=== PATIENT | female | born 1995 | race Caucasian/White ===

== ENCOUNTER 2023-07-09 10:13 | Emergency (ER) | payer OTHER, SELFPAY ==
[2023-07-09 10:18] VITALS: BP 100/71; PULSE 56; RESP 14; TEMP 36.7; O2SAT 100; BMI 18.5
--- NOTE | 2023-07-09 10:22 | ECG_ITS ---
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
--- NOTE | 2023-07-09 10:28 | XR_ITS ---
The [address] [address] Patient Name: PEYTON BALES MRN: [id number] date: 1995 Sex: F Assigned Patient Location: ER Current Patient Location: ER Accession/Order Number: [id number] Exam Date: 07/09/2023 10:50 Report Date: 07/09/2023 11:11 At the request of: APOLONIA HART Procedure: XR acute abdomen series EXAM: XR acute abdomen series HISTORY: chest pain, abdominal pain COMPARISON: CT angiography chest study dated 12/27/2021 TECHNIQUE: PA view of the chest was obtained. Supine and upright views of the abdomen were obtained. FINDINGS: Heart and mediastinal contours are unremarkable in appearance. No acute infiltrate or consolidations are seen. No obvious pneumothorax. Mild convexity of the dorsal spine to the right. A loop recorder is noted on the left. There is air seen in large and small bowel loops. Bowel gas pattern is grossly nonspecific. No evidence of bowel obstruction or free intraperitoneal air. No obvious pneumothorax. Mild convexity of the lumbar spine to the left. A few calcifications are seen overlying the pelvis compatible with phleboliths. XR/XR acute abdomen series IMPRESSION: No acute process seen in the chest. Grossly nonspecific abdomen. Electronically authenticated by: GLORIA LARES Date: 07/09/2023 11:11
--- NOTE | 2023-07-09 10:42 | ED.GENADUL1 ---
HPI - General Adult General Chief complaint: Abdominal Pain Stated complaint: CHEST PAIN/ABD PAIN Time Seen by Provider: 07/09/23 10:16 Source: patient Mode of arrival: walk-in History of Present Illness HPI narrative: Patient woke at 6am with mid sternal chest pain and nausea. No vomiting. She developed lower mid abdominal/suprapubic pain a few days ago but denied any urinary symptoms. She sees cardiology through [facility]. She denied chance of and had BTL. Related Data Home Medications Medication Instructions Recorded Confirmed flecainide 100 mg tablet 100 mg PO BID 07/09/23 07/09/23 verapamil 120 mg 24 hr 120 mg PO QPM 07/09/23 07/09/23 capsule,extended release Previous Rx's Medication Instructions Recorded nabumetone 750 mg tablet 750 mg PO BID PRN pain #14 tabs 07/09/23 ondansetron 4 mg disintegrating 4 mg PO Q6H PRN nausea and 07/09/23 tablet vomiting #20 tabs Allergies Allergy/AdvReac Type Severity Reaction Status Date / Time No Known Drug Allergies Allergy Verified 07/09/23 10:20 [facility] Medical History (Updated 07/09/23 @ 11:47 by Apolonia Hart) Bradycardia ?R00.1 - Bradycardia, unspecified (ICD-10) PVC (premature ventricular contraction) ?I49.3 - Ventricular premature depolarization (ICD-10) Exam Constitutional Vital Signs, click to edit/add: Last Vital Signs Temp 98.1 F 07/09/23 10:18 Pulse 56 L 07/09/23 10:18 Resp 14 07/09/23 10:18 BP 100/71 07/09/23 10:18 Pulse Ox 100 07/09/23 10:18 O2 Del Method Room Air 07/09/23 10:18 Course Vital Signs Vital signs: Vital Signs Temperature 98.1 F 07/09/23 10:18 Pulse Rate 56 L 07/09/23 10:18 Respiratory Rate 14 07/09/23 10:18 Blood Pressure 100/71 07/09/23 10:18 Pulse Oximetry 100 07/09/23 10:18 Oxygen Delivery Method Room Air 07/09/23 10:18 Temperature 98.1 F 07/09/23 10:18 Pulse Rate 56 L 07/09/23 10:18 Respiratory Rate 14 07/09/23 10:18 Blood Pressure 100/71 07/09/23 10:18 Pulse Oximetry 100 07/09/23 10:18 Oxygen Delivery Method Room Air 07/09/23 10:18 Medical Decision Making MDM Narrative Medical decision making narrative: 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 Blood drawn and sent for evaluation. Xrays of the chest and abdomen ordered. Urine sent for testing. CBC, CMP, EKG, CXR and Abd XRays did not reveal any worrisome findings. Patient declined offer for CT abd/pelvis. Patient felt better after ED treatment. She was discharged home with prescriptions for zofran and Relafen. Discussed soft bland diet until abdominal pain subsides. Lab Data Lab results reviewed: Yes I reviewed the patient's lab results Labs: Lab Results 07/09/23 07/09/23 Range/Units 10:00 10:34 WBC 4.6 (4.0-11.0) 10^3/uL RBC 4.46 (4.20-5.40) 10^6/uL Hgb 12.8 (12.0-16.0) g/dL Hct 39.2 (36.0-48.0) % MCV 87.9 (81.0-99.0) fL MCH 28.7 (26.7-34.0) pg MCHC 32.7 (29.9-35.2) g/dL RDW 12.0 (11.0-15.0) % Plt Count 279 (150-450) 10^3/uL MPV 8.8 L (9.5-13.5) fL Neut % (Auto) 60.6 (43.0-75.0) % Lymph % (Auto) 29.5 (20.5-60.0) % [place] % (Auto) 7.1 (1.7-12.0) % Eos % (Auto) 1.7 (0.9-7.0) % Baso % (Auto) 1.1 (0.2-2.0) % Neut # (Auto) 2.8 (1.4-6.5) 10^3/uL Lymph # (Auto) 1.4 (1.2-3.8) 10^3/uL [place] # (Auto) 0.3 (0.3-0.8) 10^3/uL Eos # (Auto) 0.1 (0.0-0.7) 10^3/uL Baso # (Auto) 0.1 (0.0-0.1) 10^3/uL Abs Immat Gran (auto) 0.00 (0.00-0.03) 10^3/uL Imm/Tot Granulo (auto) 0.0 (0.0-0.5) % Sodium 141 (136-145) mmol/L Potassium 3.9 (3.5-5.1) mmol/L Chloride 105 (98-107) mmol/L Carbon Dioxide 29.7 (21.0-32.0) mmol/L Anion Gap 10.2 BUN 11.0 (7.0-18.0) mg/dL Creatinine 0.65 (0.55-1.02) mg/dL Est GFR ( Amer) >60 (>=60) Est GFR (Non-Af Amer) >60 (>=60) BUN/Creatinine Ratio 16.9 Glucose 83 (74-106) mg/dL Calcium 8.7 (8.5-10.1) mg/dL Total Bilirubin 0.4 (0.2-1.0) mg/dL AST 7 L (15-37) U/L ALT 16 (14-59) U/L Alkaline Phosphatase 37 L (46-116) U/L Troponin I High Sens <4.0 L (4.0-51.3) pg/mL Total Protein 7.1 (6.4-8.2) g/dL Albumin 3.7 (3.4-5.0) g/dL Globulin 3.4 g/dL Albumin/Globulin Ratio 1.1 Lipase 23.0 (16.0-77.0) U/L Urine Color Yellow (YELLOW) Urine Clarity Clear (CLEAR) Urine pH 8.5 (5.0-9.0) Ur Specific [place] 1.015 (1.005-1.025) Urine Protein Trace (NEG/TRACE) mg/dL Urine Glucose (UA) Negative (NEGATIVE) mg/dL Urine Ketones Negative (NEGATIVE) mg/dL Urine Occult Blood Negative (NEGATIVE) Urine Nitrite Negative (NEGATIVE) Urine Bilirubin Negative (NEGATIVE) Urine Urobilinogen 0.2 (0.2-1.0) EU/dL Ur Leukocyte Esterase Negative (NEGATIVE) Imaging Data xrays abdomen and chest: Radiologist's impression: ITS Impressions Chest/Abdomen X-ray 07/09/23 10:28 IMPRESSION: No acute process seen in the chest. Grossly nonspecific abdomen. Electronically authenticated by: GLORIA LARES Date: 07/09/2023 11:11 Patient Name: PEYTON BALES MRN: [id number] date: 1995 Sex: F Assigned Patient Location: ER Current Patient Location: ER Accession/Order Number: [id number] Exam Date: 07/09/2023 10:50 Report Date: 07/09/2023 11:11 At the request of: APOLONIA HART Procedure: XR acute abdomen series EXAM: XR acute abdomen series HISTORY: chest pain, abdominal pain COMPARISON: CT angiography chest study dated 12/27/2021 TECHNIQUE: PA view of the chest was obtained. Supine and upright views of the abdomen were obtained. FINDINGS: Heart and mediastinal contours are unremarkable in appearance. No acute infiltrate or consolidations are seen. No obvious pneumothorax. Mild convexity of the dorsal spine to the right. A loop recorder is noted on the left. There is air seen in large and small bowel loops. Bowel gas pattern is grossly nonspecific. No evidence of bowel obstruction or free intraperitoneal air. No obvious pneumothorax. Mild convexity of the lumbar spine to the left. A few calcifications are seen overlying the pelvis compatible with phleboliths. IMPRESSION: No acute process seen in the chest. Grossly nonspecific abdomen. Electronically authenticated by: GLORIA LARES Date: 07/09/2023 11:11 Discharge Plan Discharge Chief Complaint: Abdominal Pain Clinical Impression: Abdominal pain, Chest pain Patient Disposition: Home, Self-Care Time of Disposition Decision: 11:47 Prescriptions / Home Meds: New nabumetone 750 mg tablet 750 mg PO BID PRN (Reason: pain) Qty: 14 0RF ondansetron 4 mg tablet,disintegrating 4 mg PO Q6H PRN (Reason: nausea and vomiting) Qty: 20 0RF No Action flecainide 100 mg tablet 100 mg PO BID verapamil 120 mg capsule,ext rel. pellets 24 hr 120 mg PO QPM Instructions: Chest Pain (ED), Acute Abdominal Pain (ED) Stand Alone Forms: Portal Instructions Referrals: Josette TONEY [Primary Care Provider] - 1 week
[2023-07-09 10:43] LABS: Basophils Absolute Auto 0.1 10^3/uL (0.0-0.1); Basophils Percent Auto 1.1 % (0.2-2.0); Eosinophils Absolute Auto 0.1 10^3/uL (0.0-0.7); Eosinophils Percent Auto 1.7 % (0.9-7.0); Hematocrit 39.2 % (36.0-48.0); Hemoglobin 12.8 g/dL (12.0-16.0); Lymphocytes Absolute Auto 1.4 10^3/uL (1.2-3.8); Lymphocytes Percent Auto 29.5 % (20.5-60.0); Mean Corpuscular HGB Conc 32.7 g/dL (29.9-35.2); Mean Corpuscular Hemoglobin 28.7 pg (26.7-34.0); Mean Corpuscular Volume 87.9 fL (81.0-99.0); Mean Platelet Volume 8.8 fL (9.5-13.5); Monocytes Absolute Auto 0.3 10^3/uL (0.3-0.8); Monocytes Percent Auto 7.1 % (1.7-12.0); Neutrophils Absolute Auto 2.8 10^3/uL (1.4-6.5); Neutrophils Percent Auto 60.6 % (43.0-75.0); Platelet Count 279 10^3/uL (150-450); Red Blood Count 4.46 10^6/uL (4.20-5.40); White Blood Count 4.6 10^3/uL (4.0-11.0)
[2023-07-09 10:58] LABS: Alanine Aminotransferase 16 U/L (14-59); Albumin Globulin Ratio 1.1; Albumin Level 3.7 g/dL (3.4-5.0); Alkaline Phosphatase 37 U/L (46-116); Anion Gap 10.2; Aspartate Amino Transferase 7 U/L (15-37); BUN Creatinine Ratio 16.9; Bilirubin Total 0.4 mg/dL (0.2-1.0); Calcium 8.7 mg/dL (8.5-10.1); Carbon Dioxide 29.7 mmol/L (21.0-32.0); Chloride 105 mmol/L (98-107); Estimated GFR (African America >60 (>=60); Estimated GFR (Non-African Ame >60 (>=60); Globulin 3.4 g/dL; Glucose 83 mg/dL (74-106); Potassium 3.9 mmol/L (3.5-5.1); Sodium 141 mmol/L (136-145); Total Protein 7.1 g/dL (6.4-8.2); Troponin I High Sensitivity <4.0 pg/mL (4.0-51.3)
[2023-07-09] MEDS: ONDANSETRON PF 4 MG/2 ML VIAL IV (10:58)
[2023-07-09] MEDS: 0.9 % SODIUM CHLORIDE 1,000 ML 999 ML IV (11:08)
[2023-07-09 11:35] LABS: Bilirubin Urine NEGATIVE (NEGATIVE); Blood Urine NEGATIVE (NEGATIVE); Clarity Urine CLEAR (CLEAR); Color Urine YELLOW (YELLOW); Glucose Urine UA NEGATIVE (NEGATIVE); Ketones Urine NEGATIVE (NEGATIVE); Leukocyte Esterase Urine NEGATIVE (NEGATIVE); Nitrite Urine NEGATIVE (NEGATIVE); Protein Urine TRACE mg/dL (NEG/TRACE); Specific Gravity Urine 1.015 (1.005-1.025); Urobilinogen Urine 0.2 EU/dL (0.2-1.0); pH Urine 8.5 (5.0-9.0)
[2023-07-09 11:40] LABS: Urine Microscopic Indicated NO
[2023-07-09] MEDS: KETOROLAC TROMETHAMINE 30 MG/ML VIAL IVP (11:40)
[2023-07-09] MEDS: HYOSCYAMINE SULFATE 0.125 MG TAB.SUBL SL (11:40)
== END 2023-07-09 11:54 | disposition home or self-care (01) ==
PROVIDERS: Emergency Provider Emergency Medicine; PCP Family Medicine
DX: R07.9 Chest pain, unspecified (principal); R10.9 Unspecified abdominal pain; Z79.899 Other long term (current) drug therapy
CPT/HCPCS: 36415; 74022; 80053; 81003; 83690; 84484; 85025; 93005; 96374; 96375; 99284; J1885; J2405

== ENCOUNTER 2024-01-08 08:40 | Emergency (ER) | payer OTHER, SELFPAY ==
[2024-01-08] VITALS (13 sets, daily range): BP systolic 99–106; BP diastolic 66–75; PULSE 54–58; TEMP 36.7; O2SAT 98–100; BMI 18.1
--- OUTSIDE RECORDS SUMMARY | 2024-01-08 08:55 | XMS_ITS | CCD ---
Author Organization [facility] Care Team Providers Care Philosophy Faculty Member Name Role Phone Jus Lopez Unavailable Josette HANDLEY Primary Care Physician Jus Lopez Unavailable Jenn Handley Jr. Primary Care Provider Nadya Beck MD Unavailable DR Josette HANDLEY Primary Care Unavailable JENISE, DR ERNIE Barkley Consulting Unavailable DAMIÁN BURNETTE Admitting Unavailable DAMIÁN BURNETTE Attending Unavailable DAMIÁN BURNETTE Consulting Unavailable TANNER, DR BARKSDALE Attending Unavailable DR Josette HANDLEY Primary Care Unavailable JENISE, DR ERNIE Barkley Consulting Unavailable DR APOLONIA HART Admitting Unavailable TANNER, DR BARKSDALE Consulting Unavailable Jus Lopez Unavailable Jenn Handley Jr. Primary Care Provider Nadya Beck MD Unavailable [phone] Jus Lopez Unavailable Jenn Handley Jr. Primary Care Provider Nadya Beck MD Unavailable DO Amber Handley Primary Care Provider MD Marcos Mann Attending Provider Jus Lopez Unavailable MD Reta Alva Emergency Provider Amber Handley Primary Care Unavailable Marcos Mann Admitting Unavailable Marcos Mann Attending Unavailable Reta Alva Attending Unavailable Amber Handley Primary Care Unavailable Reta Alva Admitting Unavailable Amber Handley Primary Care Unavailable Marcos Mann Admitting Unavailable Marcos Mann Attending Unavailable Jus Lopez PA-C Unavailable [phone] Nadya Beck MD Unavailable Emmanuelle Lawrence DO, George Robert Primary Care Provi yulissa Nadya Beck MD Unavailable LAURIE WHITNEY, AJ Referring Unavailable EMMANUELLE JR JENN HERNANDEZ Primary Care Unavail able EMMANUELLE LUONG, [facility] Primary Care Unavail able LAURIE WHITNEY, AJ Attending Unavailable LAURIE WHITNEY, AJ Admitting Unavailable AJ SULLIVAN MD Attending Unavailable LAURIE WHITNEY, AJ Referring Unavailable WENDYGRACIELA LUONG, JENN HERNANDEZ Primary Care Unavail able EMMANUELLE LUONG, JENN DAVID Primary Care Unavail able DUNCAN VALLADARES Referring Unavailabl e DUNCAN VALLADARES Referring Unavailabl e EMMANUELLE LUONG, JENN HERNANDEZ [facility] Unavail able EMMANUELLE LUONG, JENN HERNANDEZ [facility] Care Unavail able AJ SULLIVAN MD Referring Unavailable EMMANUELLE LUONG, JENN DAVID [facility] Unavail able BENJAMINTOPHEROREN Attending Unavailable BENJAMIN, OREN Referring Unavailable WENDYGRACIELA LUONG, JENN HERNANDEZ [facility] Care Unavail able BENJAMIN OREN Referring Unavailable ROGERSJAMES LUONG, JENN HERNANDEZ Primary Care Unavail able DUNCAN VALLADARES Referring Unavailabl pee EMMANUELLE LUONG, JENN DAVID Primary Care Unavail able DUNCAN VALLADARES Referring Unavailabl e DUNCAN VALLADARES Attending Unavailabl pee HANDLEY JR, JENN HERNANDEZ [facility] Care Unavail able DUNCAN VALLADARES Referring Unavailabl e EMMANUELLE LUONG, JENN DAVID Primary Care Unavail able DUNCAN VALLADARES Referring Unavailabl e DUNCAN VALLADARES Attending Unavailabl e EMMANUELLE LUONG, JENN DAVID Primary Care Unavail able DUNCAN VALLADARSE Referring Unavailabl e EMMANUELLE LUONG, JENN DAVID Primary Care Unavail able DUNCAN VALLADARES Referring Unavailabl e EMMANUELLE LUONG, JENN DAVID Primary Care Unavail able Jenn Handley DO Primary Care Provider Jus Rizzo Unavailable JENN HANDLEY Attending Unavailable JENN HANDLEY Referring Unavailable JENN HANDLEY Referring Unavailable Corky Gore Attending Unavailable Dennis Mcbride Attending Unavailable Allergies Allergy Classification Reported Allergen(s) Allergy Type Date of Onset Reaction(s) Facility (20 sources) Adhesive Tape-Silicones; Translations: [ADHESIVE TAPE-SILICONES] Drug Allergy 1 Rash [facility] (9 sources) Cat Dander; Translations: [CAT DANDER] Drug Allergy 1 Other: See Comments [facility] (2 sources) Penicillin G Drug Allergy 3 Rash [facility] (2 sources) Cat Hair Extract Allergy to substance 1 Hives [facility] (2 sources) Wound Dressing Adhesive Drug Allergy 1 Rash [facility] Medications Current Medications Medication Drug Class(es) Dates Sig (Normalized) Sig (Original) cannabidiol 100 mg/ml oral solution (3 sources) Start: 07-03-2021 cannabidiol 100 mg/mL oral liquid See Instructions, Refills(s) 0 Start Date: 07/03/21 Status: Ordered celecoxib 200 mg oral capsule (1 source) Nonsteroidal Anti-inflammatory Drug Start: 08-01-2023 take 1 capsule by mouth in the morning celecoxib (CeleBREX) 200 MG capsule Indications: Numbness in feet , Cervical radiculopathy , Swollen lymph nodes Take 1 capsule (200 mg) by mouth in the morning. 30 capsule 1 08/01/2023 Active medroxyPROGESTERone acetate 5 mg oral tablet (1 source) Progestin Start: 08-15-2023 End: 08-20-2023 take 2 tablets by mouth once daily Provera 5 mg Tab 10 mg = 2 tab(s), Oral, Daily, X 5 day(s), # 10 tab(s), Refills(s) 0, Pharmacy: [id number], 170, cm, 08/15/23 12:47:00 EST, Height/Length Dosing, 52.9, kg, 08/15/23 12:47:00 EST, Weight Dosing Start Date: 08/15/23 Stop Date: 08/20/23 Status: Ordered metoprolol tartrate 25 mg oral tablet (17 sources) beta-Adrenergic Hipolito Start: 04-12-2021 End: 10-24-2021 take 1 tablet by mouth twice daily Metoprolol tartrate 25 mg Tab 25 mg = 1 tab(s), Oral, BID, # 60 tab(s), Refills(s) 0 Start Date: 04/12/21 Status: Ordered Start: 01-17-2021 End: 01-29-2023 take 12.5 mg by mouth twice daily Metoprolol Tartrate Discontinued 12.5 MG PO Twice daily January 17, 2021 12:00am January 29, 2023 7:47am Comment on above: Take 1 tablet by negrita th twice daily. potassium chloride 1.33 meq oral tablet (3 sources) Start: 04-12-2021 take 1 tablet by mouth once daily potassium chloride 99 mg oral tablet 99 mg = 1 tab(s), Oral, Daily, # 100 tab(s), Refills(s) 0 Start Date: 04/12/21 Status: Ordered Start: 04-12-2021 take 1 tablet by negrita th once daily potassium chloride 99 mg oral tablet 99 mg = 1 tab(s), Oral, Daily, # 100 tab(s), Refills(s) 0 Start Date: 04/12/21 Status: Ordered Multivitamins (3 sources) Start: 04-12-2021 take 1 tablet by mouth once daily Multivitamins 1 tab(s), Oral, Daily, Refill(s) 0 Start Date: 04/12/21 Status: Ordered traMADol hydrochloride 50 mg oral tablet (1 source) Opioid Agonist Start: 01-29-2023 take 50 mg by mouth every six hours Tramadol Active 50 MG PO Q6H 20 January 29, 2023 12:00am Zofran ODT 4 mg Tab-Dis (3 sources) Start: 04-12-2021 take 1 tablet by mouth three times daily Zofran ODT 4 mg Tab-Dis 4 mg = 1 tab(s), Oral, TID, # 15 tab(s), Refills(s) 0 Start Date: 04/12/21 Status: Ordered Completed/Discontinued Medications Medication Drug Class(es) Dates Sig (Normalized) Sig (Original) acetaminophen 300 mg / HYDROcodone bitartrate 7.5 mg oral tablet (3 sources) Opioid Agonist Start: 04-29-2018 End: 09-04-2019 take 1 tablet by mouth every four to six hours Hydrocodone-Aceta minophen Discontinued 1 TAB PO EVERY 4-6 HOURS 40 7 April 29, 2018 September 04, 2019 10:28am cetirizine hydrochloride 10 mg oral capsule (3 sources) Histamine-1 Receptor Antagonist Start: 04-08-2018 End: 09-04-2019 take 1 tablet by mouth once daily Cetirizine Discontinued 1 TAB PO Daily April 08, 2018 12:00am September 04, 2019 10:28am codeine phosphate 2 mg/ml / promethazine hydrochloride 1.25 mg/ml oral solution (3 sources) Opioid Agonist, Phenothiazine Start: 09-02-2017 End: 04-08-2018 take 1 mL by mouth every four to six hours Promethazine-Code ine Discontinued 5 ML PO EVERY 4-6 HOURS 118 September 02, 2017 1:00am April 08, 2018 10:19am dicyclomine hydrochloride 20 mg oral tablet (4 sources) Anticholinergic Start: 01-08-2023 End: 08-01-2023 take 1 tablet by mouth in the morning dicyclomine (Bentyl) 20 MG tablet Take 20 mg by mouth in the morning and 20 mg before bedtime. 0 01/09/2023 08/01/2023 Discontinued docusate sodium 100 mg oral capsule (2 sources) Start: 01-08-2023 End: 01-29-2023 take 1 capsule by mouth once daily in the morning Docusate Sodium (Colace) 100 mg capsule Discontinued 100 MG PO Every morning January 08, 2023 12:00am January 29, 2023 7:46am Ethinyl Estradiol / Levonorgestrel (11 sources) Progestin, Estrogen, Progestin-containing Intrauterine Device Start: 08-09-2021 take 1 tablet by mouth once daily levonorgestrel-et hinyl estradiol 0.15-0.03 mg per tab Take 1 tablet by mouth once daily. 28 tablet 4 08/09/2021 Active Start: 08-09-2021 End: 12-27-2021 take 1 tablet by mouth once daily levonorgestrel-ethinyl estradiol 0.15-0.03 mg per tab Take 1 tablet by mouth once daily. 28 tablet 4 08/09/2021 12/27/2021 Active End: 03-07-2023 take 1 tablet by mouth once daily levonorgestrel-ethinyl estradiol 0.15-0.03 mg per tab Take 1 tablet by mouth once daily. 0 03/07/2023 Discontinued take 1 tablet by negrita th once daily levonorgestrel-ethinyl estradiol 0.15-0.03 mg per tab Take 1 tablet by mouth once daily. 0 Active Comment on above: Take 1 tablet by negrita th once daily. flecainide acetate 100 mg oral tablet (9 sources) Antiarrhythmic Start: 3 End: 4 take 1 tablet by mouth every twelve hours flecainide (TAMBOCOR) 100 mg tablet Take 1 tablet by mouth every 12 hours. 180 tablet 0 05/30/2023 09/24/2023 Discontinued (Side Effects) Start: 03-08-2023 End: 06-06-2023 take 1 tablet by mouth every twelve hours flecainide (TAMBOCOR) 50 mg tablet Take 1 tablet by mouth every 12 hours. 180 tablet 0 03/08/2023 05/30/2023 Discontinued take 1 tablet by negrita th every twelve hours flecainide (Tambocor) 100 MG tablet Take 100 mg by mouth every 12 (twelve) hours 0 Active Comment on above: Take 1 tablet by negrita th every 12 hours. fluticasone propionate 0.05 mg/actuat metered dose nasal spray (5 sources) Corticosteroid Start: 01-11-20 End: 01-10-20 24 take 2 spray(s) nasal route in the morning fluticasone (Flonase) 50 MCG/ACT nasal spray Indications: Viral upper respiratory tract infection Administer 2 sprays into each nostril in the morning. Shake gently. Before first use, prime pump. After use, clean tip and replace cap.. 16 g 11 01/10/2023 08/01/2023 Discontinued Start: 04-08-2018 End: 09-04-2019 Fluticasone Propionate Disco ntinued 1 SPRAY INTRANASAL Daily April 08, 2018 12:00am September 04, 2019 10:28am ibuprofen 600 mg oral tablet (7 sources) Nonsteroidal Anti-inflammatory Drug Start: 01-08-2023 End: 01-29-2023 Ibuprofen Discontinued 600 MG PO Every 6 hours January 08, 2023 12:00am January 29, 2023 7:47am do not exceed 4 doses in a 24 hour period Start: 07-05-2021 End: 08-01-2023 take 1 tablet by mouth every six hours as needed ibuprofen 600 MG tablet Take 600 mg by mouth every 6 (six) hours if needed. 0 01/09/2023 08/01/2023 Discontinued levonorgestrel 0.445903 mg/hr intrauterine system (3 sources) Progestin, Progestin-containing Intrauterine Device Start: 09-02-2017 End: 09-04-2019 Levonorgestrel (Liletta) 19.5 mcg/24 hour (4 years) Intrauterine Device Discontinued 1 INSERT INTRAUTERI Once September 02, 2017 1:00am September 04, 2019 10:28am Magnesium (3 sources) Start: 09-07-2020 End: 01-08-2023 take 200 mg by mouth once daily Magnesium Discontinued 200 MG PO Daily September 07, 2020 12:00am January 08, 2023 7:39pm Start: 09-07-2020 take 200 mg by mouth once danna y Magnesium Active 200 MG PO Daily September 07, 2020 12:00am magnesium oxide 400 mg oral tablet (20 sources) Start: 04-12-2021 take 1 tablet by mouth once daily magnesium oxide (MAG-OX) 400 mg (241.3 mg magnesium) tablet Indications: Frequent PVCs Take 1 tablet by mouth once daily. 90 tablet 3 01/02/2022 Active Comment on above: Take 1 tablet by negrita th once daily. magnesium oxide 240 mg magnesium pwpk (4 sources) End: 01-02-2022 magnesium oxide 240 mg magnesium pwpk Take by mouth once daily. 0 01/02/2022 Discontinued magnesium oxide 240 mg magnesium pwpk Take by mouth once daily. 0 Active magnesium oxide 240 mg magnesium pwpk Take by mouth. 0 Active Comment on above: Take by mouth. Take by mouth once d aily. nabumetone 750 mg oral tablet (2 sources) Nonsteroidal Anti-inflammatory Drug Start: 07-09-19 24 End: 08-01-19 24 take 1 tablet by mouth in the morning nabumetone (Relafen) 750 MG tablet Take 750 mg by mouth in the morning and 750 mg before bedtime. 0 07/09/2023 08/01/2023 Discontinued naproxen 500 mg oral tablet (3 sources) Nonsteroidal Anti-inflammatory Drug Start: 07-30-19 End: 09-08-19 21 take 1 tablet by mouth every twelve hours at mealtime Naproxen (Naprosyn) 500 mg Tablet Discontinued 500 MG PO Q12H July 30, 2020 1:00am September 07, 2020 3:10pm administer with food or milk ondansetron 4 mg oral tablet (3 sources) Serotonin-3 Receptor Antagonist Start: 09-04-19 End: 09-08-19 take 1 tablet by mouth every eight hours Ondansetron Hcl (Zofran) 4 mg tablet Discontinued 4 MG PO Q8H 03 27September 04, 2019 12:00am September 07, 2020 3:10pm pantoprazole 40 mg delayed release oral tablet (3 sources) Proton Pump Inhibitor Start: 09-04-19 End: 09-08-19 take 1 tablet by mouth once daily Pantoprazole (Protonix) 40 mg tablet,delayed release (DR/EC) Discontinued 40 MG PO Daily 04 03September 04, 2019 12:00am September 07, 2020 3:10pm penicillin v potassium 500 mg oral tablet (3 sources) Start: 03-12-20 End: 06-04-20 17 take 500 mg by mouth twice daily Penicillin V Potassium Discontinued 500 MG PO Twice daily March 12, 2017 12:00am June 04, 2017 5:19pm potassium 99 mg extended release oral tablet (3 sources) Start: 09-08-19 End: 01-09-20 take 99 mg by mouth once daily Potassium Discontinued 99 MG PO Daily September 07, 2020 12:00am January 08, 2023 7:41pm potassium gluconate 2.5 meq oral tablet (8 sources) Potassium 99 mg tab Take by mouth. 0 Active Comment on above: Take by mouth. 25/iron fum/folic/dha (-1 ORAL) (3 sources) End: 10-25-19 22 25/iron fum/folic/dha (-1 ORAL) Take by mouth. 0 10/24/2021 Discontinued (Course of therapy completed) 25/iron fum/folic/dha (-1 ORAL) Take by mouth. 0 Active Comment on above: Take by mouth. [id number] Usn-Qg-Sf4-Dha ( Plus Dha) 27 mg iron-1 mg -312 mg-250 mg combo pack (3 sources) Start: 01-17-2021 End: 01-08-2023 [id number] Cpa-Kz-Lr1-Dha ( Plus Dha) 27 mg iron-1 mg -312 mg-250 mg combo pack Discontinued 1 PKG PO Daily January 17, 2021 12:00am January 08, 2023 7:41pm Start: 01-17-2021 [id number] Fyh-Ev-Hw5-Dha ( Plus Dha) 27 mg iron-1 mg -312 mg-250 mg combo pack Active 1 PKG PO Daily January 17, 2021 12:00am prochlorperazine 10 mg oral tablet (3 sources) Phenothiazine Start: 06-06-2021 End: 10-24-2021 take 1 tablet by mouth every six hours as needed prochlorperazine (COMPAZINE) 10 mg tablet Take 1 tablet by mouth every 6 hours as needed for nausea/vomiting. 30 tablet 1 06/06/2021 10/24/2021 Discontinued (Course of therapy completed) Comment on above: Take 1 tablet by negrita th every 6 hours as needed for nausea/vomiting. 24 hr verapamil hydrochloride 120 mg extended release oral capsule (20 sources) Calcium Channel Hipolito Start: 09-24-2023 End: 09-24-2023 take 1 capsule by mouth once daily at bedtime verapamil ER (VERELAN) 120 mg 24 hr capsule Take 1 capsule by mouth daily at bedtime. 90 capsule 3 09/24/2023 09/24/2023 Discontinued Start: 09-24-2023 take 1 capsule by mo ut twice daily verapamil ER (VERELAN) 120 mg 24 hr capsule Take 1 capsule by mouth two times a day. 180 capsule 3 09/24/2023 Active Start: 07-26-2023 End: 2023 take 1 capsule by mouth once daily at bedtime verapamil ER (VERELAN) 120 mg 24 hr capsule Take 1 capsule by mouth daily at bedtime. 90 capsule 3 07/26/2023 2023 Discontinued Start: 03-15-2022 End: 08-16-2022 take 1 capsule by mouth once daily at bedtime verapamil ER (VERELAN) 120 mg 24 hr capsule Take 1 capsule by mouth daily at bedtime. 90 capsule 3 08/17/2022 Active take 1 tablet by negrita th every twelve hours verapamil SR (Calan SR) 120 MG ER tablet Take 120 mg by mouth every 12 (twelve) hours. 0 Active Comment on above: Take 1 capsule by mo uth daily at bedtime. Take 1 capsule by mo uth two times a day. Problems Active Problems Problem Classification Problem Date Documented Da te Episodic/Chronic Abdominal pain (3 sources) Abdominal pain; Translations: [Unspecified abdominal pain] Onset: 11-23-2022 01-08-2023 Episodic Acute and chronic tonsillitis (8 sources) Chronic tonsillitis; Translations: [Chronic tonsillitis] Onset: 03-30-2017 03-07-2023 Chronic Anxiety disorders (10 sources) Mixed anxiety and depressive disorder; Translations: [Other specified anxiety disorders] Onset: 12-11-2018 03-07-2023 Chronic Cardiac dysrhythmias (20 sources) Ventricular premature beats; Translations: [Ventricular premature depolarization] Onset: 07-21-2019 Chronic Conduction disorders (2 sources) Bkav-Naemrg-Gyvcpg syndrome; Translations: [Pre-excitation syndrome] Onset: 12-01-2022 Chronic E Codes: Adverse effects of medical drugs (1 source) Flecainide adverse reaction; Translations: [Adverse effect of other antidysrhythmic drugs, initial encounter] 06-01-2023 Episodic Hemorrhage during ; abruptio placenta; placenta previa (2 sources) Threatened miscarriage; Translations: [Hemorrhage in early , unspecified] Onset: 11-23-2022 Episodic Immunizations and screening for infectious disease (3 sources) Contact with or exposure to other viral diseases; Translations: [Close exposure to 2019 novel coronavirus] 01-17-2021 Episodic Lymphadenitis (1 source) Lymphadenopathy; Translations: [Enlarged lymph nodes, unspecified] 08-01-2023 Episodic Menstrual disorders (3 sources) Amenorrhea; Translations: [Amenorrhea, unspecified] 06-04-2017 Chronic Nausea and vomiting (3 sources) Nausea and vomiting; Translations: [Nausea with vomiting, unspecified] 09-04-2019 Episodic Other aftercare (2 sources) Other tip inserter (current) drug therapy; Translations: [OTH CABLE LACER CURRENT DRUG THERAPY] Onset: 12-29-2021 Episodic Other aftercare (2 sources) Patient encounter status; Translations: [Encounter for therapeutic drug level monitoring] 03-08-2023 Episodic Other aftercare (1 source) Encounter for therapeutic drug level monitoring; Translations: [Encounter for monitoring flecainide therapy] Onset: 05-23-2023 Episodic Other bone disease and musculoskeletal deformities (2 sources) Idiopathic kyphoscoliosis; Translations: [Other idiopathic scoliosis, site unspecified] Onset: 03-15-2017 12-28-2022 Chronic Other circulatory disease (1 source) Presence of other cardiac implants and grafts; Translations: [Other specified cardiac device in situ] 05-30-2023 Chronic Other complications of (1 source) Other specified related conditions, unspecified trimester; Translations: [Other specified related conditions, unspecified trimester] Onset: 11-23-2022 Episodic Other female genital disorders (1 source) Abnormal uterine and vaginal bleeding, unspecified; Translations: [Abnormal uterine and vaginal bleeding, unspecified] Onset: 01-08-2023 Chronic Other female genital disorders (1 source) Abnormal uterine bleeding; Translations: [Other specified abnormal uterine and vaginal bleeding] Onset: 08-15-2023 Chronic Other gastrointestinal disorders (3 sources) Diarrhea; Translations: [Diarrhea, unspecified] 09-04-2019 Episodic Other gastrointestinal disorders (1 source) Constipation; Translations: [Constipation, unspecified] 08-01-2023 Episodic Other lower respiratory disease (1 source) Dyspnea; Translations: [Shortness of breath] Episodic Other nervous system disorders (8 sources) Carpal tunnel syndrome of left wrist; Translations: [Carpal tunnel syndrome, left upper limb] Onset: 11-04-2019 03-07-2023 Chronic Other nervous system disorders (1 source) Acute postoperative pain; Translations: [Other acute postprocedural pain] 01-29-2023 Episodic Other nervous system disorders (1 source) Other acute postprocedural pain; Translations: [Other acute postprocedural pain] Onset: 01-29-2023 Episodic Other nervous system disorders (1 source) Numbness of foot ; Translations: [Anesthesia of skin] 08-01-2023 Episodic Other and delivery including normal (3 sources) ; Translations: [Encounter for supervision of normal , unspecified, unspecified trimester] 11-08-2020 Episodic Other upper respiratory disease (10 sources) Allergic rhinitis; Translations: [Allergic rhinitis, unspecified] Onset: 11-23-2017 03-07-2023 Chronic Other upper respiratory infections (3 sources) Pharyngitis; Translations: [Acute pharyngitis, unspecified] 03-12-2017 Episodic Residual codes; unclassified (1 source) Impaired exercise tolerance; Translations: [Other general symptoms and signs] 05-30-2023 Episodic Spondylosis; intervertebral disc disorders; other back problems (1 source) Cervical radiculopathy; Translations: [Radiculopathy, cervical region] 08-01-2023 Episodic Substance-related disorders (4 sources) Smoker; Translations: [Nicotine dependence, unspecified, uncomplicated] Onset: 12-28-2022 09-04-2022 Chronic Comment on above: Added secondary to d ocumentation in Social History. Unclassified (1 source) CONTACT W/AND (SUSP) EXPOS COVID-19; Translations: [CONTACT W/AND (SUSP) EXPOS COVID-19] Onset: 02-16-2021 Unclassified (1 source) Encounter for sterilization; Translations: [Encounter for sterilization] Onset: 01-29-2023 Viral infection (6 sources) Acute viral disease; Translations: [Viral infection, unspecified] 09-02-2017 Episodic Past or Other Problems Problem Classification Problem Date Documented Date Episodic/Chronic Cardiac dysrhythmias (6 sources) Palpitations; Translations: [Palpitations] Onset: 12-01-2022 Episodic Conditions associated with dizziness or vertigo (20 sources) Dizziness; Translations: [Dizziness and giddiness] Onset: 01-10-2021 01-10-2021 Episodic Heart valve disorders (1 source) Other abnormalities of heart beat; Translations: [OTHER ABNORMALITIES OF HEART BEAT] Onset: 02-16-2021 Episodic Nonspecific chest pain (17 sources) Chest pain, unspecified; Translations: [Chest pain] Onset: 02-16-2021 Episodic Other complications of (19 sources) High risk ; Translations: [Supervision of high risk , unspecified, second trimester] Onset: 03-21-2021 03-21-2021 Episodic Other complications of (1 source) Other specified related conditions, second trimester; Translations: [OTH SPEC PREG RELATED COND 2ND TRI] Onset: 02-16-2021 Episodic Other female genital disorders (10 sources) Cervical intraepithelial neoplasia grade 1; Translations: [Mild cervical dysplasia] Onset: 09-06-2019 09-13-2023 Episodic Other lower respiratory disease (1 source) Shortness of breath; Translations: [SOB (shortness of breath)] Onset: 12-01-2022 Episodic Residual codes; unclassified (1 source) 19 weeks gestation of ; Translations: [19 WEEKS GESTATION OF ] Onset: 02-16-2021 Episodic Residual codes; unclassified (1 source) Other specified postprocedural states; Translations: [History of loop recorder] Onset: 12-01-2022 Episodic Sexually transmitted infections (not HIV or hepatitis) (2 sources) Human papilloma virus deoxyribonucleic acid test positive, high risk on vaginal specimen; Translations: [Vaginal high risk human papillomavirus (HPV) DNA test positive] Onset: 01-14-2019 12-28-2022 Episodic Syncope (20 sources) Syncope symptom; Translations: [Syncope and collapse] Onset: 05-16-2021 05-16-2021 Episodic Unclassified (1 source) Exposure to 2019 novel coronavirus; Translations: [Contact with and (suspected) exposure to COVID19] Unclassified (3 sources) Onset: 09-23-2020 Resolved: 07-03-2021 07-05-2021 Results Test Name Value Interpretation Reference Range Facility B hCG [facility] 08-15-2023 Beta HCG ( test) Ql Negative Normal [facility] Comment on above: Performed By: #### [id number] ####[facility] [id number] [place] [address] [facility] 08-15-2023 Anion gap [Moles/Vol] 9 mmol/L Normal 6-16 [facility] Comment on above: Performed By: #### 2 [id number] ####[facility] [id number] [place] [address] BUN/Creat Ratio 17 No Units Normal 10-20 [facility] Comment on above: Performed By: #### 2 [id number] ####[facility] [id number] [place] [address] Calcium [Mass/Vol] 9.3 mg/dL Normal 8.9-11.1 [facility] Comment on above: Performed By: #### 2 [id number], 27689237, 8578743, 49054544, 0379940, 8779960 ####[facility] [address] [place] [address] Chloride [Moles/Vol] 104 mmol/L Normal 101-111 [facility] Comment on above: Performed By: #### 2 540734, 85649421, 2628570, 62544951, 5566425, 1630728 ####[facility] [address] [place] [address] CO2 [Moles/Vol] 29 mmol/L Normal 21-31 [facility] Comment on above: Performed By: #### 2 263092, 74635334, 0112368, 00074611, 7108456, 1297384 ####[facility] [address] [place] [address] Creatinine [Mass/Vol] 0.7 mg/dL Normal 0.5-1.3 [facility] Comment on above: Performed By: #### 2 054222, 90141329, 0478640, 80802252, 7226368, 5295400 ####[facility] [address] [place] [address] Glucose [Mass/Vol] 75 mg/dL Normal 55-199 [facility] Comment on above: Performed By: #### 2 120535, 34028870, 3668070, 41825549, 4094576, 5682208 ####[facility] [address] [place] [address] Potassium [Moles/Vol] 4.0 mmol/L Normal 3.5-5.3 [facility] Comment on above: Performed By: #### 2 630802, 29313796, 0912620, 85408742, 6255907, 7927388 ####[facility] [address] [place] [address] Sodium [Moles/Vol] 138 mmol/L Normal 135-145 [facility] Comment on above: Performed By: #### 2 761931, 81760162, 2527106, 91532622, 0324667, 3331098 ####[facility] [address] [place] [address] Urea nitrogen [Mass/Vol] 12 mg/dL Normal 5-21 [facility] Comment on above: Performed By: #### 2 089902, 37125621, 3615538, 53401449, 8383179, 4891879 ####[address] [address] CBC w/ Auto Diffon 4 Basophil Absolute 0.0 E9/L Normal 0.0-0.2 [facility] Comment on above: Performed By: #### 2 359108, 27551892, 8771736, 69927385, 2181607, 8276605 ####[address] [address] Basophils/100 WBC (Bld) 0.7 % Normal 0.0-2.0 [facility] Comment on above: Performed By: #### 2 243818, 31750386, 7526280, 45319509, 6606134, 4163866 ####[address] [address] Eos Absolute 0.1 E9/L Normal 0.0-0.5 [facility] Comment on above: Performed By: #### 2 578494, 24672916, 0887452, 19178570, 9280449, 2639692 ####[address] [address] Eosinophils/100 WBC (Bld) 1.6 % Normal 0.0-8.0 [facility] Comment on above: Performed By: #### 2 325044, 71332619, 2295284, 40246765, 0116184, 0541551 ####[address] [address] Erythrocyte distribution width (RBC) [Ratio] 12.8 % Normal 10.9-14.2 [facility] Comment on above: Performed By: #### 2 536890, 85392884, 3402520, 31415800, 1668998, 7209257 ####[place] [address] [place] [address] Hematocrit (Bld) [Volume fraction] 41.0 % Normal 34.0-46.0 [facility] Comment on above: Performed By: #### 2 419856, 12304541, 1426630, 52353335, 1400090, 9434164 ####[address] [address] Hemoglobin (Bld) [Mass/Vol] 13.9 g/dL Normal 12.0-16.0 [facility] Comment on above: Performed By: #### 2 676276, 23616610, 6033056, 62299359, 3014110, 6843322 ####[address] [address] Lymph Absolute 1.3 E9/L Normal 1.0-4.0 [facility] Comment on above: Performed By: #### 2 462472, 77758810, 5810703, 24119049, 4072814, 5560510 ####[address] [address] Lymphocytes/100 WBC (Bld) 19.9 % Normal 14.0-50.0 [facility] Comment on above: Performed By: #### 2 716363, 14347635, 9017752, 82584603, 5219024, 9155812 ####[address] [address] MCH (RBC) [Entitic mass] 29.1 pg Normal 27.0-34.0 [facility] Comment on above: Performed By: #### 2 542090, 25034107, 2328635, 31925008, 7886818, 3332147 ####[address] [address] MCHC (RBC) [Mass/Vol] 33.8 g/dL Normal 31.4-36.0 [facility] Comment on above: Performed By: #### 2 058693, 25836157, 9932839, 43608832, 1399319, 0678175 ####[facility] [address] [place] [address] MCV (RBC) [Entitic vol] 86.1 fL Normal 80.0-100.0 [facility] Comment on above: Performed By: #### 2 925749, 94552313, 4527141, 57300856, 4445152, 9704589 ####[place] [address] Meagher Absolute 0.7 E9/L Normal 0.2-1.0 [facility] Comment on above: Performed By: #### 2 263168, 74756776, 8193692, 91202839, 5953773, 9180309 ####[place] [address] Monocytes/100 WBC (Bld) 9.8 % Normal 4.0-14.0 [facility] Comment on above: Performed By: #### 2 665408, 54084542, 9070260, 37049148, 1293956, 7197462 ####[address] [address] Neutro Absolute 4.6 E9/L Normal 2.0-7.5 [facility] Comment on above: Performed By: #### 2 693914, 42869665, 7332019, 43952887, 2826326, 5898041 ####[place] [address] Neutro Auto 68.0 % Normal 36.0-75.0 [facility] Comment on above: Performed By: #### 2 298811, 85567429, 5861901, 34983917, 0608578, 2834298 ####[address] [address] Platelet 289.0 E9/L Normal 150.0-500. 0 [facility] Comment on above: Performed By: #### 2 027893, 36944393, 1985476, 64349496, 0516195, 9404496 ####[facility] [address] [place] [address] Platelet mean volume (Bld) [Entitic vol] 7.3 fL Normal 6.4-10.8 [facility] Comment on above: Performed By: #### 2 071195, 51712417, 3379726, 16644971, 3142077, 7028523 ####[facility] [address] [place] [address] RBC 4.8 E12/L Normal 4.3-5.9 [facility] Comment on above: Performed By: #### 2 455839, 34360914, 6224712, 38039970, 2235874, 1987910 ####[facility] [address] [place] [address] WBC 6.7 E9/L Normal 4.0-11.0 [facility] Comment on above: Performed By: #### 2 728402, 65126490, 0750992, 75509832, 8201014, 8723760 ####[facility] [address] [place] [address] CHEMISTRYOrdered By: SYSTEM SYSTEM on 08-15-2023 Albumin [Mass/Vol] 4.5 g/dL Normal 3.3 - 5.0 gm/dL Remisol Chem Albumin/Globulin [Mass ratio] 2.0 {ratio} Normal 1.1 - 2.2 [facility] Alk Phos 38 [iU]/d Normal 21 - 98 Int._Unit/ L [facility] Chem ALT 9 [iU]/d Normal 6 - 46 Int._Unit/ L [facility] Anion gap [Moles/Vol] 9 mmol/L Normal 6 - 16 mEq/L [facility] AST 9 [iU]/d Normal 5 - 43 Int._Unit/ L [facility] Bili Direct 0.1 mg/dL Normal 0.0 - 0.4 mg/dL [facility] Bili Indirect 0.4 mg/dL Normal 0.1 - 0.9 mg/dL [facility] Bili Total 0.5 mg/dL Normal 0.0 - 1.1 mg/dL [facility] Calcium [Mass/Vol] 9.3 mg/dL Normal 8.9 - 11. 1 mg/dL [facility] Chloride [Moles/Vol] 104 mmol/L Normal 101 - 1 11 mmol/L [facility] CO2 [Moles/Vol] 29 mmol/L Normal 21 - 31 mmol/L [facility] Creatinine [Mass/Vol] 0.7 mg/dL Normal 0.5 - 1.3 mg/dL [facility] eGFR 119 mL/min/1.73 m2 Normal >=59mL/mi n /1.73 m2 [facility] Globulin (S) [Mass/Vol] 2.2 g/dL Normal 1.4 - 4.0 gm/dL [facility] Glucose [Mass/Vol] 75 mg/dL Normal 55 - 199 mg/dL [facility] Lipase Lvl 15 unit/L Normal 13 - 58 unit/L [facility] Potassium [Moles/Vol] 4.0 mmol/L Normal 3.5 - 5.3 mmol/L [facility] Protein [Mass/Vol] 6.7 g/dL Normal 6.0 - 7.8 gm/dL [facility] Sodium [Moles/Vol] 138 mmol/L Normal 135 - 145 mmol/L [facility] Urea nitrogen [Mass/Vol] 12 mg/dL Normal 5 - 21 mg/dL [facility] Urea nitrogen/Creatinine [Mass ratio] 17 mg/mg Normal 10 - 20 [facility] Consent for Treatmenton 07-27 Consent for Treatment [id number] Normal [facility] Discharge Instructionson Discharge Instructions [id number] Normal [facility] ED Clinical Summaryon 2023 ED Clinical Summary (Inserted Image. Nova ble to display) [place] [id number] ED Clinical Summary Person Information Name: SIMIN BALES/Amadeo Age: 27 Years : 1995 Sex: Female Language: Polish PCP: Josette HANDLEY DO Marital Status: Single Phone: [phone] Visit Id: Visit Reason: Abdominal pain; Vaginal bleeding; VAG BLEEDING Speciality: Acuity: 3 Enc Type: Emergency Med Service: Emergency Arrival: 08/15/2023 12:32:55 Discharge: 08/15/2023 15:35:50 LOS: 000 03:03 Checkin: 08/15/2023 12:32:55 Checkout: 08/15/2023 15:35:50 Dispo Type: Home (Routine DC) EVENTS: Event Name Event Status Request Date/Time Start Date/Time Complete Date/Time Arrive Complete 08/15/2023 12:32:55 08/15/2023 12:32:55 08/15/2023 12:32:55 Document Home Meds Request 08/15/2023 12:32:55 Triage Complete 08/15/2023 12:32:55 08/15/2023 12:47:14 08/15/2023 12:47:14 Pending Labs Complete 08/15/2023 12:49:19 08/15/2023 13:08:33 Lab Complete 08/15/2023 12:49:19 08/15/2023 13:08:33 Urine Collect Complete 08/15/2023 12:49:19 08/15/2023 13:08:33 Pending Labs Complete 08/15/2023 12:50:49 08/15/2023 13:25:35 Lab Complete 08/15/2023 12:50:49 08/15/2023 13:25:35 Pending Labs Complete 08/15/2023 13:04:42 08/15/2023 13:04:42 08/15/2023 13:12:11 Pending Labs Complete 08/15/2023 13:06:38 08/15/2023 13:06:38 08/15/2023 13:25:35 Lab Complete 08/15/2023 13:06:38 08/15/2023 13:06:38 08/15/2023 13:25:35 Bed Assign Complete 08/15/2023 13:09:11 08/15/2023 13:09:11 08/15/2023 13:09:11 Dr Exam Complete 08/15/2023 13:09:11 08/15/2023 14:04:31 08/15/2023 14:04:31 RN Exam Complete 08/15/2023 13:09:11 08/15/2023 14:20:56 08/15/2023 14:20:56 Pending Labs Complete 08/15/2023 13:11:32 08/15/2023 13:11:32 08/15/2023 13:11:32 Pending Labs Complete 08/15/2023 13:12:38 08/15/2023 13:12:38 08/15/2023 14:13:53 Registration Complete 08/15/2023 14:04:31 08/15/2023 14:08:23 08/15/2023 14:08:23 Dr Exam Complete 08/15/2023 14:04:33 08/15/2023 14:04:33 08/15/2023 14:04:33 Reg Complete Request 08/15/2023 14:08:23 Reg Bed Request Complete 08/15/2023 14:08:23 08/15/2023 14:08:23 08/15/2023 14:08:23 Discharge Complete 08/15/2023 15:15:28 08/15/2023 15:35:56 08/15/2023 15:35:56 Transfer Complete 08/15/2023 15:35:56 08/15/2023 15:35:56 08/15/2023 15:35:56 ADDRESS: [facility] [place] [id number] PHYS DOC NOTES: MEDICAL INFORMATION: Prescriptions Given: New Medications [facility], [address] [place] [id number], [phone] medroxyPROGESTERone (Provera 5 mg Tab) 2 Tablets By Mouth every day for 5 Days. Refills: 0. Medications to Continue with No Changes Other Medications cannabidiol (cannabidiol 100 mg/mL oral liquid) ibuprofen (ibuprofen 600 mg Tab) 1 Tablets By Mouth every 6 hours. Refills: 0. magnesium oxide (magnesium oxide 400 mg Tab) 1 Tablets By Mouth every day. metoprolol (Metoprolol tartrate 25 mg Tab) 1 Tablets By Mouth 2 times a day. multivitamin, ( Multivitamins) 1 Tablets By Mouth every day. ondansetron (Zofran ODT 4 mg Tab-Dis) 1 Tablets By Mouth 3 times a day. Refills: 0. potassium chloride (potassium chloride 99 mg oral tablet) 1 Tablets By Mouth every day. PATIENT EDUCATION INFORMATION: Instructions: Abnormal Uterine Bleeding Follow up: With: Address: When: Marcos Mann [address], [employer] [address] [place], [place] [id number] [employer] In 3 days 08/18/2023 DIAGNOSIS: Dysfunctional uterine bleeding Normal [facility] ED Note-Physicianon 08-15-19 ED Note-Physician Basic Information Time Seen: Corky Gore DO 08/15/2023 14:04 Chief Complaint patient c/o vaginal bleeding outside of her regular menstruation that started on sunday. roughly 3 pads a day with abdominal cramping. denies pregnacy- tubal ligation done a few months ago History of Present Illness 27-year-old female comes to the ED for evaluation of vaginal bleeding. The patient states her last menstrual period was the beginning of this month. She then had 3 to 4 days of no bleeding, and that her bleeding started again a few days ago. She estimates was going through 3 pads a day. She had some abdominal cramping at times he felt lightheaded. No syncope or near syncope. No chest pain or shortness of breath. No history of abnormal vaginal bleeding in the past. She denies any concern for with previous tubal ligation. No urinary symptoms. No prior treatments. She states she did try to see her MOWER OPERATOR, Dr. Mann, but was not able to get an appointment. Review of Systems A 10 point review of systems is negative except as noted above. Medical and Surgical History: Reviewed and noted Social history: Lives at home Tobacco: Denies Physical Exam Vitals & Measurements T: 36.7 ?C(Oral) HR: 63(Peripheral) RR: 16 BP: 98/67 SpO2: 100% HT: 170 cm WT: 52.9 kg BMI: 18.3 Nurses notes and vital signs reviewed and patient is not hypoxic. General: The patient appears well, resting comfortably. Skin: Warm, dry. Head: Atraumatic. Neck: No JVD. Eye: Normal conjunctiva. Ears, Nose, Mouth, and Throat: Moist mucous membranes. Cardiovascular: Strong distal pulses. Chest wall: Respiratory: Respirations are nonlabored. Back: Normal range of motion. Musculoskeletal: Normal ROM with no gross deformity. Gastrointestinal: Soft and nontender Urological: Neurological: Awake and alert. No focal deficits. Follows commands. Psychiatric: Cooperative. Medical Decision Making Patient presents with irregular vaginal bleeding over the last several days. She is going through 3 pads a day. She has stable vital signs. Laboratory studies are reviewed. Stable blood counts. She is not . She is placed on a short course of Provera and is to follow-up with her MOWER OPERATOR. Patient was encouraged to return to the ED if symptoms worsen or change. Assessment/Plan Dysfunctional uterine bleeding (N93.8: Other specified abnormal uterine and vaginal bleeding) Orders: medroxyPROGESTERone, 10 mg = 2 tab(s), Oral, Daily, X 5 day(s), # 10 tab(s), Refills(s) 0, Pharmacy: [facility], 170, cm, 08/15/23 12:47:00 EST, Height/Length Dosing, 52.9, kg, 08/15/23 12:47:00 EST, Weight Dosing Disposition Plan Patient Discharge Condition Disposition: Discharged home Condition: Improved and stable Counseled: Patient and/or family were counseled to workup, results, treatment plan and follow-up recommendations Discharge Prescription List Prescriptions Provera 5 mg Tab, 10 mg= 2 tab(s), Oral, Daily Follow-up With When Contact Information Marcos Mann In 3 days 08/18/2023 EST [address] [place] [phone] Business (1) Additional Instructions: Patient Education Abnormal Uterine Bleeding Attestation I performed a substantive part of the MDM during the patient?s E/M visit. I personally made or approved the documented management plan and acknowledge its risk of complications. (Independent Interpretation) My (EKG/X-Ray/US/CT) interpretation as above. (Discussion) Management/test interpretation discussed with APC. This report was transcribed using voice recognition software. Every effort was made to ensure accuracy, however, inadvertently computerized cloth shrinking tester mistakes may be present. Appropriate healthcare PPE was used in evaluating this patient. Problem List/Past Medical History Ongoing Smoker Historical Procedure/Surgical History Ablation, Carpal tunnel, Tonsillectomy. Medications Inpatient No active inpatient medications Home cannabidiol 100 mg/mL oral liquid, See Instructions ibuprofen 600 mg Tab, 600 mg= 1 tab(s), Oral, q6hr magnesium oxide 400 mg Tab, 400 mg= 1 tab(s), Oral, Daily Metoprolol tartrate 25 mg Tab, 25 mg= 1 tab(s), Oral, BID potassium chloride 99 mg oral tablet, 99 mg= 1 tab(s), Oral, Daily Multivitamins, 1 tab(s), Oral, Daily Provera 5 mg Tab, 10 mg= 2 tab(s), Oral, Daily Zofran ODT 4 mg Tab-Dis, 4 mg= 1 tab(s), Oral, TID, Not taking Allergies No Known Allergies Social History Alcohol - Denies Alcohol Use, 04/12/2021 Employment/School Work/School description: WORKS AT [employer] 07/03/2021 Substance Abuse - Denies Substance Abuse, 04/12/2021 Current, CBD oil, 07/04/2021 Tobacco - High Risk, 09/04/2022 Current vaping or e-cigarette use Smokeless Tobacco Use:., 08/15/2023 Smokeless tobacco user within last 30 days Smokeless Tobacco Use:. Vaping, 09/04/2022 Lab Results WBC: 6.7 E9/L (08/15/23 13:03:00) RBC: 4. (more content not included)... Normal [facility] Comment on above: Result Comment: Elec tronically Signed By: Kong Arboleda PA-C\.br\Date and Time Signed: 08/15/23 16:36 EST\.br\Electronically Co-Signed By: Corky Gore DO\.br\Date and Time Co-Signed: 08/15/23 17:48 EST ED Patient Education Noteon 08-15-2023 ED Patient Education Note Obstetrics and Gynecology Abnormal Uterine Bleeding Abnormal uterine bleeding is unusual bleeding from the uterus. It includes bleeding after sex, or bleeding or spotting between menstrual periods. It may also include bleeding that is heavier than normal, menstrual periods that last longer than usual, or bleeding that occurs after menopause. Abnormal uterine bleeding can affect teenagers, women in their reproductive years, women, and women who have reached menopause. Common causes of abnormal uterine bleeding include: ? . ? Abnormal growths within the lining of the uterus (polyps). ? Benign tumors or growths in the uterus (fibroids). These are not cancer. ? Infection. ? Cancer. ? Too much or too little of some hormones in the body (hormonal imbalances). Any type of abnormal bleeding should be checked by a health care provider. Many cases are minor and simple to treat, but others may be more serious. Treatment will depend on the cause of the bleeding and how severe it is. Follow these instructions at home: Medicines ? Take oojf-qvg-zwfveuv and prescription medicines only as told by your health care provider. ? Ask your health care provider about: ? Taking medicines such as aspirin and ibuprofen. These medicines can thin your blood. Do not take these medicines unless your health care provider tells you to take them. ? Taking ftyf-txk-lhhuyjs medicines, vitamins, herbs, and supplements. ? If you were prescribed iron pills, take them as told by your health care provider. Iron pills help to replace iron that your body loses because of this condition. Managing constipation In cases of severe bleeding, you may be asked to increase your iron intake to treat anemia. Doing this may cause constipation. To prevent or treat constipation, you may need to: ? Drink enough fluid to keep your urine pale yellow. ? Take ahyy-uqh-jxekbbo or prescription medicines. ? Eat foods that are high in fiber, such as beans, whole grains, and fresh fruits and vegetables. ? Limit foods that are high in fat and processed sugars, such as fried or sweet foods. Activity Alter your activity to decrease bleeding if you need to change your sanitary pad more than one time every 2 hours: ? Lie in bed with your feet raised (elevated). ? Place a cold pack on your lower abdomen. ? Rest as much as possible until the bleeding stops or slows down. General instructions ? Do not use tampons, douche, or have sex until your health care provider says these things are okay. ? Change your sanitary pads often. ? Get regular exams. These include pelvic exams and cervical cancer screenings. ? It is up to you to get the results of any tests that are done. Ask your health care provider, or the department that is doing the tests, when your results will be ready. ? Monitor your condition for any changes. For 2 months, write down: ? When your menstrual period starts. ? When your menstrual period ends. ? When any abnormal vaginal bleeding occurs. ? What problems you notice. ? Keep all follow-up visits. This is important. Contact a health care provider if: ? You have bleeding that lasts for more than one week. ? You feel dizzy at times. ? You feel nauseous or you vomit. ? You feel light-headed or weak. ? You notice any other changes that show that your condition is getting worse. Get help right away if: ? You faint. ? You have bleeding that soaks through a sanitary pad every hour. ? You have pain in the abdomen. ? You have a fever or chills. ? You become sweaty or weak. ? You pass large blood clots from your vagina. These symptoms may represent a serious problem that is an emergency. Do not wait to see if the symptoms will go away. Get medical help right away. Call your local emergency services (911 in the [place] Do not drive yourself to the hospital. Summary ? Abnormal uterine bleeding is unusual bleeding from the uterus. ? Any type of abnormal bleeding should be checked by a health care provider. Many cases are minor and simple to treat, but others may be more serious. ? Treatment will depend on the cause of the bleeding and how severe it is. ? Get help right away if you faint, you have bleeding that soaks through a sanitary pad every hour, or you pass large blood clots from your vagina. This information is not intended to replace advice given to you by your health care provider. Make sure you discuss any questions you have with your health care provider. Document Revised: 10/11/2021 Document Reviewed: 10/11/2021 Elsevier Patient Education ? 2022 [employer] Normal [facility] ED Patient Summaryon 024 ED Patient Summary (Inserted Image. Nova ble to display) [address] [address] Patient Discharge Instructions Person Information Name: SIMIN BALES Age: 27 Years Arrival Date: 08/15/2023 12:32:55 Discharge Diagnosis: Dysfunctional uterine bleeding Primary Care Physician: Josette HANDLEY DO Provider Information Primary Provider: Corky Gore DO [employer] Trouble Shooter:Kong Arboleda PA-C The exam and treatment you received in the Emergency Department were for an urgent problem and are not intended as complete care. It is important that you follow up with a doctor, nurse practitioner, or physician?s pharmacy sales assistant for ongoing care. If your symptoms become worse or you do not improve as expected and you are unable to reach your usual health care provider, you should return to the Emergency Department. We are available 24 hours a day. SIMIN BALES has been given the following list of patient education materials, prescriptions and follow-up instructions: Follow-up Instructions: With: Address: When: Marcos [address] [place] [address] [place] [phone] Business (1) In 3 days 08/18/2023 In the event that this physician does not participate in your insurance network, please consult with your insurance company to find a nearby participating provider. Patient Education Materials: Abnormal Uterine Bleeding A MESSAGE TO ALL PATIENTS REGARDING OPIOIDS PRESCRIPTION OPIOIDS: WHAT YOU NEED TO KNOW Prescription opioids can be used to help relieve oyyeksft-qk-lfxspb pain and are often prescribed following a surgery or injury, or for certain health conditions. These medications can be an important part of the treatment but also come with serious risks. It is important to work with your healthcare provider to make sure you are getting the safest, most effective care. WHAT ARE THE RISKS AND SIDE EFFECTS OF OPIOID USE? Prescription opioids carry serious risks of addiction and overdose, especially with prolonged use. An opioid overdose, often marked by slowed breathing, can cause sudden . The use of prescription opioids can have a number of side effects as well, even when taken as directed: ? Tolerance?meaning you might need to take more of the medication for the same pain relief ? Physical dependence?meaning you have symptoms of withdrawal when a medication is stopped ? Increased sensitivity to pain ? Constipation ? Nausea, vomiting, and dry mouth ? Sleepiness and dizziness ? Confusion ? Depression ? Low levels of testosterone that can result in lower sex drive, energy, and strength ? Itching and sweating RISKS ARE GREATER WITH: ? History of drug misuse, substance use disorder, or overdose ? Mental health conditions (such as depression or anxiety) ? Sleep apnea ? Older age (65 years and older) ? Avoid alcohol while taking prescription opioids. Also, unless specifically advised by your health care provider, medications to avoid include: ? Benzodiazepines (such as Xanax or Valium) ? Muscle relaxants (such as Soma or Flexeril) ? Hypnotics (such as Ambien or Lunesta) ? Other prescription opioids KNOW YOUR OPTIONS Talk to your health care provider about ways to manage your pain that don?t involve prescription opioids. Some of these options may actually work better and have fewer risks and side effects. Options may include: ? Pain relievers such as acetaminophen, ibuprofen, and naproxen ? Some medication that are also used for depression or seizures ? Physical therapy and exercise ? Cognitive behavioral therapy, a psychological, goal-directed approach, in which patients learn how to modify physical, behavioral, and emotional triggers of pain and stress. IF YOU ARE PRESCRIBED OPIOIDS FOR PAIN: ? Never take opioids in greater amounts or more often than prescribed. ? Follow up with your primary health care provider. o Work together to create a plan on how to manage your pain. o Talk about ways to help manage your pain that don?t involve prescription opioids. o Talk about any and all concerns and side effects. ? Help prevent misuse and abuse o Never sell or share prescription opioids. o Never use another person?s prescription opioids. ? Store prescription opioids in a secure place and out of reach of others (this may include visitors, children, friends, and family). ? Safely dispose of unused prescription opioids: Find your community drug take-back program or your pharmacy mail-back program, or flush them down the toilet, following guidance from the Food and Drug Administration (www.fda.gov/Drugs/Resourc esForYou). ? Visit www.cdc.gov/drugoverdose to learn about the risks of opioids abuse and overdose. ? If you believe you may be struggling with addiction, tell your health home care chaplain and ask for guidance or call SAMHSA?S National Helpline at 9-773-800-B (more content not included)... Normal [facility] HEMATOLOGYOrdered By: SYSTEM SYSTEM on 08-15-2023 Basophil Absolute 0.0 E9/L Normal 0.0 - 0.2 E9/L Remisol Heme Basophils/100 WBC (Bld) 0.7 % Normal 0.0 - 2.0 % Remisol Heme Eos Absolute 0.1 E9/L Normal 0.0 - 0.5 E9/L Remisol Heme Eosinophils/100 WBC (Bld) 1.6 % Normal 0.0 - 8.0 % Remisol Heme Erythrocyte distribution width (RBC) [Ratio] 12.8 % Normal 10.9 - 14.2 % Remisol Heme Hematocrit (Bld) [Volume fraction] 41.0 % Normal 34.0 - 46.0 % Remisol Heme Hemoglobin (Bld) [Mass/Vol] 13.9 g/dL Normal 12.0 - 16.0 gm/dL Remisol Heme Lymph Absolute 1.3 E9/L Normal 1.0 - 4.0 E9/L Remisol Heme Lymphocytes/100 WBC (Bld) 19.9 % Normal 14.0 - 50.0 % Remisol Heme MCH (RBC) [Entitic mass] 29.1 pg Normal 27.0 - 34.0 pg Remisol Heme MCHC (RBC) [Mass/Vol] 33.8 g/dL Normal 31.4 - 36.0 gm/dL Remisol Heme MCV (RBC) [Entitic vol] 86.1 fL Normal 80.0 - 100.0 fL Remisol Heme Meagher Absolute 0.7 E9/L Normal 0.2 - 1.0 E9/L Remisol Heme Monocytes/100 WBC (Bld) 9.8 % Normal 4.0 - 14.0 % Remisol Heme Neutro Absolute 4.6 E9/L Normal 2.0 - 7.5 E9/L Remisol Heme Neutro Auto 68.0 % Normal 36.0 - 75.0 % Remisol Heme Platelet 289.0 E9/L Normal 150.0 - 500.0 E9/L Remisol Heme Platelet mean volume (Bld) [Entitic vol] 7.3 fL Normal 6.4 - 10.8 fL Remisol Heme RBC 4.8 E12/L Normal 4.3 - 5.9 E12/L Remisol Heme WBC 6.7 E9/L Normal 4.0 - 11.0 E9/L Remisol Heme Hep Func Panelon 08-15-2023 Albumin [Mass/Vol] 4.5 g/dL Normal 3.3-5.0 [facility] Comment on above: Performed By: #### 2 [id number], [id number], 0299302, 71491331, 5259595, 3468264 ####[facility] [address] [place] [address] Albumin/Globulin [Mass ratio] 2.0 {ratio} Normal 1.1-2.2 [facility] Comment on above: Performed By: #### 2 134302, [id number], 3066485, 27967912, 8122002, 7445084 ####[facility] [address] [place] [address] Alk Phos 38 Int._Unit/L Normal 21-98 [facility] Comment on above: Performed By: #### 2 986536, 20894687, 0725443, 48998554, 2698320, 8145854 ####[facility] [address] [place] [address] ALT 9 Int._Unit/L Normal 6-46 [facility] Comment on above: Performed By: #### 2 081264, 68533773, 2614498, 61789068, 4066268, 2646720 ####[facility] [address] [place] [address] AST 9 Int._Unit/L Normal 5-43 [facility] Comment on above: Performed By: #### 2 783019, 51911487, 2690909, 91886260, 4732744, 9914715 ####[facility] [address] [place] [address] Bili Direct 0.1 mg/dL Normal 0.0-0.4 [facility] Comment on above: Performed By: #### 2 569303, 52341260, 5340153, 87704494, 3820366, 3521385 ####[facility] [address] [place] [address] Bili Indirect 0.4 mg/dL Normal 0.1-0.9 [facility] Comment on above: Performed By: #### 2 085801, 16353859, 3193717, 71082398, 6799417, 2973742 ####[facility] [address] [place] [address] Bili Total 0.5 mg/dL Normal 0.0-1.1 [facility] Comment on above: Performed By: #### 2 992220, 86454292, 6435857, 80996982, 4216018, 6806576 ####[facility] [address] [place] [address] Globulin (S) [Mass/Vol] 2.2 g/dL Normal 1.4-4.0 [facility] Comment on above: Performed By: #### 2 285013, 96575207, 8913435, 61121415, 1099164, 6593912 ####[address] [address] Protein [Mass/Vol] 6.7 g/dL Normal 6.0-7.8 [facility] Comment on above: Performed By: #### 2 829062, 27315011, 2612518, 03457564, 0195681, 4699866 ####[facility] [address] [place] [address] Lipase Levelon 08-15-2023 Lipase Lvl 15 unit/L Normal 13-58 [facility] Comment on above: Performed By: #### 2 767130, 18490970, 8717333, 31501498, 6936272, 3692928 ####[facility] [address] [place] [address] SEROLOGYOrdered By: Julisa Carvajal on 08-15-2023 Beta HCG ( test) Ql Negative (08/15/23 1:03 PM) Normal [facility] Man Sero UA With Cult Reflexon 2023 Bilirubin Ql (U) Negative Normal Negative [facility] Comment on above: Performed By: #### 1 [id number] ####[facility] [address] [place] [address] Clarity (U) SL CLOUDY Abnormal Clear [facility] Comment on above: Performed By: #### 1 [id number] ####[facility] [address] [place] [address] Color (U) YELLOW Normal Yellow [facility] Comment on above: Performed By: #### 1 1057702 ####[facility] [address] [place] [address] Crystals LM Ql (Urine sed) Present Normal [facility] Comment on above: Performed By: #### 1 2154443 ####[facility] [address] [place] [address] Epithelial cells.squamous LM.HPF (Urine sed) [#/Area] 5-8 Normal 0-2 [facility] Comment on above: Performed By: #### 1 2524390 ####[facility] [address] [place] [address] Glucose Test strip (U) [Mass/Vol] Negative Normal Negative [facility] Comment on above: Performed By: #### 1 6483220 ####[facility] [address] [place] [address] Hemoglobin Ql (U) 3+ Abnormal Negative [facility] Comment on above: Performed By: #### 1 9154603 ####[facility] [address] [place] [address] Ketones (U) [Mass/Vol] Negative Normal Negative Fi [facility] Comment on above: Performed By: #### 1 5248941 ####[facility] [address] [place] [address] [place].plasma/[place]. RBC (Bld) [Mass ratio] 0-3 Normal 0-3 [facility] Comment on above: Performed By: #### 1 9757901 ####[facility] [address] [place] [address] Nitrite Ql (U) Negative Normal Negative [facility] Comment on above: Performed By: #### 1 3111035 ####[facility] [address] [place] [address] pH (U) 6.5 [pH] Invalid Interpretation Code 5.0-9.0 [facility] Comment on above: Performed By: #### 1 0473027 ####[place] [address] Protein (U) [Mass/Vol] Negative Normal Negative Fi [facility] Comment on above: Performed By: #### 1 2744687 ####[place] [address] Specific gravity (U) [Rel density] 1.020 Invalid Interpretation Code 1.005-1.03 0 [facility] Comment on above: Performed By: #### 1 2978702 ####[place] [address] Type of Urine collection method Clean Catch Normal [facility] Comment on above: Performed By: #### 1 [id number] ####[place] [address] Urobilinogen Qn (U) 0.2 {Charlee'U}/dL Normal 0.0-1.0 [facility] Comment on above: Performed By: #### 1 7700037 ####[place] [address]357 WBC Auto Ql (U) Negative Normal Negative [facility] Comment on above: Performed By: #### 1 5638572 ####[place] [address]4357 WBC LM.HPF (Urine sed) [#/Area] 0-5 Normal 0-5 [facility] Comment on above: Performed By: #### 1 9346054 ####[place] [address] URINALYSISOrdered By: Lien Garcia on 08-15-2023 Bilirubin Ql (U) Negative (08/15/23 12:50 PM) Normal Negative [facility] UA Auto SS Clarity (U) Slightly Cloudy *ABN* (08/15/23 12:50 PM) Invalid Interpretation Code Clear [facility] UA Auto SS Color (U) Yellow (08/15/23 12:50 PM) Normal Yellow [facility] UA Auto SS Crystals LM Ql (Urine sed) Present (08/15/23 12:50 PM) Normal [facility] UA Auto SS Epithelial cells.squamous LM.HPF (Urine sed) [#/Area] 5-8 /HPF Normal 0-2/HPF [facility] UA Auto SS Glucose Test strip (U) [Mass/Vol] Negative (08/15/23 12:50 PM) Normal Negative [facility] UA Auto SS Hemoglobin Ql (U) 3+ *ABN* (08/15/23 12:50 PM) Invalid Interpretation Code Negative [facility] UA Auto SS Ketones (U) [Mass/Vol] Negative (08/15/23 12:50 PM) Normal Negative [facility] UA Auto SS [place].plasma/[place]. RBC (Bld) [Mass ratio] 0-3 /HPF Normal 0-3/HPF [facility] UA Auto SS Nitrite Ql (U) Negative (08/15/23 12:50 PM) Normal Negative [facility] UA Auto SS pH (U) 6.5 *NA* (08/15/23 12:50 PM) Invalid Interpretation Code 5.0 - 9.0 [facility] UA Auto SS Protein (U) [Mass/Vol] Negative (08/15/23 12:50 PM) Normal Negative [facility] UA Auto SS Specific gravity (U) [Rel density] 1.020 *NA* (08/15/23 12:50 PM) Invalid Interpretation Code 1.005 - 1.030 [facility] UA Auto SS UA Spec Desc Clean Catch (08/15/23 12:50 PM) Normal [facility] UA Auto SS Urobilinogen Qn (U) 0.4981312 {Charlee'U}/dL Normal 0.0 - 1.0 EU/dL [facility] UA Auto SS WBC Auto Ql (U) Negative (08/15/23 12:50 PM) Normal Negative [facility] UA Auto SS WBC LM.HPF (Urine sed) [#/Area] 0-5 /HPF Normal 0-5/HPF [facility] UA Auto SS eGFRon 08-15-2023 eGFR 119 mL/min/1.73 m2 Normal >=59 [facility] Comment on above: Order Comment: Order added by Discern Expert. Performed By: #### 2 258643, 73893460, 7716314, 87040798, 1487160, 9158017 ####[facility] [address] [place] [address] XR CERVICAL SPINE 2-3 VIEWSo n 08-01-2023 XR CERVICAL SPINE 2-3 VIEWS EXAM: XR CERVICAL SPINE 2-3 VIEWS DATE: 08/01/2023 5:26 PM CLINICAL HISTORY: pain and numbness in neck and right arm. COMPARISON: None available. TECHNIQUE: AP lateral and odontoid radiographs of the cervical spine were obtained. FINDINGS: Mild levoscoliosis may be exaggerated by patient positioning. There is no compression, fracture, significant subluxation, worrisome bone destruction, or other findings of concern identified. The visualized paraspinous soft tissues are unremarkable. IMPRESSION: MILD LEVOSCOLIOSIS, WHICH MAY BE EXAGGERATED BY POSITIONING. OTHERWISE, NEGATIVE CERVICAL SPINE. ELECTRONICALLY SIGNED BY: Ernie Pendleton MD Normal Not Available CNOVon 05-30-2023 CNOV Office Visit (SYNCMN ) -- SIMIN BALES ([id number]) 1995 F Date Time Provider Department 05/30/23 4:00 PM DUNCAN VALLADARES SYNN During your visit today, we recorded the following information about you: Weight Height 53.5 kg 1.689 m Duncan Valladares DO 05/30/2023 5:15 PM Signed [facility] Department of Cardiovascular Medicine SECTION OF CARDIAC PACING and ELECTROPHYSIOLOGY OUTPATIENT VISIT DATE May 30, 2023 OUTPATIENT VISIT TYPE ESTABLISHED PRIMARY CARE PHYSICIAN: Jenn Handley DO [address] [address] CHIEF COMPLAINT: palpitations HISTORY OF PRESENT ILLNESS: Ms. Bales is a 27 year old female who presents today for follow-up visit for palpitations with history of PVCs with ablation attempt by Dr. Angela 03/08/23 as well as prior ablation in 2019 at [facility]. She had few PVCs so no ablation and was started on flecainide. Intolerant of metoprolol due to hypotension , did tolerate low dose verapamil but not when we attempted to increase dose. She relates initial felt like flecainide was helping but then seemed like became tolerant and now feels the same. Her ILR confirms PVC burden 8.2% ILR check today LOOP RECORDER EVALUATION PRESENTS FOR: OPD with Dr. Valladares. PRESENTING RHYTHM: Sinus with frequent PVC's, trigeminal. BATTERY STATUS: Good ARRHYTHMIAS since the last remote on 05/05/23: There was 1 symptom activation dated 05/21/23. Review of ECG consistent with sinus rhythm/tachycardia with short burst of SVT and sudden offset to 60 bpm, followed by frequent PVC's/bigeminy. Symptoms reported: SOB, heart pounding and chest tightness. PVC burden measures 8.2%. Had PVC ablation 03/08/23. There have been no new auto detections.... Tilt test 08/23/21 Overall: The test is negative for syncope. There was resting sinus bradycardia with PVCs that suggest and outflow tract focus. Echo 05/16/21 CONCLUSIONS: - Technically difficult exam due to arrhythmia. - Exam indication: Frequent PVCs - The left ventricle is moderately dilated. Left ventricular systolic function is normal. EF = 68 ? 5% (2D biplane) Left ventricular diastolic function was not evaluated due to an arrhythmia. - The right ventricle is normal in size. Right ventricular systolic function is normal. - There are no significant valvular abnormalities. - Estimated right ventricular systolic pressure is not reported due to an insufficient tricuspid regurgitation signal. Estimated right atrial pressure is 3 mmHg based on IVC assessment. - The patient has not had a prior CC echocardiographic exam for comparison. Type of monitor: Event Monitor Enrollment dates: 04/15/2021 - 05/14/2021 Only wore 04/16-04/18 though not noted on monitor report Event monitor shows predominantly sinus and sinus with ventricular bigeminy. Symptom episodes do not have a consistent association, occurring with sinus as well as sinus with bigem NURSING INTAKE: Simin Bales was last seen in office on 12/01/22. She presented for PVC ablation and EP study with Dr. Sullivan on 03/08/23 however PVC's were not targeted due to infrequent PVC's. Device check today shows frequent PVC's 8.2% burden. Device check today showed one episode 05/21/23 short burst SVT with sudden offset to 60 bpm. She remembers standing at work for a long time, and felt sudden palpitations. She got dizzy and lightheaded and sat down, and it resolved. She reports feeling PVC's daily. Since the last visit, she has had one syncopal episode in late April. She stood up and felt like she would blackout, got lightheaded and passed out, falling to the ground. She came to shortly thereafter. She does have daily postural dizziness and lightheadedness and feels nearsyncopal with getting up, and when standing a long time. She feels clammy and gets fast palpitations when she gets up out of bed in the morning. She has constant pain and tightness in her neck and both shoulders. She gets frequent muscle cramps in her legs. She has frequent constipation, nausea, and heartburn. She has leg swelling and wears knee high compression. She vapes nicotine and THC daily. She has NOVOA with climbing stairs. She drinks 64 oz water daily. She salts her food and eats high salt foods. 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 Patient denies chest pain, orthopnea. LOOP RECORDER EVALUATION PRESENTS FOR: OPD with Dr. Valladares. PRESENTING RHYTHM: Sinus with frequent PVC's, trigeminal. BATTERY STATUS: Good ARRHYTHMIAS since the last remote on 05/05/23: There was 1 symptom activation dated 05/21/23. Review of ECG consistent with sinus rhythm/tachycardia with short burst of (more content not included)... Normal [facility] ECG COMPLETEon 05-30-2023 ECG COMPLETE Ventricular Rate : 6 5 BPM Atrial Rate : 65 BPM P-R Interval : 118 ms QRS Duration : 98 ms Q-T Interval : 404 ms QTC Calculation(Bazett) : 420 ms Calculated P [place] : 25 degrees Calculated R [place] : 66 degrees Calculated T [place] : 52 degrees NORMAL SINUS RHYTHM INCOMPLETE RIGHT BUNDLE BRANCH BLOCK BORDERLINE ECG Confirmed by AUDREY WHITNEY, PENNY ([id number]) on 06/26/2023 2:57:27 PM NAME : SIMIN BALES PID : [id number] : 1995 Gender : Female Race : ORD : [id number] Procedure Date : May 30 2023 14:43:13 Edit Date : Jun 26 2023 14:57:28 Diagnosis: NORMAL SINUS RHYTHM INCOMPLETE RIGHT BUNDLE BRANCH BLOCK BORDERLINE ECG Confirmed by PENNY VENTURA MD ([id number]) on 06/26/2023 2:57:27 PM Test Reason : Location : 314 : [facility] J1-4 Overread By : PENNY VENTURA MD Edited By : PENNY VENTURA MD Referred By : DUNCAN VALLADARES Acquired by : GADIEL WHALEY [facility] ECHOon 05-23-2023 Echocardiography Echocardiography Rep ort: Transthoracic Echo [facility] J1-5 Date of service: 05/23/2023 10:41:40 AM MACHINE OPERATOR Ordering physician: OREN CAMPOVERDE Indication: Frequent PVCs Technologist: Dennis Guzman Fellow: Yasmin [facility] MD Interpreting physician: Timothy Ramírez MD PATIENT: Name: MS. SIMIN BALES : 1995 Age: 27 years Gender: F Previous cardiovascular interventions: VT Ablation (03/08/2023) Primary rhythm: sinus. Secondary rhythm: PVC. Height: 168.90 cm BSA: 1.60 m Weight: 54.90 kg BMI: 19.2 kg/m Heart rate 79 bpm Blood pressure 109/79 mmHg Technically difficult exam due to body habitus and arrythmia, thin rib spaces. Color Doppler was utilized to interrogate the cardiac valves assessed and spectral Doppler was utilized to determine the flow velocities and pressure gradients reported in this exam. Myocardial strain analysis was performed in this exam to aid in the assessment of cardiac function. MEASUREMENTS: Value Indexed Normal Max aortic dimension 2.7 cm Ao < 3.8 Left atrial volume 41 ml (biplane A-L) 26 ml/m Roseline <= 34 LV ID (diastole) 4.3 cm (2D) 2.68 cm/m LV ID (systole) 2.8 cm (2D) 1.74 cm/m IVS, leaflet tips 0.5 cm (2D) Posterior wall thickness 0.7 cm (2D) Left ventricular mass 73 g (2D) 45 g/m Global peak long strain -18.5 % LV end diastolic volume 81 ml (2D 4-ch.) 50.2 ml/m 29<=EDVi<62 LV end diastolic volume 82 ml (2D biplane) 51.2 ml/m 29<=EDVi<62 Ejection Fraction 60 % (visual est.) EF > 54 FINDINGS: LEFT VENTRICLE The left ventricle is normal in size. There is prominent trabeculation of the left ventricle. Left ventricular systolic function is normal. Global LV myocardial strain is normal. Normal left ventricular diastolic function. There is a single false tendon. Mitral annular lateral E/e': 5.7. Mitral annular septal E/e': 8.0. Wall Motion: The apex is not visualized. All remaining scored segments are normal. RIGHT VENTRICLE The right ventricle is normal in size. Right ventricular systolic function is normal. RV systolic tissue Doppler velocity is 14.0 cm/s. Tricuspid annular displacement is 3.2 cm. Estimated right ventricular systolic pressure is not reported due to an insufficient tricuspid regurgitation signal. Estimated right atrial pressure is 3 mmHg based on IVC assessment. LEFT ATRIUM The left atrial cavity is normal in size. RIGHT ATRIUM The right atrial cavity is normal in size. Inferior Vena Cava: The inferior vena cava appears normal measuring 1.6 cm. The vessel decreases greater than 50 percent with inspiration. MITRAL VALVE There is trace mitral valve regurgitation. There is no thickening. The pressure half time is 66 msec. The peak mitral E/A ratio is 1.46. The average mitral E/e' ratio is 6.9. The mitral flow deceleration time is 227 msec. TRICUSPID VALVE There is trace tricuspid valve regurgitation. There is no thickening. AORTIC VALVE There is mild (1+) aortic valve regurgitation. Likely Tricuspid aortic valve. There is mild thickening. May be artifactual from gain settings. The peak gradient is 5 mmHg (peak velocity = 115.5 cm/s). PULMONIC VALVE The pulmonic valve was not seen or not interrogated. There is trace pulmonic valve regurgitation. AORTA The visualized aorta is normal in size. Measurements - Mid ascending aorta 2.7 cm. PULMONARY ARTERIES The pulmonary arteries are unseen or not interrogated. PERICARDIUM There is a trivial pericardial effusion. CONCLUSIONS: - Technically difficult exam due to body habitus and arrythmia, thin rib spaces. - Exam indication: Frequent PVCs - The left ventricle is normal in size. Left ventricular systolic function is normal. EF = 60 5% (visual est.) Frequent PVC's during study, with some beat to beat variability in LV function (especially during the initial part of the study). - The right ventricle is normal in size. Right ventricular systolic function is normal. - Exam was compared with the prior CC echocardiographic exam performed on 05/16/2021. Mild AI evident today. * * * Final * * * [employer] : [id number] Normal [facility] EXERCISE STRESS ECG (WITHOUT IMAGING)on 05-23-2023 EXERCISE STRESS ECG (WITHOUT IMAGING) Stress Pl Sql Developer Report: Exercise Stress ECG (without Imaging) [place] [id number] Date of service: 05/23/2023 10:12:14 AM MACHINE OPERATOR Supervising physician: Paul Napier MD PATIENT: Name: MS. SIMIN BALES Age: 27 years Gender: F The supervising physician was in the department and immediately available. Final Stress ECG Report: Exercise Stress ECG (without Imaging) [place] [id number] Date of service: 05/23/2023 10:12:14 AM MACHINE OPERATOR Ordering physician: ROBBY RAPP lawn specialist: Nura Garcia Calculus Teacher: Sylvia Arauz Interpreting physician: Alberto Rodriguez MD Patient name: MS. SIMIN BALES Age: 27 years Gender: F Height: 168.91 cm BSA: 1.60 m Weight: 54.89 kg BMI: 19.2 kg/m Indication: Chest pressure / Chest tightness, Palpitations, Shortness of breath, Syncope / near-syncope and Dizziness or vertigo Stress ECG Conclusion: Conclusion: Abnormal due to frequent ventricular ectopy in recovery Comments: Patient c/o 02/01 dizziness during peak stress. Resolved during recovery Stress ECG Summary: The patient's resting heart rate was 76 bpm and blood pressure was 94/68 mmHg. The patient exercised according to the Derrick protocol. The estimated end-exercise MET level achieved using the FRIEND equation was 6.9, which is within the 10th to 25th percentile for age and sex. The estimated end-exercise MET level achieved using the previous ACSM equation was 15.2. The test was terminated due to dizziness and general fatigue and the total exercise time was 7 minutes and 6 seconds. Other symptoms during the test included dizziness. The maximum heart rate was 171 bpm, which is 90% of the predicted heart rate for age. This is an adequate heart rate response. Peak blood pressure was 152/88 mmHg. The double product achieved was [address]. Previous cardiovascular interventions: VT Ablation (03/08/2023) Resting ECG: Normal Sinus Rhythm, Trigeminal PVCs and Frequent PVCs (>7/Min) Symptoms at rest: No symptoms Exercise Protocol: Derrick Stress Exercise Table: +-----+ +------- -+ +---+---+---+- ---+---+----+ Stage Speed (MPH) Grade(%) Time (min) HR SYS HEDY RPE SOB METS +-----+ +------- -+ +---+---+---+- ---+---+----+ 1 1.7 10.0 3.0 122 114 76 6.0 0.5 4.2 +-----+ +------- -+ +---+---+---+- ---+---+----+ 2 2.5 12.0 6.0 148 152 88 13.0 3.0 6.1 +-----+ +------- -+ +---+---+---+- ---+---+----+ 3 3.4 14.0 9.0 8.3 +-----+ +------- -+ +---+---+---+- ---+---+----+ 4 4.2 16.0 12.0 10.5 +-----+ +------- -+ +---+---+---+- ---+---+----+ 4 4.2 16.0 12.0 10.5 +-----+ +------- -+ +---+---+---+- ---+---+----+ +-----+ +------- -+ +---+---+---+- ---+---+----+ +-----+ +------- -+ +---+---+---+- ---+---+----+ 3 3.4 14.0 9.0 8.3 +-----+ +------- -+ +---+---+---+- ---+---+----+ +-----+ +------- --+ +---+---+---+ ----+---+----+ Speed (MPH) Grade (%) Time (min) HR SYS HEDY RPE SOB METS +-----+ +------- --+ +---+---+---+ ----+---+----+ Final 3.4 14.0 7.10 171 152 88 19.0 8.0 6.9 +-----+ +------- --+ +---+---+---+ ----+---+----+ +------+ + ---------+ Stage Arrhythmias Symptoms +------+ + ---------+ 1 FREQ PVC (>7/min) +------+ + ---------+ Dizziness +------+ + ---------+ +-----+---------+ Symptoms +-----+---------+ Final Dizziness +-----+---------+ Recovery Table: +------+ +------ --+ +---+---+---+ ----+ Stage Speed (MPH) Grade(%) Time (min) HR SYS HEDY METS +------+ +------ --+ +---+---+---+ ----+ 1 1.5 2.5 1.0 139 150 82 2.7 +------+ +------ --+ +---+---+---+ ----+ 2 1.5 2.5 2.0 116 140 86 2.7 +------+ +------ --+ +---+---+---+ ----+ 3 3.0 93 114 72 +------+ +------ --+ +---+---+---+ ----+ 4 5.0 93 114 78 +------+ +------ --+ +---+---+---+ ----+ +-----+ + Stage Arrhythmias +-----+ + 3 Occas PVC (3-7/min) +-----+ + 4 FREQ PVC (>7/min) +-----+ + Stress Observations: Resting HR: 76 bpm Peak HR: 171 bpm (90% MPHR) Resting BP: 94 / 68 mmHg Peak BP: 152 / 88 mmHg Total exercise time: 7 minutes 6 seconds METS achieved: 6.9 Chronotropic response index (CRI): 0.83 Heart rate (more content not included)... Normal [facility] [place] 03-09-2023 CNPN Telephone (NURSMN) -- SIMIN BALES ([id number]) 1995 F Date Time Provider Department 03/09/23 ASHLEY ALFRED During your visit today, we recorded the following information about you: Ashley Alfred RN 03/09/2023 9:47 AM Signed We are calling to check on you since you left the hospital yesterday. Are you having any medical concerns we can help you with today? -No new medical concerns today. Call Outcome: All Clear All clear and closing statement given. PD RN verified patients name and date of . Ashley Alfred RN Allergies As of Date: 03/09/2023 Noted Allergy Reaction ADHESIVE TAPE-SILICONES 09/21/2020 2 - Rash Comments: Heart monitor electrodes FLORENCIO GLYNN 04/10/2021 14 - Other: See Comments Date Reviewed: 03/08/2023 Reviewed by: Kimi Hernandez, [place] - Fully Assessed Reason for Visit: Follow Up Phone Call [[id number]] Cmt: follow up call all clear. Prescriptions as of 03/09/2023 - flecainide (TAMBOCOR) 50 mg tablet Take 1 tablet by mouth every 12 hours. - verapamil ER (VERELAN) 120 mg 24 hr capsule Take 1 capsule by mouth daily at bedtime. - magnesium oxide (MAG-OX) 400 mg (241.3 mg magnesium) tablet Take 1 tablet by mouth once daily. Problem List As Of Date 03/09/2023 Noted Resolved Frequent PVCs [I49.3] 01/10/2021 Dizziness [R42] 01/10/2021 Maternal arrhythmia affecting in thir*02/24/2021 08/10/2021 care / genetics [O09.92] 03/21/2021 Recurrent syncope [R55] 05/16/2021 Rh negative state in antepartum period [O26.899*06/02/2021 08/10/2021 PSVT (paroxysmal supraventricular tachycardia) *01/02/2022 Allergic rhinitis [J30.9] 11/23/2017 Cardiac arrhythmia [I49.9] 12/14/2020 Carpal tunnel syndrome of left wrist [G56.02] 11/04/2019 Cervical intraepithelial neoplasia grade 1 [N87*02/28/2019 Chest pain [R07.9] 02/16/2021 Chronic tonsillitis [J35.01] 03/30/2017 Mixed anxiety and depressive disorder [F41.8] 12/11/2018 Encounter Status:Closed by ASHLEY ALFRED on 03/09/23 [facility] ANES POSTPROC EVALon 023 ANES POSTPROC EVAL HNO ID: [id number] Author: Theresa Callejas MD Service: ? Author Type: Anesthesiologist Type: Anesthesia Postprocedure Evaluation Filed: 03/08/2023 10:23 AM Note Text: POST ANESTHESIA EVALUATION NOTE : 1995 Procedure Summary Date: 03/08/23 Room / Location: [address] [facility] Anesthesia Start: 743 Anesthesia Stop: 905 Procedure: IV PUSH SINGLE OR INITIAL SUBSTANCE/DRUG Diagnosis: PVC's (premature ventricular contractions) (PVC's (premature ventricular contractions) [I49.3]) Surgeons: Aj Sullivan MD Responsible Provider: Theresa Callejas MD Anesthesia Type: MAC ASA Status: 2 Anesthesia Type: MAC Last Vitals Vitals Value Taken Time BP 111/78 03/08/23 1000 Temp 36.3 03/08/23 1023 Pulse 47 03/08/23 1015 Resp 18 03/08/23 0923 SpO2 100 % 03/08/23 1015 Vitals shown include unvalidated device data. Post Anesthesia Patient Status Patient Evaluation: bedside. Anticipated Disposition: phase 2 then home. Neurological Status: aware and responsive. Pulmonary Status: breathing comfortably on room air Airway Control: returned to baseline unsupported. Pain Management: clinically adequate Postoperative Hydration: acceptable. Intraoperative Events: no significant anesthesia events Post Operative Nausea/Vomiting Status: no significant post operative nausea or vomiting Recommendation: further care per PACU/ICU/floor team. Anesthesia Observations No Documentation SIGNATURE: Júnior Cardenas MD PATIENT NAME: Simin Bales DATE: March 08, 2023 TIME: 10:23 AM CSN: [id number] Normal [facility] ANES PRE-OPon 03-08-2023 ANES PRE-OP HNO ID: [id number] Author: Theresa Callejas MD Service: ? Author Type: Anesthesiologist Type: Anesthesia Preprocedure Evaluation Filed: 03/08/2023 10:23 AM Note Text: ANESTHESIOLOGY DAY OF SURGERY NOTE : 1995 Procedure Information Anesthesia Start Date/Time: 03/08/23 0744 Procedure: IV PUSH SINGLE OR INITIAL SUBSTANCE/DRUG Location: [address] [facility] Surgeons: Aj Sullivan MD Estimated body mass index is 19.24 kg/m? as calculated from the following: Height as of 03/07/23: 168.9 cm (5' 6.5 ). Weight as of this encounter: 54.9 kg (121 lb 0.5 oz). Most recent hematocrit and potassium results: Hematocrit 38.3 03/07/2023 Potassium 3.7 03/07/2023 Relevant Problems CARDIO (+) Cardiac arrhythmia (+) Frequent PVCs (+) PSVT (paroxysmal supraventricular tachycardia) (HCC) Other (+) Chronic tonsillitis I - PHYSICAL EVALUATION AIRWAY Patient intubated: No. Tracheostomy tube not present Mallampati: I. TM distance: >3 FB. Neck ROM: full ROM without neurological symptoms. Mouth opening: adequate. Short neck: no. Thick neck: no II - ANESTHESIA PLAN ASA Score: 2 Anesthetic Plan: general Airway type: ETT The patient is not a current smoker. NPO Status: adequate Beta Hipolito Monitoring Plan Monitoring plan: standard ASA. Post Procedure Analgesic Plan Postoperative analgesic plan: multimodal analgesia. Informed Consent Anesthetic risks, benefits, alternatives, personnel and consent discussed: yes. Patient / Responsible Libertarian agrees to proceed: yes Patient / Surrogate agrees to blood products: Yes DNR status not reviewed with patient and/or family prior to surgery. Significant changes in the patient condition since the History and Physical, not otherwise documented in primary service progress note: no. Potential Anesthesia issues that may suggest increased risk of complications or contraindication to planned procedure: none. Vitals Value Taken Time BP 111/67 03/08/23731 Pulse 54 03/08/23731 Resp 18 03/08/23731 Temp 36.3 ?C (97.4 ?F) 03/08/23731 SpO2 100 % 03/08/23731 Facility-Administered Medications as of 03/08/2023 Medication Dose Route Frequency - verapamil ER 120 mg cap(s) (VERELAN) 120 mg ORAL AT BEDTIME - flecainide 50 mg tab(s) (TAMBOCOR) 50 mg ORAL q 12 H Outpatient Medications as of 03/08/2023 Medication Sig - flecainide (TAMBOCOR) 50 mg tablet Take 1 tablet by mouth every 12 hours. - verapamil ER (VERELAN) 120 mg 24 hr capsule Take 1 capsule by mouth daily at bedtime. - magnesium oxide (MAG-OX) 400 mg (241.3 mg magnesium) tablet Take 1 tablet by mouth once daily. I have interviewed and examined the patient. I have reviewed the medical record and/or the pre-anesthesia evaluation, pertinent labs, and test results. This contains updated information obtained within 48 hours of Surgery/Procedure. SIGNATURE: Júnior Cardenas MD PATIENT NAME: Simin Bales DATE: March 08, 2023 TIME: 10:22 AM CSN: [id number] Normal [facility] [id number] 03-08-2023 ECG01 Ventricular Rate : 4 6 BPM Atrial Rate : 46 BPM P-R Interval : 130 ms QRS Duration : 92 ms Q-T Interval : 500 ms QTC Calculation(Bazett) : 437 ms Calculated P [place] : 44 degrees Calculated R [place] : 72 degrees Calculated T [place] : 60 degrees SINUS BRADYCARDIA RSR' PATTERN IN V1 SUGGESTS INCOMPLETE RIGHT BUNDLE BRANCH BLOCK BORDERLINE ECG Confirmed by AUDREY WHITNEY, PENNY ([id number]) on 03/13/2023 10:39:59 AM NAME : SIMIN BALES PID : [id number] : 1995 Gender : Female Race : ORD : Procedure Date : Mar 08 2023 11:54:16 Edit Date : Mar 13 2023 10:40:01 Diagnosis: SINUS BRADYCARDIA RSR' PATTERN IN V1 SUGGESTS INCOMPLETE RIGHT BUNDLE BRANCH BLOCK BORDERLINE ECG Confirmed by PENNY VENTURA MD ([id number]) on 03/13/2023 10:39:59 AM Test Reason : 921 Location : 23 : J21NS J21NS Overread By : PENNY VENTURA MD Edited By : PENNY VENTURA MD Referred By : AJ SULLIVAN Acquired by : [id number], Normal [facility] Basic metabolic 2000 panelon 03-07-2023 Anion gap [Moles/Vol] 13 mmol/L Normal -18 [facility] Comment on above: Order Comment: Speci men Type: BLOOD SPECIMENOrdering Facility: [facility] Address: [address] [place] [address] Performed By: #### 2 4321-2 ####[facility] LABCLIA [id number] [place] [address] [place] Calcium [Mass/Vol] 9.3 mg/dL Normal 8.5-10.2 [facility] Comment on above: Order Comment: Speci men Type: BLOOD SPECIMENOrdering Facility: [facility] Address: [address] [place] [address] Performed By: #### 2 4321-2 ####[facility] LABCLIA [id number] [place] [address] [place] Chloride [Moles/Vol] 103 mmol/L Normal 97-105 [facility] Comment on above: Order Comment: Speci men Type: BLOOD SPECIMENOrdering Facility: [facility] Address: [address] [place] [address] Performed By: #### 2 4321-2 ####[facility] LABCLIA [id number] [place] [address] [place] CO2 [Moles/Vol] 24 mmol/L Normal 22-30 [facility] Comment on above: Order Comment: Speci men Type: BLOOD SPECIMENOrdering Facility: [facility] Address: [address] [address] Performed By: #### 2 4321-2 ####[facility] LABCLIA [id number] [place] [address] [place] Creatinine [Mass/Vol] 0.65 mg/dL Normal 0.58-0.96 [facility] Comment on above: Order Comment: Speci men Type: BLOOD SPECIMENOrdering Facility: [facility] Address: [address] [address] Performed By: #### 2 4321-2 ####[facility] LABCLIA [id number] [address] Creatinine and Glomerular filtration rate.predicted panel (S/P/Bld) 122 mL/min/1.73m??? Normal >=60 [facility] Comment on above: Order Comment: Speci men Type: BLOOD SPECIMENOrdering Facility: [facility] Address: [address] [place] [address] Result Comment: Sugey mated Glomerular Filtration Rate (eGFR) is calculated using the 2020 CKD-EPI creatinine equation. This equation utilizes serum creatinine, sex, and age as parameters. The creatinine assay has traceable calibration to isotope dilution-mass spectrometry. Refer to KDIGO guidelines for clinical interpretation. In patients with unstable renal function, e.g. those with acute kidney injury, the eGFR may not accurately reflect actual GFR. Performed By: #### 2 4321-2 ####[facility] LABCLIA [id number] [place] [address] [place] Glucose [Mass/Vol] 84 mg/dL Normal 74-99 [facility] Comment on above: Order Comment: Speci men Type: BLOOD SPECIMENOrdering Facility: [facility] Address: [address] [place] [address] Result Comment: The [place] Diabetes Association (ADA) provides guidance for cutoff values for fasting glucose and random glucose. The ADA defines fasting as no caloric intake for at least 8 hours. Fasting plasma glucose results between 100 to 125 mg/dL indicate increased risk for diabetes (prediabetes). Fasting plasma glucose results greater than or equal to 126 mg/dL meet the criteria for diagnosis of diabetes. In the absence of unequivocal hyperglycemia, results should be confirmed by repeat testing. In a patient with classic symptoms of hyperglycemia or hyperglycemic crisis, random plasma glucose results greater than or equal to 200 mg/dL meet the criteria for diagnosis of diabetes. Reference: Standards of Medical Care in Diabetes 2016, [place] Diabetes Association. Diabetes Care. 2016.39(Suppl 1). Performed By: #### 2 4321-2 ####[facility] LABCLIA [id number] [place] [address] [place] Potassium [Moles/Vol] 3.7 mmol/L Normal 3.7-5.1 [facility] Comment on above: Order Comment: Speci men Type: BLOOD SPECIMENOrdering Facility: [facility] Address: [address] [address] Performed By: #### 2 4321-2 ####[facility] LABIA [id number] [place] [address] [place] Sodium [Moles/Vol] 140 mmol/L Normal 136-144 [facility] Comment on above: Order Comment: Speci men Type: BLOOD SPECIMENOrdering Facility: [facility] Address: [address] [address] Performed By: #### 2 4321-2 ####[facility] LABCLIA [id number] [place] [address] [place] Urea nitrogen [Mass/Vol] 8 mg/dL Normal 7-21 [facility] Comment on above: Order Comment: Speci men Type: BLOOD SPECIMENOrdering Facility: [facility] Address: [address] [address] Performed By: #### 2 4321-2 ####[facility] LABCLIA [id number] [place] [address] [place] CBC panel Auto (Bld)on 03-07 Erythrocyte distribution width (RBC) [Ratio] 12.0 % Normal 11.5-15.0 [facility] Comment on above: Order Comment: Speci men Type: BLOOD SPECIMENOrdering Facility: [facility] Address: [address] [place] [address] Performed By: #### 5 8410-2 ####[facility] [id number] [place] [address] [place] Hematocrit (Bld) [Volume fraction] 38.3 % Normal 36.0-46.0 [facility] Comment on above: Order Comment: Speci men Type: BLOOD SPECIMENOrdering Facility: [facility] Address: [address] [place] [address] Performed By: #### 5 8410-2 ####[facility] [id number] [address] [place] Hemoglobin (Bld) [Mass/Vol] 12.7 g/dL Normal 11.5-15.5 [facility] Comment on above: Order Comment: Speci men Type: BLOOD SPECIMENOrdering Facility: [facility] Address: [address] [place] [address] Performed By: #### 5 8410-2 ####[facility] [id number] [place] [address] [place] MCH (RBC) [Entitic mass] 29.0 pg Normal 26.0-34.0 [facility] Comment on above: Order Comment: Speci men Type: BLOOD SPECIMENOrdering Facility: [facility] Address: [address] [place] [address] Performed By: #### 5 8410-2 ####[facility] LABNOR[facility] [id number] [id number] [address] [place] MCHC (RBC) [Mass/Vol] 33.2 g/dL Normal 30.5-36.0 [facility] Comment on above: Order Comment: Speci men Type: BLOOD SPECIMENOrdering Facility: [facility] Address: [address] [place] [address] Performed By: #### 5 8410-2 ####[facility] LABCLIA [id number] [place] [address] [place] MCV (RBC) [Entitic vol] 87.4 fL Normal 80.0-100.0 [facility] Comment on above: Order Comment: Speci men Type: BLOOD SPECIMENOrdering Facility: [facility] Address: [address] [place], [place] [address] Performed By: #### 5 8410-2 ####[facility] LABIA [id number] [address] [place] Nucleated RBC (Bld) [#/Vol] 10*3/uL Normal <0.01 [facility] Comment on above: Order Comment: Speci men Type: BLOOD SPECIMENOrdering Facility: [facility] Address: [address] [place], [place] [address] Performed By: #### 5 8410-2 ####[facility] LABIA [id number] [place] [address] [place] Platelet mean volume (Bld) [Entitic vol] 9.3 fL Normal 9.0-12.7 [facility] Comment on above: Order Comment: Speci men Type: BLOOD SPECIMENOrdering Facility: [facility] Address: [address] [place], [place] [address] Performed By: #### 5 8410-2 ####[facility] LABCLIA [id number] [place] [address] [place] Platelets (Bld) [#/Vol] 295 10*3/uL Normal 150-400 [facility] Comment on above: Order Comment: Speci men Type: BLOOD SPECIMENOrdering Facility: [facility] Address: [address] [place] [address] Performed By: #### 5 8410-2 ####[facility] LABIA [id number] [place] [address] [place] RBC (Bld) [#/Vol] 4.38 10*6/uL Normal 3.90-5.20 [facility] Comment on above: Order Comment: Speci men Type: BLOOD SPECIMENOrdering Facility: [facility] Address: [address] [place] [address] Performed By: #### 5 8410-2 ####[facility] LABIA [id number] [place] [address] [place] WBC (Bld) [#/Vol] 4.59 10*3/uL Normal 3.70-11.00 [facility] Comment on above: Order Comment: Speci men Type: BLOOD SPECIMENOrdering Facility: [facility] Address: [address] [place] [address] Performed By: #### 5 8410-2 ####[facility] LABIA [id number] [place] [address] [place] CNOVon 03-07-2023 CNOV Office Visit (CARDMN ) -- SIMIN BALES ([id number]) 1995 F Date Time Provider Department 03/07/23 12:45 PM AJ SULLIVAN During your visit today, we recorded the following information about you: Pulse Blood pressure Weight Height 57/minute 108/74 56.2 kg 1.689 m Aj Sullivan MD 03/07/2023 1:29 PM Signed [facility] Department of Cardiovascular Medicine SECTION OF CARDIAC PACING and ELECTROPHYSIOLOGY OUTPATIENT VISIT DATE March 07, 2023 OUTPATIENT VISIT TYPE ESTABLISHED PRIMARY CARE PHYSICIAN: Jenn Handley DO [address] [place] [address] CHIEF COMPLAINT: PVCs HISTORY OF PRESENT ILLNESS/NURSING INTAKE NOTE: Ms. Bales is a 27 year old female who presents today for follow-up visit. She is scheduled for redo PVC ablation tomorrow. She was last seen in office 12/01/[address] Valladares. She has a history of PVCs s/p ablation 03/2020 ([facility]). She reports daily palpitations, lightheadedness, chest pain, shortness of breath. She reports syncopal episode Sunday while laying in bed. She started to get dizzy and then passed out. Denies seeking medical attention. PAST MEDICAL HISTORY Diagnosis Date Abnormal Pap smear of cervix 12/12/2018 lsil with +hpv, colpo cin1, repeat pap 01/22/20 neg with neg hpv Chlamydia Mental disorder history of depression PVC's (premature ventricular contractions) PVC ablation in 03/2020 [facility] with no improvement in palpitations and near syncopal events. She has had a normal Echo (2019) and normal cardiac MRI (2019). EF=60%. 08/14 48hr Holter w/ frequent PVCs (5.2% burden), which were asymptomatic. Sxs reported often during monitoring without arrhythmia. Zio at [facility] in 09/12 showing 4% PVC burden; 05/15 TTE: LV dilated, EF 68% Rh negative state in antepartum period 06/02/2021 Got RhIG at [facility] 04/20/21. Ab screen was neg just prior to that. Syncope ILR implanted 07/16; 09/13 TTT negative PAST SURGICAL HISTORY Procedure Laterality Date EXTRACTION, ERUPTED TOOTH OR EXPOSED ROOT (ELEVATION AND/OR FORCEPS REMOVAL) 2011 PAST SURGICAL HISTORY OF 03/2020 PVC ablation PAST SURGICAL HISTORY OF carpal tunnel PVC ABLATION 03/2020 S KNIFE CARPAL TUNNEL 12/23/2019 TONSILLECTOMY AND ADENOIDECTOMY HX 04/29/2018 TONSILLECTOMY HX SOCIAL HISTORY Social History Tobacco Use Smoking status: Former Packs/day: 2.00 Years: 8.00 Additional pack years: 0.00 Total pack years: 16.00 Types: Cigarettes Quit date: 05/25/2019 Years since quittin.7 Smokeless tobacco: Never Vaping Use Vaping Use: Some days Substances: Nicotine, THC Substance Use Topics Alcohol use: Not Currently Comment: 1 drink per month Drug use: Never FAMILY HISTORY Problem Relation Age of Onset No Known Problems Mother No Known Problems Father Heart Paternal Grandfather Heart Other Diabetes Maternal Grandmother ALLERGIES: ALLERGIES Allergen Reactions Adhesive Tape-Silic* Rash Heart monitor electrodes Cat Dander Other: See Comments MEDICATIONS: verapamil ER (VERELAN) 120 mg 24 hr capsule Take 1 capsule by mouth daily at bedtime. magnesium oxide (MAG-OX) 400 mg (241.3 mg magnesium) tablet Take 1 tablet by mouth once daily. Belinda Bryant RN PHYSICAL EXAMINATION: BP 108/74 Pulse (!) 57 Ht 168.9 cm (5' 6.5 ) Wt 56.2 kg (124 lb) LMP 10/02/2020 BMI 19.71 kg/m? General: Well appearing, in no acute distress, speaking in complete sentences. Skin: No clubbing, no cyanosis. Neck: no jugular venous distention, Lungs: Clear to auscultation bilaterally, no wheezing or rhonchi. Heart: Regular rhythm, PMI not displaced, S1, S2 normal, no S3, no S4, no heaves, no rub and no murmur. Abdomen: Soft, nontender, bowel sounds normal, no palpable organomegaly, no bruits. Extremities: No peripheral edema . Grade 2/4 distal pulses bilaterally. Neuro: Oriented to person, place and time, alert, cooperative, gait coordinated. CARDIOVASCULAR MEDICINE TESTING: Electrocardiogram: sinus rhythm, 57 bpm. Last EKG Result Conclusion ECG COMPLETE Collected: 03/07/2023 12:10 PM (Preliminary result) Impression: SINUS BRADYCARDIA RSR' PATTERN IN V1 SUGGESTS INCOMPLETE RIGHT BUNDLE BRANCH BLOCK BORDERLINE ECG LOOP RECORDER REMOTE EVALUATION 12/01/22 PRESENTING RHYTHM: VS with PVCs BATTERY STATUS: Normal. ARRHYTHMIAS since 09/07/22: 16 symptom episodes since 09/07/22 remote. EGMs show SR/ST with PVCs, including periods of bigeminy. PVC count has increased from 6.2% in August to 11.4% in November. Pdf's from September and October in attachments on this report. FOLLOW UP: Continue with 1-month remote transmissions. Bernie Solares RN NOTE TO PROVIDERS: CARD Flowsheets contain detailed device programming and testing data. Paceart/Inter (more content not included)... Normal [facility] ECG COMPLETEon 03-07-2023 ECG COMPLETE Ventricular Rate : 5 7 BPM Atrial Rate : 57 BPM P-R Interval : 116 ms QRS Duration : 92 ms Q-T Interval : 432 ms QTC Calculation(Bazett) : 420 ms Calculated P [place] : 22 degrees Calculated R [place] : 62 degrees Calculated T [place] : 54 degrees SINUS BRADYCARDIA RSR' PATTERN IN V1 SUGGESTS INCOMPLETE RIGHT BUNDLE BRANCH BLOCK BORDERLINE ECG Confirmed by PENNY VENTURA MD ([id number]) on 03/07/2023 7:34:32 PM NAME : SIMIN BALES PID : [id number] : 1995 Gender : Female Race : ORD : [id number] Procedure Date : Mar 07 2023 12:10:15 Edit Date : Mar 07 2023 19:34:34 Diagnosis: SINUS BRADYCARDIA RSR' PATTERN IN V1 SUGGESTS INCOMPLETE RIGHT BUNDLE BRANCH BLOCK BORDERLINE ECG Confirmed by PENNY VENTURA MD ([id number]) on 03/07/2023 7:34:32 PM Test Reason : Location : 314 : J14 J1-4 Overread By : PENNY VENTURA MD Edited By : PENNY VENTURA MD Referred By : DUNCAN VALLADARES Acquired by : GADIEL WHALEY Normal [facility] TYPE AND SCREEN,30 DAYon ABO O Normal [facility] Comment on above: Order Comment: Speci men Type: BLOOD SPECIMENOrdering Facility: [facility] Address: [address] [place] [address] Performed By: #### T SCR30 ####[facility] BANKCLIA [id number] [address] OF [facility] HISTORICAL AB SCR STATUS Negative Normal [facility] Comment on above: Order Comment: Speci men Type: BLOOD SPECIMENOrdering Facility: [facility] Address: [address], [place] [address] Performed By: #### T SCR30 ####CC MAIN BLOOD BANKCLIA [id number] [address] [place] Rh Nom (Bld) Negative Normal [facility] Comment on above: Order Comment: Speci men Type: BLOOD SPECIMENOrdering Facility: [facility] Address: [address] [place] [address] Performed By: #### T SCR30 ####CC MAIN BLOOD BANKCLIA [id number] [address] [place] Amphetamine Screen Ql (U)Ord ered By: Michael Villagran on 01-29-2023 Amphetamines Ql (U) Negative Negative [facility] Barbiturates [Presence] in U rine by Screen methodOrdered By: Michael Villagran on 01-29-2023 Barbiturates Screen Ql (U) Negative Negative [facility] Benzodiazepines Screen Ql (U )Ordered By: Michael Villagran on 01-29-2023 Benzodiazepines Ql (U) Negative Negative [facility] Benzoylecgonine [Presence] i n Urine by Screen methodOrdered By: Michael Villagran on 01-29-2023 Benzoylecgonine Screen Ql (U) Negative Negative [facility] Cannabinoids [Presence] in U rine by Screen methodOrdered By: Michael Villagran on 01-29-2023 Cannabinoids Screen Ql (U) Positive Negative [facility] Comment on above: These are unconfirme d results and should not be used for legal purposes. Drug Cut-Off Concentration: AMPH 1000 ng/mL PAYAM 200 ng/mL MARISELA 200 ng/mL COCM 300 ng/mL OP 300 ng/mL PCP 25 ng/mL THC 20 ng/mL Drug Screen,Urineon 01-30-20 Amphetamine Screen,Urine Negative Normal Negative [facility] Comment on above: Performed By: #### U RDS #### [facility] [address] Barbiturate Screen,Urine Negative Normal Negative [facility] Comment on above: Performed By: #### U RDS #### [place] [address] [place] Benzodiazepines Screen,Urine Negative Normal Negative [facility] Comment on above: Performed By: #### U RDS #### [address] Cannabinoid Screen,Urine Positive High Negative [facility] Comment on above: Result Comment: Thes e are unconfirmed results and should not be used for legal purposes. Drug Cut-Off Concentration: AMPH 1000 ng/mL PAYAM 200 ng/mL MARISELA 200 ng/mL COCM 300 ng/mL OP 300 ng/mL PCP 25 ng/mL THC 20 ng/mL PERFORMED BY: [place] [address] PATHOLOGIST CUSTOMER DATA TECHNICIAN KEANU JULIO M.D. Performed By: #### U RDS #### [address] Cocaine Screen,Urine Negative Normal Negative [facility] Comment on above: Performed By: #### U RDS #### [address] Opiate Screen,Urine Negative Normal Negative [facility] Comment on above: Performed By: #### U RDS #### [address] Phencyclidine Screen,Urine Negative Normal Negative [facility] Comment on above: Performed By: #### U RDS #### [address] ECG 12 lead ECGon 01-29-2023 ECG 12 lead ECG [facility] [address] Electrocardiograph Report Signed Patient: Simin Bales MR#: [id number] 146 : 1995 Acct:[id number] Age/Sex: 27 / F ADM Date: 01/29/23 Loc: [facility] Room: Type: [facility] Attending Dr: Marcos Mnan MD Ordering Provider: Michael Villagran DO Date of Service: 01/29/2301/15/756 ECG/ECG 12 lead ECG: pre op Copies to: Test Reason : Blood Pressure : / mmHG Vent. Rate : 048 BPM Atrial Rate : 048 BPM P-R Int : 116 ms QRS Dur : 088 ms QT Int : 478 ms P-R-T Axes : 044 065 053 degrees QTc Int : 427 ms Sinus bradycardia with sinus arrhythmia Otherwise normal ECG When compared with ECG of 14-FEB-2021 11:36, PVCs are no longer seen Vent. rate has decreased BY 47 BPM Nonspecific T wave abnormality no longer evident in Anterior leads Confirmed by KARIN WHITNEY FAC, TINA ([id number]) on 01/29/2023 12:57:34 PM Referred By: Electronically Signed By:TINA FRAZIER MD FAC Transcribed By: MUS Signed By Tina Frazier MD, FACC 01/29/23 1257 Normal [facility] HCG ( test) IA.rapi d Ql (U)Ordered By: Tony Guerra on 01-29-2023 HCG ( test) Ql (U) Negative [facility] HCG,Urineon 01-29-2023 Beta HCG ( test) Ql (U) Negative [facility] Comment on above: Result Comment: PERF ORMED BY: [place] [address] PATHOLOGIST CUSTOMER DATA TECHNICIAN KEANU JULIO M.D. Performed By: #### U HCG #### [address] Pankaj 01-29-2023 L ------ Specimen: [id number] Received: 01/29/23 Status: LO Dowrhonda Num: [id number] Spec Type: Surgical Subm Dr: MARCOS MANN MD Tissues: A Fallopian Tube - Sterilization (BILATERAL FT) Procedures: HE/3, Gross/Micro L2 Age/ Patient Sex Location Account Attending Physician Simin Bales [place] [id number] MARCOS MANN MD SPEC NUM: [id number] RECD: 01/29/23 STATUS: LO CROCKER NUM: [id number] [place]: 01/29/23- [facility] DR: MARCOS MANN MD ENTERED: 01/29/23-[address] [facility] [address]: GABE TYPE: Surgical DEPT: S ORDERED: HE/3, Gross/Micro L2 ORDERED: HE/3, Gross/Micro L2 Pathological Diagnosis Bilateral fallopian tubes, bilateral salpingectomy: - Bilateral fimbriated fallopian tubes without any significant histopathological findings, except 1 small paratubal cyst and 1 small Walthard's nest each on the second described fallopian tube Clinical Information Desired infertility Gross Description Received in formalin labeled with the patient's name, date of and bilateral fallopian tubes is an 8.5 x 1.0 x 0.8 cm purple-red fimbriated fallopian tube with a pinpoint lumen on cut section. Additionally received within the same container is a 2.3 x 0.7 x 0.6 cm neves-pink portion of fimbriated fallopian tube with a patent lumen on cut section. Additionally received is a 3.5 x 0.6 cm purple-pink tubular tissue and a detached 1.0 x 1.0 x 0.6 cm aggregate of neves-pink soft tissue. The tubular tissue has a pinpoint lumen on cut section. Medical Practitioners sections are submitted in 3 cassettes as follows: A1 - First fimbriated fallopian tube A2 - Second fimbriated fallopian tube A3 - Detached tubular tissue and detached soft tissues in their entirety Specimen: [id number] Received: 01/29/23 Status: LO Crocker Num: [id number] Spec Type: Surgical Subm Dr: MARCOS MANN MD Tissues: A Fallopian Tube - Sterilization (BILATERAL FT) Procedures: HE/Sejal Rod/Maria Alejandra L2 Patient: Simin Bales [id number] (Continued) Specimen: [id number] Received: 01/29/23 (Continued) Signed (signature on file) Jadiel Diaz MD 01/30/23 1635 Specimen: [id number] Received: 01/29/23 Status: LO [place]onda Num: [id number] Spec Type: Surgical Subm Dr: MARCOS MANN MD Tissues: A Fallopian Tube - Sterilization (BILATERAL FT) Procedures: /3, Gross/Micro L2 Patient: Simin Bales [id number] (Continued) Specimen: [id number] Received: 01/29/23 (Continued) Microscopic Description Three H E slides reviewed. The microscopic examination confirms the diagnosis. CPT Codes 65625 Specimen: [id number] Received: 01/29/23 Status: LO Crocker Num: [id number] Spec Type: Surgical Subm Dr: MARCOS MANN MD Tissues: A Fallopian Tube - Sterilization (BILATERAL FT) Procedures: ANNALISA/Sejal Rod/Maria Alejandra L2 Patient: Simin Bales [id number] (Continued) Signed (signature on file) Jadiel Diaz MD 01/30/23 3975 [facility] Opiates [Presence] in Urine by Screen methodOrdered By: Michael Villagran on 01-29-2023 Opiates Screen Ql (U) Negative Negative [facility] Phencyclidine Screen Ql (U)O rdered By: Michael Villagran on 01-29-2023 Phencyclidine Ql (U) Negative Negative [facility] Activated partial thrombopla stin time (aPTT) in platelet poor plasma by coagulation aOrdered By: PROVIDER TEMP on 01-08-2023 aPTT Coag (PPP) [Time] 30.4 s 25.1-36.5 [facility] Alanine aminotransferase [En zymatic activity/volume] in Serum or PlasmaOrdered By: PROVIDER TEMP on 01-08-2023 ALT [Catalytic activity/Vol] 12 U/L 7-52 [facility] Albumin [Mass/volume] in Ser um or Plasma by Bromocresol green (BCG) dye binding methoOrdered By: PROVIDER TEMP on 01-08-2023 Albumin BCG dye [Mass/Vol] 4.5 g/dL 3.5-5.7 [facility] Alkaline phosphatase [Enzyma tic activity/volume] in Serum or PlasmaOrdered By: PROVIDER TEMP on 01-08-2023 ALP [Catalytic activity/Vol] 43 U/L 34-104 [facility] Aspartate aminotransferase [ Enzymatic activity/volume] in Serum or PlasmaOrdered By: PROVIDER TEMP on 01-08-2023 AST [Catalytic activity/Vol] 15 U/L 13-39 [facility] Automated erythrocytes count in urine sediment (number/area)Ordered By: Reta Alva on 01-08-2023 RBC Auto (Urine sed) [#/Area] 1-2 [HPF] 0-4 [facility] Automated leukocytes count i n urine sediment (number/area)Ordered By: Reta Alva on 01-08-2023 WBC Auto (Urine sed) [#/Area] 3-4 [HPF] 0-4 [facility] Basophils Auto (Bld) [#/Vol] Ordered By: PROVIDER TEMP on 01-08-2023 Basophils (Bld) [#/Vol] 0.0 10*3/uL 0.0-0.2 [facility] Basophils/100 WBC Auto (Bld) Ordered By: PROVIDER TEMP on 01-08-2023 Basophils/100 WBC (Bld) 0.7 % . F [facility] Bilirubin Test strip Ql (U)O rdered By: Reta Alva on 01-08-2023 Bilirubin Ql (U) Negative Negative [facility] Bilirubin.total [Mass/volume ] in Serum or PlasmaOrdered By: PROVIDER TEMP on 01-08-2023 Bilirubin [Mass/Vol] 0.7 mg/dL 0.3-1.0 [facility] CT abdomen pelvis w conon CT abdomen pelvis w con [facility] [place] [address] [place] [address] CT Scan Report Signed Patient: Simin Bales MR#: [id number] 146 : 1995 Acct:[id number] Age/Sex: 27 / F ADM Date: 01/08/23 Loc: ER Room: Type: [facility] ER Attending Dr: Copies to: Reta Alva MD Ordering Provider: Reta Alva MD Date of Service: 01/08/23 CT/CT abdomen pelvis w con: suprapubic and periumbilical abd pain CT ABDOMEN AND PELVIS WITH INTRAVENOUS CONTRAST: CLINICAL HISTORY: Vaginal bleeding and lower abdominal pain since miscarriage COMPARISON: None TECHNIQUE: Spiral images were obtained through the abdomen and pelvis following the administration of intravenous contrast. This CT exam was performed using one or more following dose reduction techniques: Automated exposure control, adjustment of the mA and/or kV according to patient size, or use of iterative reconstruction technique. FINDINGS: Lung Bases: [No acute findings.] Organs:Mild periportal edema. Gallbladder spleen pancreas adrenal glands and kidneys all appear unremarkable other than a small cyst involving the right kidney. Abdominal aorta is normal in caliber. GI: Stomach is grossly unremarkable. Small bowel appears nondilated. No acute colonic abnormality is seen.[ Pelvis:[Urinary bladder is grossly unremarkable. Uterus is grossly unremarkable. Follicular changes are seen involving the ovaries. Peritoneum/Retroperitoneum :Trace amount of free fluid seen within the pelvis. No free air or lymphadenopathy.[ Abd wall/Bones:Abdominal wall demonstrates no acute findings. Osseous structures demonstrate no acute bony process.[ CT/CT abdomen pelvis w con IMPRESSION: Mild periportal edema. Finding is nonspecific and correlation with hepatitis panel/LFTs is suggested. Otherwise, no acute findings are seen. Impression dictated by: Ugo Roque Jr., D.OTiffany01/08/2023 7:49 PM Dictation Location: [place] [address] Transcribed By: [facility] 01/08/231948 Dictated By: Ugo Roque Jr, DO 01/08/231944 Signed By: 01/08/231948 Normal [facility] Calcium [Mass/volume] in Ser um or PlasmaOrdered By: PROVIDER TEMP on 01-08-2023 Calcium [Mass/Vol] 9.1 mg/dL 8.6-10.3 [facility] Carbon dioxide, total [Moles /volume] in Serum or PlasmaOrdered By: PROVIDER TEMP on 01-08-2023 CO2 [Moles/Vol] 31.1 mmol/L 21.0-31.0 [facility] Chlamydia/GC Amplificationon 01-08-2023 Chlamydia Trachomotis, TAVON Normal . [facility] Comment on above: Order Comment: SOURC E OF SPECIMEN: Genital Result Comment: Test not performed. The required specimen for the test ordered was not received. received viral tp contacted your facility on 01-10-2023 Performed By: #### U RDS #### [facility] [address] [place] [address] Neisseria Gonorrhoeae, TAVON Normal . [facility] Comment on above: Order Comment: SOURC E OF SPECIMEN: Genital Result Comment: Test not performed PERFORMED BY: [place] [address] PATHOLOGIST CUSTOMER DATA TECHNICIAN KEANU JULIO M.D. Performed By: #### U RDS #### [facility] [address] [place] [address] [place] Chloride [Moles/volume] in S katy or PlasmaOrdered By: PROVIDER TEMP on 01-08-2023 Chloride [Moles/Vol] 105 mmol/L 98-107 [facility] Choriogonadotropin.beta subu nit [Units/volume] in Serum or PlasmaOrdered By: Reta Alva on 01-08-2023 HCG.beta subunit Qn Negative [facility] Color Auto (U)Ordered By: Debbi Alva on 01-08-2023 Color (U) Yellow Yellow [facility] Complete Blood Count Auto Di ffon 01-08-2023 Basophils (Bld) [#/Vol] 0.0 10*3/uL Normal 0.0-0.2 [facility] Comment on above: Result Comment: PERF ORMED BY: [place] [address] PATHOLOGIST CUSTOMER DATA TECHNICIAN KEANU JULIO M.D. Performed By: #### P T, CBC, CMP, PTT #### [address] Basophils/100 WBC (Bld) 0.7 % Normal . F [facility] Comment on above: Performed By: #### P T, CBC, CMP, PTT #### [address] Eosinophils (Bld) [#/Vol] 0.0 10*3/uL Normal 0.0-0.45 [facility] Comment on above: Performed By: #### P T, CBC, CMP, PTT #### [address] Eosinophils/100 WBC (Bld) 0.6 % Normal . [facility] Comment on above: Performed By: #### P T, CBC, CMP, PTT #### [address] Erythrocyte distribution width (RBC) [Ratio] 13.5 % Normal 11.9-15.3 [facility] Comment on above: Performed By: #### P T, CBC, CMP, PTT #### [address] Hematocrit (Bld) [Volume fraction] 40.9 % Normal 34.0-46.4 [facility] Comment on above: Performed By: #### P T, CBC, CMP, PTT #### [address] Hemoglobin (Bld) [Mass/Vol] 13.5 g/dL Normal 11.8-15.4 [facility] Comment on above: Performed By: #### P T, CBC, CMP, PTT #### [place] [address] [place] Lymphocytes (Bld) [#/Vol] 1.1 10*3/uL Normal 1.00-4.8 [facility] Comment on above: Performed By: #### P T, CBC, CMP, PTT #### [facility] [address] Lymphocytes/100 WBC (Bld) 16.1 % Normal . [facility] Comment on above: Performed By: #### P T, CBC, CMP, PTT #### [address] MCH (RBC) [Entitic mass] 28.7 pg Normal 24.7-34.3 [facility] Comment on above: Performed By: #### P T, CBC, CMP, PTT #### [address] MCV (RBC) [Entitic vol] 86.7 fL Normal 80-100 F [facility] Comment on above: Performed By: #### P T, CBC, CMP, PTT #### [address] Mean Corpuscular HGB Conc 33.1 g/dL Normal 32.0-35.0 [facility] Comment on above: Performed By: #### P T, CBC, CMP, PTT #### [address] Monocytes (Bld) [#/Vol] 0.7 10*3/uL Normal 0.0-0.8 [facility] Comment on above: Performed By: #### P T, CBC, CMP, PTT #### [place] [address] [place] Monocytes/100 WBC (Bld) 15.80 % Normal 0.00-20.00 F [facility] Comment on above: Performed By: #### P T, CBC, CMP, PTT #### [place] [address] [place] Monocytes/100 WBC (Bld) 9.9 % Normal . F [facility] Comment on above: Performed By: #### P T, CBC, CMP, PTT #### [address] Neutrophils (Bld) [#/Vol] 4.9 10*3/uL Normal 1.8-7.7 [facility] Comment on above: Performed By: #### P T, CBC, CMP, PTT #### [address] Neutrophils/100 WBC (Bld) 72.7 % Normal . [facility] Comment on above: Performed By: #### P T, CBC, CMP, PTT #### [address] NRBC% 0.1 /100{WBC} Normal 0-0.5 [facility] Comment on above: Performed By: #### P T, CBC, CMP, PTT #### [address] Platelet mean volume (Bld) [Entitic vol] 7.1 fL Normal 6.3-10.7 [facility] Comment on above: Performed By: #### P T, CBC, CMP, PTT #### [address] Platelets (Bld) [#/Vol] 283 10*3/uL Normal 150-450 [facility] Comment on above: Performed By: #### P T, CBC, CMP, PTT #### [address] RBC (Bld) [#/Vol] 4.71 10*6/uL Normal 3.60-5.00 [facility] Comment on above: Performed By: #### P T, CBC, CMP, PTT #### [place] [address] [place] WBC (Bld) [#/Vol] 6.7 10*3/uL Normal 3.8-11.6 [facility] Comment on above: Performed By: #### P T, CBC, CMP, PTT #### [address] Comprehensive Metabolic Pane pankaj 01-08-2023 Albumin [Mass/Vol] 4.5 g/dL Normal 3.5-5.7 [facility] Comment on above: Performed By: #### P T, CBC, CMP, PTT #### [facility] [address] Albumin/Globulin [Mass ratio] 1.7 {ratio} Normal [facility] Comment on above: Performed By: #### P T, CBC, CMP, PTT #### [facility] [address] ALP [Catalytic activity/Vol] 43 U/L Normal 34-104 [facility] Comment on above: Performed By: #### P T, CBC, CMP, PTT #### [facility] [address] ALT [Catalytic activity/Vol] 12 U/L Normal 7-52 [facility] Comment on above: Performed By: #### P T, CBC, CMP, PTT #### [facility] [address] Anion gap [Moles/Vol] 8.7 mmol/L Normal 6.0-15.0 [facility] Comment on above: Performed By: #### P T, CBC, CMP, PTT #### [facility] [address] AST [Catalytic activity/Vol] 15 U/L Normal 13-39 [facility] Comment on above: Performed By: #### P T, CBC, CMP, PTT #### [facility] [address] [place] [address] [place] Bilirubin [Mass/Vol] 0.7 mg/dL Normal 0.3-1.0 [facility] Comment on above: Performed By: #### P T, CBC, CMP, PTT #### [facility] [address] [place] [id number] [place] Calcium [Mass/Vol] 9.1 mg/dL Normal 8.6-10.3 [facility] Comment on above: Performed By: #### P T, CBC, CMP, PTT #### [facility] [address] [place] [address] [place] Chloride [Moles/Vol] 105 mmol/L Normal 98-107 [facility] Comment on above: Performed By: #### P T, CBC, CMP, PTT #### [facility] [address] CO2 [Moles/Vol] 31.1 mmol/L High 21.0-31.0 [facility] Comment on above: Performed By: #### P T, CBC, CMP, PTT #### [facility] [address] Creatinine [Mass/Vol] 0.74 mg/dL Normal 0.60-1.20 [facility] Comment on above: Performed By: #### P T, CBC, CMP, PTT #### [address] Creatinine Clr Calc Pharmacy 100.05 [facility] Comment on above: Result Comment: PERF ORMED BY: [place] [address] PATHOLOGIST CUSTOMER DATA TECHNICIAN KEANU JULIO M.D. Performed By: #### P T, CBC, CMP, PTT #### [address] GFR/1.73 sq M.predicted MDRD (S/P/Bld) [Vol rate/Area] mL/min/{1.73_m2} [facility] Comment on above: Performed By: #### P T, CBC, CMP, PTT #### [facility] [address] [place] [address] [place] Globulin (S) [Mass/Vol] 2.6 g/dL Normal [facility] Comment on above: Performed By: #### P T, CBC, CMP, PTT #### [facility] [address] Glucose [Mass/Vol] 80 mg/dL Normal 70-100 [facility] Comment on above: Result Comment: [facility] Glucose Reference Range is dependent on time and content of last meal. Glucose of more than 200 mg/dL in a nonstressed, ambulatory subject supports the diagnosis of Diabetes Mellitus. ADA recommended reference range Performed By: #### P T, CBC, CMP, PTT #### [facility] [address] Potassium [Moles/Vol] 3.8 mmol/L Normal 3.5-5.1 [facility] Comment on above: Performed By: #### P T, CBC, CMP, PTT #### [facility] [address] Protein [Mass/Vol] 7.1 g/dL Normal 6.4-8.9 [facility] Comment on above: Performed By: #### P T, CBC, CMP, PTT #### [address] Sodium [Moles/Vol] 141 mmol/L Normal 136-145 [facility] Comment on above: Performed By: #### P T, CBC, CMP, PTT #### [address] Urea nitrogen [Mass/Vol] 8 mg/dL Normal 7-25 [facility] Comment on above: Performed By: #### P T, CBC, CMP, PTT #### [address] Creatinine [Mass/volume] in Serum or PlasmaOrdered By: PROVIDER TEMP on 01-08-2023 Creatinine [Mass/Vol] 0.74 mg/dL 0.60-1.20 [facility] Dipstick and Microscopicon 0 01-08-2023 Appearance (U) Clear Normal Clear [facility] Comment on above: Order Comment: Name Collection Type:: Clean-Voided Midstream Performed By: #### A DDONUAPLUS #### [place] [address] [place] Bacteria,Urine None Seen Normal None Seen [facility] Comment on above: Order Comment: Name Collection Type:: Clean-Voided Midstream Performed By: #### A DDONUAPLUS #### [place] [address] [place] Bilirubin,Urine Negative Normal Negative [facility] Comment on above: Order Comment: Name Collection Type:: Clean-Voided Midstream Performed By: #### A DDONUAPLUS #### [address] Color (U) Yellow Normal Yellow [facility] Comment on above: Order Comment: Name Collection Type:: Clean-Voided Midstream Performed By: #### A DDONUAPLUS #### [address] Glucose Ql (U) Normal Normal Normal [facility] Comment on above: Order Comment: Name Collection Type:: Clean-Voided Midstream Performed By: #### A DDONUAPLUS #### [address] Hyaline Casts,Urine None Seen Normal 0-8 [facility] Comment on above: Order Comment: Name Collection Type:: Clean-Voided Midstream Result Comment: PERF ORMED BY: [place] [address] PATHOLOGIST CUSTOMER DATA TECHNICIAN KEANU JULIO M.D. Performed By: #### A DDONUAPLUS #### [address] Ketones Ql (U) Negative Normal Negative [facility] Comment on above: Order Comment: Name Collection Type:: Clean-Voided Midstream Performed By: #### A DDONUAPLUS #### [facility] [address] [place] [address] [place] Leukocyte esterase Test strip Ql (U) 1+ High Negative [facility] Comment on above: Order Comment: Name Collection Type:: Clean-Voided Midstream Performed By: #### A DDONUAPLUS #### [place] [address] [place] Nitrite,Urine Negative Normal Negative [facility] Comment on above: Order Comment: Name Collection Type:: Clean-Voided Midstream Performed By: #### A DDONUAPLUS #### [place] [address] [place] Occult Blood,Urine 1+ High Negative [facility] Comment on above: Order Comment: Name Collection Type:: Clean-Voided Midstream Result Comment: PERF ORMED BY: [place] [address] PATHOLOGIST CUSTOMER DATA TECHNICIAN KEANU JULIO M.D. Performed By: #### A DDONUAPLUS #### [address] pH (U) 8.5 [pH] Normal 5.0-9.0 [facility] Comment on above: Order Comment: Name Collection Type:: Clean-Voided Midstream Performed By: #### A DDONUAPLUS #### [address] Protein,Urine Negative Normal Negative [facility] Comment on above: Order Comment: Name Collection Type:: Clean-Voided Midstream Performed By: #### A DDONUAPLUS #### [address] RBC,Urine 1-2 Normal 0-4 [facility] Comment on above: Order Comment: Name Collection Type:: Clean-Voided Midstream Performed By: #### A DDONUAPLUS #### [address] Specificy Castell,Urine 1.009 Normal 1.00 1-1.03 0 [facility] Comment on above: Order Comment: Name Collection Type:: Clean-Voided Midstream Performed By: #### A DDONUAPLUS #### [place] [address] [place] Squamous Epithelial Cell,Urine 3-4 High 0-2 [facility] Comment on above: Order Comment: Name Collection Type:: Clean-Voided Midstream Performed By: #### A DDONUAPLUS #### [address] Urobilinogen,Urine Normal Normal Normal [facility] Comment on above: Order Comment: Name Collection Type:: Clean-Voided Midstream Performed By: #### A DDONUAPLUS #### [facility] [address] WBC,Urine 3-4 Normal 0-4 [facility] Comment on above: Order Comment: Name Collection Type:: Clean-Voided Midstream Performed By: #### A DDONUAPLUS #### [facility] [address] Eosinophils Auto (Bld) [#/Vo l]Ordered By: PROVIDER TEMP on 01-08-2023 Eosinophils (Bld) [#/Vol] 0.0 10*3/uL 0.0-0.45 [facility] Eosinophils/100 WBC Auto (Bl d)Ordered By: PROVIDER TEMP on 01-08-2023 Eosinophils/100 WBC (Bld) 0.6 % . [facility] Erythrocyte distribution wid th Auto (RBC) [Ratio]Ordered By: PROVIDER TEMP on 01-08-2023 Erythrocyte distribution width (RBC) [Ratio] 13.5 % 11.9-15.3 [facility] Fungal Smearon 01-08-2023 Fungal Smear Fungus Smear Results No Yeast Like Elements Seen -- Trichomonas Screen No Trichomonas Seen Trich Reference Reference range = None Seen PERFORMED BY: [place] [address] PATHOLOGIST CUSTOMER DATA TECHNICIAN KEANU JULIO M.D. [facility] Comment on above: Performed By: #### U RDS #### [facility] [address] [place] [address] Fungal cultureOrdered By: Debbi Alva on 01-08-2023 Fungus identified Cx Nom (Unsp spec) [facility] Genital Cultureon 01-08-2023 Genital Culture Genital Results Moderate Normal Urogenital Dora 2 Days No More GC Specimen not tested for Neisseria gonorrheae PERFORMED BY: [place] [address] PATHOLOGIST CUSTOMER DATA TECHNICIAN KEANU JULIO M.D. Normal [facility] Comment on above: Performed By: #### U RDS #### [facility] [address] [place] [address] Genital specimen bacteria id entification by aerobic cultureOrdered By: Reta Alva on 01-08-2023 Bacteria identified Aer cx Nom (Genital specimen) [facility] Globulin Calc (S) [Mass/Vol] Ordered By: PROVIDER TEMP on 01-08-2023 Globulin (S) [Mass/Vol] 2.6 g/dL [facility] Glucose [Mass/volume] in Ser um or PlasmaOrdered By: PROVIDER TEMP on 01-08-2023 Glucose [Mass/Vol] 80 mg/dL 70-100 [facility] Comment on above: ADA recommended refe rence rangeRandom Glucose Reference Range is dependent on time and content of last meal. Glucose of more than 200 mg/dL in a nonstressed, ambulatory subject supports the diagnosis of Diabetes Mellitus. HCG,Qualitative Serumon 12-23 HCG,Qualitative Serum Negative Normal [facility] Comment on above: Result Comment: PERF ORMED BY: [address] [place] [address] PATHOLOGIST CUSTOMER DATA TECHNICIAN KEANU JULIO M.D. Performed By: #### U RDS #### [facility] [address] [place] [address] Hematocrit Auto (Bld) [Volum e fraction]Ordered By: PROVIDER TEMP on 01-08-2023 Hematocrit (Bld) [Volume fraction] 40.9 % 34.0-46.4 [facility] Hemoglobin [Mass/volume] in BloodOrdered By: PROVIDER TEMP on 01-08-2023 Hemoglobin (Bld) [Mass/Vol] 13.5 g/dL 11.8-15.4 [facility] Ketones Auto test strip (U) [Mass/Vol]Ordered By: Reta Alva on 01-08-2023 Ketones (U) [Mass/Vol] Negative Negative [facility] Laboratory - CoagulationOrde red By: PROVIDER TEMP on 01-08-2023 PT Coag (PPP) [Time] 11.9 s 9.0-12.9 [facility] Laboratory - Microbiology an d Antimicrobial susceptibilityOrdered By: Reta Alva on 01-08-2023 C. trachomatis DNA TAVON+probe Ql (Unsp spec) See comment . [facility] Comment on above: Test not performed. The required specimen for the testordered was not received.received viral tpcontacted your facility on 01-10-2023 N. gonorrhoeae DNA TAVON+probe Ql (Unsp spec) See comment . [facility] Comment on above: Test not performed Laboratory - UrinalysisOrder ed By: Reta Alva on 01-08-2023 Hyaline casts LM Ql (Urine sed) None seen [LPF] 0-8 [facility] Leukocytes [#/volume] correc do for nucleated erythrocytes in Blood by Automated counOrdered By: PROVIDER TEMP on 01-08-2023 WBC corrected for nucl RBC Auto (Bld) [#/Vol] 6.7 10*3/uL 3.8-11.6 [facility] Lymphocytes Auto (Bld) [#/Vo l]Ordered By: PROVIDER TEMP on 01-08-2023 Lymphocytes (Bld) [#/Vol] 1.1 10*3/uL 1.00-4.8 [facility] Lymphocytes/100 WBC Auto (Bl d)Ordered By: PROVIDER TEMP on 01-08-2023 Lymphocytes/100 WBC (Bld) 16.1 % . [facility] MCH Auto (RBC) [Entitic mass ]Ordered By: PROVIDER TEMP on 01-08-2023 MCH (RBC) [Entitic mass] 28.7 pg 24.7-34.3 [facility] MCHC Auto (RBC) [Mass/Vol]Or dered By: PROVIDER TEMP on 01-08-2023 MCHC (RBC) [Mass/Vol] 33.1 g/dL 32.0-35.0 [facility] MCV Auto (RBC) [Entitic vol] Ordered By: PROVIDER TEMP on 01-08-2023 MCV (RBC) [Entitic vol] 86.7 fL 80-100 F [facility] Monocyte distribution width [Entitic volume] in Blood by AutomatedOrdered By: PROVIDER TEMP on 01-08-2023 Monocyte distribution width Auto (Bld) [Entitic vol] 15.80 % 0.00-20.00 [facility] Monocytes Auto (Bld) [#/Vol] Ordered By: PROVIDER TEMP on 01-08-2023 Monocytes (Bld) [#/Vol] 0.7 10*3/uL 0.0-0.8 [facility] Monocytes/100 WBC Auto (Bld) Ordered By: PROVIDER TEMP on 01-08-2023 Monocytes/100 WBC (Bld) 9.9 % . F [facility] Neutrophils Auto (Bld) [#/Vo l]Ordered By: PROVIDER TEMP on 01-08-2023 Neutrophils (Bld) [#/Vol] 4.9 10*3/uL 1.8-7.7 [facility] Neutrophils/100 WBC Auto (Bl d)Ordered By: PROVIDER TEMP on 01-08-2023 Neutrophils/100 WBC (Bld) 72.7 % . [facility] Nitrite Test strip Ql (U)Ord ered By: Reta Alva on 01-08-2023 Nitrite Ql (U) Negative Negative [facility] No Panel InformationOrdered By: PROVIDER TEMP on 01-08-2023 Estimated GFR (CKD-EPI) > 60.0 mL/Min [facility] Pharmacy Creatinine Clearance (Chem 100.05 [facility] Nucleated erythrocytes [Pres ence] in Blood by Automated countOrdered By: PROVIDER TEMP on 01-08-2023 Nucleated RBC Auto Ql (Bld) 0.1 /100{WBC} 0-0.5 [facility] Partial Thromboplastin Timeo n 01-08-2023 aPTT Coag (Bld) [Time] 30.4 s Normal 25.1-36.5 [facility] Comment on above: Result Comment: PERF ORMED BY: [address] [place] [address] PATHOLOGIST CUSTOMER DATA TECHNICIAN KEANU JULIO M.D. Performed By: #### P T, CBC, CMP, PTT #### [address] Platelet mean volume Auto (B ld) [Entitic vol]Ordered By: PROVIDER TEMP on 01-08-2023 Platelet mean volume (Bld) [Entitic vol] 7.1 fL 6.3-10.7 [facility] Platelet poor plasma interna tional normalized ratio (INR) by coagulation assay (relatOrdered By: PROVIDER TEMP on 01-08-2023 INR Coag (PPP) [Relative time] 1.0 {INR} [facility] Comment on above: INR Therapeutic Rang e A) Pre- and Peroperative OAT started two weeks before surgery. NOT HIP SURGERY: 1.5 - 2.5 HIP SURGERY: 2 - 3B) Primary and secondary prevention of venous THROMBOSIS: 2 - 3C) Active venous thrombosis, pulmonary embolismand prevention of recurrent venous thrombosis: 2 - 3D) Prevention of arterial thromboembolismincluding patients with mechanical heart valves: 3 - 4.5 Platelets Auto (Bld) [#/Vol] Ordered By: PROVIDER TEMP on 01-08-2023 Platelets (Bld) [#/Vol] 283 10*3/uL 150-450 [facility] Potassium [Moles/volume] in Serum or PlasmaOrdered By: PROVIDER TEMP on 01-08-2023 Potassium [Moles/Vol] 3.8 mmol/L 3.5-5.1 [facility] Protein Auto test strip (U) [Mass/Vol]Ordered By: Reta Alva on 01-08-2023 Protein (U) [Mass/Vol] Negative Negative [facility] Protein [Mass/volume] in Ser um or PlasmaOrdered By: PROVIDER TEMP on 01-08-2023 Protein [Mass/Vol] 7.1 g/dL 6.4-8.9 [facility] Prothrombin Time INRon 01-08 INR Coag (PPP) [Relative time] 1.0 {INR} Normal [facility] Comment on above: Result Comment: INR Therapeutic Range A) Pre- and Peroperative OAT started two weeks before surgery. NOT HIP SURGERY: 1.5 - 2.5 HIP SURGERY: 2 - 3 B) Primary and secondary prevention of venous THROMBOSIS: 2 - 3 C) Active venous thrombosis, pulmonary embolism and prevention of recurrent venous thrombosis: 2 - 3 D) Prevention of arterial thromboembolism including patients with mechanical heart valves: 3 - 4.5 Performed By: #### P T, CBC, CMP, PTT #### [facility] [address] [place] [address] [place] PT Coag (PPP) [Time] 11.9 s Normal 9.0-12.9 [facility] Comment on above: Performed By: #### P T, CBC, CMP, PTT #### [facility] [address] [place] [address] [place] RBC Auto (Bld) [#/Vol]Ordere d By: PROVIDER TEMP on 01-08-2023 RBC (Bld) [#/Vol] 4.71 10*6/uL 3.60-5.00 [facility] Serum or plasma albumin/glob ulin mass ratioOrdered By: PROVIDER TEMP on 01-08-2023 Albumin/Globulin [Mass ratio] 1.7 {ratio} [facility] Serum or plasma anion gap de terminationOrdered By: PROVIDER TEMP on 01-08-2023 Anion gap [Moles/Vol] 8.7 mmol/L 6.0-15.0 [facility] Sodium [Moles/volume] in Ser um or PlasmaOrdered By: PROVIDER TEMP on 01-08-2023 Sodium [Moles/Vol] 141 mmol/L 136-145 [facility] Specific gravity Auto test s trip (U) [Rel density]Ordered By: Reta Alva on 01-08-2023 Specific gravity (U) [Rel density] 1.009 1.001-1.03 0 [facility] Squamous epithelial cells de tection in urine sediment by light microscopyOrdered By: Reta Alva on 01-08-2023 Epithelial cells.squamous LM Ql (Urine sed) 3-4 [HPF] 0-2 [facility] Trichomonas vaginalis detect ion by wet preparationOrdered By: Reta Alva on 01-08-2023 T. vaginalis Wet prep Ql (Unsp spec) [facility] US pelvic completeon 023 US pelvic complete [facility] [address] [place] [address] [place] [address] Ultrasound Report Signed Patient: Simin Bales MR#: [id number] : 1995 Acct:[id number] Age/Sex: 27 / F ADM Date: 01/08/23 Loc: ER Room: Type: [facility] ER Attending Dr: Ordering Provider: Reta Alva MD Date of Service: 01/08/23 US/US transvaginal: Urogenital ([id number]) US/US pelvic complete: retained products Copies to: Reta Alva MD Pelvic ultrasound. Reason for exam: Pelvic pain and bleeding for one month. Miscarriage in November. Comparison: none Technique: Transabdominal imaging of the uterus and ovaries was performed. Transvaginal imaging of the uterus and ovaries was also obtained. Additional spectral Doppler analysis of the ovaries was also obtained. Findings: Uterus measures 8.6 x 3.5 x 4.8 cm. Endometrium measures 3 mm. No focal endometrial abnormality is seen. No free fluid is seen. Right ovary measures 3.4 x 2.0 x 2.4 cm. Left ovary measures 5.0 x 2.4 x 2.9 cm. Normal arterial and venous Doppler waveforms are noted of both ovaries. US/US transvaginal Impression: Unremarkable pelvic ultrasound. No ultrasound evidence of retained products of conception are seen. Impression dictated by: Ugo Roque Jr., D.O.01/08/2023 7:17 PM Dictation Location: [place] [address] Tech: [employer]ri [employer] Transcribed By: STACY 01/08/231916 Dictated By: Ugo Roque Jr, DO 01/08/231913 Signed By: 01/08/231916 [facility] Urea nitrogen [Mass/volume] in Serum or PlasmaOrdered By: MARÍA ELENA OMER on 01-08-2023 Urea nitrogen [Mass/Vol] 8 mg/dL 01-16 [facility] Urine bacteria detection by automated methodOrdered By: Reta Alva on 01-08-2023 Bacteria Auto Ql (U) None seen None Seen [facility] Urine clarity by refractomet ry automatedOrdered By: Reta Alva on 01-08-2023 Clarity Refractometry automated (U) Clear Clear [facility] Urine glucose measurement by automated test strip (mass/volume)Ordered By: Reta Alva on 01-08-2023 Glucose Auto test strip (U) [Mass/Vol] Normal mg/dL Normal [facility] Urine hemoglobin detection b y automated test stripOrdered By: Reta Alva on 01-08-2023 Hemoglobin Auto test strip Ql (U) 1+ Negative [facility] Urine leukocyte esterase det ection by automated test stripOrdered By: Reta Alva on 01-08-2023 Leukocyte esterase Auto test strip Ql (U) 1+ Negative [facility] Urobilinogen Auto test strip (U) [Mass/Vol]Ordered By: Reta Alva on 01-08-2023 Urobilinogen (U) [Mass/Vol] Normal mg/dL Normal [facility] WBC Auto (Bld) [#/Vol]Ordere d By: PROVIDER TEMP on 01-08-2023 WBC (Bld) [#/Vol] 6.7 10*3/uL 3.8-11.6 [facility] pH Auto test strip (U)Ordere d By: Reta Alva on 01-08-2023 pH (U) 8.5 [pH] 5.0-9.0 [facility] CNCOon 12-11-2022 CNCO Letter Text Normal [facility] CNPNon 12-08-2022 CNPN Telephone (EPSMN) -- SIMIN BALES ([id number]) 1995 F Date Time Provider Department 12/08/22 AJ SULLIVANHI During your visit today, we recorded the following information about you: Shahrzad Chaparro RN 12/08/2022 3:51 PM Signed ----- Message from Aj Sullivan MD sent at 12/08/2022 12:25 PM EDT ----- EPS Lab Request: EPS Patient: Simin Bales Requested by Aj Sullivan MD Requesting Physician: Aj Sullivan MD Procedure Physician: Aj Sullivan MD Procedure Requested: Ventricular Arrhythmias CPT: 00054 Date of Last HANDP? 11/30/22 Indications / Dx for Procedure: PVC's Procedure Time Frame: Patient's Convenience Estimated length of case: 4 HOURS Mapping System: [employer] Armando (CARTO) and ICE Special Needs: ICE (intracardiac echo) Potential Research Patient? No Type of bed needed? OVERNIGHT Medication to be stopped(please specify medication/timeframe): Yes, hold verapamil for 5d prior to procedure. Re-do PVC ablation please. NAV (but no sedation to start with). Patient of Dr. Valladares. I am happy to see her in OPD beforehand if she'd prefer - or I will simply meet her in the pre-op holding area on the day of the procedure (whatever her preference is). Thanks. Aj Sullivan MD December 08, 2022 12:27 PM Shahrzad Chaparro RN 12/08/2022 3:53 PM Signed The date of 03-08-[address] Sullivan offered AND accepted by patient. Medication instructions given, as indicated below. Stated understanding. Needs OPD with Dr. Sullivan AND Labs (CBC,BMP,30 day TANDS) within 30 days prior to procedure date. Please call patient to schedule. Allergies As of Date: 12/08/2022 Noted Allergy Reaction ADHESIVE TAPE-SILICONES 09/21/2020 2 - Rash Comments: Heart monitor electrodes Date Reviewed: 12/01/2022 Reviewed by: Sylvia Carmona RN - Fully Assessed Reason for Visit: Schedule Surgery [1330] Cmt: PVC ablation Prescriptions as of 12/08/2022 - levonorgestrel-ethinyl estradiol 0.15-0.03 mg per tab Take 1 tablet by mouth once daily. - verapamil ER (VERELAN) 120 mg 24 hr capsule Take 1 capsule by mouth daily at bedtime. - magnesium oxide (MAG-OX) 400 mg (241.3 mg magnesium) tablet Take 1 tablet by mouth once daily. 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] 01/10/2021 Dizziness [R42] 01/10/2021 Maternal arrhythmia affecting in thir*02/24/2021 08/10/2021 care / genetics [O09.92] 03/21/2021 Recurrent syncope [R55] 05/16/2021 Rh negative state in antepartum period [O26.899*06/02/2021 08/10/2021 PSVT (paroxysmal supraventricular tachycardia) *01/02/2022 Encounter Status:Closed by SHAHRZAD CHAPARRO RN on 12/08/22 Normal [facility] CNOVon 12-01-2022 CNOV Office Visit (SYNCMN ) -- NIISIMIN ([id number]) 1995 F Date Time Provider Department 12/01/22 1:45 PM DUNCAN VALLADARES SYNN During your visit today, we recorded the following information about you: Pulse Blood pressure Weight Height 52/minute 116/81 54.9 kg 1.689 m Duncan Valladares DO 12/01/2022 6:48 PM Signed [facility] Department of Cardiovascular Medicine SECTION OF CARDIAC PACING and ELECTROPHYSIOLOGY OUTPATIENT VISIT DATE December 01, 2022 OUTPATIENT VISIT TYPE ESTABLISHED PRIMARY CARE PHYSICIAN: Jenn Handley DO [address] [facility] [address] [place] [address] CHIEF COMPLAINT: dizziness HISTORY OF PRESENT ILLNESS: Ms. Bales is a 27 year old female who presents today for follow-up visit for palpitations. She had been intolerant of wearable monitors due to skin reaction and had and ILR. Her symptom episodes correlated with sinus with PVC with a burden on her wearable of 4%. She has been previously seen by Dr. Dudley and Dr. Causey for these symptoms as well. In the past she had been borderline low BP and intolerant of metoprolol, we had started her on verapamil and increased the does and her BP did not drop too low. Since our last visit she had messaged about elevated BP which would not be an effect of her verapamil or PVCs and was advised to follow up for this with her PCP for evaluation and if needed management of elevated BP. From ILR check 09/07/22 Tilt test 08/23/21 Overall: The test is negative for syncope. There was resting sinus bradycardia with PVCs that suggest and outflow tract focus. Echo 05/16/21 CONCLUSIONS: - Technically difficult exam due to arrhythmia. - Exam indication: Frequent PVCs - The left ventricle is moderately dilated. Left ventricular systolic function is normal. EF = 68 ? 5% (2D biplane) Left ventricular diastolic function was not evaluated due to an arrhythmia. - The right ventricle is normal in size. Right ventricular systolic function is normal. - There are no significant valvular abnormalities. - Estimated right ventricular systolic pressure is not reported due to an insufficient tricuspid regurgitation signal. Estimated right atrial pressure is 3 mmHg based on IVC assessment. - The patient has not had a prior CC echocardiographic exam for comparison. Type of monitor: Event Monitor Enrollment dates: 04/15/2021 - 05/14/2021 Only wore 04/16-04/18 though not noted on monitor report Event monitor shows predominantly sinus and sinus with ventricular bigeminy. 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 She has noticed she is getting dizzier and closer to passing out. Yesterday she was laying down with her feet up and head back and she started getting dizzy/losing vision and got to the ground. She is passing out around every month. She is near syncopal most days but is good at catching it. She drinks more than 4-6 bottles of water a day. She salts her food. She wears knee high compression garments. She is active caring for her chickens. She has occasional chest pain and shortness of breath simultaneously. She denies orthopnea, PND or edema. She has not noted an improvement on verapamil. She feels like they may have worsened. She is also having loose stools since august and has lost weight. She is addressing this with her PCP. PAST CARDIAC HISTORY: PVC ablation H 2019 PAST MEDICAL HISTORY Diagnosis Date Abnormal Pap smear of cervix 12/12/2018 lsil with +hpv, colpo cin1, repeat pap 01/22/20 neg with neg hpv Chlamydia Mental disorder history of depression PVC's (premature ventricular contractions) PVC ablation in 03/2020 [facility] with no improvement in palpitations and near syncopal events. She has had a normal Echo (2019) and normal cardiac MRI (2019). EF=60%. 08/14 48hr Holter w/ frequent PVCs (5.2% burden), which were asymptomatic. Sxs reported often during monitoring without arrhythmia. Zio at [facility] in 09/12 showing 4% PVC burden; 05/15 TTE: LV dilated, EF 68% Rh negative state in antepartum period 06/02/2021 Got RhIG at [facility] 04/20/21. Ab screen was neg just prior to that. Syncope ILR implanted 07/16; 09/13 TTT negative PAST SURGICAL HISTORY Procedure Laterality Date EXTRACTION, ERUPTED TOOTH OR EXPOSED ROOT (ELEVATION AND/OR FORCEPS REMOVAL) 2011 PAST SURGICAL HISTORY OF 03/2020 PVC ablation PAST SURGICAL HISTORY OF carpal tunnel PVC ABLATION 03/2020 S KNIFE CARPAL TUNNEL 12/23/2019 TONSILLECTOMY AND ADENOIDECTOMY HX 04/29/2018 TONSILLECTOMY HX SOCIAL HISTORY Social History Tobacco Use Smoking status: Former Packs/day: 2.00 Years: 8.00 P (more content not included)... Normal [facility] ECG COMPLETEon 12-01-2022 ECG COMPLETE Ventricular Rate : 5 2 BPM Atrial Rate : 52 BPM P-R Interval : 112 ms QRS Duration : 92 ms Q-T Interval : 442 ms QTC Calculation(Bazett) : 411 ms Calculated P [place] : 26 degrees Calculated R [place] : 59 degrees Calculated T [place] : 37 degrees SINUS BRADYCARDIA OTHERWISE NORMAL ECG Confirmed by MD MALAVE HEBA ([id number]) on 12/11/2022 6:24:40 PM NAME : SIMIN BALES PID : [id number] : 1995 Gender : Female Race : ORD : [id number] Procedure Date : Dec 01 2022 12:57:08 Edit Date : Dec 11 2022 18:24:46 Diagnosis: SINUS BRADYCARDIA OTHERWISE NORMAL ECG Confirmed by MD MALAVE HEBA ([id number]) on 12/11/2022 6:24:40 PM Test Reason : Location : 314 : J14 j1-4 Overread By : MD MALAVE HEBA Edited By : MD MALAVE HEBA Referred By : DUNCAN VALLADARES Acquired by : HOLLAND COLÓN Normal [facility] Choriogonadotropin.beta subu nit [Units/volume] in Serum or PlasmaOrdered By: MARCOS MANN on 11-23-2022 HCG.beta subunit Qn 605.27 m[IU]/mL [facility] Comment on above: Approximate Approxim ate hCG Gestational Age Range (mIU/ml) (weeks)0.2-1 5-50 1-2 50-500 2-3 100-5,000 3-4 500-10,000 4-5 1,000-50,000 5-6 10,000-100,000 6-8 15,000-200,000 8-12 10,000-100,000 HCG,Quantitativeon 3 HCG,Quantitative 605.27 m[iU]/mL Normal [facility] Comment on above: Result Comment: Appr oximate Approximate hCG Gestational Age Range (mIU/ml) (weeks) 0.2-1 5-50 1-2 50-500 2-3 100-5,000 3-4 500-10,000 4-5 1,000-50,000 5-6 10,000-100,000 6-8 15,000-200,000 8-12 10,000-100,000 PERFORMED BY: [place] [address] PATHOLOGIST CUSTOMER DATA TECHNICIAN KEANU JULIO M.D. Performed By: #### U [facility] #### [address] Coding Summary.on 09-07-2022 Coding Summary. CD:[id number] Gh0bWw +PGhlYWQ+ZT8UCVZvZ65keQMds C2tK4FNGZcHOxebKCQTEEyKReU emmYxYK7lrQUcTZBp IC8+FG7bUMVuReohlEPfc7Q6oR O8D50vmp5zANgjeKT0GYZpJzVf ntlwj0nfzIk6JDgqUgdkGzFa FDEbdY75TBZ2wQ40Ka81kOWtvH Czd4eukTv6SxDlJQDjEGW5aRsz WIvyr9DoZWXdK52lcRYar5S9 VSVnzNrjwBYaBsArfYX4hN8pDW dxzzgvc7jlyfgzTrh1eb22lBBc s5B3rYU1O2XvvuQ7PPQsmXJj HapryIHIqL7upagdy4mbqdfbBt WtRSOmHCi7VJb3OUOjtUdqBnHe KK21GFD7ANXgslKxG6GtRWJb sTwtJvS6v1P6Jn1NA2PWYzheM6 VNTUFSWTwvdGQ+XN07fb95V7Co ZcdoZrj1OSGoBQR2tHO0eO7j XGMlEEqlp5L0yUQ3G6QyizXfhk 5qg9tnIGXxAWltU65aqSJcz9Q7 AFWvvSD8FMZeiYakPgOroC86 Oyc+UVGtkKuey5KdRijsu5iiw0 zrwVn9QtyaIKWibgQobYkwLRC8 a0YjBr0tHAJtiTU6fIN4gK9k OxGqQpA7TSjdQ237OlAwyXPyQi vqP28hV9GrsQT+JPSrWff0HZZv gVhtCY1iR6EdOSJfiimjdTDh yYxdVE8jQYBuvicrFOFshR6aOG InK4a3XtNpOiI6IOfcY2PzWDYd ewrxBi20bY3wQvImKaZ7SCaj Z1IdtkI5AJLsmICwUKnlXEJ6W4 8pp4T4BXTgAWMqLXL0wSI2gX6r bGlnbjogbGVmdDsgdmVydGlj JTudZIzvL842RCSncVtiSyMwJB luZyBEYXRlOiAgMDMvMTYvMjAy MzwvdGQ+UGRkJGL7vRfrYHSr fVWvEOgkYy5jwZkxiJdfZI6eEK JprcrnFWXqiQ5tEZOmtLPgsQqf KG4yHBPrkjanx123SaYiSYV0 RKRzcOTpM4LptW9zAmMtVARnDO AqB2OszMZdADukT069ULegRdE0 QHIzbiQvX4HrZNEcrBmzCjS8 g0L9Lz1Jx7NwxkqyX8EehXNzMg YaFsytXXd5U2AzQejgqXQ+PC90 SDWmUR67WOk5CJY7pHraRAdh KAMdQ9RkeP9ePfXbGMEiPNGqUf c+PHRhYmxlIHdpZHRoPScxMDAl XnWiyGfdYQ4uHu2vTDYkKUGf mOynuDYsKvUzd6fdTUVbJWgaEX 0ydUnyS7DlmSF7GERjj6k6Lq42 P89oV6KpvNS+SMRxiFJ0pCT3 aF4yXoIvFdY0TXqhH239RbKvrB ZeExbrp0gxi1vevUw4UrE0OYPc hbFguMbwIPC3f7QjAs28S96s IHdpZHRoPSIxNSUiIHZhbGlnbj 1gaZ1zOp9+HVHjmHT6pOP0cK6b KnEnAaI1WTvpJ219JxRvySDv Ghyij3vyo3takRn8KfKvSXFgsu ZxxNkjUWB3t0HkSj44K1BjxRrs s4NyHfz0lz33lVRxq2J9sZF2 K1RsWRPfhhyzwWFkhFauUP2rTO SitcelZDDuqR3lUDGkM0m1XdTc VbK5QLhyR5ZbnqH9ZENzgWOs CMCqlBVLmH9xpavtu4hmbmqlKw MxZQSlQSt1UQx7OFCscWyaIfXr WIC0GzW2EGT9wHPxeW9ojLci bfcveD4dIew+QML9nZLrcZUDRG 1lOjwvdGQ+ISLqVKM4aXqzHZqn TOWnwI8qUQNbQ6u3BwYiTcS9 KUclB7ZsloB6CEApfTEtRZOeyD QBrD8paiouh0fcogcvAiJbLUYj GHk1WFk9JXCjxMvzOkEsRDY8 IcV3JQU5uGCgnL9efJbvvjqynC 9wOyc+IqaivXukHIJ6OZf8J6Uo Gfa6MIUbpGusUK5tpWCtPCpl Jf0urJzfcVziNM6bRVHxfxxxm2 80NjHru2dgPBQwpIRjLCewFQJ3 L36hb4K6GGFiWIHwULT7qML3 cI1obQaokdvxhZEewFlljtWqnK fcFXzmVXwnR668BQYtjRfjPlKt PVf5M9RtMir2HOTkhOxkUS8y zDLhWZydHq5gaXuyhHeeAC7dJW Mceffgb983PoIgq3fmVVBffFOb AOzoZIR4U30ly2R9KNWiXEVj XUO2oGZ6lX2kgMhzbxykvEAjfS mmeqYujLdzTQcpCCcgU299GNMr uMfjNcCxaXf8D0KsMme8YKPj fHevKO1gaLHxSExdAg4fuOrjzG tfEV2gTXQtcbyub648BrMve1ve HXRctSTjKJrjWFK3H01hs8W4 UJYeFXRdJKL7pKO7oT6nyPzpur ogbGVmdDsgdmVydGljYWwtYWxp A887SCLrbEnoDxTdmZuyotRx DZcxMNk4X6BdMbbkeDT+PC90YW NpNG96fIEhkCPas0iahAj3WjPa XVGiDFI4dIxsOHino3UoUPXu K81ncWOpb7D0PSPnwDmkvTRpWc GbrBM2fD9pKOvghqveq0larztu Puyjs8fbda37iT80Y88jTDaq COBeOOLsLHSzWUIhlUpxuk1vbH 9wIi8+IHUbnZR0oTS2rT1yROPf UwD8GUjlC105FpWpdSFiUooe h3bka7aujBq2FmK1BGRrexTxkJ hcQWP5j3CwMa36B22cELofZVWl MJKnQTHxWWGclDrjwb7jgJ3z Ii8+UQXjjYV7tEQ4xI6rZnXcQw Z1OJjsE962YzBkkEQxShrmD94o D3LbyWN+YSYbBpw8QQBlsLwz CB3ruJNmEOpcMr3cHTK4KqOlMl DiSBsbG1AoIPWizoindsahkEX4 ERTyXUIomH52Pw6bqEaiIMNl hDCAhW4xxpfdj0ajkqmzEhTlHK JaSYi8IYk2QNGwtOzkXsJyLUL7 UjW2ESK2cSUuyQ6spYvgxsrr yU5dM3KkTJGflzlxHd04wJ8cXj FiNeE5UHxsRja+U7uTI32NHBCY WIrOI9U3O3LkYmg1GQTdbNvu YG5bbAJaRToaZn5dhLwlwUhcWH 8wTUWwkyunIXRotS3hAKFtjKJv hDqxJH8oPQXgkemng862DmKh IEF5MWDwoBJsG7FmeH5fVhVdES AvWQLcP2NyvQKxAHimS027SExt LpP0CTBnwbCjH4ZaIBTuoNco ToG5h3I8Fz3pAm3dSB4iPZb9XJ 91AL94eSXvh3N5vHD2W0XiQLHk pfgenjoqbUU5VRFzPOLezW96 mVTzJBmqQn5eh2B3b989XDDiTB MsbN90Yi9dxYqsTFDigPVPaS2m sfzky9ggbkbcZxFuGTNlPLk7 UCv4OKNorKtjFuYaAJQ7HxJ0UB P9yQEznX9gsGvvayjiyG0xLit+ FmqfPFWvtsS2X7XoMsk4RSEg wEraQV7bmZVwWSiyJq4lcMpxwU dtJY5nHKStgdzgJVRzkA4dZQQv oTQnhWgyKA3aHYFynzfsq036 OlIbTTL0UHTwrTYeZ4RndB2yZm KsHPZpIRCeD9OjwNLaXPpsA327 MLgtQxY8NBCdyeLgJ9GnGVLx yQbeDgX0s1K7Qd2AWC9skGT8R0 YtTtq5HJAoqEtoQI7ggAClEXvd Lr8inHaauHsmSO5cTYSinsju YWAtjU5oTSIusVYmeEepDU4lOE Ervysfz557AvUfVUM1RGExyNZm U5JpbD4kOdGoSLOuBFUtE7Gk zRPsKBkeD396IGvxAxG3JUDeeu MsI5MyXJOfqHouOxP6d3A3Zv2T gQBcL5ZlY7l8J3XdOqtajKG+ HR86BDHzUK46fLFjbMWoe8xemT b4RmAsMRTsMGA2rHtiACkdj1Vn QTUoV42uyEZwi0H1SOAgvXdh gMYjUnWpmUY6oO0pSZculraib6 shutitUdqfk2fglx70mO43Y51b IHdpZHRoPSIzMCUiIHZhbGln jv3skF6dBm4+FLBowBD3pJE0dQ 3qQgHuWmV1PVokG715VrDhkOAj Umbet1tej2jmoPl6HbMkQSHy jkLbrTosRFC1y7GtRq12N66cKN cmAEUnPWFwVHErIUCqnVxaro0r vC6tBc5+SW7yl6utsu12xU19 dHI+USCrUFL6zOfmANprKZGwyR 1gCAanDgT4QBMqVzSubB72fNXl GDnkHu3rgSumcNsiPW4sGUHv hfnkw969KwYax6tgHLDriJEkJM rsRFT5J42ta1T8COFuRLUgTCU5 dVE5oX9mjFqheeynhNHjzFec qtYeuOplXLeoMAnpU953UCSqgH hfQwMkeACvS5xefwCJVE9mMlto dGQ+QPIjDFW6yIbcPWmqHYSa nZ8zVUDeC7t8SuWmRzU8NRloX6 KtgjM7CLFrhDNgLIYsjKIUnG8n jjlbw7genedyEhZuNDGgMEw4 EEj9ERCvtQpcIoUsQTU9VcA3UF O1jSCtvA6wtCkwyejnrB6eHzu+ RklOOjwvdGQ+HOQfGLY8eEsl JUxrXHXvxP1uWWXbY0o5ZfTaKs S1VTejG6PolxK3QQWmzRZsIFCx wKGOvT9kemfgh5hkkhuoCoXr XQNfZTg6ZVf0RKVquYrjPuLzBV I8LaO6RLP4uXLjkQ9nzFhiidbl kV7lNbe+TVJOOjwvdGQ+PHRk CES4tFvkDDklOOQgnL4xMNHeR9 m1AxMmDuP5DOylU7HakfG6LBKt wSEtZNBeoRAXjU8jyllfo8ks scykSgVdFKYqEYa3XGl5FFYooP nbThScCYK5NaO0CIK9aQLbeV6g lMnkaawgkX3jRvk+SNF5NGA9 BU84YY35F9ZjRgwpvVHhcEO+PH RhYmxlIHdpZHRoPScxMDAlJyBz xJkrZC7kUi9oZGQdYGVijMim cHNl (more content not included)... Normal [facility] Auto Diffon 09-04-2022 Basophils/100 WBC (Bld) 0.8 % Normal 0.0-2.0 [facility] Comment on above: Order Comment: Order Added by Discern Expert. Performed By: #### 1 [id number], 0114302, 36277919, 95115638, 3659904, 2111305 ####[address] [place] [address] Basophils/Leukocytes Auto (Bld) [Pure # fraction] 0.0 E9/L Normal 0.0-0.2 [facility] Comment on above: Order Comment: Order Added by Discern Expert. Performed By: #### 1 [id number], 1396220, 82345629, 27234601, 4664707, 2656724 ####[address] [address] Eosinophils/100 WBC (Bld) 2.3 % Normal 0.0-8.0 [facility] Comment on above: Order Comment: Order Added by Paul Expert. Performed By: #### 1 5109357, 9836239, 15955978, 27890195, 1042492, 1218229 ####[address] [address] Eosinophils/Leukocytes Auto (Bld) [Pure # fraction] 0.1 E9/L Normal 0.0-0.5 [facility] Comment on above: Order Comment: Order Added by Paul Expert. Performed By: #### 1 0561249, 4043541, 70940275, 95792888, 4193993, 1496788 ####[address] [address] Lymphocytes/100 WBC (Bld) 22.9 % Normal 14.0-50.0 [facility] Comment on above: Order Comment: Order Added by Paul Expert. Performed By: #### 1 7471357, 1609104, 44569462, 66036319, 3948170, 2594325 ####[address] [address] Lymphocytes/Leukocytes Auto (Bld) [Pure # fraction] 1.3 E9/L Normal 1.0-4.0 [facility] Comment on above: Order Comment: Order Added by Paul Expert. Performed By: #### 1 6039187, 2584102, 40603884, 54196574, 3761606, 3361379 ####[address] [place] [address] Monocytes/100 WBC (Bld) 8.4 % Normal 4.0-14.0 [facility] Comment on above: Order Comment: Order Added by Discern Expert. Performed By: #### 1 7335614, 7554165, 40198212, 54726665, 2399545, 2636146 ####[address] [place] [address] Monocytes/Leukocytes Auto (Bld) [Pure # fraction] 0.5 E9/L Normal 0.2-1.0 [facility] Comment on above: Order Comment: Order Added by Discern Expert. Performed By: #### 1 2214114, 7891056, 25461902, 98313963, 2080911, 6363250 ####[address] [address] Neutrophils/100 WBC (Bld) 65.6 % Normal 36.0-75.0 [facility] Comment on above: Order Comment: Order Added by Discern Expert. Performed By: #### 1 7055353, 2581212, 36088920, 80803120, 1720716, 5978843 ####[address] [address] Neutrophils/Leukocytes Auto (Bld) [Pure # fraction] 3.7 E9/L Normal 2.0-7.5 [facility] Comment on above: Order Comment: Order Added by Discern Expert. Performed By: #### 1 5888741, 9457332, 50779465, 02069565, 3573245, 0869738 ####[address] [address] B hCG Qualon 09-04-2022 Beta hCG Ql Negative Normal [facility] Comment on above: Performed By: #### 1 7231613, 9645991, 90119175, 23069514, 3876726, 7358042 ####[address] [place] [address] BMPon 09-04-2022 Creatinine [Mass/Vol] 0.7 mg/dL Normal 0.5-1.3 [facility] Comment on above: Performed By: #### 1 6778965, 6534780, 10836220, 15297973, 2405587, 2204889 ####[facility] [address] [place] [address] Urea nitrogen [Mass/Vol] 9 mg/dL Normal 5-21 [facility] Comment on above: Performed By: #### 1 7942450, 2232189, 72099099, 31209984, 4633609, 0439048 ####[facility] [address] [place] [address] Urea nitrogen/Creatinine [Mass ratio] 13 No Units Normal 10-20 [facility] Comment on above: Performed By: #### 1 4566915, 2036022, 99264384, 57929723, 7801047, 2379653 ####[facility] [address] [place] [address] Anion gap [Moles/Vol] 8 mmol/L Normal 6-16 [facility] Comment on above: Performed By: #### 1 2715454, 1451319, 25509381, 61137714, 8852276, 2527113 ####[facility] [address] [place] [address] Calcium [Mass/Vol] 8.5 mg/dL Low 8.9-11.1 [facility] Comment on above: Performed By: #### 1 5616842, 2232172, 78070029, 89675922, 6387969, 1940945 ####[facility] [address] [place] [address] Chloride [Moles/Vol] 104 mmol/L Normal 101-111 [facility] Comment on above: Performed By: #### 1 9394229, 0700038, 53541219, 82019199, 4586974, 0575640 ####[facility] [address] [place] [address] CO2 [Moles/Vol] 26 mmol/L Normal 21-31 [facility] Comment on above: Performed By: #### 1 3335766, 0211446, 70393747, 32257844, 3845422, 3180966 ####[facility] [address] [place] [address] Glucose [Mass/Vol] 100 mg/dL Normal 55-199 [facility] Comment on above: Result Comment: If t his glucose result represents a fasting glucose, interpretation should refer to the following reference range: 55-99 mg/dL Performed By: #### 1 7641383, 8148703, 31482898, 86895792, 9081546, 8747490 ####[facility] [address] [place] [address] Potassium [Moles/Vol] 3.9 mmol/L Normal 3.5-5.3 [facility] Comment on above: Performed By: #### 1 7784702, 2340995, 56421972, 92065853, 9522338, 9464034 ####[facility] [address] [place] [address] Sodium [Moles/Vol] 134 mmol/L Low 135-145 [facility] Comment on above: Performed By: #### 1 0605119, 4738185, 76730947, 29340068, 2346997, 2889925 ####[facility] [address] [place] [address] CBC w/ Auto Diffon 3 Erythrocyte distribution width (RBC) [Ratio] 13.2 % Normal 10.9-14.2 [facility] Comment on above: Performed By: #### 1 5869919, 2572169, 92388107, 00634001, 0204006, 1455412 ####[facility] [address] [place] [address] Hematocrit (Bld) [Volume fraction] 38.3 % Normal 34.0-46.0 [facility] Comment on above: Performed By: #### 1 4125986, 8312773, 78142327, 14867597, 4747126, 6995856 ####[address] [place] [address] Hemoglobin (Bld) [Mass/Vol] 12.7 g/dL Normal 12.0-16.0 [facility] Comment on above: Performed By: #### 1 8590958, 3541275, 95421813, 47816965, 4213919, 4491091 ####[address] MCH (RBC) [Entitic mass] 28.6 pg Normal 27.0-34.0 [facility] Comment on above: Performed By: #### 1 3036571, 1611930, 78504834, 27643309, 7265019, 6546995 ####[address] [address] MCHC (RBC) [Mass/Vol] 33.1 g/dL Normal 31.4-36.0 [facility] Comment on above: Performed By: #### 1 0458776, 6229515, 02459138, 15275313, 4472719, 4039159 ####[address] [address] MCV (RBC) [Entitic vol] 86.4 fL Normal 80.0-100.0 F [facility] Comment on above: Performed By: #### 1 6137777, 9748043, 53777714, 14535105, 6292032, 4139818 ####[address] [address] Platelet mean volume (Bld) [Entitic vol] 6.8 fL Normal 6.4-10.8 [facility] Comment on above: Performed By: #### 1 0428873, 9417737, 70108681, 94419461, 9900630, 7314879 ####[address] [address] Platelets (Bld) [#/Vol] 275.0 E9/L Normal 150. 0-500. 0 [facility] Comment on above: Performed By: #### 1 9203780, 2671277, 14306343, 81328221, 0175565, 8302368 ####[facility] [address] [place] [address] RBC (Bld) [#/Vol] 4.4 E12/L Normal 4.3-5.9 [facility] Comment on above: Performed By: #### 1 2297036, 2137758, 05820334, 29775145, 7517610, 4431998 ####[facility] [address] [place] [address] WBC corrected for nucl RBC Auto (Bld) [#/Vol] 5.7 E9/L Normal 4.0-11.0 [facility] Comment on above: Performed By: #### 1 9666515, 6328744, 49441725, 52843894, 5889375, 2153773 ####[facility] [address] [place] [address] CHEMISTRYOrdered By: SYSTEM SYSTEM on 09-04-2022 Anion gap [Moles/Vol] 8 mmol/L Normal 6 - 16 mEq/L [facility] Calcium [Mass/Vol] 8.5 mg/dL Low 8.9 - 11. 1 mg/dL [facility] Chloride [Moles/Vol] 104 mmol/L Normal 101 - 1 11 mmol/L [facility] CO2 [Moles/Vol] 26 mmol/L Normal 21 - 31 mmol/L [facility] Creatinine [Mass/Vol] 0.7 mg/dL Normal 0.5 - 1.3 mg/dL [facility] GFR/1.73 sq M.predicted among blacks MDRD (S/P/Bld) [Vol rate/Area] mL/min/1.73 m2 Normal >=59mL/min /1.73 m2 [facility] S GFR/1.73 sq M.predicted among non-blacks MDRD (S/P/Bld) [Vol rate/Area] mL/min/1.73 m2 Normal >=59mL/min /1.73 m2 [facility] S Glucose [Mass/Vol] 100 mg/dL Normal 55 - 199 mg/dL [facility] Potassium [Moles/Vol] 3.9 mmol/L Normal 3.5 - 5.3 mmol/L [facility] Sodium [Moles/Vol] 134 mmol/L Low 135 - 145 mmol/L [facility] Troponin I.cardiac [Mass/Vol] pg/mL Low 10.10 - 27.10 pg/mL [facility] Urea nitrogen [Mass/Vol] 9 mg/dL Normal 5 - 21 mg/dL [facility] Urea nitrogen/Creatinine [Mass ratio] 13 mg/mg Normal 10 - 20 [facility] Consent for Treatmenton 08-23 Consent for Treatment [id number]:127 Normal [facility] Discharge Instructionson Discharge Instructions [id number]:127 Normal [facility] ED Clinical Summaryon 2022 ED Clinical Summary (Inserted Image. Nova ble to display) [place] [id number] ED Clinical Summary Person Information Name: [facility] Age: 26 Years : 1995 Sex: Female Language: Polish PCP: Josette HANDLEY DO Marital Status: Single Phone: [phone] Visit Id: Visit Reason: Shortness of breath; Chest pain; CHEST PAIN, LOW HEART RATE, BLURRY VISION, N/V Speciality: Acuity: 3 Enc Type: Emergency Med Service: Emergency Arrival: 09/04/2022 08:40:10 Discharge: 09/04/2022 10:23:15 LOS: 000 01:43 Checkin: 09/04/2022 08:40:10 Checkout: 09/04/2022 10:23:15 Dispo Type: Home (Routine DC) EVENTS: Event Name Event Status Request Date/Time Start Date/Time Complete Date/Time Arrive Complete 09/04/2022 08:40:10 09/04/2022 08:40:10 09/04/2022 08:40:10 Document Home Meds Request 09/04/2022 08:40:10 Triage Complete 09/04/2022 08:40:10 09/04/2022 08:49:43 09/04/2022 08:49:43 Bed Assign Complete 09/04/2022 08:44:14 09/04/2022 08:44:14 09/04/2022 08:44:14 Dr Exam Complete 09/04/2022 08:44:14 09/04/2022 08:47:04 09/04/2022 08:47:04 RN Exam Complete 09/04/2022 08:44:14 09/04/2022 09:01:45 09/04/2022 09:01:45 EKG Complete 09/04/2022 08:46:32 09/04/2022 08:49:37 Registration Complete 09/04/2022 08:47:04 09/04/2022 09:09:46 09/04/2022 09:09:46 Dr Exam Complete 09/04/2022 08:49:27 09/04/2022 08:49:27 09/04/2022 08:49:27 Meds Admin Complete 09/04/2022 08:56:19 09/04/2022 09:59:34 Pending Labs Complete 09/04/2022 08:56:19 09/04/2022 10:00:01 Lab Complete 09/04/2022 08:56:19 09/04/2022 09:39:38 Patient Care Request 09/04/2022 08:56:19 RT Request 09/04/2022 08:56:19 X-Ray Complete 09/04/2022 08:56:19 09/04/2022 09:38:43 09/04/2022 09:46:47 Reg Complete Request 09/04/2022 09:09:46 Reg Bed Request Complete 09/04/2022 09:09:46 09/04/2022 09:09:46 09/04/2022 09:09:46 Pending Labs Complete 09/04/2022 09:26:00 09/04/2022 09:26:00 09/04/2022 09:39:40 Lab Complete 09/04/2022 09:26:00 09/04/2022 09:26:00 09/04/2022 09:39:40 Pending Labs Complete 09/04/2022 09:29:53 09/04/2022 09:29:53 09/04/2022 09:30:01 Lab Complete 09/04/2022 09:29:53 09/04/2022 09:29:53 09/04/2022 09:30:01 Wet Read Complete 09/04/2022 09:46:47 09/04/2022 09:59:37 09/04/2022 09:59:37 Discharge Complete 09/04/2022 10:06:07 09/04/2022 10:23:19 09/04/2022 10:23:19 Transfer Complete 09/04/2022 10:23:19 09/04/2022 10:23:19 09/04/2022 10:23:19 ADDRESS: [facility] [id number] PHYS DOC NOTES: MEDICAL INFORMATION: Prescriptions Given: Medications to Continue with No Changes Other Medications cannabidiol (cannabidiol 100 mg/mL oral liquid) ibuprofen (ibuprofen 600 mg Tab) 1 Tablets By Mouth every 6 hours. Refills: 0. magnesium oxide (magnesium oxide 400 mg Tab) 1 Tablets By Mouth every day. metoprolol (Metoprolol tartrate 25 mg Tab) 1 Tablets By Mouth 2 times a day. multivitamin, ( Multivitamins) 1 Tablets By Mouth every day. ondansetron (Zofran ODT 4 mg Tab-Dis) 1 Tablets By Mouth 3 times a day. Refills: 0. potassium chloride (potassium chloride 99 mg oral tablet) 1 Tablets By Mouth every day. PATIENT EDUCATION INFORMATION: Instructions: Chest Wall Pain Follow up: With: Address: When: Josette HANDLEY [address] [place] [address], [address] [address] Business () In 3 days 09/07/2022 DIAGNOSIS: Chest pain Normal [facility] ED Note-Physicianon 09-05-19 ED Note-Physician Basic Information Time Seen: Kong Arboleda PA-C 09/04/2022 08:47 Chief Complaint Pt with hx of sinus bradycardia and PVCs presents with medial cp with associated SOB. Pt states her HR was 48 at home, making her feel dizzy and weak. History of Present Illness 26-year-old female comes to the ED for evaluation of chest pain. She states she awoke with some chest pain this morning. She thinks she may have injured self at work doing some lifting yesterday. Complains of pain across the anterior chest that is made worse with movement. No cough, congestion, fever, chills. No shortness of breath. No nausea or vomiting. She does state she has a history of bradycardia and PVCs. No ischemic history. Denies any concern for . No prior treatments. Review of Systems A 10 point review of systems is negative except as noted above. Medical and Surgical History: Reviewed and noted Social history: Lives at home Tobacco: Denies Physical Exam Vitals & Measurements T: 36.7 ?C(Oral) HR: 59(Peripheral) RR: 18 BP: 113/76 SpO2: 98% HT: 170 cm WT: 65.1 kg BMI: 22.53 Nurses notes and vital signs reviewed and patient is not hypoxic. General: The patient appears well and in no significant distress Patient is resting comfortably on the exam bed. Skin: Warm, dry, no pallor noted. Head: Atraumatic. Neck: No JVD. Eye: Normal conjunctiva. Ears, Nose, Mouth, and Throat: Moist mucous members. Cardiovascular: Strong distal pulses. Normal cardiac rate. No peripheral edema. Chest wall: Moderate tenderness with palpation across the anterior chest wall Respiratory: Respirations are nonlabored. Back: Normal range of motion, no CVA tenderness. Musculoskeletal: Normal ROM with no gross deformity. Gastrointestinal: Soft and nontender. Urological: Neurological: Awake and alert. No focal deficits. Follows commands. GCS 15. Psychiatric: Cooperative. Medical Decision Making Laboratory studies reviewed and noted. EKG shows bradycardia of PVCs that is similar to previous. She does actively follow with cardiology and has an loop recorder. Chest x-ray shows no acute findings. Her exam today is most consistent with muscular etiology the patient agrees with this. She has tenderness across the anterior chest that she attributes to heavy lifting at work. She is discharged home with PCP follow-up. Patient was encouraged to return to the ED if symptoms worsen or change. Assessment/Plan Chest pain (R07.9: Chest pain, unspecified) Orders: Sodium Chloride 0.9% intravenous solution, 1,000 mL, Soln-IV, IV, Once, Stop date 09/04/22 8:55:00 EDT, STAT, Start date 09/04/22 8:55:00 EDT, mL/hr, Infuse over 61, minute(s) Automated Diff Basic Metabolic Panel Beta hCG Qual CBC w/ Auto Diff ED Cardiac Monitoring eGFR Oxygen Saturation Oxygen Therapy Saline Lock Insert Troponin 0 Hr. XR Chest Single View Disposition Plan Patient Discharge Condition Disposition: Discharged home Condition: Improved and stable Counseled: Patient and/or family were counseled to workup, results, treatment plan and follow-up recommendations Discharge Prescription List Prescriptions No active prescription medications Follow-up With When Contact Information Josette HANDLEY In 3 days 09/07/[address] [place], [place] [id number] [facility] (1) Additional Instructions: Patient Education Chest Wall Pain Attestation Patient seen and evaluated by the physician pharmacy sales assistant. Attending physician was present in the emergency department and supervised care. This visit was performed by both the physician and an APC. I performed all aspects of the MDM as documented. This report was transcribed using voice recognition software. Every effort was made to ensure accuracy, however, inadvertently computerized cloth shrinking tester mistakes may be present. Appropriate healthcare PPE was used in evaluating this patient. The patient was placed in a mask. The healthcare provider was wearing mask, gloves, and utilizing proper hand hygiene. All equipment was properly cleansed. Problem List/Past Medical History Ongoing No qualifying data Historical Procedure/Surgical History Ablation, Carpal tunnel, Tonsillectomy. Medications Inpatient NS 1000 ml Bolus, 1000 mL, IV, Once Home cannabidiol 100 mg/mL oral liquid, See Instructions ibuprofen 600 mg Tab, 600 mg= 1 tab(s), Oral, q6hr magnesium oxide 400 mg Tab, 400 mg= 1 tab(s), Oral, Daily Metoprolol tartrate 25 mg Tab, 25 mg= 1 tab(s), Oral, BID potassium chloride 99 mg oral tablet, 99 mg= 1 tab(s), Oral, Daily Multivitamins, 1 tab(s), Oral, Daily Zofran ODT 4 mg Tab-Dis, 4 mg= 1 tab(s), Oral, TID, Not taking Allergies No Known Allergies Social History Alcohol - Denies Alcohol Use, 04/12/2021 Employment/School Work/School description: WORKS AT [employer] 07/03/2021 Substance Abuse - Denies Substance Abuse, 04/12/2021 Current, CBD oil, 07/04/2021 (more content not included)... Normal [facility] Comment on above: Result Comment: Elec tronically Signed By: Kong Arboleda PA-C\.br\Date and Time Signed: 09/04/22 10:25 EDT\.br\Electronically Co-Signed By: Dennis Mcbride DO\.br\Date and Time Co-Signed: 09/04/22 17:52 EDT ED Patient Education Noteon 09-04-2022 ED Patient Education Note Orthopedics Chest Wall Pain Chest wall pain is pain in or around the bones and muscles of your chest. Sometimes, an injury causes this pain. Excessive coughing or overuse of arm and chest muscles may also cause chest wall pain. Sometimes, the cause may not be known. This pain may take several weeks or longer to get better. Follow these instructions at home: Managing pain, stiffness, and swelling ? If directed, put ice on the painful area: ? Put ice in a plastic bag. ? Place a towel between your skin and the bag. ? Leave the ice on for 20 minutes, 2?3 times per day. Activity ? Rest as told by your health care provider. ? Avoid activities that cause pain. These include any activities that use your chest muscles or your abdominal and side muscles to lift heavy items. Ask your health care provider what activities are safe for you. General instructions ? Take [id number] and prescription medicines only as told by your health care provider. ? Do not use any products that contain nicotine or tobacco, such as cigarettes, e-cigarettes, and chewing tobacco. These can delay healing after injury. If you need help quitting, ask your health care provider. ? Keep all follow-up visits as told by your health care provider. This is important. Contact a health care provider if: ? You have a fever. ? Your chest pain becomes worse. ? You have new symptoms. Get help right away if: ? You have nausea or vomiting. ? You feel sweaty or light-headed. ? You have a cough with mucus from your lungs (sputum) or you cough up blood. ? You develop shortness of breath. These symptoms may represent a serious problem that is an emergency. Do not wait to see if the symptoms will go away. Get medical help right away. Call your local emergency services (911 in the [place] Do not drive yourself to the hospital. Summary ? Chest wall pain is pain in or around the bones and muscles of your chest. ? Depending on the cause, it may be treated with ice, rest, medicines, and avoiding activities that cause pain. ? Contact a health care provider if you have a fever, worsening chest pain, or new symptoms. ? Get help right away if you feel light-headed or you develop shortness of breath. These symptoms may be an emergency. This information is not intended to replace advice given to you by your health care provider. Make sure you discuss any questions you have with your health care provider. Document Released: 06/11/2006 Document Revised: 12/12/2018 Document Reviewed: 12/12/2018 [employer] Patient Education ? 2019 [employer]. Normal [facility] ED Patient Summaryon 023 ED Patient Summary (Inserted Image. Nova ble to display) [address] [address] Patient Discharge Instructions Person Information Name: SIMIN BALES Age: 26 Years Arrival Date: 09/04/2022 08:40:10 Discharge Diagnosis: Chest pain Primary Care Physician: Josette HANDLEY DO Provider Information Primary Provider: Dennis Mcbride DO Advanced Radio Interference Trouble Shooter:Kong Arboleda PA-C The exam and treatment you received in the Emergency Department were for an urgent problem and are not intended as complete care. It is important that you follow up with a doctor, nurse practitioner, or physician?s pharmacy sales assistant for ongoing care. If your symptoms become worse or you do not improve as expected and you are unable to reach your usual health care provider, you should return to the Emergency Department. We are available 24 hours a day. SIMIN BALES has been given the following list of patient education materials, prescriptions and follow-up instructions: Follow-up Instructions: With: Address: When: Josette HANDLEY [address] [place], [place] [id number] Business (1) In 3 days 09/07/2022 In the event that this physician does not participate in your insurance network, please consult with your insurance company to find a nearby participating provider. Patient Education Materials: Chest Wall Pain A MESSAGE TO ALL PATIENTS REGARDING OPIOIDS PRESCRIPTION OPIOIDS: WHAT YOU NEED TO KNOW Prescription opioids can be used to help relieve jglvxtlo-zk-rgkbag pain and are often prescribed following a surgery or injury, or for certain health conditions. These medications can be an important part of the treatment but also come with serious risks. It is important to work with your healthcare provider to make sure you are getting the safest, most effective care. WHAT ARE THE RISKS AND SIDE EFFECTS OF OPIOID USE? Prescription opioids carry serious risks of addiction and overdose, especially with prolonged use. An opioid overdose, often marked by slowed breathing, can cause sudden . The use of prescription opioids can have a number of side effects as well, even when taken as directed: ? Tolerance?meaning you might need to take more of the medication for the same pain relief ? Physical dependence?meaning you have symptoms of withdrawal when a medication is stopped ? Increased sensitivity to pain ? Constipation ? Nausea, vomiting, and dry mouth ? Sleepiness and dizziness ? Confusion ? Depression ? Low levels of testosterone that can result in lower sex drive, energy, and strength ? Itching and sweating RISKS ARE GREATER WITH: ? History of drug misuse, substance use disorder, or overdose ? Mental health conditions (such as depression or anxiety) ? Sleep apnea ? Older age (65 years and older) ? Avoid alcohol while taking prescription opioids. Also, unless specifically advised by your health care provider, medications to avoid include: ? Benzodiazepines (such as Xanax or Valium) ? Muscle relaxants (such as Soma or Flexeril) ? Hypnotics (such as Ambien or Lunesta) ? Other prescription opioids KNOW YOUR OPTIONS Talk to your health care provider about ways to manage your pain that don?t involve prescription opioids. Some of these options may actually work better and have fewer risks and side effects. Options may include: ? Pain relievers such as acetaminophen, ibuprofen, and naproxen ? Some medication that are also used for depression or seizures ? Physical therapy and exercise ? Cognitive behavioral therapy, a psychological, goal-directed approach, in which patients learn how to modify physical, behavioral, and emotional triggers of pain and stress. IF YOU ARE PRESCRIBED OPIOIDS FOR PAIN: ? Never take opioids in greater amounts or more often than prescribed. ? Follow up with your primary health care provider. o Work together to create a plan on how to manage your pain. o Talk about ways to help manage your pain that don?t involve prescription opioids. o Talk about any and all concerns and side effects. ? Help prevent misuse and abuse o Never sell or share prescription opioids. o Never use another person?s prescription opioids. ? Store prescription opioids in a secure place and out of reach of others (this may include visitors, children, friends, and family). ? Safely dispose of unused prescription opioids: Find your community drug take-back program or your pharmacy mail-back program, or flush them down the toilet, following guidance from the Food and Drug Administration (www.fda.gov/Drugs/Resourc esForYou). ? Visit www.cdc.gov/drugoverdose to learn about the risks of opioids abuse and overdose. ? If you believe you may be struggling with addiction, tell your health home care chaplain and ask for guidance or call [facility]S National Helpline at 3-259-670-XTEC. [employer] Source: [place] Department (more content not included)... Normal [facility] HEMATOLOGYOrdered By: SYSTEM SYSTEM on 09-04-2022 Basophils/100 WBC (Bld) 0.8 % Normal 0.0 - 2.0 % [facility] Basophils/Leukocytes Auto (Bld) [Pure # fraction] 0.0 E9/L Normal 0.0 - 0.2 E9/L [facility] Eosinophils/100 WBC (Bld) 2.3 % Normal 0.0 - 8.0 % [facility] Eosinophils/Leukocytes Auto (Bld) [Pure # fraction] 0.1 E9/L Normal 0.0 - 0.5 E9/L [facility] Lymphocytes/100 WBC (Bld) 22.9 % Normal 14.0 - 50.0 % [facility] Lymphocytes/Leukocytes Auto (Bld) [Pure # fraction] 1.3 E9/L Normal 1.0 - 4.0 E9/L [facility] Monocytes/100 WBC (Bld) 8.4 % Normal 4.0 - 14.0 % [facility] Monocytes/Leukocytes Auto (Bld) [Pure # fraction] 0.5 E9/L Normal 0.2 - 1.0 E9/L [facility] Neutrophils/100 WBC (Bld) 65.6 % Normal 36.0 - 75.0 % [facility] Neutrophils/Leukocytes Auto (Bld) [Pure # fraction] 3.7 E9/L Normal 2.0 - 7.5 E9/L [facility] HEMATOLOGYOrdered By: Amie Garcia on 09-04-2022 Erythrocyte distribution width (RBC) [Ratio] 13.2 % Normal 10.9 - 14.2 % [facility] Hematocrit (Bld) [Volume fraction] 38.3 % Normal 34.0 - 46.0 % [facility] Hemoglobin (Bld) [Mass/Vol] 12.7 g/dL Normal 12.0 - 16.0 gm/dL [facility] MCH (RBC) [Entitic mass] 28.6 pg Normal 27.0 - 34.0 pg [facility] MCHC (RBC) [Mass/Vol] 33.1 g/dL Normal 31.4 - 36.0 gm/dL [facility] MCV (RBC) [Entitic vol] 86.4 fL Normal 80.0 - 100.0 fL [facility] Platelet mean volume (Bld) [Entitic vol] 6.8 fL Normal 6.4 - 10.8 fL [facility] Platelets (Bld) [#/Vol] 275.0 E9/L Normal 150. 0 - 500.0 E9/L [facility] RBC (Bld) [#/Vol] 4.4 E12/L Normal 4.3 - 5.9 E12/L [facility] WBC corrected for nucl RBC Auto (Bld) [#/Vol] 5.7 E9/L Normal 4.0 - 11.0 E9/L [facility] Prescriptions/Work Noteson 0 09-04-2022 Prescriptions/Work Notes [id number] Normal [facility] SEROLOGYOrdered By: Ciara Cesar on 09-04-2022 Beta hCG Ql Negative (09/04/22 9:23 AM) Normal [facility] Man Sero Troponin 0 Hr.on 09-04-2022 Troponin I.cardiac [Mass/Vol] ng/mL Low 10.10-27.1 0 [facility] Comment on above: Result Comment: The 95% CI (Confidence Interval) PPV (Positive Predictive Value) for myocardial infarction in females is 38 pg/mL, in males 51 pg/mL. The results should be used in conjunction with clinical conditions of myocardial infarction. (Access High Sensitivity Troponin I Instructions For Use, [employer], January 2018) Performed By: #### 1 [id number], [id number] ####[facility] [address] [place] [address] XR Chest Single Viewon 09-04 XR Chest Single View Exam Date/Time: 09/04/2022 09:46 EDT Reason for Exam: Chest pain Report IMPRESSION: NO EVIDENCE OF ACTIVE CHEST DISEASE. CLINICAL HISTORY: Chest pain. COMPARISON: 04/12/2021. COMMENT: AP portable. The heart is normal in size. There is a loop recorder projected on the left lung base. The mediastinum is unremarkable. The lungs appear clear. No infiltration nor pleural effusion is evident. There is mild thoracic dextroscoliosis. Ordering Provider: Kong Arboleda FINAL REPORT Dictated: 09/04/2022 10:48 am Thad Fitch M.D. Signed (Electronic Signature): 09/04/2022 10:48 am Signed by: Thad Fitch M.D. Transcribed by: ELIO Technologist: LANDON Technical Comments Radiation Dose: Ka,r in mGy = n/a DAP = n/a Normal [facility] eGFRon 09-04-2022 GFR/1.73 sq M.predicted among blacks MDRD (S/P/Bld) [Vol rate/Area] mL/min/{1.73_m2} Normal >=59 [facility] Comment on above: Order Comment: Order added by Discern Expert. Result Comment: eGFR is race adjusted. AA=. Performed By: #### 1 [id number], [id number], [id number], [id number] ####[facility] [address] [place] [address] GFR/1.73 sq M.predicted among non-blacks MDRD (S/P/Bld) [Vol rate/Area] mL/min/{1.73_m2} Normal >=59 [facility] Comment on above: Order Comment: Order added by Discern Expert. Result Comment: Developing Machine Operator smitha kidney disease could be indicated at eGFR's of less than 60 mL/min/1.73m2. Kidney failure is indicated at less than 15 mL/min/1.73m2. Performed By: #### 1 [id number], [id number], [id number], [id number] ####[facility] [address] [place] [address] BNPon 12-27-2021 Natriuretic peptide B (Bld) [Mass/Vol] 106.0 pg/mL Normal <=450.0 [facility] Comment on above: Performed By: #### H STROPN, BMP, BNP ####[facility] [address] [address]Dr. Nelda Diaz CBC AUTO DIFFon 12-27-2021 BASO # 0.0 103/ul Normal 0.0-0.1 [facility] Comment on above: Performed By: #### C BC #### [facility] [address] [address] [address] Nelda Diaz Basophils/100 WBC (Bld) 0.5 % Normal 0.2-2.[address] [facility] Comment on above: Performed By: #### C BC #### [facility] [address] [address] [address] Nelda Diaz EO # 0.1 103/ul Normal 0.0-0.7 [facility] Comment on above: Performed By: #### C BC #### [facility] [address] [address] [address] Nelda Diaz Eosinophils/100 WBC (Bld) 2.1 % Normal 0.9-7.0 [facility] Comment on above: Performed By: #### C BC #### [facility] [address] [address] [address] Nelda Diaz Erythrocyte distribution width (RBC) [Ratio] 13.2 % Normal 11.0-15.0 [facility] Comment on above: Performed By: #### C BC #### [facility] [address] [place] [address] Dr. Nelda Diaz Hematocrit (Bld) [Volume fraction] 40.7 % Normal 36.0-48.0 [facility] Comment on above: Performed By: #### C BC #### [facility] [address] [place] [address] Dr. Nelda Diaz Hemoglobin (Bld) [Mass/Vol] 13.1 g/dL Normal 12.0-16.0 [facility] Comment on above: Performed By: #### C BC #### [facility] [address] [place] [address] Dr. Nelda Diaz IG # 0.01 10e3/ul Normal 0.00-0.03 [facility] Comment on above: Performed By: #### C BC #### [facility] [address] [place] [address] Dr. Nelda Diaz IG % 0.2 % Normal 0.0-0.5 [facility] Comment on above: Performed By: #### C BC #### [facility] [address] [place] [address] Dr. Nelda Diaz LYMPH # 1.9 103/ul Normal 1.2-3.8 [facility] Comment on above: Performed By: #### C BC #### [facility] [address] [place] [address] Dr. Nelda Diaz Lymphocytes/100 WBC (Bld) 32.3 % Normal 20.5-60.0 [facility] Comment on above: Performed By: #### C BC #### [facility] [address] [place] [address] Dr. Nelda Diaz MANUAL DIFF REQ NO Normal [facility] Comment on above: Performed By: #### C BC #### [facility] [address] [place] [address] Dr. Nelda Diaz MCH (RBC) [Entitic mass] 28.2 pg Normal 26.7-34.0 [facility] Comment on above: Performed By: #### C BC #### [facility] [address] [place] [address] Dr. Nelda Diaz MCHC (RBC) [Mass/Vol] 32.2 g/dL Normal 29.9-35.2 [facility] Comment on above: Performed By: #### C BC #### [facility] [address] [place] [address] Dr. Nelda Diaz MCV (RBC) [Entitic vol] 87.5 fL Normal 81.0-99.[address] [facility] Comment on above: Performed By: #### C BC #### [facility] [address] [place] [address] Dr. Nelda Diaz MONO # 0.5 103/ul Normal 0.3-0.8 [facility] Comment on above: Performed By: #### C BC #### [facility] [address] [place] [address] Dr. Nelda Diaz Monocytes/100 WBC (Bld) 8.4 % Normal 1.7-12.[address] [facility] Comment on above: Performed By: #### C BC #### [facility] [address] [place] [address] Dr. Nelda Diaz NEUT # 3.2 103/ul Normal 1.4-6.5 [facility] Comment on above: Performed By: #### C BC #### [facility] [address] [place] [address] Dr. Nelda Diaz Neutrophils/100 WBC (Bld) 56.5 % Normal 43.0-75.0 [facility] Comment on above: Performed By: #### C BC #### [facility] [address] [place] [address] Dr. Nelda Diaz Platelet mean volume (Bld) [Entitic vol] 9.1 fL Critically low 9.5-13.5 [facility] Comment on above: Performed By: #### C BC #### [facility] [address] [place] [address] Dr. Nelda Diaz PLT 308 103/ul Normal 150-450 [facility] Comment on above: Performed By: #### C BC #### [facility] [address] [address] [address] Nelda Diaz RBC 4.65 106/ul Normal 4.20-5.40 [facility] Comment on above: Performed By: #### C BC #### [facility] [id number] Nelda Diaz WBC 5.7 103/ul Normal 4.0-11.0 [facility] Comment on above: Performed By: #### C BC #### [facility] [id number] Nelda Diaz CTA CHEST WO W CONon 022 CTA CHEST WO W CON EXAMINATION: CTA ABA ST WO W CON HISTORY: CHEST PAIN, UNSPECIFIED ; acute chest pain for 3 days, hematemesis COMPARISON: CTA chest 02/14/2021 TECHNIQUE: Multi-planar CT images were created with IV contrast. Axial, Coronal, and Sagittal images. Dose reduction techniques were achieved by using automated exposure control and/or adjustment of mA and/or kV according to patient size and/or use of iterative reconstruction technique. 3-D reconstruction was performed on a separate workstation. FINDINGS: VASCULATURE: No pulmonary embolism or abnormal opacity. LUNGS: No visible pulmonary disease. PLEURA: No mass, effusion, or pneumothorax. MINH: No mass or adenopathy. MEDIASTINUM: No mass or adenopathy. CARDIAC: No enlargement, pericardial effusion, or pericardial thickening. AORTA: No aneurysm or dissection. CHEST WALL: No mass or axillary adenopathy. BONES: No bone lesion or fracture. LIMITED ABDOMEN: No suspicious findings. Limited images of the upper abdomen. OTHER: Negative. IMPRESSION: 1. No pulmonary aneurysm. 2. No acute infiltrates, suspicious nodules, or findings to account for patient's symptoms. Electronically authenticated by: ERNIE BURDEN Date: 2021-12-27 13:53 Normal [facility] PREG HCG QUALon 12-27-2021 , QUAL Negative Normal NEGATIVE [facility] Comment on above: Performed By: #### P REG #### [facility] [address] [address] [address] Nelda Diaz PROF CHEM 8 (BAS METB)on Anion gap [Moles/Vol] 9.2 mmol/L Normal [facility] Comment on above: Performed By: #### H STROPN, BMP, BNP ####[facility] [address] [address]Dr. Nelda Diaz Calcium [Mass/Vol] 8.7 mg/dL Normal 8.5-10.1 [facility] Comment on above: Performed By: #### H STROPN, BMP, BNP ####[facility] [address] [address]Dr. Nelda Diaz Chloride [Moles/Vol] 107 mmol/L Normal 98-107 [facility] Comment on above: Performed By: #### H STROPN, BMP, BNP ####[facility] [address] [address]Dr. Nelda Diaz CO2 [Moles/Vol] 27.8 mmol/L Normal 21.0-32.0 [facility] Comment on above: Performed By: #### H STROPN, BMP, BNP ####[facility] [address] [address]Dr. Nelda Diaz Creatinine [Mass/Vol] 0.69 mg/dL Normal 0.55-1.02 [facility] Comment on above: Performed By: #### H STROPN, BMP, BNP ####[facility] [address] [address]Dr. Nelda Diaz EGFR-AF BRUNEIAN >60 Normal >=60 [facility] Comment on above: Performed By: #### H STROPN, BMP, BNP ####[facility] [address] [address]Dr. Nelda Diaz EGFR-NON AF BRUNEIAN >60 Normal >=60 [facility] Comment on above: Performed By: #### H STROPN, BMP, BNP ####[facility] [address] [place] [address]Dr. Nelda Diaz Glucose [Mass/Vol] 93 mg/dL Normal 74-106 [facility] Comment on above: Performed By: #### H STROPN, BMP, BNP ####[facility] [address] [place] [address]Dr. Nelda Diaz Potassium [Moles/Vol] 4.0 mmol/L Normal 3.5-5.1 [facility] Comment on above: Performed By: #### H STROPN, BMP, BNP ####[facility] [address] [address]Dr. Nelda Diaz Sodium [Moles/Vol] 140 mmol/L Normal 136-145 [facility] Comment on above: Performed By: #### H STROPN, BMP, BNP ####[facility] [address] [address]Dr. Nelda Diaz Urea nitrogen [Mass/Vol] 7.0 mg/dL Normal 7.0-18.0 [facility] Comment on above: Performed By: #### H STROPN, BMP, BNP ####[facility] [address] [address]Dr. Nelda Diaz Urea nitrogen/Creatinine [Mass ratio] 10.1 mg/mg Normal [facility] Comment on above: Performed By: #### H STROPN, BMP, BNP ####[facility] [address] [address]Dr. Nelda Diaz PROTIMEon 12-27-2021 INR Coag (PPP) [Relative time] 1.01 {INR} Normal [facility] Comment on above: Performed By: #### P T, PTT #### [facility] [address] [place] [address] Dr. Nelda Diaz INR GUIDELINES SEE BELOW Normal [facility] Comment on above: Result Comment: [place] RED INR: 2.0 - 3.0 CONDITIONS NOT LISTED BELOW 2.5 - 3.5 FOR PROSTHETIC HEART VALVE REPLACEMENT 2.5 - 3.5 RECURRENT THROMBOSIS Performed By: #### P T, PTT #### [facility] [address] [place] [address] Dr. Nelda Diaz PT Coag (PPP) [Time] 10.9 s Normal 9.0-11.6 [facility] Comment on above: Performed By: #### P T, PTT #### [facility] [address] [place], [place] [address] Dr. Nelda Diaz PTTon 12-27-2021 aPTT Coag (Bld) [Time] 28.9 s Normal 22.3-36.2 [facility] Comment on above: Performed By: #### P T, PTT #### [facility] [address] [place], [place] [address] Dr. Nelda Diaz TROPONIN, HIGH SENSITIVITYon 12-27-2021 HSTROP <4.0 Normal 4.0-51.3 [facility] Comment on above: Result Comment: CUT- OFF POINTS HAVE BEEN ESTABLISHED BASED ON THE FOURTH UNIVERSAL DEFINITIONS OF MYOCARDIAL INFARCTION. THE UPPER REFERENCE LIMIT (URL) OF TROPONIN, DEFINED THE 99TH PERCENTILE OF cTnI DISTRIBUTION IN A REFERENCE POPULATION, HAS BEEN CONFIRMED THE DECISION THRESHOLD FOR [place] DIAGNOSIS. Performed By: #### H STROPN, BMP, BNP ####[facility] [address] [place], [place] [address]C[address]elda Diaz Reference Laboratory Testing Ordered By: Generated DomainUser on 07-08-2021 SARS-CoV-2 (COVID-19) RNA TAVON+probe Ql (Resp) Not detected Invalid Interpretation Code Not Detected [facility] Comment on above: Result Comment: This nucleic acid amplification test was developed and its performance characteristics determined by [employer]. Nucleic acid amplification tests include RT-PCR and TMA. This test has not been FDA cleared or approved. This test has been authorized by FDA under an Emergency Use Authorization (EUA). This test is only authorized for the duration of time the declaration that circumstances exist justifying the authorization of the emergency use of in vitro diagnostic tests for detection of SARS-CoV-2 virus and/or diagnosis of COVID-19 infection under section 564(b)(1) of the Act, 21 U.S.C. 360bbb-3(b) (1), unless the authorization is terminated or revoked sooner. When diagnostic testing is negative, the possibility of a false negative result should be considered in the context of a patient's recent exposures and the presence of clinical signs and symptoms consistent with COVID-19. An individual without symptoms of COVID-19 and who is not shedding SARS-CoV-2 virus would expect to have a negative (not detected) result in this assay. Performed at: [facility] [address], [place] [id number] PhD Macarena Garcia and Tammie Quinones 04-18 ABO/RH(D) Negative Normal [facility] Comment on above: Performed By: #### T SPN #### [facility] [address] [id number] CBC AUTO DIFFon 02-14-2021 BASO # 0.0 103/ul Normal 0.0-0.1 [facility] Comment on above: Performed By: #### C BC #### [facility] [address] [place] [address] Katerine Anaya Basophils/100 WBC (Bld) 0.3 % Normal 0.2-2.[address] [facility] Comment on above: Performed By: #### C BC #### [facility] [address] [place] [address] Katerine Anaya EO # 0.1 103/ul Normal 0.0-0.7 [facility] Comment on above: Performed By: #### C BC #### [facility] [address] [place], [place] [id number] Katerine Anaya Eosinophils/100 WBC (Bld) 0.6 % Critically low 0.9-7.0 [facility] Comment on above: Performed By: #### C BC #### [facility] [address] [place], [place] [address] Katerine Anaya Erythrocyte distribution width (RBC) [Ratio] 13.0 % Normal 11.0-15.0 [facility] Comment on above: Performed By: #### C BC #### [facility] [address] [place], [place] [address] Katerine Anaya Hematocrit (Bld) [Volume fraction] 36.2 % Normal 36.0-48.0 [facility] Comment on above: Performed By: #### C BC #### [facility] [address] [place], [place] [id number] Katerine Anaya Hemoglobin (Bld) [Mass/Vol] 12.2 g/dL Normal 12.0-16.0 [facility] Comment on above: Performed By: #### C BC #### [facility] [address] [place] [address] Katerinekimmy Julien IG # 0.09 10e3/ul Critically high 0.00-0.03 [facility] Comment on above: Performed By: #### C BC #### [facility] [address] [place] [address] Katerine Anaya IG % 0.7 % Critically high 0.0-0.5 [facility] Comment on above: Performed By: #### C BC #### [facility] [address] [place] [address] Katerinekimmy Julien LYMPH # 1.7 103/ul Normal 1.2-3.8 [facility] Comment on above: Performed By: #### C BC #### [facility] [address] [place] [address] Katerine Julien Lymphocytes/100 WBC (Bld) 13.7 % Critically low 20.5-60.0 [facility] Comment on above: Performed By: #### C BC #### [facility] [address] [place], [place] [id number] Katerine Julien MANUAL DIFF REQ NO Normal [facility] Comment on above: Performed By: #### C BC #### [facility] [address] [place], [place] [id number] Katerine Julien MCH (RBC) [Entitic mass] 29.7 pg Normal 26.7-34.0 [facility] Comment on above: Performed By: #### C BC #### [facility] [address] [place] [address] Katerine Julien MCHC (RBC) [Mass/Vol] 33.7 g/dL Normal 29.9-35.2 [facility] Comment on above: Performed By: #### C BC #### [facility] [address] [place] [address] Katerinekimmy Julien MCV (RBC) [Entitic vol] 88.1 fL Normal 81.0-99.[address] [facility] Comment on above: Performed By: #### C BC #### [facility] [address] [place], [place] [address] Katerine Julien MONO # 0.7 103/ul Normal 0.3-0.8 [facility] Comment on above: Performed By: #### C BC #### [facility] [address] [id number] Katerine Grijalvaen Monocytes/100 WBC (Bld) 5.8 % Normal 1.7-12.[address] [facility] Comment on above: Performed By: #### C BC #### [facility] [address] [id number] Katerine Anaya NEUT # 9.6 103/ul Critically high 1.4-6.5 [facility] Comment on above: Performed By: #### C BC #### [facility] [address] [id number] Katerine Grijalvaen Neutrophils/100 WBC (Bld) 78.9 % Critically high 43.0-75.0 [facility] Comment on above: Performed By: #### C BC #### [facility] [address] [id number] Katerine Julien Platelet mean volume (Bld) [Entitic vol] 9.2 fL Critically low 9.5-13.5 [facility] Comment on above: Performed By: #### C BC #### [facility] [address] [id number] Katerine Anaya PLT 288 103/ul Normal 150-450 [facility] Comment on above: Performed By: #### C BC #### [facility] [address] [id number] Katerine Anaya RBC 4.11 106/ul Critically low 4.20-5.40 [facility] Comment on above: Performed By: #### C BC #### [facility] [address] [id number] Katerine Anaya WBC 12.2 103/ul Critically high 4.0-11.0 [facility] Comment on above: Performed By: #### C BC #### [facility] [address] [place], [place] [address] Katerine Julien CTA CHEST WO W CONon 021 CTA CHEST WO W CON EXAMINATION: CTA ABA ST WO W CON HISTORY: SHORTNESS OF BREATH , chest pain, 19 weeks COMPARISON: No relevant comparison available. TECHNIQUE: Multi-planar CT images were created with IV contrast. Axial, Coronal, and Sagittal images. Dose reduction techniques were achieved by using automated exposure control and/or adjustment of mA and/or kV according to patient size and/or use of iterative reconstruction technique. 3-D reconstruction was performed on a separate workstation. FINDINGS: VASCULATURE: No pulmonary embolism or abnormal opacity. LUNGS: No visible pulmonary disease. PLEURA: No mass, effusion, or pneumothorax. MINH: No mass or adenopathy. MEDIASTINUM: No mass or adenopathy. CARDIAC: No enlargement, pericardial effusion, or pericardial thickening. AORTA: No aneurysm or dissection. CHEST WALL: No mass or axillary adenopathy. BONES: No bone lesion or fracture. LIMITED ABDOMEN: No suspicious findings. Limited images of the upper abdomen. OTHER: Negative. IMPRESSION: 1. No pulmonary embolism. 2. No pulmonary infiltrates or acute/suspicious findings to account for the patient's symptoms. Electronically authenticated by: ERNIE BURDEN Date: 2021-02-14 15:32 Normal [facility] SARS-CoV-2 (COVID-19) RNA TAVON+probe Ql (Unsp spec) Not detected Normal NOT DETECTED [facility] Comment on above: Result Comment: This test is not yet approved or cleared by the [place] FDA. When there are no FDA-approved or cleared tests available, and other criteria are met, FDA can make tests available under an emergency access mechanism called an Emergency Use Authorization (EUA). The EUA for this test is supported by the [place] of Health and Human Service's (HHS's) declaration that circumstances exist to justify the emergency use of in vitro diagnostics for the detection and/or diagnosis of the virus that causes COVID-19. This EUA will remain in effect (meaning this test can be used) for the duration of the COVID-19 declaration justifying emergency of IVDs, unless it is terminated or revoked by FDA (after which the test may no longer be used). When diagnostic testing is negative, the possibility of a false negative should be considered in the context of a patient's recent exposures and the presence of clinical signs and symptoms consistent with SARS-CoV-2. Performed By: #### C ANNEMARIE, CVDTB ####[facility] [address] [address]Gerken Anaya ER URINE PROFILEon 1 Bilirubin Ql (U) Negative Normal NEGATIVE [facility] Comment on above: Performed By: #### E RUR #### [facility] [address] [place] [address] Katerine Anaya Clarity (U) CLEAR Normal CLEAR [facility] Comment on above: Performed By: #### E RUR #### [facility] [address] [place] [address] Katerine Anaya Color (U) YELLOW Normal YELLOW [facility] Comment on above: Performed By: #### E RUR #### [facility] [address] [place] [address] Katerine Anaya ERUAHD A micrscopic examina tion will be performed if indicated. Normal [facility] Comment on above: Performed By: #### E RUR #### [facility] [address] [place] [address] Katerine Anaya Glucose Ql (U) Negative Normal NEGATIVE [facility] Comment on above: Performed By: #### E RUR #### [facility] [address] [place] [address] Katerine Anaya Hemoglobin Ql (U) Negative Normal NEGATIVE [facility] Comment on above: Performed By: #### E RUR #### [facility] [address] [place] [address] Katerine Anaya Ketones Ql (U) Negative Normal NEGATIVE [facility] Comment on above: Performed By: #### E RUR #### [facility] [address] [place] [address] Katerine Anaya LEUKOCYTES Negative Normal NEGATIVE [facility] Comment on above: Performed By: #### E RUR #### [facility] [address] [place] [address] Katerine Julien Nitrite Ql (U) Negative Normal NEGATIVE [facility] Comment on above: Performed By: #### E RUR #### [facility] [address] [place], [place] [id number] Katerine Julien pH (U) 6.0 [pH] Normal 5-9 [facility] Comment on above: Performed By: #### E RUR #### [facility] [address] [place] [address] Katerine Julien SPEC GRAVITY 1.025 Normal 1.005-<=1. 025 [facility] Comment on above: Performed By: #### E RUR #### [facility] [address] [place] [address] Katerine Julien UA PROTEIN Negative Normal NEGATIVE/ TRACE [facility] Comment on above: Performed By: #### E RUR #### [facility] [address] [place] [address] Katerine Julien UR MICRO IND NOT INDICATED Normal [facility] Comment on above: Performed By: #### E RUR #### [facility] [address] [place] [address] Katerine Julien Urobilinogen Qn (U) 0.2 {Charlee'U}/dL Normal 0.2 - 1. 0 [facility] Comment on above: Performed By: #### E RUR #### [facility] [address] [place] [address] Katerine Anaya PROF 14(COMP METB)on 021 Albumin [Mass/Vol] 3.6 g/dL Normal 3.5-5.0 [facility] Comment on above: Performed By: #### C SINDY HSTROPN #### [facility] [address] [place], [place] [id number] Katerine Grijalvaen Albumin/Globulin [Mass ratio] 0.9 {ratio} Normal [facility] Comment on above: Performed By: #### C SINDY HSTROPN #### [facility] [address] [place], [place] [phone] Katerine Grijalvaen ALP [Catalytic activity/Vol] 44 U/L Normal 38-126 [facility] Comment on above: Performed By: #### C SINDY, HSTROPN #### [facility] [address] [place], [place] [id number] Katerine Anaya ALT [Catalytic activity/Vol] 28 U/L Normal 9-52 [facility] Comment on above: Performed By: #### C SINDY, HSTROPN #### [facility] [address] [place], [place] [id number] Katerine Anaya Anion gap [Moles/Vol] 12.5 mmol/L Normal [facility] Comment on above: Performed By: #### C SINDY, HSTROPN #### [facility] [address] [place] [address] Katerine Anaya AST [Catalytic activity/Vol] 9 U/L Critically low 14-36 [facility] Comment on above: Performed By: #### C SINDY, HSTROPN #### [facility] [address] [place] [address] Katerine Anaya Bilirubin [Mass/Vol] 0.1 mg/dL Critically low 0.2-1.3 [facility] Comment on above: Performed By: #### C SINDY, HSTROPN #### [facility] [address] [place] [address] Katerine Anaya Calcium [Mass/Vol] 8.8 mg/dL Normal 8.4-10.2 [facility] Comment on above: Performed By: #### C SINDY, HSTROPN #### [facility] [address] [place] [address] Katerine Anaya Chloride [Moles/Vol] 104 mmol/L Normal 98-107 [facility] Comment on above: Performed By: #### C SINDY, HSTROPN #### [facility] [address] [place] [address] Katerine Anaya CO2 [Moles/Vol] 25.8 mmol/L Normal 22.0-30.0 [facility] Comment on above: Performed By: #### C SINDY, HSTROPN #### [facility] [address] [place] [address] Katerine Anaya Creatinine [Mass/Vol] 0.50 mg/dL Critically low 0.52-1.04 [facility] Comment on above: Performed By: #### C SINDY HSTROPN #### [facility] [address] [place] [address] Katerine Anaya EGFR-AF BRUNEIAN >60 Normal >=60 [facility] Comment on above: Performed By: #### C SINDY HSTROPN #### [facility] [address] [address] Katerine Anaya EGFR-NON AF BRUNEIAN >60 Normal >=60 [facility] Comment on above: Performed By: #### C SINDY HSTROPN #### [facility] [address] [place] [address] Katerine Anaya Globulin (S) [Mass/Vol] 3.8 g/dL Normal [facility] Comment on above: Performed By: #### C SINDY HSTROPN #### [facility] [address] [place] [address] Katerine Anaya Glucose [Mass/Vol] 92 mg/dL Normal 74-106 [facility] Comment on above: Performed By: #### C SINDY HSTROPN #### [facility] [address] [place] [address] Katerine Anaya Potassium [Moles/Vol] 3.3 mmol/L Critically low 3.4-5.0 [facility] Comment on above: Performed By: #### C SINDY HSTROPN #### [facility] [address] [place] [address] Katerine Anaya Protein [Mass/Vol] 7.4 g/dL Normal 6.1-8.2 [facility] Comment on above: Performed By: #### C SINDY HSTROPN #### [facility] [address] [place] [address] Katerine Anaya Sodium [Moles/Vol] 139 mmol/L Normal 137-145 [facility] Comment on above: Performed By: #### C SINDY HSTROPN #### [facility] [address] [place] [address] Katerine Julien Urea nitrogen [Mass/Vol] 6.0 mg/dL Critically low 7.0-17.0 [facility] Comment on above: Performed By: #### C SINDY, HSTROPN #### [facility] [address] [address] Katerine Julien Urea nitrogen/Creatinine [Mass ratio] 12.0 mg/mg Normal [facility] Comment on above: Performed By: #### C MP, HSTROPN #### [facility] [address] [address] Katerine Julien SYMPTOMATIC COVID-19 ANTIGEN on 02-14-2021 EUA Statement SEE BELOW Normal [facility] Comment on above: Result Comment: This test has not been FDA cleared or approved, but has been authorized by the FDA under an Emergency Use Authorization (EUA) for use by authorized laboratories certified under CLIA that meet the requirements to perform moderate or high complexity testing. This test has been authorized only for the detection of proteins from SARS-CoV-2, not for any other viruses or pathogens. The emergency use of this test is authorized for the duration of the declaration that circumstances exist justifying the authorization of emergency use of in vitro diagnostic tests for detection and/or diagnosis of Covid-19 under section 564(b)(1) of the Act, 21 U.S.C. 360bbb-3(b)(1), unless the declaration is terminated or authorization is revoked sooner. Performed By: #### C ANNEMARIE CVDTB ####[facility] [address] [address]Gerken Anaya SARS-CoV-2 (COVID-19) RNA TAVON+probe Ql (Unsp spec) Negative Normal NEGATIVE [facility] Comment on above: Result Comment: CONF IRMATION BY PCR PENDING PER CDC GUIDELINES/ SYMPTOMATIC PATIENT. Performed By: #### C ANNEMARIE, CVDTB ####[facility] [address] [address]Katerine Julien TROPONIN, HIGH SENSITIVITYon 02-14-2021 HSTROP <4.0 Normal 4.0-35.5 [facility] Comment on above: Result Comment: CUT- OFF POINTS HAVE BEEN ESTABLISHED BASED ON THE FOURTH UNIVERSAL DEFINITIONS OF MYOCARDIAL INFARCTION. THE UPPER REFERENCE LIMIT (URL) OF TROPONIN, DEFINED THE 99TH PERCENTILE OF cTnI DISTRIBUTION IN A REFERENCE POPULATION, HAS BEEN CONFIRMED THE DECISION THRESHOLD FOR [place] DIAGNOSIS. Performed By: #### C MP, HSTROPN #### [facility] [address] [id number] Katerine Julien CHEST 2 VIEW PA AND LATon CHEST 2 VIEW PA AND LAT Patient Name: SIMIN BALES STUDY: TH CHEST 2 VIEW PA AND LAT; 04/14/2020 10:00 am INDICATION: pre EPS. COMPARISON: 02/26/2020 ACCESSION NUMBER(S): [id number] ORDERING CLINICIAN: GELA HENDRICKS FINDINGS: CARDIOMEDIASTINAL SILHOUETTE: Cardiomediastinal silhouette is normal in size and configuration. LUNGS: Lungs are clear. ABDOMEN: No remarkable upper abdominal findings. BONES: No acute osseous changes. Scoliosis. IMPRESSION: 1. No evidence of acute cardiopulmonary process. Electronically signed by: ILEANA PEREZ MD Normal [facility] COAGULATION SCREENon 020 aPTT Coag (Bld) [Time] 31 s Normal 25 - 35 [facility] Comment on above: Result Comment: THE APTT IS NO LONGER USED FOR MONITORING UNFRACTIONATED HEPARIN THERAPY. FOR MONITORING HEPARIN THERAPY, USE THE HEPARIN ASSAY. Performed By: #### C OAGS ####[facility] [place], [place] [id number] INR Coag (PPP) [Relative time] 1.0 {INR} Normal 0.9 - 1.1 [facility] Comment on above: Performed By: #### C OAGS ####[facility] [place], [place] [id number] PT Coag (PPP) [Time] 12.2 s Normal 10.1 - 13.3 [facility] Comment on above: Performed By: #### C OAGS ####[facility] [place], [place] [id number] CORONAVIRUS 2019, SCREEN ASY MPTOMATICon 10-21-2020 CORONAVIRUS 2019,PCR NOT DETECTED Normal Not Detected [facility] Comment on above: Result Comment: . This assay is designed to detect the N, ORF1ab and/or S genes of SARS-CoV-2 via nucleic acid amplification. A Negative (NOT DETECTED) result does not preclude 2019-nCoV infection since the adequacy of sample collection and/or low viral burden may result in presence of viral nucleic acids below the clinical sensitivity of this test method. Negative (NOT DETECTED) result should not be used as the sole basis for treatment or other patient management decisions. Rather negative results should be combined with clinical observations, patient history, and epidemiological information to make patient management decisions. Fact sheet for providers: https://www.fda.gov/media/520539/download Fact sheet for patients: https://www.fda.gov/media/012291/download This test has received FDA Emergency Use Authorization (EUA) and has been verified by [facility] ([facility]). This test is only authorized for the duration of time that circumstances exist to justify the authorization of the emergency use of in vitro diagnostic tests for the detection of SARS-CoV-2 virus and/or diagnosis of COVID-19 infection under section 564(b)(1) of the Act, 21 U.S.C. 360bbb-3(b)(1), unless the authorization is terminated or revoked sooner. [facility] is certified under CLIA-88 as qualified to perform high complexity testing. Testing is performed in the [facility] laboratories located at [address] [place] [address]. Performed By: #### C OVSC #### [address] [place] [address] Daily Progress Note-Electrop hysiologyon 04-14-2020 Daily Progress Note-Electrophysiology Service: Electrophysiology Assessment and Plan: Code Status: Code StatusFull Code Assessment: Assessment: Electrophysiology Study With Ablation of VT Summary: Normal AV giovanni function. Normal His-Purkinje conduction. Concentric VA conduction. Complex mapping of PVC's and NSVT, localized to RV summit, inferior to pulmonic valve. The arrhythmia was successfully ablated. Accelerated PVC's occurred during ablation. No PVC's occurred during the post ablation waiting period at baseline or with isoproterenol. Discharge: 1.The patient left the EP laboratory in stable condition. Follow up: 1.The patient will remain in the hospital for telemetry monitoring and observation, with anticipated discharge on the same day. The patient should be alert for bleeding, swelling, or signs of infection. The patient should call the motorcycle subassembler immediately if symptoms recur, or for any problems. The patient and family (grandmother with HIPPA consent) have been instructed accordingly. Procedures: Complete electrophysiologic testing. HIS Recording. CS recording. Program stim / with IV Meds. 3D mapping. Complex mapping with grid catheter and morphology scoring. Arrhythmia induction. Ablation performed. Patient history: Please refer to the detailed history and physical on the patient's medical chart. Diagnosis Tachycardia, palpitation, ventricular tachycardia, PVC's Procedure narrative: The risks, benefits, and alternatives to the procedure and sedation were explained to the patient, and informed consent was obtained. The patient was in the fasting state. A baseline ECG was recorded. RF grounding pads were placed. Self-adhesive anterior-posterior defibrillation pads were applied. A ZOLL defibrillator was used for monitoring and the defibrillator waveform was set to biphasic. The patient was set up for continuous monitoring of surface 12 lead ECG and pulse oximetry. Blood pressure was monitored with automatic cuff measurements. The procedure was performed under IV conscious sedation supplemented with intermittent moderate sedation. Bilateral groins were clipped, prepped with chlorhexidine, and draped in the usual sterile fashion. Local anesthesia: Subcutaneous tissues were infiltrated with Lidocaine 1 % ( 20 ml) to the right femoral vein access site for local anesthesia. 1.The right femoral vein was accessed x 3 using the modified Seldinger technique. Three sheaths were inserted. 2.Electrophysiologic testing was performed with a multiple catheter technique. The catheters were placed under fluoroscopic guidance. A catheter was placed across the tricuspid valve to record the His bundle. A catheter was placed in the coronary sinus. Separate SVT study with cs recording was performed given nonsustained tachycardia. Testing was done at baseline, with and without provocation. Measurements of basic intervals and refractory periods were obtained. HV 35 ms. Protocols included decremental pacing, burst pacing, and programmed stimulation. Stimuli were delivered at high right atrial, right ventricular apex, coronary sinus / left atrial, and right ventricular outflow tract sites. Pacing was repeated with isoproterenol 1 mcg. No SVT was induced. PVC's and NSVT were mapped. 3.Complex procedure - mapping for VT and PVC's with additional 90 minutes. A grid catheter was used for mapping. The right ventricle sites were mapped with [id number] electroanatomical activation mapping and pace mapping. An Digiscend mapping system was used to create a 3D image of the right ventricle. Mapping was performed during ventricular arrhythmia, in sinus rhythm, and with ventricular pacing. 4. After the tachycardia and target PVC were fully characterized and reproducibly induced, an ablation catheter was placed. Match percentage and pacemap 12/12 were obtained. See photos and log. 5.Catheter RF ablation. Applications were delivered via a generator to the area of best pacemap match and best morphology map. Accelerated PVC's occurred during ablation. Follow-up testing was performed post ablation. No PVC's occurred during the waiting period after ablation and with isoproterenol 1 mcg. 6.Sheaths were removed and hemostasis was obtained at the right femoral venous access sites with Vascades. Manual compression was applied. Pressure dressing was applied. Vascular access and catheter properties: See signed procedural log and parameters. Entry site Sheath Locations Catheter Type Right femoral vein 7 Fr His-bundle (right side) SJM, quad new access Right femoral vein 7 Fr coronary sinus SJM, deca new access Right femoral vein 8.5 Fr roving, RA, RVA, RVOT SJM grid, SJM lg nicolasa Staples new access Complications: The patient tolerated the procedure without any complications or incident. EBL 10 cc Specimens obtained: No Prepared and signed by. Electronic Signatures: Gela Hendricks) (Signed 14-Apr-2020 14:36) Authored: Service, Objective Data, Assessment and Plan, Note Completion Last Updated: 14-Apr-2020 14:36 by Gela Hendricks) Electronic Signatures: Gela Hendricks) (Signed 15-Apr-2020 15:18) Authored: Service, Objective Data, Assessment and Plan, Note Completion Last Updated: 15-Apr-2020 15:18 by Gela Hendricks) Normal [facility] HCG,SERUM QUALITATIVEon 03-26 HCG,SERUM QUALITATIVE Negative Normal Negative [facility] Comment on above: Performed By: #### H CGS ####[facility] [place], [place] [id number] History and Physical - Surgi nedra Update < 30 dayson 04-14-2020 History and Physical - Surgical Update < 30 days History & Physical Reviewed: /Lactating: Are You no (1) Are You Currently Breastfeedingno (1) I have reviewed the History and Physical dated: 16-Mar-2020 History and Physical reviewed and relevant findings noted. Patient examined to review pertinent physical findings.: No significant changes Home Medications Reviewed: no changes noted Allergies Reviewed: no changes noted Airway/Sedation Assessment: Assmentment by AnesthesiaSee anesthesia airway/sedation assessment. Emotional Statuscalm Neurologicalert & oriented x 3 Respiratoryclear to auscultation Cardiovascularrhythm & rate regular Pulsespresent: Pedal Left, Pedal Right, Radial Left, Radial Right Mouth Opening OKyes Neck Flexibility OKyes Loose Teethno Oropharyngeal ClassificationClass II ASA PS ClassificationASA III ERAS (Enhanced Recovery After Surgery): ERAS Patient: no Consent: COVID-19 Consent: COVID-19 Risk ConsentSurgeon has reviewed gillette risks related to the risk of parish COVID-19 and if they contract COVID-19 what the risks are. Signatures/Attestation: Note Completion: Attending Provider Inpatient Certification StatementObservation patient/other outpatient visits Electronic Signatures: Gela Hendricks) (Signed 14-Apr-2020 11:02) Authored: History & Physical Reviewed, Airway/Sedation, ERAS, Consent, Note Completion Last Updated: 14-Apr-2020 11:02 by Gela Hendricks) References: 1. Data Referenced From Patient Profile - Preop v2 14-Apr-2020 08:47 Normal [facility] Patient Profile - Preop v2on 04-14-2020 Patient Profile - Preop v2 Profile: Initial Info: How to be AddressedAlissa(1) Spoken Language PreferredEnglish (1) Source of Informationpatient; family Are you currently using the Personal Electronic Health Record [facility] ([facility]) Stated Reason for Admissionablation Primary Contact Name and NumberRegina Bales [phone] Limitations on Visitors/Phone Callsnone Patient Belongingsremains with patient Medications Brought to Hospitalno General Health: Weight in kg59.7 kilogram(s) Weight in dmh696.6 pound(s) Weight Methodactual (measured) Scale Typestanding Height in feet5 feet Height in inches6 inch(es) Height in cm167.6 centimeter(s) Height Methodstated BMI (kg/m2)21.253 square meter Patient or Family Member Reaction to Anesthesiano previous reaction; patient reaction Patient Reaction to Anesthesianausea and vomiting Blood Avoidance/Restrictionsnone Previous Transfusion Reactionno Health Mgmt: Symptoms/Conditions Managed at Homecardiovascular Are You no Are You Currently Breastfeedingno Cardiovascular Symptoms/Conditionsdysrhyt hmia Cardiovascular Management Strategiesmedication therapy Barriers to Managing Healthnone Relationship/Environ: Living Arrangementshouse Lives Withparent(s) Resource/Environmental Concernsnone Anticipated Transition [place] Services Anticipated at Transitionnone Substance: Current or Former Substance Use never: Cigarette/Tobacco(1), e-Cigarette/Vaping(1), Alcohol(1), Street Drugs Risk Screens: COVID-19 Screening Completedno exposure or symptoms Advance Directive/DNRno Advance Directive Information Givenpatient/family declined Advance Directive Mental Healthrefused to discuss adv directive/surrogate During the past month, have you often been bothered by feeling down, depressed or hopelessno During the past month, have you often had little interest or pleasure in doing thingsno Have you had any thoughts of harming yourselfno Have you had any thoughts of harming anyone elseno Are you or have you been threatened or abused physically,emotionally or sexually abused by anyoneno Do you feel UNSAFE going back to the place you are livingno Patient is Able to be Assessed for Learningyes Factors Influencing Readiness to Learninterest in learning Factors that Impact Ability to Learnnone Devices/Methods Used to Communicatenone Learning Preferencesindividual instruction; verbal instruction Cultural Considerationsnone Developmental Considerationsnone Temple Considerationsnone Other learner availableyes... Learnerfamily Factors Influencing Readiness to Learninterest in learning Factors that Impact Ability to Learnnone Devices/Methods Used to Communicatenone Learning Preferencesindividual instruction, verbal instruction Cultural Considerationsnone Developmental Considerationsnone Temple Considerationsnone Falls RiskPatient location auto qualifies him/her for HIGH RISK. Are there any cultural, spiritual, episcopalian practices/values/needs that are important for us to knowno Do you want a visit/item from Pastoral Careno Would you like your Splitting Machine Tender/Court Worker notifiedno Pain Scalenumerical 0-10 Pain Scale Educationteaching provided Current Pain Level0 = None Acceptable Pain Level0 = None Chronic Painyes Chronic Chest pain locationsternal Description of Pain (frequency/quality)frequen t Factors that Relieve Painnone Information Review: Allergies, Home Meds and Significant Events have been Reviewed and Verified with Patient/Familyyes Allergy, Intolerance, Adverse Event: Allergies: No Known Allergies: Active Electronic Signatures: Maci Zhao ([place]) (Signed 14-Apr-2020 08:54) Authored: Initial Info, General Health, Health Mgmt, Relationship/Environ, Substance, Risk Screens, Additional Information Last Updated: 14-Apr-2020 08:54 by Maci Zhao ([place]) References: 1. Data Referenced From Patient Profile - Preop v2 26-Feb-2020 07:59 Normal [facility] Preop Checkliston 04-14-2020 Preop Checklist Preop Checklist: Preop Checklist: Arrival [id number] Arrival Time08:23 NPO [id number] 23:30 ID Band Onyes Allergy Bandno known allergies Consent Signedpending H&P Completeyes EKG Performedyes Chest X-Ray Performednot ordered HCG Urine TestN/A Chlorhexadine Bath Givennot applicable Nasal Antiseptic Appliednot applicable SCD's Appliednot applicable Electronic Signatures: Maci Zhao) (Signed 14-Apr-2020 08:56) Authored: Preop Checklist Last Updated: 14-Apr-2020 08:56 by Maci Zhao (RN) Normal [facility] CORONAVIRUS 2019, SCREEN ASY MPTOMATICon 04-13-2020 Lab Specimen Source Nasal, Nasopharyngeal Normal [facility] Comment on above: Performed By: #### C OVSC #### [facility] [address] [place] [address] CBCon 02-26-2020 Erythrocyte distribution width (RBC) [Ratio] 11.8 % Normal 11.5 - 14.5 [facility] Comment on above: Performed By: #### C BC #### [address] [id number] Hematocrit (Bld) [Volume fraction] 42.1 % Normal 36.0 - 46.0 [facility] Comment on above: Performed By: #### C BC #### [address] [id number] Hemoglobin (Bld) [Mass/Vol] 14.1 g/dL Normal 12.0 - 16.0 [facility] Comment on above: Performed By: #### C BC #### [address] [id number] MCHC (RBC) [Mass/Vol] 33.5 g/dL Normal 32.0 - 36.0 [facility] Comment on above: Performed By: #### C BC #### [address] [id number] MCV (RBC) [Entitic vol] 88 fL Normal 80 - 100 [facility] Comment on above: Performed By: #### C BC #### [address] [id number] Platelets (Bld) [#/Vol] 284 10*3/uL Normal 150 - 450 [facility] Comment on above: Performed By: #### C BC #### [address] [id number] RBC (Bld) [#/Vol] 4.77 x10E12/L Normal 4.00 - 5.20 [facility] Comment on above: Performed By: #### C BC #### [address] [id number] WBC (Bld) [#/Vol] 8.3 10*3/uL Normal 4.4 - 11.3 [facility] Comment on above: Performed By: #### C BC #### [address] [id number] CHEST 2 VIEW PA AND LATon CHEST 2 VIEW PA AND LAT Patient Name: SIMIN BALES STUDY: CHEST 2 VIEW PA AND LAT; 02/26/2020 9:05 am INDICATION: pre-EP study. COMPARISON: None. ACCESSION NUMBER(S): [id number] ORDERING CLINICIAN: GELA HENDRICKS FINDINGS: CARDIOMEDIASTINAL SILHOUETTE: Cardiomediastinal silhouette is normal in size and configuration. LUNGS: Lungs are clear. No acute infiltrate, pleural effusion or pneumothorax. ABDOMEN: No remarkable upper abdominal findings. BONES: No acute osseous changes. Mild scoliosis. IMPRESSION: 1. No evidence of acute cardiopulmonary process. Electronically signed by: DEJA DESAI MD Normal [facility] COMPREHENSIVE PANELon 2019 Albumin [Mass/Vol] 4.6 g/dL Normal 3.4 - 5.0 [facility] Comment on above: Performed By: #### C MP #### [address] [id number] ALP [Catalytic activity/Vol] 41 U/L Normal 33 - 110 [facility] Comment on above: Performed By: #### C MP #### [address] [id number] ALT [Catalytic activity/Vol] 11 U/L Normal 7 - 45 [facility] Comment on above: Result Comment: Edith ents treated with Sulfasalazine may generate falsely decreased results for ALT. Performed By: #### C MP #### [address] [id number] Anion gap [Moles/Vol] 11 mmol/L Normal 10 - 20 [facility] Comment on above: Performed By: #### C MP #### [address] [id number] AST [Catalytic activity/Vol] 13 U/L Normal 9 - 39 [facility] Comment on above: Performed By: #### C MP #### [address] [id number] Bilirubin [Mass/Vol] 0.4 mg/dL Normal 0.0 - 1.2 [facility] Comment on above: Performed By: #### C MP #### [address] [id number] Calcium [Mass/Vol] 9.2 mg/dL Normal 8.6 - 10.3 [facility] Comment on above: Performed By: #### C MP #### [address] [id number] Chloride [Moles/Vol] 105 mmol/L Normal 98 - 107 [facility] Comment on above: Performed By: #### C MP #### [address] [id number] Creatinine [Mass/Vol] 0.57 mg/dL Normal 0.50 - 1.05 [facility] Comment on above: Performed By: #### C MP #### [address] [id number] GFR- AM. >60 Normal >60 [facility] Comment on above: Result Comment: CALC ULATIONS OF ESTIMATED GFR ARE PERFORMED USING THE MDRD STUDY EQUATION FOR THE IDMS-TRACEABLE CREATININE METHODS. CLIN CHEM 2007;53:766-72 Performed By: #### C MP #### [address] [id number] GFR-NON AM. >60 Normal >60 [facility] Comment on above: Performed By: #### C MP #### [address] [id number] Glucose [Mass/Vol] 89 mg/dL Normal 74 - 99 [facility] Comment on above: Performed By: #### C MP #### [address] [id number] HCO3 (Bld) [Moles/Vol] 27 mmol/L Normal 21 - 32 [facility] Comment on above: Performed By: #### C MP #### [address] [id number] Potassium [Moles/Vol] 3.7 mmol/L Normal 3.5 - 5.3 [facility] Comment on above: Performed By: #### C MP #### [address] [id number] Protein [Mass/Vol] 7.3 g/dL Normal 6.4 - 8.2 [facility] Comment on above: Performed By: #### C MP #### [address] [id number] Sodium [Moles/Vol] 139 mmol/L Normal 136 - 145 [facility] Comment on above: Performed By: #### C MP #### [address] [id number] Urea nitrogen [Mass/Vol] 9 mg/dL Normal 6 - 23 [facility] Comment on above: Performed By: #### C MP #### [address] [id number] Daily Progress Note-Electrop hysiologyon 02-26-2020 Daily Progress Note-Electrophysiology Service: Electrophysiology Assessment and Plan: Code Status: Code StatusFull Code Assessment: Discontinued procedure - Electrophysiology Study With Ablation of VT Procedures: Discontinued electrophysiologic testing and VT ablation. 3D mapping. Arterial line. IV medication administration. Patient history: Please refer to the detailed history and physical on the patient's medical chart. Diagnosis NSVT, PVC's Procedure narrative: The risks, benefits, and alternatives to the procedure and sedation were explained to the patient, and informed consent was obtained. The patient was in the fasting state. A baseline ECG was recorded. RF grounding pads were placed. Self-adhesive anterior-posterior defibrillation pads were applied. A ZOLL defibrillator was used for monitoring and the defibrillator waveform was set to biphasic. The patient was set up for continuous monitoring of surface 12 lead ECG and pulse oximetry. Blood pressure was monitored with automatic cuff measurements. 3D mapping patches were placed. Bilateral groins were clipped, prepped with chlorhexidine, and draped in the usual sterile fashion. Sheaths and catheters were prepared. Rader car sales representative present for 3D mapping. Anesthesia present for administration of moderate sedation. The procedure was attempted to be performed under IV conscious sedation supplemented with intermittent moderate sedation. During administration of Versed then propofol, the patient started sitting up then moving all extremities on the operating table. She continuously shifted her torso position and was not able to be stationary to allow catheters to be placed. With decreasing the anesthesia to allow for local anesthesia only, she was not able to lie flat. For patient safety, the procedure was discontinued. Recommendation to reschedule with general anesthesia, if patient agrees in future. See signed procedural log. Sheath Locations Catheter 7 Fr His-bundle (right side) SJM, quad 8 Fr coronary sinus SJM, deca 8 Fr roving, RVA, RVOT SJM, lg curl Saffire 8 F roving, LA, LV SJM, sm curl Saffire Complications: The patient tolerated the procedure without any complications or incident. EBL 0 cc Specimens obtained: No Prepared and signed by. Electronic Signatures: Gela Hendricks) (Signed 26-Feb-2020 11:26) Authored: Service, Objective Data, Assessment and Plan, Signature/Cosignature/Atte station Last Updated: 26-Feb-2020 11:26 by Gela Hendricks) Normal [facility] HCG,SERUM QUALITATIVEon HCG,SERUM QUALITATIVE Negative Normal Negative [facility] Comment on above: Performed By: #### H CGS #### [facility] [address] [place], [place] [id number] History and Physical - Surgi nedra Update < 30 dayson 02-26-2020 History and Physical - Surgical Update < 30 days History & Physical Reviewed: /Lactating: Are You no Are You Currently Breastfeedingno (1) I have reviewed the History and Physical dated: 27-Jan-2020 History and Physical reviewed and relevant findings noted. Patient examined to review pertinent physical findings.: No significant changes Home Medications Reviewed: no changes noted Allergies Reviewed: no changes noted Airway/Sedation Assessment: Assmentment by AnesthesiaSee anesthesia airway/sedation assessment. Emotional Statuscalm Neurologicalert & oriented x 3 Respiratoryclear to auscultation Cardiovascularrhythm & rate regular GI/GUsoft, nontender Pulsespresent: Pedal Left, Pedal Right, Radial Left, Radial Right Consent: COVID-19 Consent: COVID-19 Risk ConsentSurgeon has reviewed gillette risks related to the risk of parish COVID-19 and if they contract COVID-19 what the risks are. Electronic Signatures: Gela Hendricks) (Signed 26-Feb-2020 09:59) Authored: History & Physical Reviewed, Airway/Sedation, Consent, Signatures/Attestation Last Updated: 26-Feb-2020 09:59 by Gela Hendricks) References: 1. Data Referenced From Patient Profile - Preop v2 26-Feb-2020 07:59 Normal [facility] Patient Profile - Preop v2on 02-26-2020 Patient Profile - Preop v2 Profile: Initial Info: How to be AddressedAlissa Spoken Language PreferredEnglish Source of Informationpatient; family Are you currently using the Personal Electronic Health Record or [employer] Stated Reason for AdmissionEPS ablation Primary Contact Name and NumberMistoswald Christy [phone] Limitations on Visitors/Phone Callsnone Patient Belongingsremains with patient Medications Brought to Hospitalno General Health: Weight in kg60.4 kilogram(s) Weight in ted726.1 pound(s) Weight Methodactual (measured) Scale Typestanding Height in feet5 feet Height in inches6 inch(es) Height in cm167.6 centimeter(s) Height Methodstated BMI (kg/m2)21.502 square meter Patient or Family Member Reaction to Anesthesiano previous reaction; patient reaction Patient Reaction to Anesthesianausea and vomiting Blood Avoidance/Restrictionsnone Previous Transfusion Reactionno Health Mgmt: Symptoms/Conditions Managed at Homecardiovascular Are You Currently Breastfeedingno Cardiovascular Symptoms/Conditionsdysrhyt hmia Cardiovascular Management Strategiesactivity; adequate rest Barriers to Managing Healthnone Relationship/Environ: Living Arrangementshouse Lives Withparent(s) Resource/Environmental Concernsnone [facility] Anticipated at Transitionnone Substance: Current or Former Substance Use never: Cigarette/Tobacco, e-Cigarette/Vaping, Alcohol, Street Drugs Risk Screens: COVID-19 Screening Completedno exposure or symptoms Advance Directive/DNRno Advance Directive Information Givenpatient/family declined During the past month, have you often been bothered by feeling down, depressed or hopelessno During the past month, have you often had little interest or pleasure in doing thingsno Have you had any thoughts of harming yourselfno Have you had any thoughts of harming anyone elseno Are you or have you been threatened or abused physically,emotionally or sexually abused by anyoneno Do you feel UNSAFE going back to the place you are livingno Patient is Able to be Assessed for Learningyes Factors Influencing Readiness to Learninterest in learning Factors that Impact Ability to Learnnone Devices/Methods Used to Communicatenone Learning Preferencesindividual instruction Cultural Considerationsnone Developmental Considerationsnone Temple Considerationsnone Other learner availableno Falls RiskPatient location auto qualifies him/her for HIGH RISK. Are there any cultural, spiritual, episcopalian practices/values/needs that are important for us to knowno Do you want a visit/item from Pastoral Careno Would you like your Splitting Machine Tender/Court Worker notifiedno Pain Scalenumerical 0-10 Pain Scale Educationteaching provided Current Pain Level3 = Mild Acceptable Pain Level3 = Mild Expression of Pain (nonverbal)none Lifestyle Changes/Adaptations in Response to Paindecreased activity level; inability to sleep Barriers to Reporting Painnone Chronic Painno Information Review: Allergies, Home Meds and Significant Events have been Reviewed and Verified with Patient/Familyyes Allergy, Intolerance, Adverse Event: Allergies: No Known Allergies: Active Electronic Signatures: Maci Zhao ([place]) (Signed 26-Feb-2020 08:07) Authored: Profile, Additional Information Last Updated: 26-Feb-2020 08:07 by Maci Zhao ([place]) Normal [facility] Preop Checkliston 02-26-2020 Preop Checklist Preop Checklist: Preop Checklist: Arrival [id number] Arrival Time06:35 NPO [id number] 23:30 ID Band Onyes Allergy Bandno known allergies H&P Completeyes EKG Performedyes Chest X-Ray Performednot ordered Chlorhexadine Bath Givennot applicable Nasal Antiseptic Appliednot applicable Hair Washednot applicable Soap and water bath with hair shampoo the night before surgerynot applicable Hat placed on infant prior to transportnot applicable SCD's Appliednot applicable DO Hose Appliednot ordered OtherSee sheet Electronic Signatures: Maci Zhao) (Signed 26-Feb-2020 08:08) Authored: Preop Checklist Last Updated: 26-Feb-2020 08:08 by Maci Zhao ([place]) Normal [facility] CORONAVIRUS 2019, SCREEN ASY MPTOMATICon 02-24-2020 CORONAVIRUS 2019,PCR NOT DETECTED Normal Not Detected [facility] Comment on above: Result Comment: This assay is designed to detect the N, ORF1ab and/or S genes of SARS-CoV-2 via nucleic acid amplification. A Negative (NOT DETECTED) result does not preclude 2019-nCoV infection since the adequacy of sample collection and/or low viral burden may result in presence of viral nucleic acids below the clinical sensitivity of this test method. Negative (NOT DETECTED) result should not be used as the sole basis for treatment or other patient management decisions. Rather negative results should be combined with clinical observations, patient history, and epidemiological information to make patient management decisions. Fact sheet for providers: https://www.fda.gov/media/160458/download Fact sheet for patients: https://www.fda.gov/media/803527/download This test has received FDA Emergency Use Authorization (EUA) and has been verified by [facility] ([facility]). This test is only authorized for the duration of time that circumstances exist to justify the authorization of the emergency use of in vitro diagnostic tests for the detection of SARS-CoV-2 virus and/or diagnosis of COVID-19 infection under section 564(b)(1) of the Act, 21 U.S.C. 360bbb-3(b)(1), unless the authorization is terminated or revoked sooner. [facility] is certified under CLIA-88 as qualified to perform high complexity testing. Testing is performed in the [facility] laboratories located at [address] [place] [address]. Performed By: #### C OVSC #### [place] [address] CORONAVIRUS 2019, SCREEN ASY MPTOMATICon 02-23-2020 Lab Specimen Source Nasal, Nasopharyngeal Normal [facility] Comment on above: Performed By: #### C OVSC #### [place] [address] CORONAVIRUS 2019, SCREEN ASY MPTOMATICon 02-20-2020 CORONAVIRUS 2019,PCR Canceled Normal [facility] Comment on above: Order Comment: TEST CORONAVIRUS 2019, SCREEN ASYMPTOMATIC WAS CANCELLED, 02/20/2020 14:12 DUPLICATE ORDER. Result Comment: This assay is designed to detect the N, ORF1ab and/or S genes of SARS-CoV-2 via nucleic acid amplification. A Negative (NOT DETECTED) result does not preclude 2019-nCoV infection since the adequacy of sample collection and/or low viral burden may result in presence of viral nucleic acids below the clinical sensitivity of this test method. Negative (NOT DETECTED) result should not be used as the sole basis for treatment or other patient management decisions. Rather negative results should be combined with clinical observations, patient history, and epidemiological information to make patient management decisions. Fact sheet for providers: https://www.fda.gov/media/956503/download Fact sheet for patients: https://www.fda.gov/media/810611/download This test has received FDA Emergency Use Authorization (EUA) and has been verified by [facility] ([facility]). This test is only authorized for the duration of time that circumstances exist to justify the authorization of the emergency use of in vitro diagnostic tests for the detection of SARS-CoV-2 virus and/or diagnosis of COVID-19 infection under section 564(b)(1) of the Act, 21 U.S.C. 360bbb-3(b)(1), unless the authorization is terminated or revoked sooner. [facility] is certified under CLIA-88 as qualified to perform high complexity testing. Testing is performed in the [facility] laboratories located [place] [address] [place] [address]. Performed By: #### C OVSC #### [facility] [address] [place] [address] CORONAVIRUS 2019, SCREEN ASY MPTOMATICon 02-19-2020 Lab Specimen Source Nasal, Nasopharyngeal Normal [facility] Comment on above: Order Comment: TEST CORONAVIRUS 2018, SCREEN ASYMPTOMATIC WAS CANCELLED, 02/20/2020 14:12 DUPLICATE ORDER. Performed By: #### C OVSC #### [facility] [address] [facility] [place] [address] MRI CARDIAC RESONANCE MAHSA GING FOR VELOCITY FLOW MAPPINGon 10-09-2019 MRI CARDIAC RESONANCE IMAGING FOR VELOCITY FLOW MAPPING [facility] CMR Report Name: SIMIN BALES : 1995 Scan Date: 2019-10-09 11:16:00 Electronically signed by ROMANA HUBER 15:24:20 VITALS HEIGHT: 66.00 in (167.64 cm) WEIGHT: 145.99 lbs (66.22 kgs) BSA: 1.75 m^2 BP: 116 / 60 mmHg BASELINE HR: 0 BPM FINAL IMPRESSION: 1. The findings of this study does not suggest ARVC, however CMR cannot exclude the concealed phase of this condition. 2. Normal left ventricular cavity size with preserved systolic function. EF 61%. 3. Delayed enhancement imaging is normal. No evidence of fibrosis, infiltrative disease, previous myocardial infarction, or inflammation of the left ventricular or right ventricular myocardium. 4. Normal right ventricular cavity size with preserved systolic function. RVEF 56%. No regional wall motion abnormalities. 5. No significant valvular heart disease. 6. Small inferior pericardial effusion without hemodynamic significance. SUMMARY LEFT VENTRICLE: Quantitative LVEF 61%. LV wall thickness is normal. LV cavity size is normal. LV systolic function is normal. VIABILITY: Hyperenhancement is normal. RIGHT VENTRICLE: Quantitative RVEF 56%. RV cavity size is normal. RV systolic function is normal. LV/RV SEPTUM: The ventricular septum is intact. LA/RA SEPTUM: The atrial septum is intact. LEFT ATRIUM: LA cavity size is normal. RIGHT ATRIUM: RA cavity size is normal. PERICARDIUM: Pericardium is normal. There is a small pericardial effusion. There is an inferior pericardial effusion. PLEURAL EFFUSION: There is no pleural effusion. AORTIC VALVE: Peak aortic valve velocity 120.04cm/sec. Peak aortic valve gradient 6mmHg. There is no aortic regurgitation. There is no aortic stenosis. MITRAL VALVE: Mitral valve leaflets are normal. There is trivial mitral regurgitation. TRICUSPID VALVE: Tricuspid valve leaflets are normal. There is trivial tricuspid regurgitation. PULMONIC VALVE: Pulmonic regurgitant volume 0ml. Pulmonic regurgitant fraction 0%. Peak pulmonic valve velocity 150cm/sec. Peak pulmonic valve gradient 9mmHg. Pulmonic valve leaflets are normal. AORTIC ROOT: The aortic root is normal. CORE EXAM MEASUREMENTS VOLUMETRIC ANALYSIS . ------. . . . LV . Reference . RV . Reference . +------+ +------ + +------+------ ------+ . EDV . ml . 119 . (99-179) . 117 . (100-184) . . . ml/m^2 . 68.0 . (65-99) . 66.9 . (65-102) . . ESV . ml . 47 . (29-66) . 52 . (29-82) . . . ml/m^2 . 26.9 . (19-37) . 29.7 . (20-45) . . CO . L/min . 3.74 . . 3.38 . . . . L/min/m^2 . 2.1 . . 1.9 . . . MASS . g . 93 . (69-141) . . . . . g/m^2 . 53.1 . (47-77) . . . . SV . ml . 72 . (63-119) . 65 . (61-112) . . . ml/m^2 . 41.1 . (42-66) . 37.1 . (39-63) . . EF . % . 61 . (56-75) . 56 . (49-73) . '------+ +------ + +------+------ ------' CARDIAC OUTPUT HR: 52 bpm LV DIMENSIONS WALL THICKNESS - ANTEROSEPTAL: 0.72 cm WALL THICKNESS - INFEROLATERAL: 0.5 cm LV IRENA: 4.8 cm LV ESD: 3.5 cm LA DIMENSIONS (LV SYSTOLE) DIAMETER: 3 cm AREA - 2 CHAMBER: 14.27 cm^2 LENGTH - 2 CHAMBER: 4.7 cm AREA - 4 CHAMBER: 17.37 cm^2 LENGTH - 4 CHAMBER: 5 cm VOLUME: 45 ml AORTIC ROOT DIMENSIONS ANNULUS: 2.5 cm SINUS OF VALSALVA: 2.8 cm SINOTUBULAR JUNCTION: 2.5 cm FLOW ANALYSIS QP: 3.9 L/min QS: 4.14 L/min QP/QS: 0.94 17 SEGMENT . . . Segments . Wall Motion . Hyperenhancement . Stress Perfusion . Interpretation . + +---- + ---+ ----+ + . Base Anterior . Normal/Hyper . None . . . . Base Anteroseptal . Normal/Hyper . None . . . . Base Inferoseptal . Normal/Hyper . None . . . . Base Inferior . Normal/Hyper . None . . . . Base Inferolateral . Normal/Hyper . None . . . . Base Anterolateral . Normal/Hyper . None . . . . Mid Anterior . Normal/Hyper . None . . . . Mid Anteroseptal . Normal/Hyper . None . . . . Mid Inferoseptal . Normal/Hyper . None . . . . Mid Inferior . Normal/Hyper . None . . . . Mid Inferolateral . Normal/Hyper . None . . . . Mid Anterolateral . Normal/Hyper . None . . . . Apical Anterior . Normal/Hyper . None . . . . Apical Septal . Normal/Hyper . None . . . . Apical Inferior . Normal/Hyper . None . . . . Apical Lateral . Normal/Hyper . None . . . . [place] . Normal/Hyper . None . . . + +---- + ---+ ----+ + . RV Segments . Wall Motion . Hyperenhancement . Stress Perfusion . Interpretation . + +---- + ---+ ----+ + . RV Basal Anterior . Normal/Hyper . None . . . . RV Basal Inferior . Normal/Hyper . None . . . . RV Mid . Normal/Hyper . None . . . . RV Apical . Normal/Hyper . None . . . 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: [employer] MODEL: [employer] PULSE SEQUENCES: Single-Shot SSFP, IR GRE - Segmented, IR SSFP - Segmented, SSFP Cine, Phase Contrast Velocity Mapping CONTRAST AGENT TYPE: [employer] LOT NUMBER: [id number] EXPIRATION DATE: 2021-11-23 00:00:00 VOLUME ADMINISTERED: 20 ml DOSAGE FOR 0.5M: 0.15 mmol/kg SEDATION SEDATION USED?: No SETUP SCAN TYPE: Clinical PATIENT TYPE: Outpatient INCOMPLETE SCAN: No REASON(S) FOR SCAN: Ventricular arrhythmia REFERRING PHYSICIAN: GELA HENDRICKS ATTENDING PHYSICIAN: GELA HENDRICKS TECHNOLOGIST: Daniele Ramesh Report generated by [employer], a product of [employer] Electronically signed by: DO Kiana [facility] MRI CARDIAC W/WO CONTRAST FOR MORPH/FUNCT AND VALVE on 10-09-2019 MRI CARDIAC W/WO CONTRAST FOR MORPH/FUNCT AND VALVE [facility] CMR Report Name: SIMIN BALES : 1995 Scan Date: 2019-10-09 11:16:00 Electronically signed by ROMANA HUBER 15:24:20 VITALS HEIGHT: 66.00 in (167.64 cm) WEIGHT: 145.99 lbs (66.22 kgs) BSA: 1.75 m^2 BP: 116 / 60 mmHg BASELINE HR: 0 BPM FINAL IMPRESSION: 1. The findings of this study does not suggest ARVC, however CMR cannot exclude the concealed phase of this condition. 2. Normal left ventricular cavity size with preserved systolic function. EF 61%. 3. Delayed enhancement imaging is normal. No evidence of fibrosis, infiltrative disease, previous myocardial infarction, or inflammation of the left ventricular or right ventricular myocardium. 4. Normal right ventricular cavity size with preserved systolic function. RVEF 56%. No regional wall motion abnormalities. 5. No significant valvular heart disease. 6. Small inferior pericardial effusion without hemodynamic significance. SUMMARY LEFT VENTRICLE: Quantitative LVEF 61%. LV wall thickness is normal. LV cavity size is normal. LV systolic function is normal. VIABILITY: Hyperenhancement is normal. RIGHT VENTRICLE: Quantitative RVEF 56%. RV cavity size is normal. RV systolic function is normal. LV/RV SEPTUM: The ventricular septum is intact. LA/RA SEPTUM: The atrial septum is intact. LEFT ATRIUM: LA cavity size is normal. RIGHT ATRIUM: RA cavity size is normal. PERICARDIUM: Pericardium is normal. There is a small pericardial effusion. There is an inferior pericardial effusion. PLEURAL EFFUSION: There is no pleural effusion. AORTIC VALVE: Peak aortic valve velocity 120.04cm/sec. Peak aortic valve gradient 6mmHg. There is no aortic regurgitation. There is no aortic stenosis. MITRAL VALVE: Mitral valve leaflets are normal. There is trivial mitral regurgitation. TRICUSPID VALVE: Tricuspid valve leaflets are normal. There is trivial tricuspid regurgitation. PULMONIC VALVE: Pulmonic regurgitant volume 0ml. Pulmonic regurgitant fraction 0%. Peak pulmonic valve velocity 150cm/sec. Peak pulmonic valve gradient 9mmHg. Pulmonic valve leaflets are normal. AORTIC ROOT: The aortic root is normal. CORE EXAM MEASUREMENTS VOLUMETRIC ANALYSIS . ------. . . . LV . Reference . RV . Reference . +------+ +------ + +------+------ ------+ . EDV . ml . 119 . (99-179) . 117 . (100-184) . . . ml/m^2 . 68.0 . (65-99) . 66.9 . (65-102) . . ESV . ml . 47 . (29-66) . 52 . (29-82) . . . ml/m^2 . 26.9 . (19-37) . 29.7 . (20-45) . . CO . L/min . 3.74 . . 3.38 . . . . L/min/m^2 . 2.1 . . 1.9 . . . MASS . g . 93 . (69-141) . . . . . g/m^2 . 53.1 . (47-77) . . . . SV . ml . 72 . (63-119) . 65 . (61-112) . . . ml/m^2 . 41.1 . (42-66) . 37.1 . (39-63) . . EF . % . 61 . (56-75) . 56 . (49-73) . '------+ +------ + +------+------ ------' CARDIAC OUTPUT HR: 52 bpm LV DIMENSIONS WALL THICKNESS - ANTEROSEPTAL: 0.72 cm WALL THICKNESS - INFEROLATERAL: 0.5 cm LV IRENA: 4.8 cm LV ESD: 3.5 cm LA DIMENSIONS (LV SYSTOLE) DIAMETER: 3 cm AREA - 2 CHAMBER: 14.27 cm^2 LENGTH - 2 CHAMBER: 4.7 cm AREA - 4 CHAMBER: 17.37 cm^2 LENGTH - 4 CHAMBER: 5 cm VOLUME: 45 ml AORTIC ROOT DIMENSIONS ANNULUS: 2.5 cm SINUS OF VALSALVA: 2.8 cm SINOTUBULAR JUNCTION: 2.5 cm FLOW ANALYSIS QP: 3.9 L/min QS: 4.14 L/min QP/QS: 0.94 17 SEGMENT . . . Segments . Wall Motion . Hyperenhancement . Stress Perfusion . Interpretation . + +---- + ---+ ----+ + . Base Anterior . Normal/Hyper . None . . . . Base Anteroseptal . Normal/Hyper . None . . . . Base Inferoseptal . Normal/Hyper . None . . . . Base Inferior . Normal/Hyper . None . . . . Base Inferolateral . Normal/Hyper . None . . . . Base Anterolateral . Normal/Hyper . None . . . . Mid Anterior . Normal/Hyper . None . . . . Mid Anteroseptal . Normal/Hyper . None . . . . Mid Inferoseptal . Normal/Hyper . None . . . . Mid Inferior . Normal/Hyper . None . . . . Mid Inferolateral . Normal/Hyper . None . . . . Mid Anterolateral . Normal/Hyper . None . . . . Apical Anterior . Normal/Hyper . None . . . . Apical Septal . Normal/Hyper . None . . . . Apical Inferior . Normal/Hyper . None . . . . Apical Lateral . Normal/Hyper . None . . . . [place] . Normal/Hyper . None . . . + +---- + ---+ ----+ + . RV Segments . Wall Motion . Hyperenhancement . Stress Perfusion . Interpretation . + +---- + ---+ ----+ + . RV Basal Anterior . Normal/Hyper . None . . . . RV Basal Inferior . Normal/Hyper . None . . . . RV Mid . Normal/Hyper . None . . . . RV Apical . Normal/Hyper . None . . . 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: [employer] MODEL: Achieva PULSE SEQUENCES: Single-Shot SSFP, IR GRE - Segmented, IR SSFP - Segmented, SSFP Cine, Phase Contrast Velocity Mapping CONTRAST AGENT TYPE: Julio [employer] LOT NUMBER: [id number] EXPIRATION DATE: 2021-11-23 00:00:00 VOLUME ADMINISTERED: 20 ml DOSAGE FOR 0.5M: 0.15 mmol/kg SEDATION SEDATION USED?: No SETUP SCAN TYPE: Clinical PATIENT TYPE: Outpatient INCOMPLETE SCAN: No REASON(S) FOR SCAN: Ventricular arrhythmia REFERRING PHYSICIAN: GELA HENDRICKS ATTENDING PHYSICIAN: GELA HENDRICKS TECHNOLOGIST: Daniele Ramesh Report generated by [employer], a product of [employer] Electronically signed by: ROMAAN HUBER, DO Normal [facility] BASIC METABOLIC PANELon 04-0 Anion gap [Moles/Vol] 16 mmol/L Normal 10 - 20 [facility] Comment on above: Performed By: #### B MP #### [address] [address] Calcium [Mass/Vol] 9.9 mg/dL Normal 8.6 - 10.3 [facility] Comment on above: Performed By: #### B MP #### [address] [address] Chloride [Moles/Vol] 101 mmol/L Normal 98 - 107 [facility] Comment on above: Performed By: #### B MP #### [address] [address] Creatinine [Mass/Vol] 0.73 mg/dL Normal 0.50 - 1.05 [facility] Comment on above: Performed By: #### B MP #### [address] [address] GFR- AM. >60 Normal >60 [facility] Comment on above: Result Comment: CALC ULATIONS OF ESTIMATED GFR ARE PERFORMED USING THE MDRD STUDY EQUATION FOR THE IDMS-TRACEABLE CREATININE METHODS. CLIN CHEM 2007;53:766-72 Performed By: #### B MP #### [address] [address] GFR-NON AM. >60 Normal >60 [facility] Comment on above: Performed By: #### B MP #### [address] [address] Glucose [Mass/Vol] 62 mg/dL Low 74 - 99 [facility] Comment on above: Performed By: #### B MP #### [address] [address] HCO3 (Bld) [Moles/Vol] 26 mmol/L Normal 21 - 32 [facility] Comment on above: Performed By: #### B MP #### [address] [address] Potassium [Moles/Vol] 4.4 mmol/L Normal 3.5 - 5.3 [facility] Comment on above: Performed By: #### B MP #### [address] [address] Sodium [Moles/Vol] 139 mmol/L Normal 136 - 145 [facility] Comment on above: Performed By: #### B MP #### [address] [address] Urea nitrogen [Mass/Vol] 11 mg/dL Normal 6 - 23 [facility] Comment on above: Performed By: #### B MP #### [address] [address] Vital Signs Date Time Vital Sign Value Performing Clinician Facility 08-15-2023 14:17-0500 Diastolic blood pressure 67 mm[Hg] Corky Gore [facility] 08-15-2023 14:17-0500 Heart rate 63 /min Corky Gore [facility] 08-15-2023 14:17-0500 Respiratory rate 16 /min Corky Gore [facility] 08-15-2023 14:17-0500 SaO2% (BldA) [Mass fraction] 100 % Corky Gore [facility] 08-15-2023 14:17-0500 Systolic blood pressure 98 mm[Hg] Corky Gore [facility] 08-15-2023 12:44-0500 Body temperature 98.06 [degF] Corky Gore [facility] 08-15-2023 12:44-0500 Diastolic blood pressure 74 mm[Hg] Corky Gore [facility] 08-15-2023 12:44-0500 Heart rate 64 /min Corky Gore [facility] 08-15-2023 12:44-0500 Respiratory rate 18 /min Corky Gore [facility] 08-15-2023 12:44-0500 SaO2% (BldA) [Mass fraction] 100 % Corky Bao [facility] 08-15-2023 12:44-0500 Systolic blood pressure 114 mm[Hg] Corky Bao [facility] 08-01-2023 16:48-0500 Body height 167.6 cm Jenn Handley [employer] Work Phone: [facility] [employer] 08-01-2023 16:48-0500 Body mass index (BMI) [Ratio] 19.47 kg/m2 Jenn Handley [employer] Work Phone: [facility] [employer] 08-01-2023 16:48-0500 Body temperature 98.4 [degF] Jenn Handley DO Work Phone: [facility] 08-01-2023 16:48-0500 Body weight 54.7 kg Jenn Handley DO Work Phone: [facility] 08-01-2023 16:48-0500 Diastolic blood pressure 72 mm[Hg] Jenn Handley DO Work Phone: [facility] 08-01-2023 16:48-0500 Heart rate 40 /min Jenn Handley DO Work Phone: [facility] 08-01-2023 16:48-0500 SaO2% (BldA) [Mass fraction] 97 % Jenn Handley DO Work Phone: [facility] 08-01-2023 16:48-0500 Systolic blood pressure 112 mm[Hg] Jenn Handley DO Work Phone: [facility] 05-30-2023 16:15-0500 Body height 168.9 cm Duncan Valladares DO Work Phone: [facility] 05-30-2023 16:15-0500 Body weight 53.52 kg Duncan Valladares DO Work Phone: [facility] 03-07-2023 13:00-0400 Body height 168.9 cm Aj Sullivan MD Work Phone: [facility] 03-07-2023 13:00-0400 Body weight 56.25 kg Aj Sullivan MD Work Phone: [facility] 03-07-2023 13:00-0400 Diastolic blood pressure 74 mm[Hg] Aj Sullivan MD Work Phone: [facility] 03-07-2023 13:00-0400 Heart rate 57 /min Aj Sullivan MD Work Phone: [facility] 03-07-2023 13:00-0400 Systolic blood pressure 108 mm[Hg] Aj Sullivan MD Work Phone: [facility] 01-29-2023 11:22-0400 Diastolic blood pressure 78 mm[Hg] DO Amber Handley Work Phone: [facility] 01-29-2023 11:22-0400 Heart rate 55 /min DO Amber Handley Work Phone: [facility] 01-29-2023 11:22-0400 Respiratory rate 16 /min DO Amber Handley Work Phone: [facility] 01-29-2023 11:22-0400 SaO2% (BldA) [Mass fraction] 99 % DO Amber Handley Work Phone: 4(306)[phone] [place] [address] 01-29-2023 11:22-0400 Systolic blood pressure 109 mm[Hg] DO Amber Handley Work Phone: 1(718)023-128836 [address] 01-29-2023 10:46-0400 Body temperature 97 [degF] DO Amber Handley Work Phone: 8(514)[phone] [place] [address] 01-29-2023 10:21-0400 Inhaled oxygen flow rate 10 L/min DO Amber Handley Work Phone: [phone](588)[phone] [place] [address] 01-29-2023 09:16-0400 Body mass index (BMI) [Ratio] 18.3 kg/m2 DO Amber Handley Work Phone: [facility] 01-29-2023 09:15-0400 Body height 168.91 cm DO Amber Handley Work Phone: 4(807)[phone] [place] [address] 01-29-2023 09:15-0400 Body weight 52.16 kg DO Amber Handley Work Phone: [facility] 01-08-2023 20:00-0400 Diastolic blood pressure 77 mm[Hg] DO Amber Handley Work Phone: [facility] 01-08-2023 20:00-0400 Heart rate 69 /min DO Amber Handley Work Phone: [facility] 01-08-2023 20:00-0400 Respiratory rate 18 /min DO Amber Handley Work Phone: [facility] 01-08-2023 20:00-0400 SaO2% (BldA) [Mass fraction] 100 % DO Amber Handley Work Phone: [facility] 01-08-2023 20:00-0400 Systolic blood pressure 151 mm[Hg] DO Amber Handley Work Phone: [facility] 01-08-2023 18:00-0400 Body temperature 98 [degF] DO Amber Handley Work Phone: [facility] 01-08-2023 14:28-0400 Body height 167.64 cm DO Amber Handley Work Phone: [facility] 01-08-2023 14:28-0400 Body weight 56.5 kg DO Amber Handley Work Phone: [facility] 09-04-2022 09:42-0400 Diastolic blood pressure 74 mm[Hg] Dennsi Mcbride [facility] 09-04-2022 09:42-0400 Heart rate 62 /min Dennis Mcbride [facility] 09-04-2022 09:42-0400 Mean blood pressure 83 mm[Hg] Dennis Mcbride [facility] 09-04-2022 09:42-0400 Respiratory rate 17 /min Dennis Mcbride [facility] 09-04-2022 09:42-0400 SaO2% (BldA) [Mass fraction] 100 % Dennis Mcbride [facility] 09-04-2022 09:42-0400 Systolic blood pressure 100 mm[Hg] Dennis Mcbride [facility] 09-04-2022 08:44-0400 Body temperature 98.06 [degF] Dennis Mcbride [facility] 09-04-2022 08:44-0400 Diastolic blood pressure 76 mm[Hg] Dennis Mcbride [facility] 09-04-2022 08:44-0400 Heart rate 59 /min Dennis Mcbride [facility] 09-04-2022 08:44-0400 Respiratory rate 18 /min Dennis Mcbride [facility] 09-04-2022 08:44-0400 SaO2% (BldA) [Mass fraction] 98 % Dennis Mcbride [facility] 09-04-2022 08:44-0400 Systolic blood pressure 113 mm[Hg] Dennis Mcbride [facility] 03-15-2022 15:55-0400 Body height 167.6 cm Duncan Courson DO Work Phone: [facility] 03-15-2022 15:55-0400 Body weight 61.19 kg Duncan Courson DO Work Phone: [facility] 03-15-2022 15:55-0400 Diastolic blood pressure 66 mm[Hg] Duncan Courson DO Work Phone: [facility] 03-15-2022 15:55-0400 Heart rate 47 /min Duncan Courson DO Work Phone: [facility] 03-15-2022 15:55-0400 Systolic blood pressure 99 mm[Hg] Duncan Courson DO Work Phone: [facility] 01-02-2022 13:29-0400 Body height 167.6 cm Nadya Beck MD Work Phone: [facility] 01-02-2022 13:29-0400 Body weight 61.69 kg Nadya Beck MD Work Phone: [facility] 01-02-2022 13:29-0400 Diastolic blood pressure 72 mm[Hg] Nadya Beck MD Work Phone: [facility] 01-02-2022 13:29-0400 Heart rate 49 /min Nadya Beck MD Work Phone: [facility] 01-02-2022 13:29-0400 Systolic blood pressure 116 mm[Hg] Nadya Beck MD Work Phone: [facility] 10-24-2021 14:50-0400 Body height 167.6 cm Yefri Dudley MD Work Phone: [facility] 10-24-2021 14:50-0400 Body weight 68.04 kg Yefri Dudley MD Work Phone: [facility] 10-24-2021 14:50-0400 Heart rate 61 /min Yefri Dudley MD Work Phone: [facility] Encounters Encounter Date Encounter Type Care Provider Facility Start: 09-24-2023 ambulatory Duncan miller DO Work Phone: Cardiology Comment on above: Verapmil Start: 2023 Refill Duncan miller DO Work Phone: Cardiology Comment on above: Refill Request Start: 08-15-2023 End: 08-15-2023 Emergency department patient visit Corky Gore [place] [place]: 08-15-2023 End: 08-15-2023 Emergency department patient visit Corky Gore [facility] Start: 08-01-2023 End: 08-02-2023 ambulatory JENN HANDLEY Not Available Start: 08-01-2023 End: 08-01-2023 Office outpatient visit 25 minutes Jenn Handley DO Work Phone: [facility] Comment on above: Constipation, unspec ified constipation type (Primary Dx); Numbness in feet; Cervical radiculopathy; Swollen lymph nodes; Frequent PVCs; Supraventricular tachycardia, unspecified (I47.10) Start: 08-01-2023 Bamboo flowsheet Jenn martin DO Work Phone: [facility] Start: 08-01-2023 Bamboo flowsheet Jenn martin DO Work Phone: [facility] Start: 05-31-2023 ambulatory Duncan miller DO Work Phone: Cardiology Comment on above: Dosage increase Start: 05-30-2023 End: 05-31-2023 ambulatory DUNCAN VALLADARES Facility:[facility] Start: 05-30-2023 End: 05-30-2023 Patient encounter procedure Duncan Valladares DO Work Phone: Cardiology Comment on above: PVC (premature ventr icular contraction) (Primary Dx); Palpitations; Encounter for monitoring flecainide therapy; Exercise intolerance; Implantable loop recorder present Start: 05-23-2023 End: [facility] Start: 04-27-2023 End: [facility] Work Phone: Cardiology Comment on above: PVC (premature ventr icular contraction) (Primary Dx) Start: 04-27-2023 End: 04-27-2023 Telemedicine consultation with patient Oren Campoverde LAB ASSISTANT.SUPPLIER SPECIALIST Work Phone: [facility] Start: 03-08-2023 End: 03-09-2023 Orders Only Robby Rapp MD Work Phone: Cardiology Comment on above: PVC (premature ventr icular contraction) (Primary Dx); Encounter for monitoring flecainide therapy Start: 03-07-2023 End: 03-08-2023 ambulatory Aj Sullivan MD Work Phone: Cardiology Comment on above: Patient Education (P VC RFA) Start: 03-07-2023 End: 03-07-2023 Patient encounter procedure Aj Sullivan MD Work Phone: Cardiology Comment on above: Frequent PVCs (Prima ry Dx) Start: 03-05-2023 Orders Only Duncan miller DO Work Phone: Cardiology Comment on above: Frequent PVCs (Prima ry Dx) Start: 01-29-2023 End: 01-29-2023 ambulatory Amber David Montanojames Facility:[facility] Start: 01-29-2023 End: 01-29-2023 Admission to same day surgery center DO Amber Montanojames Work Phone: [facility] [place] Start: 01-29-2023 End: 01-29-2023 ambulatory DO Amber Montanojames Work Phone: [facility] Work Phone: Start: 01-08-2023 End: 01-08-2023 Emergency department patient visit Reta Alva Facility:[facility] Start: 01-08-2023 End: 01-08-2023 Emergency department patient visit DO Amber Montanojames Work Phone: [facility] Work Phone: Start: 12-28-2022 Orders Only Duncan miller DO Work Phone: Cardiology Comment on above: Frequent PVCs (Prima ry Dx) Start: 12-08-2022 Orders Only Aj Sullivan MD Work Phone: Cardiology Comment on above: Frequent PVCs (Prima ry Dx) Start: 12-01-2022 End: 12-01-2022 ambulatory DUNCAN VALLADARES Facility:[facility] Start: 11-23-2022 End: 11-23-2022 ambulatory Amber David Emmanuelle Facility:[facility] Start: 11-23-2022 End: 11-23-2022 ambulatory DO Amber Montanojames Work Phone: [facility] Work Phone: Start: 11-23-2022 End: 11-23-2022 Patient encounter procedure DO Amber Montanojames Work Phone: [facility] [place] Work Phone: Start: 09-08-2022 Orders Only Duncanliliana balheri DO Work Phone: Cardiology Comment on above: SOB (shortness of br eath) (Primary Dx) Start: 09-04-2022 End: 09-04-2022 Emergency department patient visit Dennis Mcrbide [place] Start: 09-04-2022 End: 09-04-2022 Emergency department patient visit Dennis Mcbride [facility] Start: 08-16-2022 Refill Duncan balheri DO Work Phone: Cardiology Comment on above: Refill Request Start: 06-29-2022 ambulatory Duncan balheri DO Work Phone: [facility] [facility] Start: 06-29-2022 Follow-up encounter Duncan Valladares DO Work Phone: Cardiology Comment on above: Follow up/Appointmen t Start: 03-15-2022 End: 03-15-2022 Patient encounter procedure Duncan Valladraes DO Work Phone: Cardiology Comment on above: Palpitations (Primar y Dx); Frequent PVCs; Dizziness; History of loop recorder; Short MA-normal QRS complex syndrome Start: 01-02-2022 End: 01-02-2022 Patient encounter procedure Nadya Beck MD Work Phone: Cardiology Comment on above: PSVT (paroxysmal sup raventricular tachycardia) (HCC) (Primary Dx); Frequent PVCs; Recurrent syncope Start: 12-27-2021 End: 12-27-[address] APOLONIA HART Facility: Start: 10-24-2021 End: 10-24-2021 Patient encounter procedure Yefri Dudley MD Work Phone: Cardiology Comment on above: Dizziness (Primary D x); Frequent PVCs; History of loop recorder Start: 10-10-2021 Refill Chhaya finch MD Work Phone: Maternal Medicine Comment on above: Refill Request Start: 07-08-2021 End: 10-06-2021 Patient encounter procedure Josette HERNANDEZ ROGERSJAMES [facility] Start: 02-14-2021 End: 02-14-[address] Josette HANDLEY Facility: Start: 08-17-2020 End: 08-17-2020 Telephone encounter No One (Historical) Referring Physician Comment on above: External Referrals/r esources Procedures Date Procedure Procedure Detail Performing Clinician Start: 03-07-2023 Antibody screen AJ MCCORMICK MD Comment on above: Order Comment: Speci men Type: BLOOD SPECIMENOrdering Facility: [facility] Address: [address] [place] [address] Performed By: #### T [id number] ####CC MAIN BLOOD BANKCLIA [id number] [address] [facility] Start: 01-29-2023 OR Laparoscopy Salpingectomy (Bilateral) DO Amber Montanojames Work Phone: Start: 01-08-2023 Computed tomography of abdomen and pelvis with contrast DO Amber Montanojames Work Phone: Start: 01-08-2023 Transvaginal echography DO Amber Montanojames Work Phone: Start: 01-08-2023 Bacteria identificat ion test DO JosetteTiffany Montanojames Work Phone: Start: 01-08-2023 Mycology culture DO Amber Montanojames Work Phone: Start: 01-08-2023 Trichomonas vaginali s detection DO JosetteTiffany Montanojames Work Phone: Start: 01-08-2023 Pelvic echography DO JosetteTiffany Montanojames Work Phone: Start: 04-18-2021 Antibody screen Comment on above: Performed By: #### T SPN #### [place] [address] Carpal tunnel syndro me (disorder) Josette HANDLEY Destructive procedure G RASHEL ROGERSJAMES H/O: surgery History of loop recorder Yefri Dudley MD Work Phone: H/O: surgery History of loop recorder Duncan Valladares DO Work Phone: Tonsillectomy Josette Sahni Plan of Treatment Date Care Activity Detail Author Start: 02-24-2024 Influenza vaccination Influenz a Vaccine (Season Ended) [facility] Start: 09-20-2023 Screening for malign ant neoplasm of cervix HPV Testing [facility] Start: 08-01-2023 End: 08-01-2023 Patient encounter procedure 08/01/2023 5:00 PM EST Office Visit [facility] [address] [place] [id number] Jenn Handley DO [address] [place] [address] Arrived [facility] [address] Comment on above: Arrived Start: 08-01-2023 End: 08-01-2024 CBC W Auto Differential panel - Blood CBC and differential Lab Routine Constipation, unspecified constipation type Numbness in feet Cervical radiculopathy Swollen lymph nodes Frequent PVCs Supraventricular tachycardia, unspecified (I47.10) Expected: 08/01/2023 (Approximate), Expires: 08/01/2024 [facility] Comment on above: Expected: 08/01/2023 (Approximate), Expires: 08/01/2024 Start: 08-01-2023 End: 08-01-2024 Comprehensive metabolic 2000 panel - Serum or Plasma Comprehensive metabolic panel Lab Routine Constipation, unspecified constipation type Cervical radiculopathy Swollen lymph nodes Expected: 08/01/2023 (Approximate), Expires: 08/01/2024 [facility] Comment on above: Expected: 08/01/2023 (Approximate), Expires: 08/01/2024 Start: 08-01-2023 End: 08-01-2024 Erythrocyte sedimentation rate Sedimentation rate, automated Lab Routine Numbness in feet Cervical radiculopathy Expected: 08/01/2023 (Approximate), Expires: 08/01/2024 [facility] Comment on above: Expected: 08/01/2023 (Approximate), Expires: 08/01/2024 Start: 08-01-2023 End: 08-01-2024 Thyrotropin [Units/volume] in Serum or Plasma TSH Lab Routine Constipation, unspecified constipation type Numbness in feet Expected: 08/01/2023 (Approximate), Expires: 08/01/2024 [facility] Comment on above: Expected: 08/01/2023 (Approximate), Expires: 08/01/2024 Start: 08-01-2023 End: 08-01-2024 XR Cervical spine 2 or 3 Views XR cervical spine 2 or 3 views Imaging Routine Cervical radiculopathy Expected: 08/01/2023, Expires: 08/01/2024 [facility] Work Phone: Comment on above: Expected: 08/01/2023 , Expires: 08/01/2024 Start: 03-22-2023 End: 03-08-2024 EXERCISE STRESS ECG (WITHOUT IMAGING) EXERCISE STRESS ECG (WITHOUT IMAGING) Cardiology Routine PVC (premature ventricular contraction) Encounter for monitoring flecainide therapy Expected: 03/22/2023, Expires: 03/08/2024 [facility] Work Phone: Comment on above: Expected: 03/22/2023 , Expires: 03/08/2024 Start: 02-23-2023 Covid-19 Vaccine () Covid-19 Vaccine () [facility] Start: 02-23-2023 Influenza vaccination C [facility] Start: 02-06-2023 End: 04-08-2023 Basic metabolic 2000 panel - Serum or Plasma BASIC METABOLIC PNL Lab Routine Frequent PVCs Expected: 02/06/2023, Expires: 04/08/2023 [facility] Work Phone: Comment on above: Expected: 02/06/2023 , Expires: 04/08/2023 Start: 02-06-2023 End: 04-08-2023 CBC panel - Blood by Automated count CBC Lab Routine Frequent PVCs Expected: 02/06/2023, Expires: 04/08/2023 [facility] Work Phone: Comment on above: Expected: 02/06/2023 , Expires: 04/08/2023 Start: 02-06-2023 End: 04-08-2023 TYPE AND SCREEN,30 DAY TYPE AND SCREEN,30 DAY Blood Bank Routine Frequent PVCs Expected: 02/06/2023, Expires: 04/08/2023 [facility] Work Phone: Comment on above: Expected: 02/06/2023 , Expires: 04/08/2023 Start: 01-29-2023 [facility] Start: 01-29-2023 [facility] Start: 01-08-2023 [facility] Start: 06-25-2022 DEPRESSION ASSESSMENT DEPRESSION ASS ESSMENT [facility] Start: 02-23-2022 Influenza vaccination C [facility] Start: 02-21-2016 Urine microalbumin profile [facility] Start: 2014 PAP TESTING PAP TESTING [facility] Start: 2014 Screening for malign ant neoplasm of cervix Pap Testing [facility] Start: 2005 Adult depression screening assessment DEPRESSION SCREENING [facility] Start: 1998 COVID-19 VACCINE (1) COVID-19 VACCIN E (1) [facility] Start: 03-22-1994 COVID-19 VACCINE (#1) COVID-19 VACCI NE (#1) [facility] End: 09-09-2023 ECG COMPLETE ECG COMPLETE ECG Routine SOB (shortness of breath) 1 Occurrences starting 09/08/2022 until 09/09/2023 [facility] Work Phone: Comment on above: 1 Occurrences starti ng 09/08/2022 until 09/09/2023 End: 12-29-2023 ECG COMPLETE ECG COMPLETE ECG Routine Frequent PVCs 1 Occurrences starting 12/28/2022 until 12/29/2023 [facility] Work Phone: Comment on above: 1 Occurrences starti ng 12/28/2022 until 12/29/2023 End: 03-05-2024 ECG COMPLETE ECG COMPLETE ECG Routine Frequent PVCs 1 Occurrences starting 03/05/2023 until 03/05/2024 [facility] Work Phone: Comment on above: 1 Occurrences starti ng 03/05/2023 until 03/05/2024 End: 05-30-2024 ECG COMPLETE [facility] Work Phone: Comment on above: 1 Occurrences starti ng 05/30/2023 until 05/30/2024 End: 06-01-2024 ECG COMPLETE ECG COMPLETE ECG Routine Adverse effect of flecainide 1 Occurrences starting 06/01/2023 until 06/01/2024 [facility] Work Phone: Comment on above: 1 Occurrences starti ng 06/01/2023 until 06/01/2024 Patient referral [facility] Work Phone: [facility] EP LAB [facility] Immunizations Immunization Date Immunization Notes Care Provider Fa [facility] 02-20-2006 hepatitis A vaccine, unspecified formulation Chhaya Guevara MD Work Phone: [facility] 02-20-2006 tetanus toxoid, redu angelina diphtheria toxoid, and acellular pertussis vaccine, adsorbed Chhaya Guevara MD Work Phone: [facility] 02-20-2006 varicella virus vaccine Camila Guevara MD Work Phone: [facility] 07-13-2004 hepatitis B vaccine, pediatric or pediatric/adolescent dosage Chhaya Guevara MD Work Phone: [facility] 11-02-1998 diphtheria, tetanus toxoids and acellular pertussis vaccine, unspecified formulation Chhaya Guevara MD Work Phone: [facility] 11-02-1998 measles, mumps and rubella virus vaccine Chhaya Guevara MD Work Phone: [facility] 11-02-1998 trivalent poliovirus vaccine, live, oral Chhaya Guevara MD Work Phone: [facility] 03-02-1998 varicella virus vaccine Camila Guevara MD Work Phone: [facility] 02-23-1995 diphtheria, tetanus toxoids and acellular pertussis vaccine, unspecified formulation Chhaya Guevara MD Work Phone: [facility] 02-23-1995 haemophilus influenz ae type b vaccine, conjugate unspecified formulation Chhaya Guevara MD Work Phone: [facility] 02-23-1995 measles, mumps and rubella virus vaccine Chhaya Guevara MD Work Phone: [facility] 02-23-1995 trivalent poliovirus vaccine, live, oral Chhaya Guevara MD Work Phone: [facility] 03-10-1994 diphtheria, tetanus toxoids and pertussis vaccine Chhaya Guevara MD Work Phone: [facility] 03-10-1994 haemophilus influenz ae type b vaccine, conjugate unspecified formulation Chhaya Guevara MD Work Phone: [facility] 01-23-1994 diphtheria, tetanus toxoids and pertussis vaccine Chhaya Guevara MD Work Phone: [facility] 01-23-1994 haemophilus influenz ae type b vaccine, conjugate unspecified formulation Chhaya Guevara MD Work Phone: [facility] 01-23-1994 hepatitis B vaccine, pediatric or pediatric/adolescent dosage Chhaya Guevara MD Work Phone: [facility] 01-23-1994 trivalent poliovirus vaccine, live, oral Chhaya Guevara MD Work Phone: [facility] 1993 diphtheria, tetanus toxoids and pertussis vaccine Chhaya Guevara MD Work Phone: [facility] 1993 haemophilus influenz ae type b vaccine, conjugate unspecified formulation Chhaya Guevara MD Work Phone: [facility] 1993 hepatitis B vaccine, pediatric or pediatric/adolescent dosage Chhaya Guevara MD Work Phone: [facility] 1993 trivalent poliovirus vaccine, live, oral Chhaya Guevara MD Work Phone: [facility] Payers Date Payer Category Payer Self-pay [id number] 2018 Medicaid [id number] 2018 Medicaid [id number] 1993 Unknown [id number] 1993 Unknown [id number] 1993 Unknown [id number] 9 1993 Unknown [id number] 9 1993 Unknown [id number] 1993 Unknown [id number] 1959 Unknown [id number] Private Health Insurance [facility] [id number] Unknown [id number] Unknown [id number] Unknown [id number] Social History Date Type Detail [facility] Start: 1995 Sex Assigned At Not on file [facility] Start: 12-01-2022 End: 05-30-2023 Sex Assigned At Female [facility] Start: 09-21-2020 End: 02-07-2021 Tobacco smoking status NHIS Ex-smoker [facility] End: 05-25-2019 History of tobacco use Current smoker [facility] Start: 09-21-2020 End: 12-01-2022 Cigarettes smoked current (pack per day) - Reported 2 [facility] Work Phone: Start: 09-21-2020 End: 02-07-2021 Tobacco use and exposure Smokeless tobacco non-user [facility] Start: 08-09-2021 End: 03-08-2023 Alcohol intake Ex-drinker (finding) [facility] Start: 09-21-2020 History SDOH Alcohol Comment 1 drink per month [facility] Start: 1995 Sex Assigned At Female [facility] Start: 10-14-2021 End: 03-15-2022 Exposure to SARS-CoV-2 (event) Not sure [facility] End: 05-25-2019 History of tobacco use Cigarette Smoker [facility] Start: 09-04-2022 Tobacco smoking status Smokeless tobacco user within last 30 days [facility] Start: 02-14-2021 End: 12-07-2022 Tobacco smoking status NHIS Never smoked tobacco (finding) [facility] Start: 01-09-2021 Gender identity Identifies as female gender (finding) [facility] Start: 02-24-2021 Sexual orientation Heterosexual (finding) [facility] Start: 05-30-2023 Alcohol intake Current drinker of alcohol (finding) [facility] Start: 02-14-2023 End: 08-01-2023 Alcohol intake Lifetime non-drinker (finding) [facility] Tobacco Current vaping o r e-cigarette use Smokeless Tobacco Use:. [facility] Tobacco smoking status No Smokin g Status Entered [facility] Goals Date Patient Goal Desired Activity /State Functional Status Date Assessment Result Facility 08-15-2023 Functional Status N/A [facility] 09-04-2022 Functional Status N/A [facility] Clinical Notes 06-02-2021 to 09-24-2023 Telephone Encounter - Bri Mata - 09/24/2023 7:40 AM EDT Note Date & Type Note Facility 09-24-2023 Miscellaneous Notes Formattin g of this note might be different from the original. Please contact patient regarding MyChart message. documented in this encounter [facility] 08-15-2023 Hospital Discharg e instructions Patient Education 08/15/2023 15:35:56 Abnormal Uterine Bleeding Abnormal Uterine Bleeding Abnormal uterine bleeding is unusual bleeding from the uterus. It includes bleeding after sex, or bleeding or spotting between menstrual periods. It may also include bleeding that is heavier than normal, menstrual periods that last longer than usual, or bleeding that occurs after menopause. Abnormal uterine bleeding can affect teenagers, women in their reproductive years, women, and women who have reached menopause. Common causes of abnormal uterine bleeding include: . Abnormal growths within the lining of the uterus (polyps). Benign tumors or growths in the uterus (fibroids). These are not cancer. Infection. Cancer. Too much or too little of some hormones in the body (hormonal imbalances). Any type of abnormal bleeding should be checked by a health care provider. Many cases are minor and simple to treat, but others may be more serious. Treatment will depend on the cause of the bleeding and how severe it is. Follow these instructions at home: Medicines Take ndqr-jwj-rnronmr and prescription medicines only as told by your health care provider. Ask your health care provider about: ?Taking medicines such as aspirin and ibuprofen. These medicines can thin your blood. Do not take these medicines unless your health care provider tells you to take them. ?Taking jcxi-mbc-fjhxiou medicines, vitamins, herbs, and supplements. If you were prescribed iron pills, take them as told by your health care provider. Iron pills help to replace iron that your body loses because of this condition. Managing constipation In cases of severe bleeding, you may be asked to increase your iron intake to treat anemia. Doing this may cause constipation. To prevent or treat constipation, you may need to: Drink enough fluid to keep your urine pale yellow. Take fjsl-xgl-umiysns or prescription medicines. Eat foods that are high in fiber, such as beans, whole grains, and fresh fruits and vegetables. Limit foods that are high in fat and processed sugars, such as fried or sweet foods. Activity Alter your activity to decrease bleeding if you need to change your sanitary pad more than one time every 2 hours: Lie in bed with your feet raised (elevated). Place a cold pack on your lower abdomen. Rest as much as possible until the bleeding stops or slows down. General instructions Do not use tampons, douche, or have sex until your health care provider says these things are okay. Change your sanitary pads often. Get regular exams. These include pelvic exams and cervical cancer screenings. It is up to you to get the results of any tests that are done. Ask your health care provider, or the department that is doing the tests, when your results will be ready. Monitor your condition for any changes. For 2 months, write down: ?When your menstrual period starts. ?When your menstrual period ends. ?When any abnormal vaginal bleeding occurs. ?What problems you notice. Keep all follow-up visits. This is important. Contact a health care provider if: You have bleeding that lasts for more than one week. You feel dizzy at times. You feel nauseous or you vomit. You feel light-headed or weak. You notice any other changes that show that your condition is getting worse. Get help right away if: You faint. You have bleeding that soaks through a sanitary pad every hour. You have pain in the abdomen. You have a fever or chills. You become sweaty or weak. You pass large blood clots from your vagina. These symptoms may represent a serious problem that is an emergency. Do not wait to see if the symptoms will go away. Get medical help right away. Call your local emergency services (911 in the [place] Do not drive yourself to the hospital. Summary Abnormal uterine bleeding is unusual bleeding from the uterus. Any type of abnormal bleeding should be checked by a health care provider. Many cases are minor and simple to treat, but others may be more serious. Treatment will depend on the cause of the bleeding and how severe it is. Get help right away if you faint, you have bleeding that soaks through a sanitary pad every hour, or you pass large blood clots from your vagina. This information is not intended to replace advice given to you by your health care provider. Make sure you discuss any questions you have with your health care provider. Document Revised: 10/11/2021 Document Reviewed: 10/11/2021 [employer] Patient Education 2022 [employer]. Follow Up Care 08/15/2023 12:34:34 With:Marcos Mann Address: [address] [address]- Business (1) When:08/18/2023 15:15:10 [facility] 08-15-2023 Evaluation + Plan note Extrac do from: Title:ED Note Author:Robles LARSON, Kong Juárez te:08/15/23 Dysfunctional uterine bleedi ng (N93.8: Other specified abnormal uterine and vaginal bleeding) Orders: medroxyPROGESTERone, 10 mg = 2 tab(s), Oral, Daily, X 5 day(s), # 10 tab(s), Refills(s) 0, [id number], [facility], cm, 08/15/23 12:47:00 EST, Height/Length Dosing, 52.9, kg, 08/15/23 12:47:00 EST, Weight Dosing [facility]02-07-2024 History of Present illness Narrative* Jenn Handley, DO - 08/01/2023 5:00 PM EST SUBJECTIVE: Simin Bales is a 27 y.o. female presents with chief complaint of Constipation Pt presents to the office with a couple concerns. Pt states within the last week noticed discoloration of feet. Onset: 1 week ago. Upon waking up noticed feet are purple in color. Pt states feet are just numb upon waking up. Neck pain Has c/o right sided neck pain. Onset: a couple months ago. Pt states she notices pain all the time.Occasionally when pain is persistent noticed numbness in right arm. Has not been seen regarding. Denies any known injuries. No imaging has been done. Swollen lymph nodes in groin, ankles, and neck. 1 month ago. Initially noted on the right side of groin. Constipation This is a recurrent problem. The current episode started more than 1 month ago. The problem is unchanged. Her stool frequency is 4 to 5 times per week. Review of Systems: Review of Systems Gastrointestinal: Positive for constipation. All other systems reviewed and are negative. Problem List: Patient Active Problem List Diagnosis Allergic rhinitis Cardiac arrhythmia Cervical intraepithelial neoplasia grade 1 Current smoker Dizziness Idiopathic scoliosis and kyphoscoliosis Mixed anxiety and depressive disorder PSVT (paroxysmal supraventricular tachycardia) Recurrent syncope Frequent PVCs Ventricular premature depolarization Vaginal high risk human papillomavirus (HPV) DNA test positive Past Medical History: Past Medical History: Diagnosis Date Cardiac arrhythmia Depression (CMS/HCC) occasional History of medical problems hpv positive Hx of abnormal cervical Pap smear Hx of chlamydia infection Hypokalemia Hypotension Sinus bradycardia Sinus bradycardia seen on cardiac surgeon Tonsillar hypertrophy Family History: Family History Problem Relation Name Age of Onset Diabetes Maternal Grandmother Diabetes Paternal Grandfather Heart disease Paternal Grandfather Allergies: Allergies Allergen Reactions Cat Hair Extract Hives Penicillin G Rash Wound Dressing Adhesive Rash Heart monitor electrodes Surgical History: Past Surgical History: Procedure Laterality Date ATRIAL ABLATION SURGERY CARPAL TUNNEL RELEASE Bilateral COLONOSCOPY 2019 SALPINGECTOMY Bilateral TONSILLECTOMY WISDOM TOOTH EXTRACTION 2011 Social History: Social Determinants of Health Tobacco Use: Low Risk (08/01/2023) Patient History Smoking Tobacco Use: Never Smokeless Tobacco Use: Never Passive Exposure: Not on file Alcohol Use: Not on file Financial Resource Strain: Not on file Food Insecurity: Not on file Transportation Needs: Not on file Physical Activity: Not on file Stress: Not on file Social Connections: Not on file Intimate Partner Violence: Not on file Depression: Not at risk (08/01/2023) PHQ-2 PHQ-2 Score: 0 Housing Stability: Not on file OBJECTIVE: Visit Vitals OB Status Having periods Smoking Status Never Physical Exam Constitutional: Appearance: Normal appearance. HENT: Head: Normocephalic and atraumatic. Eyes: Extraocular Movements: Extraocular movements intact. Conjunctiva/sclera: Conjunctivae normal. Pupils: Pupils are equal, round, and reactive to light. Cardiovascular: Rate and Rhythm: Normal rate and regular rhythm. Pulmonary: Effort: Pulmonary effort is normal. Breath sounds: Normal breath sounds. Abdominal: General: Bowel sounds are normal. Palpations: Abdomen is soft. Musculoskeletal: General: Normal range of motion. Skin: General: Skin is warm and dry. Neurological: General: No focal deficit present. Mental Status: She is alert and oriented to person, place, and time. Psychiatric: Mood and Affect: Mood normal. Thought Content: Thought content normal. Judgment: Judgment normal. No results found for this or any previous visit (from the past 672 hour(s)). ASSESSMENT AND PLAN: Assessment/Plan Diagnoses and all orders for this visit: Constipation, unspecified constipation type Labs ordered today, will follow up when results available - CBC and differential; Future - Comprehensive metabolic panel; Future - TSH; Future Numbness in feet - Sedimentation rate, automated; Future - CBC and differential; Future - TSH; Future - celecoxib (CeleBREX) 200 MG capsule; Take 1 capsule (200 mg) by mouth in the morning. Cervical radiculopathy - XR cervical spine 2 or 3 views; Future - Sedimentation rate, automated; Future - CBC and differential; Future - Comprehensive metabolic panel; Future - celecoxib (CeleBREX) 200 MG capsule; Take 1 capsule (200 mg) by mouth in the morning. Swollen lymph nodes Patient advised to return if symptoms worsen and/or persist despite treatment. But reassured seem benign at this time as they are tiny/normal feeling nodes - CBC and differential; Future - Comprehensive metabolic panel; Future - celecoxib (CeleBREX) 200 MG capsule; Take 1 capsule (200 mg) by mouth in the morning. Frequent PVCs - CBC and differential; Future Supraventricular tachycardia, unspecified (I47.10) - CBC and differential; Future Updated Medications: Current Outpatient Medications: nabumetone (Relafen) 750 MG tablet, Take 750 mg by mouth in the morning and 750 mg before bedtime.,Disp: , Rfl: dicyclomine (Bentyl) 20 MG tablet, Take 20 mg by mouth in the morning and 20 mg before bedtime., Disp: , Rfl: flecainide (Tambocor) 100 MG tablet, Take 100 mg by mouth every 12 (twelve) hours, Disp: , Rfl: fluticasone (Flonase) 50 MCG/ACT nasal spray, Administer 2 sprays into each nostril in the morning.Shake gently. Before first use, prime pump. After use, clean tip and replace cap.., Disp: 16 g, Rfl: 11 ibuprofen 600 MG tablet, Take 600 mg by mouth every 6 (six) hours if needed., Disp: , Rfl: magnesium oxide (Mag-Ox) 400 MG tablet, Take 400 mg by mouth in the morning., Disp: , Rfl: verapamil SR (Calan SR) 120 MG ER tablet, Take 120 mg by mouth every 12 (twelve) hours., Disp: , Rfl: documented in this encounterCameron [facility] Medical [id number] Miscellaneous Notes* Telephone Encounter - Nilda Mataasia - 06/01/2023 9:44 AM EST Please contact patient regarding MyChart message. * Telephone Encounter - Bri Mata - 05/31/2023 4:53 PM EST Please contact patient regarding MyChart message. documented in this encounterBarn[facility]ville [facility]12-06-2023 NoteHNO ID: [id number] Author: Duncan Valladares DO Service: ? Author Type: Physician Type: Progress Notes Filed: 05/30/2023 5:15 PM Note Text: [facility] Department of Cardiovascular Medicine SECTION OF CARDIAC PACING and ELECTROPHYSIOLOGY OUTPATIENT VISIT DATE May 30, 2023 OUTPATIENT VISIT TYPE ESTABLISHED PRIMARY CARE PHYSICIAN: Jenn Handley DO [address] [address] CHIEF COMPLAINT: palpitations HISTORY OF PRESENT ILLNESS: Ms. Bales is a 27 year old female who presents today for follow-up visit for palpitations with history of PVCs with ablation attempt by Dr. Angela 03/08/23 as well as prior ablation in 2019 at [facility]. She had few PVCs so no ablation and was started on flecainide. Intolerant of metoprolol due to hypotension , did tolerate low dose verapamil but not when we attempted to increase dose. She relates initial felt like flecainide was helping but then seemed like became tolerant and now feels the same. Her ILR confirms PVC burden 8.2% ILR check today LOOP RECORDER EVALUATION PRESENTS FOR: OPD with Dr. Valladares. PRESENTING RHYTHM: Sinus with frequent PVC's, trigeminal. BATTERY STATUS: Good ARRHYTHMIAS since the last remote on 05/05/23: There was 1 symptom activation dated 05/21/23. Review of ECG consistent with sinus rhythm/tachycardia with short burst of SVT and sudden offset to 60 bpm, followed by frequent PVC's/bigeminy. Symptoms reported: SOB, heart pounding and chest tightness. PVC burden measures 8.2%. Had PVC ablation 03/08/23. There have been no new auto detections.... Tilt test 08/23/21 Overall: The test is negative for syncope. There was resting sinus bradycardia with PVCs that suggest and outflow tract focus. Echo 05/16/21 CONCLUSIONS: - Technically difficult exam due to arrhythmia. - Exam indication: Frequent PVCs - The left ventricle is moderately dilated. Left ventricular systolic function is normal. EF = 68 ? 5% (2D biplane) Left ventricular diastolic function was not evaluated due to an arrhythmia. - The right ventricle is normal in size. Right ventricular systolic function is normal. - There are no significant valvular abnormalities. - Estimated right ventricular systolic pressure is not reported due to an insufficient tricuspid regurgitation signal. Estimated right atrial pressure is 3 mmHg based on IVC assessment. - The patient has not had a prior CC echocardiographic exam for comparison. Type of monitor: Event Monitor Enrollment dates: 04/15/2021 - 05/14/2021 Only wore 04/16-04/18 though not noted on monitor report Event monitor shows predominantly sinus and sinus with ventricular bigeminy. Symptom episodes do not have a consistent association, occurring with sinus as well as sinus with bigem NURSING INTAKE: Simin Bales was last seen in office on 12/01/22. She presented for PVC ablation and EP study with Dr. Sullivan on 03/08/23 however PVC's were not targeted due to infrequent PVC's. Device check today shows frequent PVC's 8.2% burden. Device check today showed one episode 05/21/23 short burst SVT with sudden offset to 60 bpm. She remembers standing at work for a long time, and felt sudden palpitations. She got dizzy and lightheaded and sat down, and it resolved. She reports feeling PVC's daily. Since the last visit, she has had one syncopal episode in late April. She stood up and felt like she would blackout, got lightheaded and passed out, falling to the ground. She came to shortly thereafter. She does have daily postural dizziness and lightheadedness and feels nearsyncopal with getting up, and when standing a long time. She feels clammy and gets fast palpitations when she gets up out of bed in the morning. She has constant pain and tightness in her neck and both shoulders. She gets frequent muscle cramps in her legs. She has frequent constipation, nausea, and heartburn. She has leg swelling and wears knee high compression. She vapes nicotine and THC daily. She has NOVOA with climbing stairs. She drinks 64 oz water daily. She salts her food and eats high salt foods. 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 Patient denies chest pain, orthopnea. LOOP RECORDER EVALUATION PRESENTS FOR: OPD with Dr. Valladares. PRESENTING RHYTHM: Sinus with frequent PVC's, trigeminal. BATTERY STATUS: Good ARRHYTHMIAS since the last remote on 05/05/23: There was 1 symptom activation dated 05/21/23. Review of ECG consistent with sinus rhythm/tachycardia with short burst of SVT and sudden offset to 60 bpm, followed by frequent PVC's/bigeminy. Symptoms reported: SOB, heart pounding and chest tightness. PVC burden measures 8.2%. Had PVC ablation 03/08/23. There have been no new auto de (more content not included)...[facility]12-06-2023 History of Present illness Narrative* Duncan Valladares, - 05/30/2023 4:00 PM EST Images from the original note were not included. [facility] Department of Cardiovascular Medicine SECTION OF CARDIAC PACING and ELECTROPHYSIOLOGY OUTPATIENT VISIT DATE May 30, 2023 OUTPATIENT VISIT TYPE ESTABLISHED PRIMARY CARE PHYSICIAN: Jenn Handley, [address] [place] [address] CHIEF COMPLAINT: palpitations HISTORY OF PRESENT ILLNESS: Ms. Bales is a 27 year old female who presents today for follow-up visit for palpitations with history of PVCs with ablation attempt by Dr. Angela 03/08/23 as well as prior ablation in 2019 at [facility]. She had few PVCs so no ablation and was started on flecainide. Intolerant of metoprolol due to hypotension , did tolerate low dose verapamil but not when we attempted to increase dose. She relatesinitial felt like flecainide was helping but then seemed like became tolerant and now feels the same. Her ILR confirms PVC burden 8.2% ILR check today LOOP RECORDER EVALUATION PRESENTS FOR: OPD with Dr. Valladares. PRESENTING RHYTHM: Sinus with frequent PVC's, trigeminal. BATTERY STATUS: Good ARRHYTHMIAS since the last remote on 05/05/23: There was 1 symptom activation dated 05/21/23. Review of ECG consistent with sinus rhythm/tachycardia with short burst of SVT and sudden offset to60 bpm, followed by frequent PVC's/bigeminy. Symptoms reported: SOB, heart pounding and chest tightness. PVC burden measures 8.2%. Had PVC ablation 03/08/23. There have been no new auto detections.... Tilt test 08/23/21 Overall: The test is negative for syncope. There was resting sinus bradycardia with PVCs that suggest and outflow tract focus. Echo 05/16/21 CONCLUSIONS: - Technically difficult exam due to arrhythmia. - Exam indication: Frequent PVCs - The left ventricle is moderately dilated. Left ventricular systolic function is normal. EF = 68 5% (2D biplane) Left ventricular diastolic function was not evaluated due to an arrhythmia. - The right ventricle is normal in size. Right ventricular systolic function is normal. - There are no significant valvular abnormalities. - Estimated right ventricular systolic pressure is not reported due to an insufficient tricuspid regurgitation signal. Estimated right atrial pressure is 3 mmHg based on IVC assessment. - The patient has not had a prior CC echocardiographic exam for comparison. Type of monitor: Event Monitor Enrollment dates: 04/15/2021 - 05/14/2021 Only wore 04/16-04/18 though not noted on monitor report Event monitor shows predominantly sinus and sinus with ventricular bigeminy. Symptom episodes do not have a consistent association, occurring with sinus as well as sinus with bigem NURSING INTAKE: Simin Bales was last seen in office on 12/01/22. She presented for PVC ablation and EP study with Dr. Sullivan on 03/08/23 however PVC's were not targeted due to infrequent PVC's. Device check today shows frequent PVC's 8.2% burden. Device check today showed one episode 05/21/23 short burst SVT with sudden offset to 60 bpm. She remembers standing at work for a long time, and felt sudden palpitations. She got dizzy and lightheaded and sat down, and it resolved. She reports feeling PVC's daily. Since the last visit, she has had one syncopal episode in late April. She stood up and felt likeshe would blackout, got lightheaded and passed out, falling to the ground. She came to shortly thereafter. She does have daily postural dizziness and lightheadedness and feels nearsyncopal with getting up, and when standing a long time. She feels clammy and gets fast palpitations when she gets up out of bed in the morning. She has constant pain and tightness in her neck and both shoulders. She gets frequent muscle cramps in her legs. She has frequent constipation, nausea, and heartburn. She hasleg swelling and wears knee high compression. She vapes nicotine and THC daily. She has NOVOA with climbing stairs. She drinks 64 oz water daily. She salts her food and eats high salt foods. 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 Patient denies chest pain, orthopnea. LOOP RECORDER EVALUATION PRESENTS FOR: OPD with Dr. Valladares. PRESENTING RHYTHM: Sinus with frequent PVC's, trigeminal. BATTERY STATUS: Good ARRHYTHMIAS since the last remote on 05/05/23: There was 1 symptom activation dated 05/21/23. Review of ECG consistent with sinus rhythm/tachycardia with short burst of SVT and sudden offset to 60 bpm, followed by frequent PVC's/bigeminy. Symptoms reported: SOB, heart pounding and chest tightness. PVC burden measures 8.2%. Had PVC ablation 03/08/23. There have been no new auto detections. FOLLOW UP: Continue with 1-month remote transmissions. Nadira Jameson RN PAST CARDIAC HISTORY: PVC [facility] Score Please estimate the frequency of the following symptoms: Never-0, Rare-1, Occasional-2, Frequent-3, Daily-4, Constant*-5 Symptoms Subtotal Syncope/Near Syncope Score 2 Dizziness/Lightheadedness Score 4 Exercise Intolerance Score 4 Headache Score 4 Sleep Problems Score 5 Total Frequency Score 18 *For syncope/near syncope multiple episodes daily Please estimate the severity of the following symptoms: None-0, Minimal-1, Mild-2, Moderate-3, Severe-4, Intolerable-5 Symptoms Subtotal Palpitations/Tachycardia Score 4 Fatigue Score 4 Brain Fog Score 5 Shortness of Breath Score 3 GI Symptoms Score* 5 Total Severity Score 21 *GI symptoms include nausea, bloating, diarrhea, constipation, poor appetite, abdominal pain, earlysatiety Total of Both Sections: 39 PAST MEDICAL HISTORY Diagnosis Date Abnormal Pap smear of cervix 12/12/2018 lsil with +hpv, colpo cin1, repeat pap 01/22/20 neg with neg hpv Chlamydia Mental disorder history of depression PVC's (premature ventricular contractions) PVC ablation in 03/2020 [facility] with no improvement in palpitations and near syncopal events. She has had a normal Echo (2019) and normal cardiac MRI (2019). EF=60%. 08/14 48hr Holter w/ frequent PVCs (5.2% burden), which were asymptomatic. Sxs reported often during monitoring without arrhythmia. Zio at [facility] in 09/12 showing 4% PVC burden; 05/15 TTE: LV dilated, EF 68% Rh negative state in antepartum period 06/02/2021 Got RhIG at [facility] 04/20/21. Ab screen was neg just prior to that. Syncope ILR implanted 07/16; 09/13 TTT negative PAST SURGICAL HISTORY Procedure Laterality Date EP STUDY 03/08/2023 EXTRACTION, ERUPTED TOOTH OR EXPOSED ROOT (ELEVATION AND/OR FORCEPS REMOVAL) 2011 PAST SURGICAL HISTORY OF 03/2020 PVC ablation PAST SURGICAL HISTORY OF carpal tunnel PVC ABLATION 03/2020 S KNIFE CARPAL TUNNEL 12/23/2019 TONSILLECTOMY AND ADENOIDECTOMY HX 04/29/2018 TONSILLECTOMY HX SOCIAL HISTORY Social History Tobacco Use Smoking status: Former Packs/day: 2.00 Years: 8.00 Additional pack years: 0.00 Total pack years: 16.00 Types: Cigarettes Quit date: 05/25/2019 Years since quittin.0 Smokeless tobacco: Never Vaping Use Vaping Use: current everyday user Substances: Nicotine, THC Substance Use Topics Alcohol use: Yes Comment: 1 drink per month Drug use: Never FAMILY HISTORY Problem Relation Age of Onset No Known Problems Mother No Known Problems Father Heart Paternal Grandfather Heart Other Diabetes Maternal Grandmother ALLERGIES: ALLERGIES Allergen Reactions Adhesive Tape-Silic* Rash Heart monitor electrodes Cat Dander Other: See Comments MEDICATIONS: flecainide (TAMBOCOR) 50 mg tablet Take 1 tablet by mouth every 12 hours. verapamil ER (VERELAN) 120 mg 24 hr capsule Take 1 capsule by mouth daily at bedtime. magnesium oxide (MAG-OX) 400 mg (241.3 mg magnesium) tablet Take 1 tablet by mouth once daily. PHYSICAL EXAMINATION: Ht 168.9 cm (5' 6.5 ) Wt 53.5 kg (118 lb) LMP 10/02/2020 BMI 18.76 kg/m BP w/Orthostatic Vitals Date and Time Orthostatic BP Orthostatic Pulse BP Pulse BP Position BP Site BP Cuff Size 05/30/23 1621 125/90 83 -- -- Standing -- -- 05/30/23 1618 118/73 73 -- -- Sitting -- -- 05/30/23 1615 109/69 69 -- -- Supine -- -- General: Well appearing, in no acute distress. Skin: No clubbing, no cyanosis. Eyes: Extra ocular movements intact Neck: No jugular venous distention, no carotid bruits, carotids have a normal upstroke, no palpablethyromegaly. Lungs: Clear to auscultation bilaterally, no wheezing or rhonchi. Heart: Regular rhythm, PMI not displaced, S1, S2 normal, no S3, no S4, no heaves, no rub and no murmur. Abdomen: Soft, nontender, bowel sounds normal, no palpable organomegaly, no bruits. Extremities: No peripheral edema . Grade 2/4 distal pulses bilaterally. Neuro: Oriented to person, place and time, alert, cooperative, gait coordinated. CARDIOVASCULAR MEDICINE TESTING: Electrocardiogram: sinus with IRBBB I have personally reviewed the Electrocardiogram. Assessment IMPRESSION: Pvc (premature ventricular contraction) (primary encounter diagnosis) Palpitations Encounter for monitoring flecainide therapy Exercise intolerance PLAN AND RECOMMENDATIONS: We are going to increase her flecainide to 100mg bid and I asked that she have an ECG done in one week, which she can do locally and send to me for review. I asked that she notify me in about two weeks to let me know if tolerating and if helping. We are going to reassess PVC burden on her ILR in a month, I asked her to make sure to mychart me if she doesn't here from me after her next ILR check. We discussed if this is not effective I would consider a repeat attempt at ablation. We discussed her reduced functional capacity on her stress test and how this affects her quality oflife and daily activities, we will try to get her PVC symptoms under yesenia control and then will refer to cardiac rehab for an exercise prescription and discussed how exercise and recovery are equally important for improving her functional capacity and how this relates to activities of daily life. CONTACT INFORMATION: Duncan Valladares DO As a national referral center for Syncope and related conditions, seeing patients from across the country, we cannot provide work, FMLA, disability or other forms, or cardiac clearance. Please contact the patient's primary care physician or clinical hardness inspector for the documentation requested. We will provide the office notes from the patient's most recent visit if they have not already been received, and other tests or evaluations performed here can be made available upon request. documented in this encounterBarn[facility]ville [facility]11-[facility]-2023 NoteHNO ID: [id number] Author: Oren Campoverde APRN.SUPPLIER SPECIALIST Service: ? Author Type: Nurse Practitioner Type: Progress Notes Filed: 04/27/2023 3:17 PM Note Text: [facility] Department of Cardiovascular Medicine SECTION OF CARDIAC PACING and ELECTROPHYSIOLOGY OUTPATIENT VISIT DATE April 27, 2023 OUTPATIENT VISIT TYPE ESTABLISHED PRIMARY CARE PHYSICIAN: Jenn Handley DO [address] [address] REFERRING PHYSICIAN: No referring provider defined for this encounter. CHIEF COMPLAINT: Arrhythmia HISTORY OF PRESENT ILLNESS: Ms. Bales is a 27 year old female who presents today for follow-up visit post PVC EP study. Patient has a past medical history of frequent PVCs as well as positional orthostatic syncope. Patient has a loop recorder that shows a PVC burden between 6 and 7%. Patient brought to electrophysiology lab in March 2020 in [facility] where PVC ablation was performed. Patient had recurrence of PVCs shortly after and reports daily palpitations, lightheadedness, chest pain, and shortness of breath as well as syncopal episodes. She was brought to electrophysiology lab on March 08, 2023 with very few PVCs during procedure. PVC morphology that was mapped was positive in the inferior leads, left bundle branch morphology with transition in V3 through V4, QS in lead I. With low frequency of PVCs, procedure was terminated and patient was started on low-dose flecainide with already initiated verapamil. Patient was discharged same day and presents today via virtual visit. Patient states that she still is having symptoms with minimal improvement. 3 to 4 weeks after the ablation, patient had a blackout event when transitioning from sitting to standing and was caught by her boyfriend. Patient continues to have episodes of palpitations as well as postural lightheadedness and dizziness. She wears compression stockings as well as has increased her salt intake and drinks adequate fluids. Patient has had a tilt table in the past that was inconclusive. Remote loop recorder shows PVC burden of 7.2%. Patient has not scheduled stress test to assess for coronary disease. 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 PVC [place]: 7.6 PVC Morophologies: 1 Currently on AAD: Yes Non-DHP Calcium Channel Hipolito and Flecainide Ventricular arrhythmia free 1 year: No Redo ablation: No SOCIAL HISTORY Social History Tobacco Use Smoking status: Former Packs/day: 2.00 Years: 8.00 Additional pack years: 0.00 Total pack years: 16.00 Types: Cigarettes Quit date: 05/25/2019 Years since quittin.9 Smokeless tobacco: Never Vaping Use Vaping Use: Some days Substances: Nicotine, THC Substance Use Topics Alcohol use: Not Currently Comment: 1 drink per month Drug use: Never FAMILY HISTORY Problem Relation Age of Onset No Known Problems Mother No Known Problems Father Heart Paternal Grandfather Heart Other Diabetes Maternal Grandmother ALLERGIES: ALLERGIES Allergen Reactions Adhesive Tape-Silic* Rash Heart monitor electrodes Cat Dander Other: See Comments MEDICATIONS: flecainide (TAMBOCOR) 50 mg tablet Take 1 tablet by mouth every 12 hours. verapamil ER (VERELAN) 120 mg 24 hr capsule Take 1 capsule by mouth daily at bedtime. magnesium oxide (MAG-OX) 400 mg (241.3 mg magnesium) tablet Take 1 tablet by mouth once daily. REVIEW OF SYSTEMS: See HPI. PHYSICAL EXAMINATION: LMP 10/02/2020 No physical exam as this is a virtual visit. CARDIOVASCULAR MEDICINE TESTING: No Cardiovascular testing perfomed today. Last EKG Result Conclusion ECG COMPLETE Collected: 03/08/2023 11:54 AM (Final result) Impression: SINUS BRADYCARDIA RSR' PATTERN IN V1 SUGGESTS INCOMPLETE RIGHT BUNDLE BRANCH BLOCK BORDERLINE ECG Confirmed by AUDREY WHITNEY, [place] ([id number]) on 03/13/2023 10:39:59 AM LOOP RECORDER REMOTE EVALUATION PRESENTING RHYTHM: Sinus rhythm with PVCs BATTERY STATUS: Good ARRHYTHMIAS since 06-Mar-2023. No episodes detected. 7.2% PVCs. FOLLOW UP: Continue with 1-month remote transmissions NOTE TO PROVIDERS: CARD Flowsheets contain detailed device programming and testing data. Paceart/Interrogation PDF can be found under CARDIAC DATA AND REPORT, Scanned Documents section. I have personally reviewed the Electrocardiogram, Chest X-ray, Laboratory Testing, Echocardiogram, and Device Check. IMPRESSION: 1. Frequent PVCs: We will continue antiarrhy (more content not included)... [facility]11-03-20[facility] History of Present illness Narrative* Oren Campoverde APRN.SUPPLIER SPECIALIST - 04/27/2023 3:08 PM EDT Images from the original note were not included. [facility] Department of Cardiovascular Medicine SECTION OF CARDIAC PACING and ELECTROPHYSIOLOGY OUTPATIENT VISIT DATE April 27, 2023 OUTPATIENT VISIT TYPE ESTABLISHED PRIMARY CARE PHYSICIAN: Jenn Handley DO [address] [facility] [address] [place] [address] REFERRING PHYSICIAN: No referring provider defined for this encounter. CHIEF COMPLAINT: Arrhythmia HISTORY OF PRESENT ILLNESS: Ms. Bales is a 27 year old female who presents today for follow-up visit post PVC EP study. Patient has a past medical history of frequent PVCs as well as positional orthostatic syncope. Patient hasa loop recorder that shows a PVC burden between 6 and 7%. Patient brought to electrophysiology lab in March 2020 in [facility] where PVC ablation was performed. Patient had recurrence of PVCs shortly after and reports daily palpitations, lightheadedness, chest pain, and shortness of breath as well as syncopal episodes. She was brought to electrophysiology lab on March 08, 2023 with very few PVCs during procedure. PVC morphology that was mapped was positive in the inferior leads, leftbundle branch morphology with transition in V3 through V4, QS in lead I. With low frequency of PVCs, procedure was terminated and patient was started on low-dose flecainide with already initiated verapamil. Patient was discharged same day and presents today via virtual visit. Patient states that she still is having symptoms with minimal improvement. 3 to 4 weeks after the ablation, patient had a blackout event when transitioning from sitting to standing and was caught by her boyfriend. Patient continues to have episodes of palpitations as well as postural lightheadedness and dizziness. She wears compression stockings as well as has increased her salt intake and drinks adequate fluids. Patient has had a tilt table in the past that was inconclusive. Remote loop recorder shows PVC burden of 7.2%. Patient has not scheduled stress test to assess for coronary disease. 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 PVC [place]: 7.6 PVC Moroph[place]: 1 Currently on AAD: Yes Non-DHP Calcium Channel Hipolito and Flecainide Ventricular arrhythmia free 1 year: No Redo ablation: No SOCIAL HISTORY Social History Tobacco Use Smoking status: Former Packs/day: 2.00 Years: 8.00 Additional pack years: 0.00 Total pack years: 16.00 Types: Cigarettes Quit date: 05/25/2019 Years since quittin.9 Smokeless tobacco: Never Vaping Use Vaping Use: Some days Substances: Nicotine, THC Substance Use Topics Alcohol use: Not Currently Comment: 1 drink per month Drug use: Never FAMILY HISTORY Problem Relation Age of Onset No Known Problems Mother No Known Problems Father Heart Paternal Grandfather Heart Other Diabetes Maternal Grandmother ALLERGIES: ALLERGIES Allergen Reactions Adhesive Tape-Silic* Rash Heart monitor electrodes Cat Dander Other: See Comments MEDICATIONS: flecainide (TAMBOCOR) 50 mg tablet Take 1 tablet by mouth every 12 hours. verapamil ER (VERELAN) 120 mg 24 hr capsule Take 1 capsule by mouth daily at bedtime. magnesium oxide (MAG-OX) 400 mg (241.3 mg magnesium) tablet Take 1 tablet by mouth once daily. REVIEW OF SYSTEMS: See HPI. PHYSICAL EXAMINATION: LMP 10/02/2020 No physical exam as this is a virtual visit. CARDIOVASCULAR MEDICINE TESTING: No Cardiovascular testing perfomed today. Last EKG Result Conclusion ECG COMPLETE Collected: 03/08/2023 11:54 AM (Final result) Impression: SINUS BRADYCARDIA RSR' PATTERN IN V1 SUGGESTS INCOMPLETE RIGHT BUNDLE BRANCH BLOCK BORDERLINE ECG Confirmed by AUDREY WHITNEY, PENNY ([id number]) on 03/13/2023 10:39:59 AM LOOP RECORDER REMOTE EVALUATION PRESENTING RHYTHM: Sinus rhythm with PVCs BATTERY STATUS: Good ARRHYTHMIAS since 06-Mar-2023. No episodes detected. 7.2% PVCs. FOLLOW UP: Continue with 1-month remote transmissions NOTE TO PROVIDERS: CARD Flowsheets contain detailed device programming and testing data. Paceart/Interrogation PDF can be found under CARDIAC DATA AND REPORT, Scanned Documents section. I have personally reviewed the Electrocardiogram, Chest X-ray, Laboratory Testing, Echocardiogram, and Device Check. IMPRESSION: 1. Frequent PVCs: We will continue antiarrhythmic therapy with flecainide 50 mg twice daily as wellas verapamil. Patient is to schedule stress test to assess for coronary disease. Patient is scheduled follow-up with Dr. Mcallister in May. PLAN AND RECOMMENDATIONS: 1. Continue flecainide 50 mg twice daily 2. Continue verapamil 120 mg daily 3. Schedule stress test 4. Follow-up with Dr. Mcallister as scheduled in May. LETHA Ch, CCDS This note was partially generated using [employer] voice recognition system. I spent over 40 minutes in the visit, with more than 50% of the total [id number] time of the visit in counseling / coordination of care. documented in this encounterBarnesville Hospital09-14-2023 NoteHNO ID: [id number] Author: Robby Rapp MD Service: Cardiovascular Medicine Author Type: Fellow Type: Plan of Care Filed: 03/08/2023 9:08 AM Note Text: BRIEF EP PROCEDURE NOTE: Patient presented for PVC ablation. She was brought to the EP lab but she was not having PVCs. She had very few (around 5) with Isoproterenol high dose, wash out and IV metoprolol. So we decided not to proceed with PVC ablation. Plan: - Will start Flecainide 50mg BID. EGK two hours after the first dose - Continue Verapamil - Exercise stress test in 1-2 weeks. - Discharge latter today if post flecainide EKG ok Full report to follow in [facility] (Under Chart Review -> Cardiac ) Robby Rapp MD Electrophysiology Fellow PGY-VIII P: [phone] March 08, 2023 9:05 [facility]09-14-2023 NoteHNO ID: [id number] Author: Belinda Garcia APRN.ZIGZAG STITCHER Service: ? Author Type: Nurse Sports Cartoonist Type: Anesthesia Procedure Notes Filed: 03/08/2023 8:07 AM Note Text: ANESTHESIOLOGY PROCEDURE NOTE PIV General Information Procedure Start Time/Medication Administration: 03/08/2023 7:59 AM Patient Location: OR Staffing ZIGZAG STITCHER: Belinda Garcia APRN.ZIGZAG STITCHER Performed by: ZIGZAG STITCHER Preparation Sterility Preparation: hand hygiene performed prior to procedure, surgical cap used, mask used, skin prep agent completely dried prior to procedure Site Prep: alcohol Procedure Details Indication: need for IV access Needle Size/Type: 20 gauge angiocath Orientation: Right Location: Wrist Imaging Guidance Used: No SIGNATURE: Belinda Garcia APRN.ZIGZAG STITCHER PATIENT NAME: Simin Bales DATE: March 08, 2023 TIME: 8:07 AM CSN: [id number] [facility]09-13-2023 NoteHNO ID: [id number] Author: Ciara Zurita RN Service: ? Author Type: Registered Nurse Type: Progress Notes Filed: 03/07/2023 3:56 PM Note Text: THE FOLLOWING WAS EVALUATED Motivation To Learn: Interested Family/Significant Other Support: Unable to assess - Family not present Cognitive Ability: Alert and oriented Patient Learns Best By: Individual Instruction The Following Influencing Factors Were Barriers To This Education Session: None The Following Physical Limitations Were Barriers To This Education Session: None Instruction Provided To: Patient Procedure: Radio Frequency Ablation Pre-procedure information reviewed: Patient ID verified Procedure verified Physician verified Explanation of procedure Sedation level during procedure MD medication instructions from EP lab request: hold verapamil for 5d prior to procedure. Travel instructions/restrictions Scheduling information Possible same day discharge versus overnight hospital stay Check out time Family waiting area Physician contact with family after procedure Post Procedure Expectations reviewed: Inpatient hospital stay Post procedure antiarrhythmics and anticoagulation will be discussed with Physician, nurse practitioner or Physician pharmacy sales assistant upon discharge Instructions for transmitting EKG to Monitoring Center 3 month follow up instructions Contact number for information and questions Patient Evaluation: Verbalizes understanding Follow Up Plan: Follow up as directed by MD. Supplemental Material Given: Written Material Patient education regarding radiation exposure. Instructed By Ciara Zurita RN, RN. In Department of CARDIOLOGY.[facility]09-13-2023 History of Present illness Narrative* Ciara Zurita RN - 03/07/2023 3:55 PM EDT THE FOLLOWING WAS EVALUATED Motivation To Learn: Interested Family/Significant Other Support: Unable to assess - Family not present Cognitive Ability: Alert and oriented Patient Learns Best By: Individual Instruction The Following Influencing Factors Were Barriers To This Education Session: None The Following Physical Limitations Were Barriers To This Education Session: None Instruction Provided To: Patient Procedure: Radio Frequency Ablation Pre-procedure information reviewed: Patient ID verified Procedure verified Physician verified Explanation of procedure Sedation level during procedure medication instructions from EP lab request: hold verapamil for 5d prior to procedure. Travel instructions/restrictions Scheduling information Possible same day discharge versus overnight hospital stay Check out time Family waiting area Physician contact with family after procedure Post Procedure Expectations reviewed: Inpatient hospital stay Post procedure antiarrhythmics and anticoagulation will be discussed with Physician, nurse practitioner or Physician pharmacy sales assistant upon discharge Instructions for transmitting EKG to Monitoring Center 3 month follow up instructions Contact number for information and questions Patient Evaluation: Verbalizes understanding Follow Up Plan: Follow up as directed by . Supplemental Material Given: Written Material Patient education regarding radiation exposure. Instructed By Ciara Zurita RN, RN. In Department of CARDIOLOGY. documented in this encounterBarnesville Hospital09-13-2023 NoteHNO ID: [id number] Author: Aj Sullivan MD Service: ? Author Type: Physician Type: Progress Notes Filed: 03/07/2023 1:29 PM Note Text: [facility] Department of Cardiovascular Medicine SECTION OF CARDIAC PACING and ELECTROPHYSIOLOGY OUTPATIENT VISIT DATE March 07, 2023 OUTPATIENT VISIT TYPE ESTABLISHED PRIMARY CARE PHYSICIAN: Jenn Handley, DO [address] [place] [address] CHIEF COMPLAINT: PVCs HISTORY OF PRESENT ILLNESS/NURSING INTAKE NOTE: Ms. Bales is a 27 year old female who presents today for follow-up visit. She is scheduled for redo PVC ablation tomorrow. She was last seen in office 12/01/[address] Valladares. She has a history of PVCs s/p ablation 03/2020 ([facility]). She reports daily palpitations, lightheadedness, chest pain, shortness of breath. She reports syncopal episode Sunday while laying in bed. She started to get dizzy and then passed out. Denies seeking medical attention. PAST MEDICAL HISTORY Diagnosis Date Abnormal Pap smear of cervix 12/12/2018 lsil with +hpv, colpo cin1, repeat pap 01/22/20 neg with neg hpv Chlamydia Mental disorder history of depression PVC's (premature ventricular contractions) PVC ablation in 03/2020 [facility] with no improvement in palpitations and near syncopal events. She has had a normal Echo (2019) and normal cardiac MRI (2019). EF=60%. 08/14 48hr Holter w/ frequent PVCs (5.2% burden), which were asymptomatic. Sxs reported often during monitoring without arrhythmia. Zio at [facility] in 09/12 showing 4% PVC burden; 05/15 TTE: LV dilated, EF 68% Rh negative state in antepartum period 06/02/2021 Got RhIG at [facility] 04/20/21. Ab screen was neg just prior to that. Syncope ILR implanted 07/16; 3/22 TTT negative PAST SURGICAL HISTORY Procedure Laterality Date EXTRACTION, ERUPTED TOOTH OR EXPOSED ROOT (ELEVATION AND/OR FORCEPS REMOVAL) 2011 PAST SURGICAL HISTORY OF 03/2020 PVC ablation PAST SURGICAL HISTORY OF carpal tunnel PVC ABLATION 03/2020 S KNIFE CARPAL TUNNEL 12/23/2019 TONSILLECTOMY AND ADENOIDECTOMY HX 04/29/2018 TONSILLECTOMY HX SOCIAL HISTORY Social History Tobacco Use Smoking status: Former Packs/day: 2.00 Years: 8.00 Additional pack years: 0.00 Total pack years: 16.00 Types: Cigarettes Quit date: 05/25/2019 Years since quittin.7 Smokeless tobacco: Never Vaping Use Vaping Use: Some days Substances: Nicotine, THC Substance Use Topics Alcohol use: Not Currently Comment: 1 drink per month Drug use: Never FAMILY HISTORY Problem Relation Age of Onset No Known Problems Mother No Known Problems Father Heart Paternal Grandfather Heart Other Diabetes Maternal Grandmother ALLERGIES: ALLERGIES Allergen Reactions Adhesive Tape-Silic* Rash Heart monitor electrodes Cat Dander Other: See Comments MEDICATIONS: verapamil ER (VERELAN) 120 mg 24 hr capsule Take 1 capsule by mouth daily at bedtime. magnesium oxide (MAG-OX) 400 mg (241.3 mg magnesium) tablet Take 1 tablet by mouth once daily. Belinda Bryant RN PHYSICAL EXAMINATION: BP 108/74 Pulse (!) 57 Ht 168.9 cm (5' 6.5 ) Wt 56.2 kg (124 lb) LMP 10/02/2020 BMI 19.71 kg/m? General: Well appearing, in no acute distress, speaking in complete sentences. Skin: No clubbing, no cyanosis. Neck: no jugular venous distention, Lungs: Clear to auscultation bilaterally, no wheezing or rhonchi. Heart: Regular rhythm, PMI not displaced, S1, S2 normal, no S3, no S4, no heaves, no rub and no murmur. Abdomen: Soft, nontender, bowel sounds normal, no palpable organomegaly, no bruits. Extremities: No peripheral edema . Grade 2/4 distal pulses bilaterally. Neuro: Oriented to person, place and time, alert, cooperative, gait coordinated. CARDIOVASCULAR MEDICINE TESTING: Electrocardiogram: sinus rhythm, 57 bpm. Last EKG Result Conclusion ECG COMPLETE Collected: 03/07/2023 12:10 PM (Preliminary result) Impression: SINUS BRADYCARDIA RSR' PATTERN IN V1 SUGGESTS INCOMPLETE RIGHT BUNDLE BRANCH BLOCK BORDERLINE ECG LOOP RECORDER REMOTE EVALUATION 12/01/22 PRESENTING RHYTHM: VS with PVCs BATTERY STATUS: Normal. ARRHYTHMIAS since 09/07/22: 16 symptom episodes since 09/07/22 remote. EGMs show SR/ST with PVCs, including periods of bigeminy. PVC count has increased from 6.2% in August to 11.4% in November. Pdf's from September and October in attachments on this report. FOLLOW UP: Continue with 1-month remote transmissions. Bernie Solares RN NOTE TO PROVIDERS: CARD Flowsheets contain detailed device programming and testing data. Paceart/Interrogation PDF can be found under CARDIAC DATA AND REPORT, Scanned Documents section. PVC ablation 04/15/2020 at TTE 08/04/2019 at I have personally reviewed the Electrocardiogram, Echocardiogram, and Device Check. IMPRESSION: Ms. [place] (more content not included)...[facility]09-13-2023 Note Education (EPSMN) SIMIN BALES ([id number]) 1995 F Date Time Provider Department 03/07/23 AJ SULLIVAN EPSMN Reason for Visit: Patient Education [91] Cmt: PVC RFA During your visit today, we recorded the following information about you: Allergies As of Date: 03/07/2023 Noted Allergy Reaction ADHESIVE TAPE-SILICONES 09/21/2020 2 - Rash Comments: Heart monitor electrodes CAT RENARD 04/10/2021 14 - Other: See Comments Date Reviewed: 03/07/2023 Reviewed by: Belinda Bryant, [place] - Fully Assessed Prescriptions as of 03/07/2023 - verapamil ER (VERELAN) 120 mg 24 hr capsule Take 1 capsule by mouth daily at bedtime. - magnesium oxide (MAG-OX) 400 mg (241.3 mg magnesium) tablet Take 1 tablet by mouth once daily. Encounter Status:Closed by CIARA ZURITA RN on 03/07/23[facility]09-[facility] History of Present illness Narrative* Aj Sullivan MD - 03/07/2023 12:45 PM EDT Images from the original note were not included. [facility] Department of Cardiovascular Medicine SECTION OF CARDIAC PACING and ELECTROPHYSIOLOGY OUTPATIENT VISIT DATE March 07, 2023 OUTPATIENT VISIT TYPE ESTABLISHED PRIMARY CARE PHYSICIAN: Jenn Handley DO [address] [place] [address] CHIEF COMPLAINT: PVCs HISTORY OF PRESENT ILLNESS/NURSING INTAKE NOTE: Ms. Bales is a 27 year old female who presents today for follow-up visit. She is scheduled for redo PVC ablation tomorrow. She was last seen in office 12/01/[address] Valldaares. She has a history of PVCs s/p ablation 03/2020 ([facility]). She reports daily palpitations, lightheadedness, chest pain, shortness of breath. She reports syncopal episode Sunday while laying in bed. She started to get dizzy and then passed out. Denies seekingmedical attention. PAST MEDICAL HISTORY Diagnosis Date Abnormal Pap smear of cervix 12/12/2018 lsil with +hpv, colpo cin1, repeat pap 01/22/20 neg with neg hpv Chlamydia Mental disorder history of depression PVC's (premature ventricular contractions) PVC ablation in 03/2020 [facility] with no improvement in palpitations and near syncopal events. She has had a normal Echo (2019) and normal cardiac MRI (2019). EF=60%. 08/14 48hr Holter w/ frequent PVCs (5.2% burden), which were asymptomatic. Sxs reported often during monitoring without arrhythmia. Zio at [facility] in 09/12 showing 4% PVC burden; 05/15 TTE: LV dilated, EF 68% Rh negative state in antepartum period 06/02/2021 Got RhIG at [facility] 04/20/21. Ab screen was neg just prior to that. Syncope ILR implanted 07/16; 09/13 TTT negative PAST SURGICAL HISTORY Procedure Laterality Date EXTRACTION, ERUPTED TOOTH OR EXPOSED ROOT (ELEVATION AND/OR FORCEPS REMOVAL) 2011 PAST SURGICAL HISTORY OF 03/2020 PVC ablation PAST SURGICAL HISTORY OF carpal tunnel PVC ABLATION 03/2020 S KNIFE CARPAL TUNNEL 12/23/2019 TONSILLECTOMY AND ADENOIDECTOMY HX 04/29/2018 TONSILLECTOMY HX SOCIAL HISTORY Social History Tobacco Use Smoking status: Former Packs/day: 2.00 Years: 8.00 Additional pack years: 0.00 Total pack years: 16.00 Types: Cigarettes Quit date: 05/25/2019 Years since quittin.7 Smokeless tobacco: Never Vaping Use Vaping Use: Some days Substances: Nicotine, THC Substance Use Topics Alcohol use: Not Currently Comment: 1 drink per month Drug use: Never FAMILY HISTORY Problem Relation Age of Onset No Known Problems Mother No Known Problems Father Heart Paternal Grandfather Heart Other Diabetes Maternal Grandmother ALLERGIES: ALLERGIES Allergen Reactions Adhesive Tape-Silic* Rash Heart monitor electrodes Cat Dander Other: See Comments MEDICATIONS: verapamil ER (VERELAN) 120 mg 24 hr capsule Take 1 capsule by mouth daily at bedtime. magnesium oxide (MAG-OX) 400 mg (241.3 mg magnesium) tablet Take 1 tablet by mouth once daily. Belinda Bryant RN PHYSICAL EXAMINATION: BP 108/74 Pulse (!) 57 Ht 168.9 cm (5' 6.5 ) Wt 56.2 kg (124 lb) LMP 10/02/2020 BMI 19.71kg/m General: Well appearing, in no acute distress, speaking in complete sentences. Skin: No clubbing, no cyanosis. Neck: no jugular venous distention, Lungs: Clear to auscultation bilaterally, no wheezing or rhonchi. Heart: Regular rhythm, PMI not displaced, S1, S2 normal, no S3, no S4, no heaves, no rub and no murmur. Abdomen: Soft, nontender, bowel sounds normal, no palpable organomegaly, no bruits. Extremities: No peripheral edema . Grade 2/4 distal pulses bilaterally. Neuro: Oriented to person, place and time, alert, cooperative, gait coordinated. CARDIOVASCULAR MEDICINE TESTING: Electrocardiogram: sinus rhythm, 57 bpm. Last EKG Result Conclusion ECG COMPLETE Collected: 03/07/2023 12:10 PM (Preliminary result) Impression: SINUS BRADYCARDIA RSR' PATTERN IN V1 SUGGESTS INCOMPLETE RIGHT BUNDLE BRANCH BLOCK BORDERLINE ECG LOOP RECORDER REMOTE EVALUATION 12/01/22 PRESENTING RHYTHM: VS with PVCs BATTERY STATUS: Normal. ARRHYTHMIAS since 09/07/22: 16 symptom episodes since 09/07/22 remote. EGMs show SR/ST with PVCs, including periods of bigeminy. PVC count has increased from 6.2% in August to 11.4% in November. Pdf's from September and October in attachments on this report. FOLLOW UP: Continue with 1-month remote transmissions. Bernie Solares RN NOTE TO PROVIDERS: CARD Flowsheets contain detailed device programming and testing data. Paceart/Interrogation PDF can be found under CARDIAC DATA AND REPORT, Scanned Documents section. PVC ablation 04/15/2020 at TTE 08/04/2019 at I have personally reviewed the Electrocardiogram, Echocardiogram, and Device Check. IMPRESSION: Ms. Bales is a 27 year old female with a history of PVCs. She is a patient of Dr. Valladares. Her overall PVC burden appears to be less than 10%, but her arrhythmia is very bothersome to her and she has not been able to tolerate medical therapy at substantial doses (verapamil). I reviewed her OSH RF ablation report from 2019 in detail. It would appear that while activation mapping was the initial strategy, pace-mapping was pursued eventually - and ablation was performed in the RVOT. She is scheduled for a redo ablation tomorrow. We reviewed the logistics/risks/benefits of the procedure and all questions were answered. In addition to the risk of complications (which is obviously always a major concern for all invasive procedures), I am also concerned about the possibility that h er PVC burden may be low/may not be responsive to isoproterenol at the time of the procedure. If that is the case tomorrow, my preference will be to postpone the procedure to a different date (ratherthan to attempt pace map-based ablation strategy). If the PVC has a deep intramyocardial origin, alcohol ablation may also need to be considered. Ms. Bales expressed her desire to proceed with the procedure and she signed the informed consent form. PLAN AND RECOMMENDATIONS: -See above. -PVC ablation tomorrow. She will avoid taking any verapamil today/tomorrow. -Follow-up with Dr. Valladares in 6 months or sooner, if needed. Aj Sullivan MD I personally interviewed, confirmed and edited the above information as obtained by others. CONTACT INFORMATION: Aj Sullivan MD, PHD Medical Decision Making: Problems: Low: Stable chronic illness Data: Unique source(s) for external note(s) reviewed: 1 Unique test result(s) reviewed: 3+ Independent interpretation of test from other physician/QHCP Risk: Moderate: Drug management High: Decision on elective major surgery w/ risk factors Medical Decision Making Level: 5 - High documented in this encounterBarnesville Hospital06-09-2023 NoteHNO ID: [id number] Author: Duncan Valladares DO Service: ? Author Type: Physician Type: Progress Notes Filed: 12/01/2022 6:48 PM Note Text: [facility] Department of Cardiovascular Medicine SECTION OF CARDIAC PACING and ELECTROPHYSIOLOGY OUTPATIENT VISIT DATE December 01, 2022 OUTPATIENT VISIT TYPE ESTABLISHED PRIMARY CARE PHYSICIAN: Jenn Handley, DO [address] [facility] [address] [place] [address] CHIEF COMPLAINT: dizziness HISTORY OF PRESENT ILLNESS: Ms. Bales is a 27 year old female who presents today for follow-up visit for palpitations. She had been intolerant of wearable monitors due to skin reaction and had and ILR. Her symptom episodes correlated with sinus with PVC with a burden on her wearable of 4%. She has been previously seen by Dr. Dudley and Dr. Causey for these symptoms as well. In the past she had been borderline low BP and intolerant of metoprolol, we had started her on verapamil and increased the does and her BP did not drop too low. Since our last visit she had messaged about elevated BP which would not be an effect of her verapamil or PVCs and was advised to follow up for this with her PCP for evaluation and if needed management of elevated BP. From ILR check 09/07/22 Tilt test 08/23/21 Overall: The test is negative for syncope. There was resting sinus bradycardia with PVCs that suggest and outflow tract focus. Echo 05/16/21 CONCLUSIONS: - Technically difficult exam due to arrhythmia. - Exam indication: Frequent PVCs - The left ventricle is moderately dilated. Left ventricular systolic function is normal. EF = 68 ? 5% (2D biplane) Left ventricular diastolic function was not evaluated due to an arrhythmia. - The right ventricle is normal in size. Right ventricular systolic function is normal. - There are no significant valvular abnormalities. - Estimated right ventricular systolic pressure is not reported due to an insufficient tricuspid regurgitation signal. Estimated right atrial pressure is 3 mmHg based on IVC assessment. - The patient has not had a prior CC echocardiographic exam for comparison. Type of monitor: Event Monitor Enrollment dates: 04/15/2021 - 05/14/2021 Only wore 04/16-04/18 though not noted on monitor report Event monitor shows predominantly sinus and sinus with ventricular bigeminy. 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 She has noticed she is getting dizzier and closer to passing out. Yesterday she was laying down with her feet up and head back and she started getting dizzy/losing vision and got to the ground. She is passing out around every month. She is near syncopal most days but is good at catching it. She drinks more than 4-6 bottles of water a day. She salts her food. She wears knee high compression garments. She is active caring for her chickens. She has occasional chest pain and shortness of breath simultaneously. She denies orthopnea, PND or edema. She has not noted an improvement on verapamil. She feels like they may have worsened. She is also having loose stools since august and has lost weight. She is addressing this with her PCP. PAST CARDIAC HISTORY: PVC ablation [facility] 2019 PAST MEDICAL HISTORY Diagnosis Date Abnormal Pap smear of cervix 12/12/2018 lsil with +hpv, colpo cin1, repeat pap 01/22/20 neg with neg hpv Chlamydia Mental disorder history of depression PVC's (premature ventricular contractions) PVC ablation in 03/2020 [facility] with no improvement in palpitations and near syncopal events. She has had a normal Echo (2019) and normal cardiac MRI (2019). EF=60%. 08/14 48hr Holter w/ frequent PVCs (5.2% burden), which were asymptomatic. Sxs reported often during monitoring without arrhythmia. Zio at [facility] in 09/12 showing 4% PVC burden; 05/15 TTE: LV dilated, EF 68% Rh negative state in antepartum period 06/02/2021 Got RhIG at [facility] 04/20/21. Ab screen was neg just prior to that. Syncope ILR implanted 07/16; 09/13 TTT negative PAST SURGICAL HISTORY Procedure Laterality Date EXTRACTION, ERUPTED TOOTH OR EXPOSED ROOT (ELEVATION AND/OR FORCEPS REMOVAL) 2011 PAST SURGICAL HISTORY OF 03/2020 PVC ablation PAST SURGICAL HISTORY OF carpal tunnel PVC ABLATION 03/2020 S KNIFE CARPAL TUNNEL 12/23/2019 TONSILLECTOMY AND ADENOIDECTOMY HX 04/29/2018 TONSILLECTOMY HX SOCIAL HISTORY Social History Tobacco Use Smoking status: Former Packs/day: 2.00 Years: 8.00 Pack years: 16.00 Types: Cigarettes Quit date: 05/25/2019 Years since quittin.5 Smokeless tobacco: Never Vaping Use Vaping Use: Never used Substance Use Topics Alcohol use: Not Currently Comment: 1 drink per month Drug use: Ne (more content not included)...[facility]03-13-2023 Evaluation + Plan noteExtracted from: Title:ED Note Author:Kong Arboleda PA-C te:09/04/22 Chest pain (R07.9: Chest cherrie n, unspecified) Orders: Sodium Chloride 0.9% intravenous solution, 1,000 mL, Soln-IV, IV, Once, Stop date 09/04/22 8:55:00 EDT, STAT, Start date 09/04/22 8:55:00 EDT, mL/hr, Infuse over 61, minute(s) Automated Diff Basic Metabolic Panel Beta hCG Qual CBC w/ Auto Diff ED Cardiac Monitoring eGFR Oxygen Saturation Oxygen Therapy Saline Lock Insert Troponin 0 Hr. XR Chest Single View [facility]03-13-2023 Hospital Discharge instructions Patient Education 09/04/2022 10:23:20 Chest Wall Pain Chest Wall Pain Chest wall pain is pain in or around the bones and muscles of your chest. Sometimes, an injury causes this pain. Excessive coughing or overuse of arm and chest muscles may also cause chest wall pain.Sometimes, the cause may not be known. This pain may take several weeks or longer to get better. Follow these instructions at home: Managing pain, stiffness, and swelling If directed, put ice on the painful area: ?Put ice in a plastic bag. ?Place a towel between your skin and the bag. ?Leave the ice on for 20 minutes, 2 3 times per day. Activity Rest as told by your health care provider. Avoid activities that cause pain. These include any activities that use your chest muscles or your abdominal and side muscles to lift heavy items. Ask your health care provider what activities are safe for you. General instructions Take [id number] and prescription medicines only as told by your health care provider. Do not use any products that contain nicotine or tobacco, such as cigarettes, e- cigarettes, and chewing tobacco. These can delay healing after injury. If you need help quitting, ask your health care provider. Keep all follow-up visits as told by your health care provider. This is important. Contact a health care provider if: You have a fever. Your chest pain becomes worse. You have new symptoms. Get help right away if: You have nausea or vomiting. You feel sweaty or light-headed. You have a cough with mucus from your lungs (sputum) or you cough up blood. You develop shortness of breath. These symptoms may represent a serious problem that is an emergency. Do not wait to see if the symptoms will go away. Get medical help right away. Call your local emergency services (911 in the [place] Do not drive yourself to the hospital. Summary Chest wall pain is pain in or around the bones and muscles of your chest. Depending on the cause, it may be treated with ice, rest, medicines, and avoiding activities that cause pain. Contact a health care provider if you have a fever, worsening chest pain, or new symptoms. Get help right away if you feel light-headed or you develop shortness of breath. These symptoms maybe an emergency. This information is not intended to replace advice given to you by your health care provider. Make sure you discuss any questions you have with your health care provider. Document Released: 06/11/2006 Document Revised: 12/12/2018 Document Reviewed: 12/12/2018 [employer] Patient Education 2020 [employer] Follow Up Care 09/04/2022 08:41:22 With:Josette HANDLEY Address: [address] [place], [place] [id number]- Business (1) When:09/07/2022 10:06:05 [facility]02-23-2023 Miscellaneous Notes* Telephone Encounter - Bri Mata - 08/17/2022 7:13 AM EST Electronic request for refill. Requested Prescriptions Pending Prescriptions Disp Refills verapamil ER (VERELAN) 120 mg 24 hr capsule 90 capsule 3 Sig: Take 1 capsule by mouth daily at bedtime. Last office visit in EP was 03/15/2022 Bri Mata documented in this encounterBarn[facility]01-05-2023 Miscellaneous Notes* Telephone Encounter - Edwina Colbert - 06/29/2022 2:56 PM EST Images from the original note were not included. Fax from patient's employer received and responded to Saved in EP Outside Report Have a great dayEdwina Target Trimmer documented in this encounterBarnesville Hospital09-21-2022 History of Present illness Narrative* Duncan Valladares, - 03/15/2022 3:30 PM EDT Images from the original note were not included. [facility] Department of Cardiovascular Medicine SECTION OF CARDIAC PACING and ELECTROPHYSIOLOGY OUTPATIENT VISIT DATE March 15, 2022 OUTPATIENT VISIT TYPE ESTABLISHED PRIMARY CARE PHYSICIAN: Jenn Handley, [address] [place] [address] CHIEF COMPLAINT: dizziness HISTORY OF PRESENT ILLNESS: Ms. Bales is a 26 year old female who presents today for follow-up visit for palpitations. She hasbeen intolerant of wearable monitors due to reaction even to hypoallergenic patches and does have an ILR. Many but not all of her episodes have been associated with sinus with PVCs on her ILR. She karen metoprolol. On her prior wearable monitor her burden was 4%. She has also seen Dr. Causey and Dr. Dudley as well. An example of a symptom episoded from her device check from 02/09/22 Tilt test 08/23/21 Overall: The test is negative for syncope. There was resting sinus bradycardia with PVCs that suggest and outflow tract focus. Echo 05/16/21 CONCLUSIONS: - Technically difficult exam due to arrhythmia. - Exam indication: Frequent PVCs - The left ventricle is moderately dilated. Left ventricular systolic function is normal. EF = 68 5% (2D biplane) Left ventricular diastolic function was not evaluated due to an arrhythmia. - The right ventricle is normal in size. Right ventricular systolic function is normal. - There are no significant valvular abnormalities. - Estimated right ventricular systolic pressure is not reported due to an insufficient tricuspid regurgitation signal. Estimated right atrial pressure is 3 mmHg based on IVC assessment. - The patient has not had a prior CC echocardiographic exam for comparison. Type of monitor: Event Monitor Enrollment dates: 04/15/2021 - 05/14/2021 Only wore 04/16-04/18 though not noted on monitor report Event monitor shows predominantly sinus and sinus with ventricular bigeminy. Symptom episodes do not have a consistent association, occurring with sinus as well as sinus with bigeminy. Nursing Intake: Her palpitations have improved slightly since she switched to taking her metoprolol mid-day. She has chest pain every other day and is short of breath with exertion. She has had a cough for 3-4 weeks. When she stands or stands too long she gets lightheaded and see stars. She drinks 64 ounces of water and salts her food. She wears knee high compression stockings. She is active chasing chickens andan 8 month old. PAST CARDIAC HISTORY: PVCs PAST MEDICAL HISTORY Diagnosis Date Abnormal Pap smear of cervix 12/12/2018 lsil with +hpv, colpo cin1, repeat pap 01/22/20 neg with neg hpv Chlamydia Mental disorder history of depression PVC's (premature ventricular contractions) PVC ablation in 03/2020 [facility] with no improvement in palpitations and near syncopal events. She has had a normal Echo (2019) and normal cardiac MRI (2019). EF=60%. 08/14 48hr Holter w/ frequent PVCs (5.2% burden), which were asymptomatic. Sxs reported often during monitoring without arrhythmia. Zio at [facility] in 09/12 showing 4% PVC burden; 05/15 TTE: LV dilated, EF 68% Rh negative state in antepartum period 06/02/2021 Got RhIG at [facility] 04/20/21. Ab screen was neg just prior to that. Syncope ILR implanted 07/16; 09/13 TTT negative PAST SURGICAL HISTORY Procedure Laterality Date EXTRACTION, ERUPTED TOOTH OR EXPOSED ROOT (ELEVATION AND/OR FORCEPS REMOVAL) 2011 PAST SURGICAL HISTORY OF 03/2020 PVC ablation PAST SURGICAL HISTORY OF carpal tunnel PVC ABLATION 03/2020 S KNIFE CARPAL TUNNEL 12/23/2019 TONSILLECTOMY AND ADENOIDECTOMY HX 04/29/2018 TONSILLECTOMY HX SOCIAL HISTORY Social History Tobacco Use Smoking status: Former Packs/day: 2.00 Years: 8.00 Pack years: 16.00 Types: Cigarettes Quit date: 05/25/2019 Years since quittin.8 Smokeless tobacco: Never Vaping Use Vaping Use: Never used Substance Use Topics Alcohol use: Not Currently Comment: 1 drink per month Drug use: Never FAMILY HISTORY Problem Relation Age of Onset No Known Problems Mother No Known Problems Father Heart Paternal Grandfather Heart Other Diabetes Maternal Grandmother ALLERGIES: ALLERGIES Allergen Reactions Adhesive Tape-Silic* Rash Heart monitor electrodes MEDICATIONS: magnesium oxide (MAG-OX) 400 mg (241.3 mg magnesium) tablet Take 1 tablet by mouth once daily. metoprolol tartrate, short acting, (LOPRESSOR) 25 mg tablet Take 1 tablet by mouth twice daily. Potassium 99 mg tab Take by mouth. levonorgestrel-ethinyl estradiol 0.15-0.03 mg per tab Take 1 tablet by mouth once daily. PHYSICAL EXAMINATION: BP 99/66 Pulse (!) 47 Ht 167.6 cm (5' 6 ) Wt 61.2 kg (134 lb 14.4 oz) LMP 10/02/2020 BMI 21.77 kg/m General: Well appearing, in no acute distress. Skin: No clubbing, no cyanosis. Eyes: Extra ocular movements intact Oropharynx: Teeth in good repair. Neck: No jugular venous distention, no carotid bruits, carotids have a normal upstroke, no palpablethyromegaly. Lungs: Clear to auscultation bilaterally, no wheezing or rhonchi. Heart: Regular rhythm, PMI not displaced, S1, S2 normal, no S3, no S4, no heaves, no rub and no murmur. Abdomen: Soft, nontender, bowel sounds normal, no palpable organomegaly, no bruits. Extremities: No peripheral edema . Grade 2/4 distal pulses bilaterally. Neuro: Oriented to person, place and time, alert, cooperative, gait coordinated. CARDIOVASCULAR MEDICINE TESTING: Electrocardiogram: sinus bradycardia 47 bpm I have personally reviewed the Electrocardiogram. Assessment IMPRESSION: 1. Palpitations - ICD9: 785.1, ICD10: R00.2 (primary diagnosis) 2. Frequent PVCs - ICD9: 427.69, ICD10: I49.3 3. Dizziness - ICD9: 780.4, ICD10: R42 4. History of loop recorder - ICD9: V15.29, ICD10: Z98.890 5. Short MA-normal QRS complex syndrome - ICD9: 426.81, ICD10: I45.6 PLAN AND RECOMMENDATIONS: We reviewed Simin's ILR results from today, her PVC burden was 4% and her symptoms episodes occurred when she was having frequent PVCs and bigeminy. Her resting HR is onlyl 47 bpm, so I don't think will tolerate increasing her metoprolol. We discussed a trial of verapamil, she is agreeable, she will stop metoprolol for two days prior to starting and will message me in two weeks to let me know how tolerating and if helping. We are intentionally starting low, and I told her that if she doesn't tolerate, for example it drops her BP or she passes out to stop immediately and let me know. We discussed if verapamil is ineffective we could try flecainide but I cautioned about the risks of proarrhyt hmia. She previously had an ablation and we discussed we could repeat the procedure. CONTACT INFORMATION: Duncan Valladares DO As a national referral center for Syncope and related conditions, seeing patients from across the country, we cannot provide work, FMLA, disability or other forms, or cardiac clearance. Please contact the patient's primary care physician or clinical hardness inspector for the documentation requested. We will provide the office notes from the patient's most recent visit if they have not already been received, and other tests or evaluations performed here can be made available upon request. documented in this encounterBarnesville Hospital07-11-2022 Instructions* Patient Instructions* Nadya Beck MD - 01/02/2022 1:42 PM EDT Continue current medications for now Aim for 150mins of aerobic activity weekly Get low and try discussed vagal maneuvers for palpitations/dizziness. Follow-up with EP and device clinic as directed. documented in this encounterBarnesville Hospital07-11-2022 History of Present illness Narrative* Nadya Beck MD - 01/02/2022 1:00 PM EDT Images from the original note were not included. [facility] Department of Cardiology [address] [place] [address] (office) [phone] (fax) 01/02/2022 This note was written using medical terminology and is intended to be used for medical purposes by other health primary care pediatrician Patient presents with: pvc She is accompanied by her male partner. HPI: Ms. Bales is a 26 year old female with below PMH who was last seen by me on 05/16/2021 for PVCs in -she was 32 weeks at that time. Her palpitations were refractory to beta-hipolito management and she was referred to syncope clinic by Dr. Causey. She was only able to wear event monitor for a few days before developing skin irritation and we discussed possible ILR . She saw Dr. Valladares on 06/15/2021 at 36 weeks of gestation and underwent ILR implantation in 07/16. Tilt table test in 09/13 was negative for syncope. She also saw Dr. Dudley on 10/24/2021 and no changes were made to her regimen. Today she states she feels at baseline. She is marking near fainting spells on monitor - Last interrogation on 12/11/21 shows PSVT 142bpm with event markers. She is compliant with BB therapy. Ran out of MagOx 2mos ago, but taking OTC formulation. Has hoarse throat and some raw throat pain with blood-tinged sputum. Does not plan on any future pregnancies and is using OCPs. Cardiology: The review of symptoms was negative for chest pain, shortness of breath, orthopnea, paroxysmal nocturnal dyspnea, edema General ROS: Otherwise 14 systems ROS is negative except as stated above. PAST MEDICAL HISTORY Diagnosis Date Abnormal Pap smear of cervix 12/12/2018 lsil with +hpv, colpo cin1, repeat pap 01/22/20 neg with neg hpv Chlamydia Mental disorder history of depression PVC's (premature ventricular contractions) PVC ablation in 03/2020 [facility] with no improvement in palpitations and near syncopal events. She has had a normal Echo (2019) and normal cardiac MRI (2019). EF=60%. 08/14 48hr Holter w/ frequent PVCs (5.2% burden), which were asymptomatic. Sxs reported often during monitoring without arrhythmia. Zio at [facility] in 09/12 showing 4% PVC burden; 05/15 TTE: LV dilated, EF 68% Rh negative state in antepartum period 06/02/2021 Got RhIG at [facility] 04/20/21. Ab screen was neg just prior to that. Syncope ILR implanted 07/16; 09/13 TTT negative Current Outpatient Medications Medication Sig Dispense Refill metoprolol tartrate, short acting, (LOPRESSOR) 25 mg tablet Take 1 tablet by mouth twice daily. 90 tablet 3 levonorgestrel-ethinyl estradiol 0.15-0.03 mg per tab Take 1 tablet by mouth once daily. 28 tablet 4 Potassium 99 mg tab Take by mouth. magnesium oxide (MAG-OX) 400 mg (241.3 mg magnesium) tablet Take 1 tablet by mouth once daily. 90 tablet 3 No current facility-administered medications for this visit. ALLERGIES Allergen Reactions Adhesive Tape-Silic* Rash Heart monitor electrodes AVAILABLE LABS, EKGS, CARDIAC TESTING/PROCEDURES SINCE LAST VISIT WERE REVIEWED AND UPDATED IN [employer]. Last 3 Encounter Wt Readings: Date: Wt: 10/24/2021 68 kg (150 lb) 08/09/2021 76.7 kg (169 lb) 06/27/2021 77.8 kg (171 lb 9.6 oz) Body mass index is 21.95 kg/m . No results found for: A1C No results found for: HGBA1C No results found for: CHOL No results found for: HDL No results found for: LDL No results found for: TRIG No results found for: FREET4, FREET3 PHYSICAL EXAM: BP 116/72 Pulse (!) 49 Ht 167.6 cm (5' 6 ) Wt 61.7 kg (136 lb) LMP 10/02/2020 BMI 21.95 kg/m General: Well appearing, in no acute distress, speaking in complete sentences. Skin: No clubbing, no cyanosis. Eyes: Extra ocular movements intact Oropharynx: Deferred due to mask Neck: no jugular venous distention,, no carotid bruits, Lungs: Clear to auscultation bilaterally, no wheezing or rhonchi. Heart: Regular rhythm, S1, S2 normal, no murmur, rare ectopy Abdomen: Soft, nontender, bowel sounds normal Extremities: No peripheral edema . Grade 2/4 distal pulses bilaterally. Neuro: Oriented to person, place and time, alert, cooperative, gait coordinated. 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 No further general cardiology f/u needed at this time - vagal maneuvers for symptomatic PSVT are reviewed. Will not uptitrate BB currently due to restingbradycardia - regular aerobic activity advised for general well-being. - f/u PCP for routine health maintenance. Thank you for allowing me to participate in the care of your patient. Please feel free to contact me with any questions or concerns. Sincerely- Nadya Beck MD Staff Human Resources Professional Orders Placed This Encounter magnesium oxide (MAG-OX) 400 mg (241.3 mg magnesium) tablet Sig: Take 1 tablet by mouth once daily. Dispense: 90 tablet Refill: 3 documented in this encounterBarnesville Hospital05-02-2022 History of Present illness Narrative* Yefri Dudley MD - 10/24/2021 2:39 PM EDT I personally reviewed the above information as obtained by the nurse and confirmed the findings. Chief Complaint: dizziness Additional HPI: 26 year old female with a past medical history of: PAST MEDICAL HISTORY Diagnosis Date Abnormal Pap smear of cervix 12/12/2018 lsil with +hpv, colpo cin1, repeat pap 01/22/20 neg with neg hpv Chlamydia Mental disorder history of depression PVC's (premature ventricular contractions) PVC ablation in 03/2020 [facility] with no improvement in palpitations and near syncopal events. She has had a normal Echo (2019) and normal cardiac MRI (2019). EF=60%. 08/14 48hr Holter w/ frequent PVCs (5.2% burden), which were asymptomatic. Sxs reported often during monitoring without arrhythmia. Zio at [facility] in 09/12 showing 4% PVC burden; 05/15 TTE: LV dilated, EF 68% Rh negative state in antepartum period 06/02/2021 Got RhIG at [facility] 04/20/21. Ab screen was neg just prior to that. PAST SURGICAL HISTORY Procedure Laterality Date EXTRACTION, ERUPTED TOOTH OR EXPOSED ROOT (ELEVATION AND/OR FORCEPS REMOVAL) 2011 PAST SURGICAL HISTORY OF 03/2020 PVC ablation PAST SURGICAL HISTORY OF carpal tunnel PVC ABLATION 03/2020 S KNIFE CARPAL TUNNEL 12/23/2019 TONSILLECTOMY AND ADENOIDECTOMY HX 04/29/2018 TONSILLECTOMY HX History as taken on 10/24/2021: here as followup for dizziness and PVCs her daughter is 4 months old now Per Nursing Intake obtained 10/24/2021: Ms. Bales is a 26 year old female who is seen today for follow-up visit for PVCs and near loss of consciousness. She follows with Dr. Valladares (06/15/2021) and Dr. Causey (03/01/2021. Her medical history is significant for depression, syncope and PVCs diagnosed in 2011 s/p ablation 03/2020 with no improvement in palpitations or near syncopal events. She has had a normal Echo (2019) and normal cardiac MRI (2019). She wore a 2 week monitor showing a 4% PVC burden. She became and was started on metoprolol and instructed to increase her salt and fluid and wear compression stockings. Tilt table test delayed until after . She delivered 07/03/2021. She wore a cardiac surgeon in March 2021 but was only able to tolerate a few days because of allergic reaction. Symptoms correlated with sinus rhythm and ventricular bigeminy. Echo 05/16/2021 should moderately dilated LV, LVEF 68%, no significant valvular abnormalities. She underwent loop recorder implantation 07/11/2021. Tilt table test 08/23/2021 was negative for syncope but revealed resting sinus bradycardia with PVCs that suggest and outflow tract focus. ILR interrogation today reveals 5 atrial fibrillation detections with ECGs showing SR with PACs and PVCs. She presents today reporting lightheadedness and dizziness with postural changes - observed with orthostatic VS in office today. She has that refill for Lopressor be written for 90-day supply (180 tablets) because she has issues getting refills as currently ordered (90 tablets = 45 days). She reports palpitations are not as frequent as during , though she has felt them today. She endorses occasional stabbing chest pain, shortness of breath with exertion and at rest, orthopnea, cough, PND (having issues with sleeping), dizziness, lightheadedness, and near syncope. She denies overt syncope, noting that she recognizes warning signs and is able to lay down to relieve symptoms. She drinks at least 2L of water and Propel daily. She adds salt to her diet. She does not drink caffeine and rarely drinks alcohol. She wears knee-high compression socks. She does not regularly exercise. Per EP Colleague Dr Valladares 06/15/2021: IMPRESSION: 1. Palpitations - ICD9: 785.1, ICD10: R00.2 (primary diagnosis) 2. PVC (premature ventricular contraction) - ICD9: 427.69, ICD10: I49.3 3. Syncope, unspecified syncope type - ICD9: 780.2, ICD10: R55 4. Dizziness - ICD9: 780.4, ICD10: R42 5. 36 weeks gestation of - ICD9: V22.2, ICD10: Z3A.36 6. Short MA-normal QRS complex syndrome - ICD9: 426.81, ICD10: I45.6 PLAN AND RECOMMENDATIONS: Simin has been having a lot of symptoms with palpitations. She has been very intolerant to wearable montiors even the biotel with hypoallergenic leads. We suspect she may have POTS though have not pursued a tilt as she is . We had discussed lifestyle management though this is also limited with her and she has been on metoprolol and noticed no improvement on low dose or after increasing dose. She has had some labile HRs that she describes so we are both hesitant to increase the dose but we discussed she can take an extra dose if she has significant symptoms with tachycardia.She relates home monitoring with tachycardia with episodes though on the limited monitor she wore only some episodes of symptoms were associated with sinus tach and with fairly modest rates. She has a history of frequent PVCs and some but not all of the symptom episodes were associated with ventricular bigeminy. She believes she has some strips of her symptom episodes at home and will send them to me to review. I also discussed given her intolerance to wearable monitors that I recommend an ILR.I discussed the device with her, procedure, risks, benefits and limitations and tip inserter follow up. For the ILR we can due with a small amount of local with lidocaine, no sedation is needed. As she is very adhesive sensitive we can use absorbable subcuticular suture to close the incision. I also asked her to remind me this as I do not usually do this when I implant the ILR and I want us both involved in reminding me to close with suture. I am going to order the tilt test to be scheduled in two months (this allows for her planned delivery and a month of recovery) I reviewed the tilt test and she is agreeable (I will hold off consenting until the tilt to ensure not done til after her ). We discussed fall and injury prevention to be mindful of her warning symptoms and to immediately use postural response. Prior testing (including outside reports) has included: Tilt Table Test 08/23/2021: * FINAL IMPRESSIONS * - The test was completed per protocol at 45 minutes of 70 degree tilt. - Systolic blood pressures increased from 93 mmHg at start to 106 mmHg at end of tilt. - Diastolic blood pressures increased from 62 mmHg at start to 71 mmHg at end of tilt. - Blood pressure upon return to supine position was 91/52 mmHg. - Heart rates increased from 48 bpm at start to 79 bpm at end of tilt. - Heart rate upon return to supine position was 55 bpm. - ECGs showed: sinus bradycardia with PVC (LBB/inf axis). - Patient signs/symptoms included: VISION CHANGES. - Overall: The test is negative for syncope. There was resting sinus bradycardia with PVCs that suggest and outflow tract focus. ILR check 10/24/2021: PRESENTING RHYTHM: SR BATTERY STATUS: Normal. ARRHYTHMIAS since: The last remote on 10/12/21. Per the episode list, There are 5 AF detections. ECGs show SR with PVCs, as well as less frequent PAC. Anticoagulants listed: None FOLLOW UP: Continue with 1-month remote transmissions. TTE 04/2021: CONCLUSIONS: - Technically difficult exam due to arrhythmia. - Exam indication: Frequent PVCs - The left ventricle is moderately dilated. Left ventricular systolic function is normal. EF = 68 5% (2D biplane) Left ventricular diastolic function was not evaluated due to an arrhythmia. - The right ventricle is normal in size. Right ventricular systolic function is normal. - There are no significant valvular abnormalities. - Estimated right ventricular systolic pressure is not reported due to an insufficient tricuspid regurgitation signal. Estimated right atrial pressure is 3 mmHg based on IVC assessment. - The patient has not had a prior CC echocardiographic exam for comparison. Family history: FAMILY HISTORY Problem Relation Age of Onset No Known Problems Mother No Known Problems Father Heart Paternal Grandfather Heart Other Diabetes Maternal Grandmother Pulse 61 Ht 167.6 cm (5' 6 ) Wt 68 kg (150 lb) LMP 10/02/2020 BMI 24.21 kg/m BP w/Orthostatic Vitals Date and Time Orthostatic BP Orthostatic Pulse BP Pulse BP Position BP Site BP Cuff Size 10/24/21 1458 114/81 73 -- -- Standing -- -- 10/24/21 1456 117/72 59 -- -- Sitting -- -- 10/24/21 1454 105/65 59 -- -- Supine -- -- 10/24/21 1450 -- -- -- 61 -- -- -- General/Constitutional: no acute distress, well appearing Psych: alert and oriented Skin: intact Eyes: EOMI ENT: mask worn Cardiovascular: regular rate and rhythm, normal S1 and S2 without S3 or S4, no significant murmurs,no significant lower extremity edema, no carotid bruit Resp: lungs generally clear to auscultation bilaterally, lungs with equal air entry bilaterally Neuro: no obvious focal motor deficits Musculoskeletal: normal musculature Lab Results Component Value Date/Time HB 11.5 04/18/2021 04:30 PM K 3.5 04/18/2021 04:30 PM CREAT 0.46 (L) 04/18/2021 04:30 PM TSH 0.830 04/18/2021 04:30 PM ECG 10/24/2021 : sinus, LB, RI axis Assessment and Recommendations Patient of Dr Valladares. #. Dizziness. 10/24/2021: She reports dizziness episodes occurring twice per week now, and that they can occur while supine. The differential diagnosis includes cardiac etiology (eg increase in PVC frequency or other arrhythmia vs blood pressure abnormalities vs other) vs neurologic etiology vs vestibular etiology vs other. Tilt Table Test 08/2021 with overall stable blood pressures and heart rates, with PVCs noted. Dr Valladares placed an Implantable Loop Recorder 06/2021. However, the patient reports that the ILR symptom activator was not working; it was fixed today in the device clinic. Advised she activate the ILR strictly for the episodes of dizziness and she states agreement. Follow up with Dr Valladares. #. Frequent PVCs. ECG today 10/24/2021 with LB, RI axis. Per notes, she had PVC ablation 03/2020 at [facility] with reported normal cardiac MRI at OSH. On metoprolol. #. Implantable Loop Recorder in place. Thank you for your consultation. Sincerely, Yefri Dudley MD, [facility], [facility] Cardiac Electrophysiology [facility] * Carline Hobbs - 10/24/2021 1:45 PM EDT Images from the original note were not included. [facility] Department of Cardiovascular Medicine SECTION OF CARDIAC PACING and ELECTROPHYSIOLOGY OUTPATIENT VISIT DATE October 24, 2021 PRIMARY CARE PHYSICIAN: Jenn Handley, [address] [place] [address] REFERRING PHYSICIAN: Yefri Dudley [address] [facility] [id number] NURSING INTAKE HISTORY: Ms. Bales is a 26 year old female who is seen today for follow-up visit for PVCs and near loss of consciousness. She follows with Dr. Valladares (06/15/2021) and Dr. Causey (03/01/2021. Her medical history is significant for depression, syncope and PVCs diagnosed in 2012 s/p ablation 03/2020 with no improvement in palpitations or near syncopal events. She has had a normal Echo (2019) and normal cardiac MRI (2019). She wore a 2 week monitor showing a 4% PVC burden. She became and was started on metoprolol and instructed to increase her salt and fluid and wear compression stockings. Tilt table test delayed until after . She delivered 07/03/2021. She wore a cardiac surgeon in March 2021 but was only able to tolerate a few days because of allergic reaction. Symptoms correlated with sinus rhythm and ventricular bigeminy. Echo 05/16/2021 should moderately dilated LV, LVEF 68%, no significant valvular abnormalities. She underwent loop recorder implantation 07/11/2021. Tilt table test 08/23/2021 was negative for syncope but revealed resting sinus bradycardia with PVCs that suggest and outflow tract focus. ILR interrogation today reveals 5 atrial fibrillation detections with ECGs showing SR with PACs and PVCs. She presents today reporting lightheadedness and dizziness with postural changes - observed with orthostatic VS in office today. She has that refill for Lopressor be written for 90-day supply (180 tablets) because she has issues getting refills as currently ordered (90 tablets = 45 days). She reports palpitations are not as frequent as during , though she has felt them today. She endorses occasional stabbing chest pain, shortness of breath with exertion and at rest, orthopnea, cough, PND (having issues with sleeping), dizziness, lightheadedness, and near syncope. She denies overt syncope, noting that she recognizes warning signs and is able to lay down to relieve symptoms. She drinks at least 2L of water and Propel daily. She adds salt to her diet. She does not drink caffeine and rarely drinks alcohol. She wears knee-high compression socks. She does not regularly exercise. LOOP RECORDER EVALUATION 10/24/2021: PRESENTING RHYTHM: SR BATTERY STATUS: Normal. ARRHYTHMIAS since: The last remote on 10/12/21. Per the episode list, There are 5 AF detections. ECGs show SR with PACs and PVCs. Anticoagulants listed: None FOLLOW UP: Continue with 1-month remote transmissions. Luz Marina Ribera RN and Valdemar Lara RN EPS TILT 08/23/2021: * FINAL IMPRESSIONS * - The test was completed per protocol at 45 minutes of 70 degree tilt. - Systolic blood pressures increased from 93 mmHg at start to 106 mmHg at end of tilt. - Diastolic blood pressures increased from 62 mmHg at start to 71 mmHg at end of tilt. - Blood pressure upon return to supine position was 91/52 mmHg. - Heart rates increased from 48 bpm at start to 79 bpm at end of tilt. - Heart rate upon return to supine position was 55 bpm. - ECGs showed: sinus bradycardia with PVC (LBB/inf axis). - Patient signs/symptoms included: VISION CHANGES. - Overall: The test is negative for syncope. There was resting sinus bradycardia with PVCs that suggest and outflow tract focus. PAST MEDICAL HISTORY Diagnosis Date Abnormal Pap smear of cervix 12/12/2018 lsil with +hpv, colpo cin1, repeat pap 01/22/20 neg with neg hpv Chlamydia Mental disorder history of depression PVC's (premature ventricular contractions) PVC ablation in 03/2020 [facility] with no improvement in palpitations and near syncopal events. She has had a normal Echo (2019) and normal cardiac MRI (2019). EF=60%. 08/14 48hr Holter w/ frequent PVCs (5.2% burden), which were asymptomatic. Sxs reported often during monitoring without arrhythmia. Zio at [facility] in 09/12 showing 4% PVC burden; 05/15 TTE: LV dilated, EF 68% Rh negative state in antepartum period 06/02/2021 Got RhIG at [facility] 04/20/21. Ab screen was neg just prior to that. PAST SURGICAL HISTORY Procedure Laterality Date EXTRACTION, ERUPTED TOOTH OR EXPOSED ROOT (ELEVATION AND/OR FORCEPS REMOVAL) 2011 PAST SURGICAL HISTORY OF 03/2020 PVC ablation PAST SURGICAL HISTORY OF carpal tunnel PVC ABLATION 03/2020 S KNIFE CARPAL TUNNEL 12/23/2019 TONSILLECTOMY AND ADENOIDECTOMY HX 04/29/2018 TONSILLECTOMY HX SOCIAL HISTORY Social History Tobacco Use Smoking status: Former Smoker Packs/day: 2.00 Years: 8.00 Pack years: 16.00 Quit date: 05/25/2019 Years since quittin.4 Smokeless tobacco: Never Used Vaping Use Vaping Use: Never used Substance Use Topics Alcohol use: Not Currently Comment: 1 drink per month Drug use: Never FAMILY HISTORY Problem Relation Age of Onset No Known Problems Mother No Known Problems Father Heart Paternal Grandfather Heart Other Diabetes Maternal Grandmother ALLERGIES: ALLERGIES Allergen Reactions Adhesive Tape-Silic* Rash Heart monitor electrodes MEDICATIONS: metoprolol tartrate, short acting, (LOPRESSOR) 25 mg tablet Take 1 tablet by mouth twice daily. levonorgestrel-ethinyl estradiol 0.15-0.03 mg per tab Take 1 tablet by mouth once daily. magnesium oxide 240 mg magnesium pwpk Take by mouth once daily. Potassium 99 mg tab Take by mouth. Pulse 122 Ht 5' 6 (1.68m) Wt 150 lb (68.0kg) LMP 10/02/2020 BMI 24.22 kg/(m^2). BP w/Orthostatic Vitals Date and Time Orthostatic BP Orthostatic Pulse BP Pulse BP Position BP Site BP Cuff Size 10/24/21 1458 114/81 73 -- -- Standing -- -- 10/24/21 1456 117/72 59 -- -- Sitting -- -- 10/24/21 1454 105/65 59 -- -- Supine -- -- 10/24/21 1450 -- -- -- 122 -- -- -- Carline Hobbs RN [facility] History of Past illness Narrative* Problem Noted Date Resolved Date Rh negative state in antepartum period 08/10/2021 Overview: Got RhIG at [facility] 04/20/21. Ab screen was neg just prior to that. Maternal arrhythmia affectin g in third trimester, antepartum 02/24/2021 08/10/2021 Overview: Frequent PVC's, improved but still present post ablation in 2019. Toprol xl Last Assessment & Plan: Assessment: still having palpitations and pre syncopal events. 30 day monitor in placed. Saw cardiology this month toprol er increased to 25mg by her hardness inspector. PLAN: Check tsh, cbc, labs, gtt. Serial growth ultrasounds planned. documented as of this encounter (statuses as of 10/10/2021) [facility] History of Past illness Narrative* Problem Noted Date Resolved Date Rh negative state in antepartum period 1 08/10/2021 Overview: Got RhIG at [facility] 04/20/21. Ab screen was neg just prior to that. Maternal arrhythmia affectin g in third trimester, antepartum 02/24/2021 08/10/2021 Overview: Frequent PVC's, improved but still present post ablation in 2019. Toprol xl Last Assessment & Plan: Assessment: still having palpitations and pre syncopal events. 30 day monitor in placed. Saw cardiology this month toprol er increased to 25mg by her hardness inspector. PLAN: Check tsh, cbc, labs, gtt. Serial growth ultrasounds planned. documented as of this encounter (statuses as of 10/24/2021) [facility] of Past illness Narrative* Problem Noted Date Resolved Date Rh negative state in antepartum period 1 08/10/2021 Overview: Got RhIG at [facility] 04/20/21. Ab screen was neg just prior to that. Maternal arrhythmia affectin g in third trimester, antepartum 02/24/2021 08/10/2021 Overview: Frequent PVC's, improved but still present post ablation in 2019. Toprol xl Last Assessment & Plan: Assessment: still having palpitations and pre syncopal events. 30 day monitor in placed. Saw cardiology this month toprol er increased to 25mg by her hardness inspector. PLAN: Check tsh, cbc, labs, gtt. Serial growth ultrasounds planned. documented as of this encounter (statuses as of 01/02/2022) [facility] of Past illness Narrative* Problem Noted Date Resolved Date Rh negative state in antepartum period 1 08/10/2021 Overview: Got RhIG at [facility] 04/20/21. Ab screen was neg just prior to that. Maternal arrhythmia affectin g in third trimester, antepartum 02/24/2021 08/10/2021 Overview: Frequent PVC's, improved but still present post ablation in 2019. Toprol xl Last Assessment & Plan: Assessment: still having palpitations and pre syncopal events. 30 day monitor in placed. Saw cardiology this month toprol er increased to 25mg by her hardness inspector. PLAN: Check tsh, cbc, labs, gtt. Serial growth ultrasounds planned. documented as of this encounter (statuses as of 03/15/2022) [facility] of Past illness Narrative* Problem Noted Date Resolved Date Rh negative state in antepartum period 1 08/10/2021 Overview: Got RhIG at [facility] 04/20/21. Ab screen was neg just prior to that. Maternal arrhythmia affectin g in third trimester, antepartum 02/24/2021 08/10/2021 Overview: Frequent PVC's, improved but still present post ablation in 2019. Toprol xl Last Assessment & Plan: Assessment: still having palpitations and pre syncopal events. 30 day monitor in placed. Saw cardiology this month toprol er increased to 25mg by her hardness inspector. PLAN: Check tsh, cbc, labs, gtt. Serial growth ultrasounds planned. documented as of this encounter (statuses as of 06/30/2022) [facility] of Past illness Narrative* Problem Noted Date Resolved Date Rh negative state in antepartum period 1 08/10/2021 Overview: Got RhIG at [facility] 04/20/21. Ab screen was neg just prior to that. Maternal arrhythmia affectin g in third trimester, antepartum 02/24/2021 08/10/2021 Overview: Frequent PVC's, improved but still present post ablation in 2019. Toprol xl Last Assessment & Plan: Assessment: still having palpitations and pre syncopal events. 30 day monitor in placed. Saw cardiology this month toprol er increased to 25mg by her hardness inspector. PLAN: Check tsh, cbc, labs, gtt. Serial growth ultrasounds planned. documented as of this encounter (statuses as of 08/17/2022) [facility] of Past illness Narrative* Problem Noted Date Resolved Date Rh negative state in antepartum period 1 08/10/2021 Overview: Got RhIG at [facility] 04/20/21. Ab screen was neg just prior to that. Maternal arrhythmia affectin g in third trimester, antepartum 02/24/2021 08/10/2021 Overview: Frequent PVC's, improved but still present post ablation in 2019. Toprol xl Last Assessment & Plan: Assessment: still having palpitations and pre syncopal events. 30 day monitor in placed. Saw cardiology this month toprol er increased to 25mg by her hardness inspector. PLAN: Check tsh, cbc, labs, gtt. Serial growth ultrasounds planned. documented as of this encounter (statuses as of 09/08/2022) [facility] of Past illness Narrative* Problem Noted Date Resolved Date Rh negative state in antepartum period 1 08/10/2021 Overview: Got RhIG at [facility] 04/20/21. Ab screen was neg just prior to that. Maternal arrhythmia affectin g in third trimester, antepartum 02/24/2021 08/10/2021 Overview: Frequent PVC's, improved but still present post ablation in 2019. Toprol xl Last Assessment & Plan: Assessment: still having palpitations and pre syncopal events. 30 day monitor in placed. Saw cardiology this month toprol er increased to 25mg by her hardness inspector. PLAN: Check tsh, cbc, labs, gtt. Serial growth ultrasounds planned. documented as of this encounter (statuses as of 12/08/2022) [facility] of Past illness Narrative* Problem Noted Date Resolved Date Rh negative state in antepartum period 08/10/2021 Overview: Got RhIG at [facility] 04/20/21. Ab screen was neg just prior to that. Maternal arrhythmia affectin g in third trimester, antepartum 02/24/2021 08/10/2021 Overview: Frequent PVC's, improved but still present post ablation in 2019. Toprol xl Last Assessment & Plan: Assessment: still having palpitations and pre syncopal events. 30 day monitor in placed. Saw cardiology this month toprol er increased to 25mg by her hardness inspector. PLAN: Check tsh, cbc, labs, gtt. Serial growth ultrasounds planned. documented as of this encounter (statuses as of 12/28/2022) [facility] of Past illness Narrative* Problem Noted Date Diagnosed Date Resolved Date Rh negative state in antepartum period 06/02/2021 08/10/2021 Overview: Got RhIG at [facility] 04/20/21. Ab screen was neg just prior to that. Maternal arrhythmia affectin g in third trimester, antepartum 02/24/2021 08/10/2021 Overview: Frequent PVC's, improved but still present post ablation in 2019. Toprol xl Last Assessment & Plan: Assessment: still having palpitations and pre syncopal events. 30 day monitor in placed. Saw cardiology this month toprol er increased to 25mg by her hardness inspector. PLAN: Check tsh, cbc, labs, gtt. Serial growth ultrasounds planned. documented as of this encounter (statuses as of 03/05/2023) [facility] of Past illness Narrative* Problem Noted Date Diagnosed Date Resolved Date Rh negative state in antepartum period 06/02/2021 08/10/2021 Overview: Got RhIG at [facility] 04/20/21. Ab screen was neg just prior to that. Maternal arrhythmia affectin g in third trimester, antepartum 02/24/2021 08/10/2021 Overview: Frequent PVC's, improved but still present post ablation in 2019. Toprol xl Last Assessment & Plan: Assessment: still having palpitations and pre syncopal events. 30 day monitor in placed. Saw cardiology this month toprol er increased to 25mg by her hardness inspector. PLAN: Check tsh, cbc, labs, gtt. Serial growth ultrasounds planned. documented as of this encounter (statuses as of 03/07/2023) [facility] Narrative* Problem Noted Date Diagnosed Date Resolved Date Rh negative state in antepartum period 06/02/2021 08/10/2021 Overview: Got RhIG at [facility] 04/20/21. Ab screen was neg just prior to that. Maternal arrhythmia affectin g in third trimester, antepartum 02/24/2021 08/10/2021 Overview: Frequent PVC's, improved but still present post ablation in 2019. Toprol xl Last Assessment & Plan: Assessment: still having palpitations and pre syncopal events. 30 day monitor in placed. Saw cardiology this month toprol er increased to 25mg by her hardness inspector. PLAN: Check tsh, cbc, labs, gtt. Serial growth ultrasounds planned. documented as of this encounter (statuses as of 03/08/2023) [facility] Narrative* Problem Noted Date Diagnosed Date Resolved Date Rh negative state in antepartum period 06/02/2021 08/10/2021 Overview: Got RhIG at [facility] 04/20/21. Ab screen was neg just prior to that. Maternal arrhythmia affectin g in third trimester, antepartum 02/24/2021 08/10/2021 Overview: Frequent PVC's, improved but still present post ablation in 2019. Toprol xl Last Assessment & Plan: Assessment: still having palpitations and pre syncopal events. 30 day monitor in placed. Saw cardiology this month toprol er increased to 25mg by her hardness inspector. PLAN: Check tsh, cbc, labs, gtt. Serial growth ultrasounds planned. documented as of this encounter (statuses as of 03/08/2023) [facility] Narrative* Problem Noted Date Diagnosed Date Resolved Date Rh negative state in antepartum period 06/02/2021 08/10/2021 Overview: Got RhIG at [facility] 04/20/21. Ab screen was neg just prior to that. Maternal arrhythmia affectin g in third trimester, antepartum 02/24/2021 08/10/2021 Overview: Frequent PVC's, improved but still present post ablation in 2019. Toprol xl Last Assessment & Plan: Assessment: still having palpitations and pre syncopal events. 30 day monitor in placed. Saw cardiology this month toprol er increased to 25mg by her hardness inspector. PLAN: Check tsh, cbc, labs, gtt. Serial growth ultrasounds planned. documented as of this encounter (statuses as of 04/28/2023) [facility] Narrative* Problem Noted Date Diagnosed Date Resolved Date Rh negative state in antepartum period 06/02/2021 08/10/2021 Overview: Got RhIG at [facility] 04/20/21. Ab screen was neg just prior to that. Maternal arrhythmia affectin g in third trimester, antepartum 02/24/2021 08/10/2021 Overview: Frequent PVC's, improved but still present post ablation in 2019. Toprol xl Last Assessment & Plan: Assessment: still having palpitations and pre syncopal events. 30 day monitor in placed. Saw cardiology this month toprol er increased to 25mg by her hardness inspector. PLAN: Check tsh, cbc, labs, gtt. Serial growth ultrasounds planned. documented as of this encounter (statuses as of 05/31/2023) [facility] Narrative* Problem Noted Date Diagnosed Date Resolved Date Rh negative state in antepartum period 06/02/2021 08/10/2021 Overview: Got RhIG at [facility] 04/20/21. Ab screen was neg just prior to that. Maternal arrhythmia affectin g in third trimester, antepartum 02/24/2021 08/10/2021 Overview: Frequent PVC's, improved but still present post ablation in 2019. Toprol xl Last Assessment & Plan: Assessment: still having palpitations and pre syncopal events. 30 day monitor in placed. Saw cardiology this month toprol er increased to 25mg by her hardness inspector. PLAN: Check tsh, cbc, labs, gtt. Serial growth ultrasounds planned. documented as of this encounter (statuses as of 06/01/2023) [facility] Narrative* Problem Noted Date Diagnosed Date Resolved Date Rh negative state in antepartum period 06/02/2021 08/10/2021 Overview: Got RhIG at [facility] 04/20/21. Ab screen was neg just prior to that. Maternal arrhythmia affectin g in third trimester, antepartum 02/24/2021 08/10/2021 Overview: Frequent PVC's, improved but still present post ablation in 2019. Toprol xl Last Assessment & Plan: Assessment: still having palpitations and pre syncopal events. 30 day monitor in placed. Saw cardiology this month toprol er increased to 25mg by her hardness inspector. PLAN: Check tsh, cbc, labs, gtt. Serial growth ultrasounds planned. documented as of this encounter (statuses as of 09/24/2023) [facility] Narrative* Problem Noted Date Diagnosed Date Resolved Date Rh negative state in antepartum period 06/02/2021 08/10/2021 Overview: Got RhIG at [facility] 04/20/21. Ab screen was neg just prior to that. Maternal arrhythmia affectin g in third trimester, antepartum 02/24/2021 08/10/2021 Overview: Frequent PVC's, improved but still present post ablation in 2019. Toprol xl Last Assessment & Plan: Assessment: still having palpitations and pre syncopal events. 30 day monitor in placed. Saw cardiology this month toprol er increased to 25mg by her hardness inspector. PLAN: Check tsh, cbc, labs, gtt. Serial growth ultrasounds planned. documented as of this encounter (statuses as of 09/24/2023) [facility] No data available for this section [facility] Diagnosis Frequent PVCs Other premature beats [facility] D[facility]- Primary Dizziness and giddiness Frequent PVCs Other premature beats History of loop recorder [facility] [facility]* Diagnosis PSVT (paroxysmal supraventricular tachycardia) (HCC)- Primary Paroxysmal supraventricular tachycardia Frequent PVCs Other premature beats Recurrent syncope [facility] Palpitations- Primary Frequent PVCs Other premature beats Dizziness Dizziness and giddiness History of loop recorder Short MA-normal QRS complex syndrome Kxnc-Fgapdt-Xpnobt syndrome [facility] Diagnosis SOB (shortness of breath)- Primary Shortness of breath [facility] noteNo assessment information availableFirCincinnati [facility] Work Phone: Evaluation note* Diagnosis Frequent PVCs- Primary Other premature beats [facility]* Diagnosis Frequent PVCs- Primary Other premature beats PVC's (premature ventricular contractions) Other premature beats documented in this encounter [facility]* Diagnosis Frequent PVCs- Primary Other premature beats PVC's (premature ventricular contractions) Other premature beats [facility] Diagnosis Frequent PVCs- Primary Other premature beats PVC's (premature ventricular contractions) Other premature beats [facility] Diagnosis PVC (premature ventricular contraction)- Primary Other premature beats Encounter for monitoring flecainide therapy Encounter for therapeutic drug monitoring documented in this encounter [facility] note* Diagnosis PVC (premature ventricular contraction)- Primary Other premature beats documented in this encounter [facility] note* Diagnosis PVC (premature ventricular contraction)- Primary Other premature beats Palpitations Encounter for monitoring flecainide therapy Encounter for therapeutic drug monitoring Exercise intolerance Other general symptoms Implantable loop recorder present documented in this encounter [facility]* Diagnosis Adverse effect of flecainide- Primary documented in this encounter [facility] note* Diagnosis Constipation, unspecified constipation type- Primary Numbness in feet Cervical radiculopathy Brachial neuritis or radiculitis nos Swollen lymph nodes Enlargement of lymph nodes Frequent PVCs Supraventricular tachycardia, unspecified (I47.10) [facility] No data available for this section [facility] Additional Instructions Please return to emergency department for any new or worrisome symptoms including any worsening abdominal pain, vomiting, fever, chest pain, shortness of breath. Follow-up with your MOWER OPERATOR as scheduled in 2 days and your primary care provider.[facility] Work Phone: Hospital Discharge instructions Additional Instructions DISCHARGE INSTRUCTIONS FOR OUTPATIENT LAPAROSCOPY Take it easy the rest of the day. You have received a general anesthetic and injections to help you relax during the procedure. They will not wear off for several hours. Do not drive a car for at least 12 hours and be sure all medications have worn off before you do. Avoid all alcohol and beer the day of your surgery. ACTIVITIES -There are no restrictions on your normal activities. You will receive a prescription for pain pills that you may take at home if needed. Generally, you may expect to go back to work in 3 - 7 days unless you have received other instructions. You should shower daily and practice good personal habits to offset the chance of infection. Avoid intercourse for 1 week after your surgery. You may notice some neck and shoulder discomfort for 24-48 hours after surgery. BLEEDING -Bleeding should be minimal after a laparoscopy. You may require the use of a light pad for a few days. You may use Tampax if you wish but be sure to change often. If you have any heavy vaginal bleeding, call the office. ABDOMINAL DRESSINGS -The sutures that have been put into the abdominal incisions will dissolve. They do not need to be removed. Glue may be applied after surgery. Glue may be peeled off in 1 week if it has not come off on its own. Be sure to keep those areas clean and dry in order to prevent infection. Notify the office of any bleeding, redness or swelling at the incision sites. You may experience some mild discomfort for a few days. FOLLOW UP -If within the first 2 weeks you notice any chills, fever, worsening pain or change in the odor, or character of your drainage, you may be developing an infection and you should call the office. Call or go to the Emergency Room for shortness of breath, pain in your calfs, or unusual swelling in your legs. You should be seen in the office 2 weeks after your surgery. Please call [phone] from 9 A.M. to 4 P.M. for an appointment. CONTROL -If this procedure was not done for sterilization purposes, you should resume your normal control method. If this was done for sterilization purposes, use a method of control (condoms, foam, suppositories) until your next period. You should expect to start your next period when it is due. [ ][facility] Work Phone: Progress note No data available for this section [facility] (narrative)* Outpatient Procedure (Routine) - Authorized Specialty Diagnoses / Procedures Referred By Laly dupont [facility] Diagnoses SOB (shortness of breath) Procedures ECG COMPLETE ECG ROUTINE ECG W/LEAST 12 LDS W/I&R Duncan Valladares DO [address] [place] [address] [address] Referral ID Status Reason Start Date Expiration Date Visits Requested Visits Authorized [id number] Authorized Auto-Generat ed Referral 09/08/2022 09/08/2023 1 1 T [facility] for referral (narrative)* Outpatient Procedure (Routine) - Authorized Specialty Diagnoses / Procedures Referred By Contac t Referred To Contact [facility] [place] Diagnoses Frequent PVCs Procedures ECG COMPLETE ECG ROUTINE ECG W/LEAST 12 LDS W/I&R Duncan Valladares DO [address] [place] [address] [address] Referral ID Status Reason Start Date Expiration Date Visits Requested Visits Authorized [id number] Authorized Auto-Generat ed Referral 12/28/2022 12/28/2023 1 1 T [facility] for referral (narrative)* Outpatient Procedure (Routine) - Authorized Specialty Diagnoses / Procedures Referred By Contac t Referred To Contact [facility] Diagnoses Frequent PVCs Procedures ECG COMPLETE ECG ROUTINE ECG W/LEAST 12 LDS W/I&R Duncan Valladares DO [address] [place] [address] [facility] [address] [address] Referral ID Status Reason Start Date Expiration Date Visits Requested Visits Authorized [id number] Authorized Auto-Generat ed Referral 03/05/2023 03/04/2024 1 1 T [facility] for referral (narrative)* Outpatient Procedure (Routine) - Pending Review Specialty Diagnoses / Procedures Referred By Contac t Referred To Contact [facility] Diagnoses PVC (premature ventricular contraction) Procedures ECG COMPLETE ECG ROUTINE ECG W/LEAST 12 LDS W/I&R Duncan Valladares DO [address] [place] [address] [facility] [address] [place] [address] Referral ID Status Reason Start Date Expiration Date Visits Requested Visits Authorized [id number] Pending Review Auto-Generat ed Referral 05/30/2023 05/29/2024 1 1 * Transition of Care (Routine) - Ref Not Required Specialty Diagnoses / Procedures Referred By Ольгаac t Referred To Contact [facility] CARDIOVASCULAR MEDICINE OP FOLLOW UP APPT ORDER Duncan Valladares DO [address] [place] [address] Referral ID Status Reason Start Date Expiration Date Visits Requested Visits Authorized [id number] Ref Not Required PCP Requested Referral 11/29/2023 05/29/2024 1 1 * Outpatient Procedure (Routine) - Pending Review Specialty Diagnoses / Procedures Referred By Ольгаac t Referred To [facility] Diagnoses Encounter for monitoring flecainide therapy Procedures ECG COMPLETE ECG ROUTINE ECG W/LEAST 12 LDS W/I&R Duncan Valladares DO [address] [place] [address] [facility] [address] [id number] Referral ID Status Reason Start Date Expiration Date Visits Requested Visits Authorized [id number] Pending Review Auto-Generat ed Referral 05/30/2023 05/29/2024 1 1 [facility] Outpatient Procedure (Routine) - Pending Review Specialty Diagnoses / Procedures Referred By Contac t Referred To Contact [facility] [place] Diagnoses Adverse effect of flecainide Procedures ECG COMPLETE ECG ROUTINE ECG W/LEAST 12 LDS W/I&R Duncan Valladares DO [address] [place] [address] [facility] [address] [place] [address] Referral ID Status Reason Start Date Expiration Date Visits Requested Visits Authorized [id number] Pending Review Auto-Generat ed Referral 06/01/2023 05/31/2024 1 1 [facility] Summary Purpose Family History Relationship Condition Age at Onset Recorded Date/T [place] grandparent Myocardial infarction Unknown Advance Directives Documents on File Type Date Recorded Patient Medical Practitioners Expl anation Advance Directive(s) 07/11/2021 11:02 AM Advance Directive Response Recorded Date/ Time Advance Directives No February 2:09pm Chief Complaint and Reason for Visit Chief Complaint O20.9 O26.899 R10.9 Chief Complaint O20.9 O26.899 R10.9 vaginal bleeding, hx miscarriage Chief Complaint O20.9 O26.899 R10.9 vaginal bleeding, hx miscarriage Desired Sterilization Reason for Referral Specialty Diagnoses / Procedures Referred By Laly t Referred To Contact Diagnoses PVC (premature ventricular contraction) Procedures CARDIOVASCULAR MEDICINE OP FOLLOW UP APPT ORDER Oren Campoverde APRN.CNP [address] [place] [address] Referral ID Status Reason Start Date Expiration Date Visits Requested Visits Authorized [id number] Ref Not Required PCP Requested Referral 04/27/2023 04/26/2024 1 1 Additional Source Comments INFORMATION SOURCE (unrecogn ized section and content) DATE CREATED AUTHOR 04/14/2020 [facility] DATE CREATED AUTHOR AUTHOR'S ORGANIZ ATION 04/20/2020 [facility] DATE CREATED AUTHOR AUTHOR'S ORGANIZ ATION 04/19/2021 [facility] DATE CREATED AUTHOR AUTHOR'S ORGANIZ ATION 12/29/2021 [facility] DATE CREATED AUTHOR AUTHOR'S ORGANIZ ATION 02/03/2023 [facility] DATE CREATED AUTHOR AUTHOR'S ORGANIZ ATION 06/27/2023 [facility] DATE CREATED AUTHOR AUTHOR'S ORGANIZ ATION 08/06/2023 [facility] DATE CREATED AUTHOR AUTHOR'S ORGANIZ ATION 08/23/2023 [facility] Source Comments (unrecognize d section and content) In the event this informatio n is protected by the Federal Confidentiality of Alcohol and Drug Abuse Patient Records regulations: The Federal rules restrict any use of the information to criminally investigate or prosecute any alcohol or drug abuse patient.[facility] the event this information is protected by the Federal Confidentiality of Alcohol and Drug Abuse Patient Records regulations: The Federal rules restrict any use of the information to criminally investigate or prosecute any alcohol or drug abuse patient.[facility] the event this information is protected by the Federal Confidentiality of Alcohol and Drug Abuse Patient Records regulations: The Federal rules restrict any use of the information to criminally investigate or prosecute any alcohol or drug abuse patient.[facility] Hospital[facility] the event this information is protected by the Federal Confidentiality of Alcohol and Drug Abuse Patient Records regulations: The Federal rules restrict any use of the information to criminally investigate or prosecute any alcohol or drug abuse patient.[facility] Hospital[facility] the event this information is protected by the Federal Confidentiality of Alcohol and Drug Abuse Patient Records regulations: The Federal rules restrict any use of the information to criminally investigate or prosecute any alcohol or drug abuse patient.[facility] the event this information is protected by the Federal Confidentiality of Alcohol and Drug Abuse Patient Records regulations: The Federal rules restrict any use of the information to criminally investigate or prosecute any alcohol or drug abuse patient.[facility] the event this information is protected by the Federal Confidentiality of Alcohol and Drug Abuse Patient Records regulations: The Federal rules restrict any use of the information to criminally investigate or prosecute any alcohol or drug abuse patient.[facility] Hospital[facility] the event this information is protected by the Federal Confidentiality of Alcohol and Drug Abuse Patient Records regulations: The Federal rules restrict any use of the information to criminally investigate or prosecute any alcohol or drug abuse patient.[facility] Hospital[facility] the event this information is protected by the Federal Confidentiality of Alcohol and Drug Abuse Patient Records regulations: The Federal rules restrict any use of the information to criminally investigate or prosecute any alcohol or drug abuse patient.[facility] Hospital[facility] the event this information is protected by the Federal Confidentiality of Alcohol and Drug Abuse Patient Records regulations: The Federal rules restrict any use of the information to criminally investigate or prosecute any alcohol or drug abuse patient.[facility] Hospital[facility] the event this information is protected by the Federal Confidentiality of Alcohol and Drug Abuse Patient Records regulations: The Federal rules restrict any use of the information to criminally investigate or prosecute any alcohol or drug abuse patient.[facility] Hospital[facility] the event this information is protected by the Federal Confidentiality of Alcohol and Drug Abuse Patient Records regulations: The Federal rules restrict any use of the information to criminally investigate or prosecute any alcohol or drug abuse patient.[facility] Hospital[facility] the event this information is protected by the Federal Confidentiality of Alcohol and Drug Abuse Patient Records regulations: The Federal rules restrict any use of the information to criminally investigate or prosecute any alcohol or drug abuse patient.[facility] Hospital[facility] the event this information is protected by the Federal Confidentiality of Alcohol and Drug Abuse Patient Records regulations: The Federal rules restrict any use of the information to criminally investigate or prosecute any alcohol or drug abuse patient.[facility] HospitalIn the event this information is protected by the Federal Confidentiality of Alcohol and Drug Abuse Patient Records regulations: The Federal rules restrict any use of the information to criminally investigate or prosecute any alcohol or drug abuse patient.[facility] Hospital[facility] the event this information is protected by the Federal Confidentiality of Alcohol and Drug Abuse Patient Records regulations: The Federal rules restrict any use of the information to criminally investigate or prosecute any alcohol or drug abuse patient.[facility] Hospital[facility] the event this information is protected by the Federal Confidentiality of Alcohol and Drug Abuse Patient Records regulations: The Federal rules restrict any use of the information to criminally investigate or prosecute any alcohol or drug abuse patient.[facility] HospitalIn the event this information is protected by the Federal Confidentiality of Alcohol and Drug Abuse Patient Records regulations: The Federal rules restrict any use of the information to criminally investigate or prosecute any alcohol or drug abuse patient.[facility] HospitalIn the event this information is protected by the Federal Confidentiality of Alcohol and Drug Abuse Patient Records regulations: The Federal rules restrict any use of the information to criminally investigate or prosecute any alcohol or drug abuse patient.[facility] HospitalIn the event this information is protected by the Federal Confidentiality of Alcohol and Drug Abuse Patient Records regulations: The Federal rules restrict any use of the information to criminally investigate or prosecute any alcohol or drug abuse patient.[facility] Reason for Visit (unrecogniz ed section and content) Reason Comments External Referrals/resources Reason Onset Date Comments Refill Request 10/10/2021 Reason Comments pvc Reason Onset Date Comments Refill Request 08/16/2022 Reason Comments Patient Education PVC RFA Reason Onset Date Comments Arrhythmia 04/27/2023 Reason Comments Constipation Reason Onset Date Comments Refill Request 2023 Telephone Encounter - Pebbles Singh - 08/17/2020 2:06 PM EST Miscellaneous Notes (unrecog nized section and content) Patient: Simin Bales Date of : 1995 Patient phone number: [phone] Referring Provider for the encounter: Jus Lopez Requesting Provider: Jus Lopez Reason for requesting visit (RFV/signs and symptoms/diagnosis): Symptomatic PVOs. Person calling: self Return call to: self Medical Records/Insurance Card scanned into [employer]: No Comments: [facility] Hotline - Received a REFER A PATIENT FAX from Jus Lopez' office referring the patient to be seen in Cardiology for Symptomatic PVOs. Referral and/or order can be found in Scan Document dated 08/11/2020. Please notify Alexia at office - [phone] Fax - [phone] documented in this encounter Care Teams (unrecognized sec tion and content) Philosophy Faculty Member Relationship Specialty Start Date End Date Jenn Handley JrTiffany [address] [place] [address] PCP - General Family Practice 09/21/20 Jus Lopez [address] [place] [address] Referring 08/17/20 [place] [address] [place] [address] Primary Staff Physician Cardiology 03/01/21 Philosophy Faculty Member Relationship Specialty Start Date End Date Jenn Handley David LuongTiffany [address] [place] [address] PCP - General Family Practice 09/21/20 Jus Lopez [address] [place] [address] Referring 08/17/20 [place] [address] [place] [address] Primary Staff Physician Cardiology 03/01/21 Philosophy Faculty Member Relationship Specialty Start Date End Date Emmanuelle Jenn Hernandez [address] [place] [address] PCP - General Family Practice 09/21/20 Jus Lopez [address] [place] [address] Referring 08/17/20 [place] [address] [place] [address] Primary Staff Physician Cardiology 03/01/21 Philosophy Faculty Member Relationship Specialty Start Date End Date RogersJenn mcleod Jr. [address] [place] [address] PCP - General Family Medicine 09/21/20 Jus Lopez [address] [place] [address] Referring 08/17/20 [place] [address] [place] [address] Primary Staff Physician Cardiology 03/01/21 Philosophy Faculty Member Relationship Specialty Start Date End Date Jenn Handley Jr. [address] [place] [address] PCP - General Family Medicine 09/21/20 Jus Lopez [address] [place] [address] Referring 08/17/20 [place] [address] [place] [address] Primary Staff Physician Cardiology 03/01/21 Philosophy Faculty Member Relationship Specialty Start Date End Date Jenn Handley Jr. [address] [place] [address] PCP - General Family Medicine 09/21/20 Jus Lopez [address] [place] [address] Referring 08/17/20 [place] [address] [place] [address] Primary Staff Physician Cardiology 03/01/21 Philosophy Faculty Member Relationship Specialty Start Date End Date Jenn Handley Jr. [address] [place] [address] PCP - General Family Medicine 09/21/20 Jus Lopez [address] [place] [address] Referring 08/17/20 [place] [address] [place] [address] Primary Staff Physician Cardiology 03/01/21 Team Status: Active Member Role Status Dates Amber Handley DO Primary Care Provider Active Team Status: Inactive Member Role Status Dates Amber Handley DO Primary Care Provider Active Marcos Mann MD Attending Provider Active Philosophy Faculty Member Relationship Specialty Start Date End Date Jenn Handley Jr. [address] [place] [address] PCP - General Family Medicine 09/21/20 Jus Lopez [address] [place] [address] Referring 08/17/20 [place] [address] [place] [address] Primary Staff Physician Cardiology 03/01/21 Philosophy Faculty Member Relationship Specialty Start Date End Date Jenn Handley Jr. [address] [place] [address] PCP - General Family Medicine 09/21/20 Jus Lopez [address] [place] [address] Referring 08/17/20 [place] [address] [place] [address] Primary Staff Physician Cardiology 03/01/21 Team Status: Inactive Member Role Status Dates Amber Handley DO Primary Care Provider Active Reta Alva MD Emergency Provider Active Philosophy Faculty Member Relationship Specialty Start Date End Date Jenn Handley Jr. [address] [place] [address] PCP - General Family Medicine 09/21/20 Jus Lopez PA-C [address] [place] [address] Referring 08/17/20 [place] [address] [place] [address] Primary Staff Physician Cardiology 03/01/21 Philosophy Faculty Member Relationship Specialty Start Date End Date Jenn Handley Jr. [address] [place] [address] PCP - General Family Medicine 09/21/20 Jus Lopez PA-C [address] [place] [address] Referring 08/17/20 Nadya Beck [place] [id number] [place] [address] Primary Staff Physician Cardiology 03/01/21 Philosophy Faculty Member Relationship Specialty Start Date End Date Jenn Handley Jr. [address] [place] [address] PCP - General Family Medicine 09/21/20 Jus Lopez PA-C [address] [place] [address] Referring 08/17/20 [place] [address] [place] [address] Primary Staff Physician Cardiology 03/01/21 Philosophy Faculty Member Relationship Specialty Start Date End Date Jenn Handley Jr. [address] [place], [phone] PCP - General Family Medicine 09/21/20 Jus Lopez PA-C [address] [place], [facility]70 Referring 08/17/20 Nadya Beck [place] [id number] [place] [address] Primary Staff Physician Cardiology 03/01/21 Philosophy Faculty Member Relationship Specialty Start Date End Date Jenn Handley Jr., DO [address] [place], [phone] PCP - General Family Medicine 09/21/20 Jus Lopez PA-C [address] [place], [facility]70 Referring 08/17/20 Nadya Beck MD [address] [place] [address] Primary Staff Physician Cardiology 03/01/21 Philosophy Faculty Member Relationship Specialty Start Date End Date Jenn Handley Jr., DO [address] [place], [phone] PCP - General Family Medicine 09/21/20 Jus Lopez PA-C [address] [place], [facility]70 Referring 08/17/20 Nadya Beck [place] [id number] [place], [place] [id number] Primary Staff Physician Cardiology 03/01/21 Philosophy Faculty Member Relationship Specialty Start Date End Date Jenn Handley Jr., [address] [place], [place] [address] PCP - General Family Medicine 09/21/20 Jus Lopez, PIETRO-C [address] [place] [address] Referring 08/17/20 [place] [id number] [address] [place] [phone] Primary Staff Physician Cardiology 03/01/21 Philosophy Faculty Member Relationship Specialty Start Date End Date Jenn Handley DO [address] [place] [address] PCP - General Family Medicine 12/07/22 Jus Lopez PA [address] [place] [address] PCP - [facility] 12/23/22 Philosophy Faculty Member Relationship Specialty Start Date End Date Jenn Handley DO [address] [place] [address] PCP - General Family Medicine 12/07/22 Jus Lopez PA [address] [place] [address] PCP - [facility] 12/23/22 Philosophy Faculty Member Relationship Specialty Start Date End Date Jenn Handley Jr., DO [address] [place] [id number] PCP - General Family Medicine 09/21/20 Jus Lopez PA-C [address] [place] [address] Referring 08/17/20 [place] [id number] [address] [phone] Primary Staff Physician Cardiology 03/01/21 Philosophy Faculty Member Relationship Specialty Start Date End Date Jenn Handley , [address] [place] [address] PCP - General Family Medicine 09/21/20 Jus Lopez PA-C [address] [place] [address] Referring 08/17/20 Nayda Beck MD [id number] [place] [id number] Primary Staff Physician Cardiology 03/01/21 Goals (unrecognized section and content) Goals may be documented in a n alternate section FOR RECORDS PERTAINING TO PATIENTS WHO ARE OR HAVE BEEN ENROLLED IN A CHEMICAL DEPENDENCY/SUBSTANCEABUSE PROGRAM, SOME INFORMATION MAY BE OMITTED. This clinical summary was aggregated from multiple sources. Caution should be exercised in using it in the provision of clinical care. This summary normalizes information from multiple sources, and as a consequence, information in this document may materially change the coding, format and clinical context of patient data. In addition, data may be omitted in some cases. CLINICAL DECISIONS SHOULD BE BASED ON THE PRIMARY CLINICAL RECORDS. [employer] provides no warranty or guarantee of the accuracy or completeness of information in this document.
--- NOTE | 2024-01-08 08:57 | CT_ITS ---
[address] [address] Patient Name: PEYTON BALES MRN: [id number] date: 1995 Sex: F Assigned Patient Location: ER Current Patient Location: [facility] Accession/Order Number: [id number] Exam Date: 01/08/2024 09:33 Report Date: 01/08/2024 09:54 At the request of: RADHA KIRKLAND Procedure: CT abdomen pelvis wo con EXAMINATION: CT abdomen pelvis wo con HISTORY: right lower quadrant pain COMPARISON: No relevant comparison available. TECHNIQUE: Axial, Coronal, and Sagittal images were created without IV contrast. Dose reduction techniques were achieved by using automated exposure control and/or adjustment of mA and/or kV according to patient size and/or use of iterative reconstruction technique. FINDINGS: LUNG BASES: No visible pulmonary or pleural disease. LIVER: No enlargement, atrophy, abnormal density, or significant focal lesion. BILIARY: No dilatation or calcification. PANCREAS: No lesion, fluid collection, ductal dilatation, or atrophy. SPLEEN: No enlargement or focal lesion. ADRENALS: No mass or enlargement. KIDNEYS: No mass, obstruction, or calcification. BOWEL/MESENTERY: No visible mass, obstruction, or bowel wall thickening. AORTA/VASCULAR: No aneurysm or dissection. RETROPERITONEUM: No mass or adenopathy. LYMPH NODES: No adenopathy. URINARY BLADDER: No visible focal wall thickening, lesion, or calculus. PELVIC ORGANS: No visible mass. Pelvic organs appropriate for patient age. ABDOMINAL WALL: No mass or hernia. BONES: No bony lesion or fracture. OTHER: Limited exam due to lack of intraperitoneal fat and absence of contrast CT/CT abdomen pelvis wo con IMPRESSION: Limited exam with lack of intraperitoneal fat and absence of oral and IV contrast No acute intraperitoneal abnormality Electronically authenticated by: ELYSE CORONEL Date: 01/08/2024 09:54
[2024-01-08 09:04] LABS: Basophils Absolute Auto 0.1 10^3/uL (0.0-0.1); Eosinophils Absolute Auto 0.1 10^3/uL (0.0-0.7); Eosinophils Percent Auto 2.2 % (0.9-7.0); Hematocrit 43.5 % (36.0-48.0); Hemoglobin 14.6 g/dL (12.0-16.0); Immature Granulocytes Abs Auto 0.01 10^3/uL (0.00-0.03); Immature Granulocytes Pct Auto 0.2 % (0.0-0.5); Lymphocytes Absolute Auto 1.4 10^3/uL (1.2-3.8); Lymphocytes Percent Auto 28.4 % (20.5-60.0); Mean Corpuscular HGB Conc 33.6 g/dL (29.9-35.2); Mean Corpuscular Hemoglobin 29.7 pg (26.7-34.0); Mean Corpuscular Volume 88.4 fL (81.0-99.0); Mean Platelet Volume 8.8 fL (9.5-13.5); Monocytes Absolute Auto 0.5 10^3/uL (0.3-0.8); Monocytes Percent Auto 9.9 % (1.7-12.0); Neutrophils Absolute Auto 2.9 10^3/uL (1.4-6.5); Neutrophils Percent Auto 58.3 % (43.0-75.0); Platelet Count 284 10^3/uL (150-450); Red Blood Count 4.92 10^6/uL (4.20-5.40); Red Cell Distribution Width 11.9 % (11.0-15.0)
[2024-01-08 09:17] LABS: HCG Qualitative NEGATIVE (NEGATIVE); Internal Control Within Normal Limits
[2024-01-08] MEDS: 0.9 % SODIUM CHLORIDE 1,000 ML 1000 ML IV (09:22)
[2024-01-08 09:23] LABS: Alanine Aminotransferase 19 U/L (14-59); Albumin Globulin Ratio 1.3; Alkaline Phosphatase 42 U/L (46-116); Anion Gap 11.7; Aspartate Amino Transferase 13 U/L (15-37); BUN Creatinine Ratio 12.5; Bilirubin Total 0.6 mg/dL (0.2-1.0); Calcium 9.2 mg/dL (8.5-10.1); Carbon Dioxide 28.4 mmol/L (21.0-32.0); Chloride 106 mmol/L (98-107); Estimated GFR (African America >60 (>=60); Estimated GFR (Non-African Ame >60 (>=60); Globulin 3.2 g/dL; Glucose 94 mg/dL (74-106); Potassium 4.1 mmol/L (3.5-5.1); Sodium 142 mmol/L (136-145); Total Protein 7.2 g/dL (6.4-8.2)
[2024-01-08 09:31] LABS: Bilirubin Urine NEGATIVE (NEGATIVE); Blood Urine NEGATIVE (NEGATIVE); Clarity Urine CLEAR (CLEAR); Color Urine LT. YELLOW (YELLOW); Glucose Urine UA NEGATIVE (NEGATIVE); Ketones Urine NEGATIVE (NEGATIVE); Leukocyte Esterase Urine NEGATIVE (NEGATIVE); Nitrite Urine NEGATIVE (NEGATIVE); Protein Urine NEGATIVE (NEG/TRACE); Urobilinogen Urine 0.2 EU/dL (0.2-1.0); pH Urine 6.5 (5.0-9.0)
[2024-01-08 09:34] LABS: Urine Microscopic Indicated NO
--- NOTE | 2024-01-08 09:36 | ED_ITS ---
HPI - Abdominal Pain General Chief Complaint: Abdominal Pain Stated Complaint: ABDOMINAL PAIN Time Seen by Provider: 01/08/24 08:51 Source: patient Mode of arrival: walk-in Limitations: no limitations History of Present Illness HPI narrative: The patient is coming to the ER with a right lower quadrant pain that has been going on at least for the last 2 to 3-month. But she mentioned that over the last few days she started having some fever. 100.8 at home. The patient had no vomiting but she have nausea and she have decreased p.o. intake as a baseline. The patient mentioned that her last bowel movement was today and it was constipated She had not seen any blood in the stool The patient mentioned that she had spoke with her primary care doctor regarding the lymphadenopathy that she think she have in the right lower quadrant but he told her to monitor at home in case of any progression to come back to him but she did not follow-up with her primary care doctor after that Related Data Home Medications ?Medication ?Instructions ?Recorded ?Confirmed magnesium oxide 400 mg (241.3 mg 400 mg PO DAILY 01/08/24 01/08/24 magnesium) tablet Previous Rx's ?Medication ?Instructions ?Recorded metronidazole 500 mg tablet 500 mg PO BID 7 days #14 tabs 01/08/24 Allergies Allergy/AdvReac Type Severity Reaction Status Date / Time No Known Drug Allergies Allergy Verified 07/09/23 10:20 Review of Systems ROS Status of ROS 10 or more systems reviewed and unremark able except as noted in history and below [facility] Medical History (Updated 01/08/24 @ 10:27 by Rosa M Garcia MD) Bradycardia ?R00.1 - Bradycardia, unspecified (ICD-10) PVC (premature ventricular contraction) ?I49.3 - Ventricular premature depolarization (ICD-10) Exam Narrative Exam Narrative: Nurses notes and vital signs reviewed and patient is not hypoxic. General: Well-appearing and in no apparent distress. Skin: Warm, dry, no pallor noted. No rash. Head: Normocephalic, atraumatic. Neck: Supple, non-tender. Eye: Pupils are equal, round and EOMI. No scleral icterus. Ears, Nose, Mouth, and Throat: TM are clear, no nasal mucosal hypertrophy. Oral mucosa is moist, no posterior oropharynx erythema, uvula is mid-line Cardiovascular: Regular Rate and Rhythm without murmur, gallop or rub. Respiratory: No accessory muscle use or respiratory distress. Lungs are clear to auscultation, no wheezing, rales or rhonchi Chest Wall: no tenderness Back: No midline thoracic or lumbar vertebral tenderness. No CVA tenderness Musculoskeletal: normal ROM, no calf or popliteal tenderness, no lower extremity edema/swelling GI: Abdomen is soft, non-distended. Normal bowel sounds. No masses appreciated. Right lower quadrant tenderness. No appreciated lymphadenopathy and the patient pain is mostly towards the right groin area with no redness no hotness no signs of infection Neurological: A&O x4. No cranial nerve dysfunction observed. No truncal ataxia. Moves all extremities. Sensation intact. Psychiatric: Cooperative and interactive. Normal mood and affect. Constitutional Vital Signs, click to edit/add: Last Vital Signs Temp 98.0 F 01/08/24 08:47 Pulse 58 L 01/08/24 08:47 Resp 18 01/08/24 08:47 BP 104/75 01/08/24 10:00 Pulse Ox 100 01/08/24 09:54 O2 Del Method Room Air 01/08/24 09:24 Course Vital Signs Vital signs: Vital Signs Blood Pressure 106/74 01/08/24 08:46 Pulse Oximetry 100 01/08/24 08:46 Temperature 98.0 F 01/08/24 08:47 Pulse Rate 58 L 01/08/24 08:47 Respiratory Rate 18 01/08/24 08:47 Blood Pressure 104/75 01/08/24 10:00 Pulse Oximetry 100 01/08/24 09:54 Oxygen Delivery Method Room Air 01/08/24 09:24 MDM - Abdominal Pain MDM Narrative Medical decision making narrative: The patient CBC and chemistry showed no acute pathology test is negative CAT scan of the abdomen showed no acute pathology but the ultrasound shows a complex cyst in the right ovary The patient does have some vaginal discharge although she mentioned that she have no risk factor for STD Here urine was sent for chlamydia and gonorrhea testing but she will be covered with Flagyl for possible BV The patient is to follow up with primary care physician in next 2-3 days or to return to the emergency department should any of the signs or symptoms worsen or new symptoms develop. The patient agrees with the following Diagnosis and Treatment plan and the patient will be discharged home. Lab Data Labs: Lab Results 01/08/24 01/08/24 Range/Units 08:54 09:17 WBC 5.0 (4.0-11.0) 10^3/uL RBC 4.92 (4.20-5.40) 10^6/uL Hgb 14.6 (12.0-16.0) g/dL Hct 43.5 (36.0-48.0) % MCV 88.4 (81.0-99.0) fL MCH 29.7 (26.7-34.0) pg MCHC 33.6 (29.9-35.2) g/dL RDW 11.9 (11.0-15.0) % Plt Count 284 (150-450) 10^3/uL MPV 8.8 L (9.5-13.5) fL Neut % (Auto) 58.3 (43.0-75.0) % Lymph % (Auto) 28.4 (20.5-60.0) % [place] % (Auto) 9.9 (1.7-12.0) % Eos % (Auto) 2.2 (0.9-7.0) % Baso % (Auto) 1.0 (0.2-2.0) % Neut # (Auto) 2.9 (1.4-6.5) 10^3/uL Lymph # (Auto) 1.4 (1.2-3.8) 10^3/uL [place] # (Auto) 0.5 (0.3-0.8) 10^3/uL Eos # (Auto) 0.1 (0.0-0.7) 10^3/uL Baso # (Auto) 0.1 (0.0-0.1) 10^3/uL Abs Immat Gran (auto) 0.01 (0.00-0.03) 10^3/uL Imm/Tot Granulo (auto) 0.2 (0.0-0.5) % Sodium 142 (136-145) mmol/L Potassium 4.1 (3.5-5.1) mmol/L Chloride 106 (98-107) mmol/L Carbon Dioxide 28.4 (21.0-32.0) mmol/L Anion Gap 11.7 BUN 9.0 (7.0-18.0) mg/dL Creatinine 0.72 (0.55-1.02) mg/dL Est GFR ( Amer) >60 (>=60) Est GFR (Non-Af Amer) >60 (>=60) BUN/Creatinine Ratio 12.5 Glucose 94 (74-106) mg/dL Calcium 9.2 (8.5-10.1) mg/dL Total Bilirubin 0.6 (0.2-1.0) mg/dL AST 13 L (15-37) U/L ALT 19 (14-59) U/L Alkaline Phosphatase 42 L (46-116) U/L Total Protein 7.2 (6.4-8.2) g/dL Albumin 4.0 (3.4-5.0) g/dL Globulin 3.2 g/dL Albumin/Globulin Ratio 1.3 Serum HCG, Qual Negative (NEGATIVE) Urine Color Lt. yellow (YELLOW) Urine Clarity Clear (CLEAR) Urine pH 6.5 (5.0-9.0) Ur Specific [place] 1.010 (1.005-1.025) Urine Protein Negative (NEG/TRACE) mg/dL Urine Glucose (UA) Negative (NEGATIVE) mg/dL Urine Ketones Negative (NEGATIVE) mg/dL Urine Occult Blood Negative (NEGATIVE) Urine Nitrite Negative (NEGATIVE) Urine Bilirubin Negative (NEGATIVE) Urine Urobilinogen 0.2 (0.2-1.0) EU/dL Ur Leukocyte Esterase Negative (NEGATIVE) Discharge Plan Discharge Stand Alone Forms: Portal Instructions Chief Complaint: Abdominal Pain Clinical Impression: Vaginal discharge Abdominal pain Qualifiers: Abdominal location: lower abdomen, unspecified Qualified Code(s): R10.30 - Lower abdominal pain, unspecified Patient Disposition: Home, Self-Care Time of Disposition Decision: 10:26 Condition: Good Prescriptions / Home Meds: New metronidazole 500 mg tablet 500 mg PO BID 7 Days Qty: 14 0RF No Action magnesium oxide 400 mg (241.3 mg magnesium) tablet 400 mg PO DAILY Print Language: Tamazight Instructions: Bacterial Vaginosis (ED), Abdominal Pain (ED) Referrals: Josette TONEY [Primary Care Provider] - 1 week
[2024-01-08] MEDS: KETOROLAC TROMETHAMINE 30 MG/ML VIAL 15 MG IVP (09:45)
--- NOTE | 2024-01-08 10:02 | US_ITS ---
The [address] [address] Patient Name: PEYTON BALES MRN: [id number] date: 1995 Sex: F Assigned Patient Location: ED.MAIN Current Patient Location: ER Accession/Order Number: [id number] Exam Date: 01/08/2024 10:15 Report Date: 01/08/2024 11:11 At the request of: RADHA KIRKLAND Procedure: US pelvis transvaginal EXAMINATION: US pelvis transvaginal HISTORY: right lower abd pain . ovarian pathology suspected COMPARISON: No relevant comparison available. FINDINGS: The uterus is normal in size, contour and echotexture measuring 8.8 x 5.4 x 4.4 cm. No focal myometrial mass. The uterus is anteverted The endometrium measures 10.3 mm, normal The right ovary measures 5.3 x 3.3 x 2.3 cm. Normal color and Doppler flow. Complex cystic area measuring 2.1 x 1.8 x 1.7 cm. The left ovary measures 4.1 x 2.2 x 1.6 cm. Normal color and Doppler flow US/US pelvis transvaginal IMPRESSION: 2.1 cm right ovarian complex versus functional cyst Electronically authenticated by: ELYSE CORONEL Date: 01/08/2024 11:11
[2024-01-10 06:10] LABS: Neisseria gonorrhoeae, NAA Negative (Negative)
== END 2024-01-08 11:36 | disposition home or self-care (01) ==
PROVIDERS: Emergency Provider Emergency Medicine; PCP Family Medicine
DX: R10.30 Lower abdominal pain, unspecified (principal); N89.8 Other specified noninflammatory disorders of vagina
CPT/HCPCS: 36415; 74176; 76830; 80053; 81003; 84703; 85025; 87491; 87591; 96374; 99285; J1885

== ENCOUNTER 2024-02-22 09:01 | Emergency (ER) | payer OTHER, SELFPAY ==
[2024-02-22] VITALS (12 sets, daily range): BP systolic 88–114; BP diastolic 59–78; PULSE 52–66; TEMP 36.6; O2SAT 97–100; BMI 19.4
--- NOTE | 2024-02-22 09:10 | ECG_ITS ---
[facility] Test Date: 2024-02-22 Pat Name: PEYTON BALES Department: Room: - Gender: Female [employer]: : 1995 Requested By: Order Number: [id number] Reading MD: KATHE SHAW Measurements Intervals [place] Rate: 57 P: 9 PA: 116 QRS: 92 QRSD: 88 T: 60 QT: 438 QTc: 432 Interpretive Statements 1100 Sinus rhythm 2210 Short PA interval 7102 Moderate right axis deviation 9150 abnormal ECG Compared to ECG 07/09/2023 10:22:58 Short PA interval now present Right-axis deviation now present Electronically Signed On 02-22-2024 18:25:09 EDT by KATHE SHAW
--- OUTSIDE RECORDS SUMMARY | 2024-02-22 09:12 | XMS_ITS | CCD ---
Author Organization [facility] Care Team Providers Care Medication Coordinator Name Role Phone Radha Lopez Unavailable Josette HANDLEY Primary Care Physician [phone] Radha Lopez Unavailable Jenn Handley Jr. Primary Care Provider Nadya Beck MD Unavailable DR Josette HANDLEY Primary Care Unavailable JENISE, DR ERNIE Barkley Consulting Unavailable DAMIÁN BURNETTE Admitting Unavailable DAMIÁN BURNETTE Attending Unavailable DAMIÁN BURNETTE Consulting Unavailable TANNER, DR BARKSDALE Attending Unavailable DR Josette HANDLEY Primary Care Unavailable JENISE, DR ERNIE Barkley Consulting Unavailable DR APOLONIA HART Admitting Unavailable DR APOLONIA HART Consulting Unavailable Radha Lopez Unavailable Jenn Handley Jr. Primary Care Provider Nayda Beck MD Unavailable [phone] Radha Lopez Unavailable Jenn Handley Jr. Primary Care Provider Nadya Beck MD Unavailable DO Amber Handley Primary Care Provider MD Marcos Mann Attending Provider Radha Lopez Unavailable MD Reta Alva Emergency Provider Amber Handley Primary Care Unavailable Marcos Mann Admitting Unavailable Marcos Mann Attending Unavailable Reta Alva Attending Unavailable Amber Handley Primary Care Unavailable Reta Alva Admitting Unavailable Amber Handley Primary Care Unavailable Marcos Mann Admitting Unavailable Marcos Mann Attending Unavailable Radha Lopez PA-C Unavailable Nadya Beck MD Unavailable Emmanuelle Lawrence DO, George Robert Primary Care Provi yulissa Nadya Beck MD Unavailable [phone] AJ SULLIVAN MD Referring Unavailable JENN HANDLEY JR DAVID Primary Care Unavail able EMMANUELLE HERNADEZ [facility] Care Unavail able AJ SULLIVAN MD Attending Unavailable AJ SULLIVAN MD Admitting Unavailable AJ SULLIVAN MD Attending Unavailable AJ SULLIVAN MD Referring Unavailable EMMANUELLE HERNADEZ JENN HERNANDEZ Primary Care Unavail able EMMANUELLE HERNADEZ, JENN HERNANDEZ [facility] Care Unavail able DUNCAN VALLADARES Referring Unavailabl DUNCAN Gar Referring Unavailabl pollo HANDLEY JR JENN HERNANDEZ [facility] Care Unavail able EMMANUELLE HERNADEZ JENN DAVID [facility] Care Unavail able AJ SULLIVAN MD Referring Unavailable EMMANUELLE HERNADEZ JENN HERNANDEZ [facility] Unavail able NIRALI OREN Attending Unavailable NIRALI, OREN Referring Unavailable EMMANUELLE HERNADEZ JENN HERNANDEZ [facility] Care Unavail able TOPHER CAMPOVERDELAN Referring Unavailable EMMANUELLE HERNADEZ JENN HERNANDEZ Primary Care Unavail able DUNCAN VALLADARES Referring Unavailabl pollo HANDLEY JR JENN DAVID [facility] Care Unavail able DUNCAN VALLADARES Referring Unavailabl DUNCAN Gar Attending Unavailedouard HANDLEY JR JENN HERNANDEZ [facility] Care Unavail able DUNCAN VALLADARES Referring Unavailabl pollo HANDLEY JR [facility] Care Unavail able DUNCAN VALLADARES Referring Unavailabl e DUNCAN VALLADARES Attending Unavailabl pollo HANDLEY JR JENN DAVID Primary Care Unavail able DUNCAN VALLADARES Referring Unavailabl pollo HANDLEY JR, JENN DAVID Primary Care Unavail able DUNCAN VALLADARES Referring Unavailabl e EMMANUELLE HERNADEZ [facility] Primary Care Unavail able Jenn Handley DO Primary Care Provider Radha Rizzo Unavailable Corky Gore Attending Unavailable Leticia Ortega Attending Unavaila ble RADHA LOPEZ Referring Unavailable JENN HANDLEY Attending Unavailable JENN HANDLEY Referring Unavailable JENN HANDLEY Referring Unavailable MARCOS MANN Attending Unavailable RADHA LOPEZ Attending Unavailable RADHA LOPEZ Referring Unavailable Allergies Allergy Classification Reported Allergen(s) Allergy Type Date of Onset Reaction(s) Facility (20 sources) Adhesive Tape-Silicones; Translations: [ADHESIVE TAPE-SILICONES] Drug Allergy 1 Rash [facility] (9 sources) Cat Dander; Translations: [CAT DANDER] Drug Allergy 1 Other: See Comments [facility] (2 sources) Penicillin G Drug Allergy 3 Rash [facility] (2 sources) Cat Hair Extract Allergy to substance 1 Hives [facility] (2 sources) Wound Dressing Adhesive Drug Allergy 1 [facility] Medications Current Medications Medication Drug [...] day(s), # 10 tab(s), Refills(s) 0, Pharmacy: [facility], 170, cm, 08/15/23 12:47:00 EST, Height/Length Dosing, 52.9, kg, 08/15/23 12:47:00 EST, Weight Dosing Start Date: 08/15/23 Stop Date: 08/20/23 Status: Ordered metoprolol tartrate 25 mg oral tablet (17 sources) beta-Adrenergic Hipolito Start: 04-12-2021 End: 05-02-2022 take 1 tablet by mouth twice daily [...] Tramadol Active 50 MG PO Q6H 20 5 January 29, 2023 12:00am Zofran ODT 4 [...] if needed. 0 01/09/2023 08/01/2023 Discontinued levonorgestrel 0.616352 mg/hr intrauterine system (3 sources) Progestin, Progestin-containing [...] (2 sources) Nonsteroidal Anti-inflammatory Drug Start: 07-09-19 End: 08-01-19 take 1 tablet by mouth in the morning nabumetone (Relafen) 750 MG tablet Take 750 mg by mouth in the morning and 750 mg before bedtime. 0 07/09/2023 08/01/2023 Discontinued naproxen 500 mg oral tablet (3 sources) Nonsteroidal Anti-inflammatory Drug Start: 07-30-19 End: 09-08-19 take 1 tablet by mouth every twelve [...] mg tablet Discontinued 4 MG PO Q8H 10 September 04, 2019 12:00am September 07, 2020 3:10pm [...] tablet (3 sources) Start: 09-08-19 End: 01-09-20 23 take 99 mg by mouth once daily Potassium Discontinued 99 MG PO Daily September 07, 2020 12:00am January 08, 2023 7:41pm potassium gluconate 2.5 meq oral tablet (8 sources) Potassium 99 mg tab Take by mouth. 0 Active Comment on above: Take by mouth. 25/iron fum/folic/dha (-1 ORAL) (3 sources) End: 10-25-19 25/iron fum/folic/dha (-1 ORAL) Take by mouth. 0 10/24/2021 Discontinued (Course of therapy completed) 25/iron fum/folic/dha (-1 ORAL) Take by mouth. 0 Active Comment on above: Take by mouth. Mluoxioc39-Ipwo Fwf-Zr-Rc1-Dha ( Plus Dha) 27 mg iron-1 mg -312 mg-250 mg combo pack (3 sources) Start: 01-17-2021 End: 01-08-2023 Ukqqdfom08-Yudn Zrs-Oq-Ho8-Dha ( Plus Dha) 27 mg iron-1 mg -312 mg-250 mg combo pack Discontinued 1 PKG PO Daily January 17, 2021 12:00am January 08, 2023 7:41pm Start: 01-17-2021 Cufpppzn25-Kpd n Nde-Lr-By7-Dha ( Plus Dha) 27 mg iron-1 mg [...] Comment on above: Take 1 tablet by [facility] every 6 hours as needed for nausea/vomiting. 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] Onset: 02-28-2019 03-07-2023 Episodic Other lower respiratory disease (1 source) [...] Beta HCG ( test) Ql Negative Normal [facility] Comment on above: Performed By: #### 2 296260, 38470133, 5077083, 9442987, 7934649, 57647593 #### [facility] [address] [place] [address] BMPon 08-15-2023 Anion gap [Moles/Vol] 9 mmol/L Normal 6-16 [facility] Comment on above: Performed By: #### 2 783303, 16604399, 9706354, 8625932, 7928484, 10758827 #### [facility] [address] [place] [address] BUN/Creat Ratio 17 No Units Normal 10-20 [facility] Comment on above: Performed By: #### 2 184846, 84412622, 5614029, 3996500, 3650635, 10175134 #### [facility] [address] [place] [address] Calcium [Mass/Vol] 9.3 mg/dL Normal 8.9-11.1 [facility] Comment on above: Performed By: #### 2 832818, 72473122, 1339026, 2381581, 0012605, 20368160 #### [facility] [address] [place] [address] Chloride [Moles/Vol] 104 mmol/L Normal 101-111 [facility] Comment on above: Performed By: #### 2 127549, 65729862, 3679001, 6062616, 6326780, 39762869 #### [facility] [address] [place] [address] CO2 [Moles/Vol] 29 mmol/L Normal 21-31 [facility] Comment on above: Performed By: #### 2 391846, 44068740, 8497974, 6412563, 4577320, 46001004 #### [facility] [address] [place] [address] Creatinine [Mass/Vol] 0.7 mg/dL Normal 0.5-1.3 [facility] Comment on above: Performed By: #### 2 709195, 87302985, 1013983, 2614987, 5615390, 90330735 #### [facility] [address] [place] [address] Glucose [Mass/Vol] 75 mg/dL Normal 55-199 [facility] Comment on above: Performed By: #### 2 832727, 83022774, 4397616, 8685488, 5524489, 85691619 #### [facility] [address] [place] [address] Potassium [Moles/Vol] 4.0 mmol/L Normal 3.5-5.3 [facility] Comment on above: Performed By: #### 2 548869, 48316910, 3521962, 3370013, 7253366, 81748708 #### [facility] [address] [place] [address] Sodium [Moles/Vol] 138 mmol/L Normal 135-145 [facility] Comment on above: Performed By: #### 2 299900, 54288607, 0201084, 3668776, 1175104, 80643394 #### [facility] [address] [place] [address] Urea nitrogen [Mass/Vol] 12 mg/dL Normal 5-21 [facility] Comment on above: Performed By: #### 2 461567, 15974018, 9763531, 4564125, 3045937, 04144502 #### [facility] [address] [place] [address] CBC w/ Auto Diffon 4 Basophil Absolute 0.0 E9/L Normal 0.0-0.2 [facility] Comment on above: Performed By: #### 2 962427, 28777554, 3740564, 9534277, 9876907, 94847686 #### [facility] [address] [place] [address] Basophils/100 WBC (Bld) 0.7 % Normal 0.0-2.0 [facility] Comment on above: Performed By: #### 2 313905, 54293743, 1134760, 3760617, 4201503, 18326150 #### [facility] [address] [place] [address] Eos Absolute 0.1 E9/L Normal 0.0-0.5 [facility] Comment on above: Performed By: #### 2 671623, 62527204, 4332897, 2127832, 8428358, 51377055 #### [facility] [address] [place] [address] Eosinophils/100 WBC (Bld) 1.6 % Normal 0.0-8.0 [facility] Comment on above: Performed By: #### 2 879276, 29333686, 8191713, 3335050, 9652497, 36930531 #### [facility] [address] [place] [address] Erythrocyte distribution width (RBC) [Ratio] 12.8 % Normal 10.9-14.2 [facility] Comment on above: Performed By: #### 2 932778, 55791384, 2783918, 0298798, 5103153, 37142277 #### [facility] [address] [place] [address] Hematocrit (Bld) [Volume fraction] 41.0 % Normal 34.0-46.0 [facility] Comment on above: Performed By: #### 2 782829, 88356580, 8812422, 6665550, 5378350, 86913110 #### [facility] [address] [place] [address]36 Hemoglobin (Bld) [Mass/Vol] 13.9 g/dL Normal 12.0-16.0 [facility] Comment on above: Performed By: #### 2 922865, 63300481, 2698611, 2848524, 8293860, 50931780 #### [facility] [address] [place] [address] Lymph Absolute 1.3 E9/L Normal 1.0-4.0 [facility] Comment on above: Performed By: #### 2 380383, 84605405, 1449665, 8968145, 8835425, 25843114 #### [facility] [address] [place] [address] Lymphocytes/100 WBC (Bld) 19.9 % Normal 14.0-50.0 [facility] Comment on above: Performed By: #### 2 332157, 92925597, 0018778, 0731742, 8027393, 18782471 #### [facility] [address] [place] [address]42 MCH (RBC) [Entitic mass] 29.1 pg Normal 27.0-34.0 [facility] Comment on above: Performed By: #### 2 657795, 34144972, 0474715, 4081616, 6055626, 10049232 #### [facility] [address] [place] [address] MCHC (RBC) [Mass/Vol] 33.8 g/dL Normal 31.4-36.0 [facility] Comment on above: Performed By: #### 2 075224, 05129226, 2680428, 5634903, 2678716, 97499882 #### [facility] [address] [place] [address]9060 MCV (RBC) [Entitic vol] 86.1 fL Normal 80.0-100.0 [facility] Comment on above: Performed By: #### 2 826701, 33054144, 7238338, 1625883, 2408986, 37104159 #### [facility] [address] [place] [address] Randall Absolute 0.7 E9/L Normal 0.2-1.0 [facility] Comment on above: Performed By: #### 2 420120, 91239113, 8292298, 7024237, 0738328, 55527584 #### [facility] [address] [place] [address] Monocytes/100 WBC (Bld) 9.8 % Normal 4.0-14.0 [facility] Comment on above: Performed By: #### 2 618426, 00240375, 0835817, 8758915, 9526770, 86201043 #### [facility] [address] [place] [address]3965 Neutro Absolute 4.6 E9/L Normal 2.0-7.5 [facility] Comment on above: Performed By: #### 2 546057, 26807860, 6155274, 7169526, 7461022, 39171479 #### [facility] [address] [place] [address] 15151 Neutro Auto 68.0 % Normal 36.0-75.0 [facility] Comment on above: Performed By: #### 2 862697, 75751692, 3035711, 9978184, 9502584, 41028232 #### [facility] [address] [place] [address] Platelet 289.0 E9/L Normal 150.0-500. 0 [facility] Comment on above: Performed By: #### 2 248140, 42793975, 2505643, 2587286, 3668819, 39752282 #### [facility] [address] [place] [address] Platelet mean volume (Bld) [Entitic vol] 7.3 fL Normal 6.4-10.8 [facility] Comment on above: Performed By: #### 2 372053, 01305620, 9945669, 5506515, 2678355, 07817766 #### [facility] [address] [place] [address] RBC 4.8 E12/L Normal 4.3-5.9 [facility] Comment on above: Performed By: #### 2 584761, 78843683, 9944320, 5508520, 1510065, 88914534 #### [facility] [address] [place], [place] [address] WBC 6.7 E9/L Normal 4.0-11.0 [facility] Comment on above: Performed By: #### 2 997848, 77714933, 3533784, 4374480, 5734397, 74882498 #### [facility] [address] [place] [address] CHEMISTRYOrdered By: SYSTEM SYSTEM on 08-15-2023 Albumin [...] for Treatmenton 07-27 Consent for Treatment [id number] Normal [facility] Discharge Instructionson Discharge Instructions [id number] Normal [facility] ED Clinical Summaryon 2023 ED Clinical Summary (Inserted Image. Nova ble to display) [address] [address] ED Clinical Summary Person Information Name: SIMIN BALES/Amadeo Age: 27 Years : 1995 Sex: Female Language: Korean PCP: Josette HANDLEY DO Marital Status: Single Phone: [phone] Visit Id: Visit Reason: Abdominal pain; Vaginal [...] 08/15/2023 15:35:56 08/15/2023 15:35:56 08/15/2023 15:35:56 ADDR[address]: [id number] [id number] PHYS DOC NOTES: MEDICAL INFORMATION: Prescriptions Given: New Medications [facility], [address] [place] [id number], [phone] medroxyPROGESTERone (Provera 5 mg Tab) 2 Tablets [...] Address: When: Marcos Mann [address], [employer] [address] [place], [place] [phone] [employer]tor (1) In 3 days 08/18/2023 DIAGNOSIS: Dysfunctional uterine bleeding Normal [facility] ED Note-Physicianon 08-15-19 ED Note-Physician Basic Information [...] states she did try to see her RELATIONSHIP EXECUTIVE, Dr. Mann, but was not able to [...] Provera and is to follow-up with her RELATIONSHIP EXECUTIVE. Patient was encouraged to return to the ED if symptoms worsen or change. Assessment/Plan Dysfunctional uterine bleeding (N93.8: Other specified abnormal uterine and vaginal bleeding) Orders: medroxyPROGESTERone, 10 mg = 2 tab(s), Oral, Daily, X 5 day(s), # 10 tab(s), Refills(s) 0, Pharmacy: [facility], 170, cm, 08/15/23 12:47:00 EST, [...] Mann In 3 days 08/18/2023 EST [address] [address]- Business (1) Additional Instructions: Patient Education Abnormal [...] made to ensure accuracy, however, inadvertently computerized dev technical mgr mistakes may be present. 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 Vaping, 09/04/2022 Lab Results WBC: 6.7 E9/L (08/15/23 13:03:00) RBC: 4. (more content not included)... Normal [facility] Comment on above: Result Comment: Elec tronically Signed By: Kong Arboleda PA-C\.br\Date and Time Signed: 08/15/23 16:36 EST\.br\Electronically Co-Signed By: Corky Gore DO\.br\Date and Time Co-Signed: 08/15/23 17:48 [facility] ED Patient Education Noteon 08-15-2023 ED Patient [...] these instructions at home: Medicines ? Take lane-lvt-egaspuo and prescription medicines only as told by your health care provider. ? Ask your health care provider about: ? Taking medicines such as aspirin and ibuprofen. These medicines can thin your blood. Do not take these medicines unless your health care provider tells you to take them. ? Taking jovs-ixd-jujkpcs medicines, vitamins, herbs, and supplements. ? If [...] keep your urine pale yellow. ? Take zddo-gee-udvjfqq or prescription medicines. ? Eat foods that [...] Reviewed: 10/11/2021 Elsevier Patient Education ? 2022 [employer] Normal [facility] ED Patient Summaryon 024 ED Patient Summary (Inserted Image. Nova ble to display) [address] [address] Patient Discharge Instructions Person Information Name: SIMIN BALES Age: 27 Years Arrival Date: 08/15/2023 12:32:55 Discharge Diagnosis: Dysfunctional uterine bleeding Primary Care Physician: Josette HANDLEY DO Provider Information Primary Provider: Corky Gore DO Advanced Sailor:Kong Arboleda PA-C The exam and treatment you received in the Emergency Department were for an urgent problem and are not intended as complete care. It is important that you follow up with a doctor, nurse practitioner, or physician?s acute care assistant for ongoing care. If your symptoms become worse or you do not improve as expected and you are unable to reach your usual health care provider, you should return to the Emergency Department. We are available 24 hours a day. SIMIN BALES has been given the following list of patient education materials, prescriptions and follow-up instructions: Follow-up Instructions: With: Address: When: Marcos Mann [address], [place] [phone] Business (1) In 3 days 08/18/2023 In the event that this physician does not participate in your insurance network, please consult with your insurance company to find a nearby participating provider. Patient Education Materials: Abnormal Uterine Bleeding A MESSAGE TO ALL PATIENTS REGARDING OPIOIDS PRESCRIPTION OPIOIDS: WHAT YOU NEED TO KNOW Prescription opioids can be used to help relieve utietxaq-og-zqdcwh pain and are often prescribed following a [...] be struggling with addiction, tell your health customer care agent and ask for guidance or call SAM[employer]SA?S National Helpline at 4-364-271-D (more content not included)... Normal [facility] HEMATOLOGYOrdered By: SYSTEM SYSTEM on 08-15-2023 Basophil [...] Normal 80.0 - 100.0 fL Remisol Heme Randall Absolute 0.7 E9/L Normal 0.2 - 1.0 [...] 08-15-2023 Albumin [Mass/Vol] 4.5 g/dL Normal 3.3-5.0 [facility] Comment on above: Performed By: #### 2 762915, 25242715, 9057249, 3056834, 2518484, 13962547 #### [facility] [address] [place] [address] Albumin/Globulin [Mass ratio] 2.0 {ratio} Normal 1.1-2.2 [facility] Comment on above: Performed By: #### 2 473140, 57826188, 1614921, 9038889, 4879932, 00575162 #### [facility] [address] [place] [address] Alk Phos 38 Int._Unit/L Normal 21-98 [facility] Comment on above: Performed By: #### 2 994569, 99752157, 6047781, 2329702, 5652024, 83545356 #### [facility] [address] [place] [address] ALT 9 Int._Unit/L Normal 6-46 [facility] Comment on above: Performed By: #### 2 031401, 05883603, 7846940, 9797585, 0064195, 83517541 #### [facility] [address] [place] [address] AST 9 Int._Unit/L Normal 5-43 [facility] Comment on above: Performed By: #### 2 516976, 34387853, 0970103, 9721599, 9195115, 83500174 #### [facility] [address] [place] [address] Bili Direct 0.1 mg/dL Normal 0.0-0.4 [facility] Comment on above: Performed By: #### 2 643867, 66763229, 1652331, 7559073, 3815821, 11228833 #### [facility] [address] [place] [address] Bili Indirect 0.4 mg/dL Normal 0.1-0.9 [facility] Comment on above: Performed By: #### 2 297339, 05962935, 6765846, 8343952, 7866871, 99925988 #### [facility] [address] [place] [address] Bili Total 0.5 mg/dL Normal 0.0-1.1 [facility] Comment on above: Performed By: #### 2 846780, 06959286, 5099436, 1384349, 3570270, 10906142 #### [facility] [address] [place] [address] Globulin (S) [Mass/Vol] 2.2 g/dL Normal 1.4-4.0 [facility] Comment on above: Performed By: #### 2 806146, 94174812, 6829001, 1596496, 4644150, 71557787 #### [facility] [address] [place] [address] Protein [Mass/Vol] 6.7 g/dL Normal 6.0-7.8 [facility] Comment on above: Performed By: #### 2 232179, 90654931, 6300852, 4430965, 7063545, 95030263 #### [facility] [address] [place] [address] Lipase Levelon 08-15-2023 Lipase Lvl 15 unit/L Normal 13-58 [facility] Comment on above: Performed By: #### 2 766774, 26140185, 9933736, 7087545, 9258189, 82867478 #### [facility] [address] [place] [address] SEROLOGYOrdered By: Julisa Carvajal on 08-15-2023 Beta HCG ( test) Ql Negative (08/15/23 1:03 PM) Normal [facility] Sero UA With Cult Reflexon 2023 Bilirubin Ql (U) Negative Normal Negative [facility] Comment on above: Performed By: #### 1 5729173 #### [facility] [address] [place] [address] Clarity (U) SL CLOUDY Abnormal Clear [facility] Comment on above: Performed By: #### 1 2815848 #### [facility] [address] [place] [address] Color (U) YELLOW Normal Yellow [facility] Comment on above: Performed By: #### 1 1724948 #### [facility] [address] [place] [address] Crystals LM Ql (Urine sed) Present Normal [facility] Comment on above: Performed By: #### 1 7309106 #### [facility] [address] [place] [address] Epithelial cells.squamous LM.HPF (Urine sed) [#/Area] 5-8 Normal 0-2 [facility] Comment on above: Performed By: #### 1 1028504 #### [facility] [address] [place] [address] Glucose Test strip (U) [Mass/Vol] Negative Normal Negative [facility] Comment on above: Performed By: #### 1 [id number] #### [facility] [address] [place] [address] Hemoglobin Ql (U) 3+ Abnormal Negative [facility] Comment on above: Performed By: #### 1 [id number] #### [facility] [address] [place] [address] Ketones (U) [Mass/Vol] Negative Normal Negative [facility] Comment on above: Performed By: #### 1 [id number] #### [facility] [address] [place] [address] [place].plasma/[place]. RBC (Bld) [Mass ratio] 0-3 Normal 0-3 [facility] Comment on above: Performed By: #### 1 [id number] #### [facility] [address] [place] [address] Nitrite Ql (U) Negative Normal Negative [facility] Comment on above: Performed By: #### 1 [id number] #### [facility] [address] [place] [address] pH (U) 6.5 [pH] Invalid Interpretation Code 5.0-9.0 [facility] Comment on above: Performed By: #### 1 [id number] #### [facility] [address] [place] [address] Protein (U) [Mass/Vol] Negative Normal Negative [facility] Comment on above: Performed By: #### 1 [id number] #### [facility] [address] [place] [address] Specific gravity (U) [Rel density] 1.020 Invalid Interpretation Code 1.005-1.03 0 [facility] Comment on above: Performed By: #### 1 [id number] #### [facility] [address] [place] [address] Type of Urine collection method Clean Catch Normal [facility] Comment on above: Performed By: #### 1 [id number] #### [facility] [address] [place] [address] Urobilinogen Qn (U) 0.2 {Charlee'U}/dL Normal 0.0-1.0 [facility] Comment on above: Performed By: #### 1 [id number] #### [facility] [address] [place] [address] WBC Auto Ql (U) Negative Normal Negative [facility] Comment on above: Performed By: #### 1 [id number] #### [facility] [address] [place] [address] WBC LM.HPF (Urine sed) [#/Area] 0-5 Normal 0-5 [facility] Comment on above: Performed By: #### 1 [id number] #### [facility] [address] [place] [address] URINALYSISOrdered By: Lien Garcia on 08-15-2023 Bilirubin Ql (U) Negative (08/15/23 12:50 PM) Normal Negative [facility] UA Auto SS Clarity (U) Slightly Cloudy [...] PM) Normal Negative [facility] UA Auto SS [place].plasma/[place]. RBC (Bld) [Mass ratio] 0-3 /HPF Normal [...] [facility] UA Auto SS Urobilinogen Qn (U) 0.9309580 {Charlee'U}/dL Normal 0.0 - 1.0 EU/dL [facility] UA Auto SS WBC Auto Ql (U) Negative (08/15/23 12:50 PM) Normal Negative [facility] UA Auto SS WBC LM.HPF (Urine sed) [#/Area] 0-5 /HPF Normal 0-5/HPF [facility] UA Auto SS eGFRon 08-15-2023 eGFR 119 mL/min/1.73 m2 Normal >=59 [facility] Comment on above: Order Comment: Order added by Discern Expert. Performed By: #### 2 [id number], [id number], [id number], [id number], [id number], [id number] #### [facility] [address] [place] [address] XR CERVICAL SPINE 2-3 VIEWSo n 08-01-2023 [...] Office Visit (SYNCMN ) -- SIMIN BALES ([id number]) 1995 F Date Time Provider Department 05/30/23 4:00 PM DUNCAN VALLADARES SYNCMN During your visit today, we recorded the following information about you: Weight Height 53.5 kg 1.689 m Duncan Valladares DO 05/30/2023 5:15 PM Signed [facility] Department of Cardiovascular Medicine SECTION OF CARDIAC PACING and ELECTROPHYSIOLOGY OUTPATIENT VISIT DATE May 30, 2023 OUTPATIENT VISIT TYPE ESTABLISHED PRIMARY CARE PHYSICIAN: Jenn Handley DO [address] [address] CHIEF COMPLAINT: palpitations HISTORY OF PRESENT ILLNESS: Ms. Bales is a 27 year old female who presents today for follow-up visit for palpitations with history of PVCs with ablation attempt by Dr. Angela 03/08/23 as well as prior ablation in 2019 at [place]. She had few PVCs so no ablation [...] burst of (more content not included)... Normal [facility] ECG COMPLETEon 05-30-2023 ECG COMPLETE Ventricular Rate : 6 5 BPM Atrial Rate : 65 BPM P-R Interval : 118 ms QRS Duration : 98 ms Q-T Interval : 404 ms QTC Calculation(Bazett) : 420 ms Calculated P Strawn : 25 degrees Calculated R Strawn : 66 degrees Calculated T Strawn : 52 degrees NORMAL SINUS RHYTHM INCOMPLETE RIGHT BUNDLE BRANCH BLOCK BORDERLINE ECG Confirmed by PENNY VENTURA MD ([id number]) on 06/26/2023 2:57:27 PM NAME : SIMIN BALES PID : [id number] : 1995 Gender : Female Race : ORD : [id number] Procedure Date : May 30 2023 14:43:13 Edit Date : Jun 26 2023 14:57:28 Diagnosis: NORMAL SINUS RHYTHM INCOMPLETE RIGHT BUNDLE BRANCH BLOCK BORDERLINE ECG Confirmed by PENNY VENTURA MD ([id number]) on 06/26/2023 2:57:27 PM Test Reason : Location : 314 : [facility] J1-4 Overread By : PENNY VENTURA MD Edited By : PENNY VENTURA MD Referred By : DUNCAN VALLADARES Acquired by : GADIEL WHALEY [facility] ECHOon 05-23-2023 Echocardiography Echocardiography Rep ort: Transthoracic Echo [place] [address] Date of service: 05/23/2023 10:41:40 AM TECHNICAL WRITER Ordering physician: OREN CAMPOVERDE Indication: Frequent PVCs [...] * * * Final * * * [facility] Image : [id number] Normal [facility] EXERCISE STRESS ECG (WITHOUT IMAGING)on 05-23-2023 EXERCISE STRESS ECG (WITHOUT IMAGING) Stress Shell Sorter Report: Exercise Stress ECG (without Imaging) [place] [address] Date of service: 05/23/2023 10:12:14 AM TECHNICAL WRITER Supervising physician: Paul Napier MD PATIENT: Name: MS. SIMIN BALES Age: 27 years Gender: F The supervising physician was in the department and immediately available. Final Stress ECG Report: Exercise Stress ECG (without Imaging) [place] [address] Date of service: 05/23/2023 10:12:14 AM TECHNICAL WRITER Ordering physician: ROBBY RAPP program eligibility specialist: Nura Garcia Post Acute Care Nurse: Sylvia Arauz Interpreting physician: Alberto Rodriguez MD [...] 152/88 mmHg. The double product achieved was [address]. Previous cardiovascular interventions: VT Ablation (03/08/2023) Resting [...] Heart rate (more content not included)... Normal [facility] 03-09-2023 CNPN Telephone (NURSMN) -- SIMIN BALES ([id number]) 1995 F Date Time Provider Department 03/09/23 [...] Comments Date Reviewed: 03/08/2023 Reviewed by: Kimi Hernandez RN - Fully Assessed Reason for Visit: Follow Up Phone Call [2396] Cmt: follow up call all clear. Prescriptions [...] EVALon 023 ANES POSTPROC EVAL HNO ID: [id number] Author: Theresa Callejas MD Service: ? Author Type: Anesthesiologist Type: Anesthesia Postprocedure Evaluation Filed: 03/08/2023 10:23 AM Note Text: POST ANESTHESIA EVALUATION NOTE : 1995 Procedure Summary Date: 03/08/23 Room / Location: [address] LAB Anesthesia Start: 743 Anesthesia Stop: [...] March 08, 2023 TIME: 10:23 AM CSN: [id number] Normal [facility] ANES PRE-OPon 03-08-2023 ANES PRE-OP HNO ID: [id number] Author: Theresa Callejas MD Service: ? Author Type: Anesthesiologist Type: Anesthesia Preprocedure Evaluation Filed: 03/08/2023 10:23 AM Note Text: ANESTHESIOLOGY DAY OF SURGERY NOTE : 1995 Procedure Information Anesthesia Start Date/Time: 03/08/23 0744 Procedure: IV PUSH SINGLE OR INITIAL SUBSTANCE/DRUG Location: [address] LAB Surgeons: Aj Sullivan MD Estimated [...] and consent discussed: yes. Patient / Responsible Republican agrees to proceed: yes Patient / Surrogate [...] March 08, 2023 TIME: 10:22 AM CSN: [id number] Normal [facility] [id number] 03-08-2023 ECG01 Ventricular Rate : 4 6 BPM Atrial Rate : 46 BPM P-R Interval : 130 ms QRS Duration : 92 ms Q-T Interval : 500 ms QTC Calculation(Bazett) : 437 ms Calculated P Strawn : 44 degrees Calculated R Strawn : 72 degrees Calculated T Strawn : 60 degrees SINUS BRADYCARDIA RSR' PATTERN IN V1 SUGGESTS INCOMPLETE RIGHT BUNDLE BRANCH BLOCK BORDERLINE ECG Confirmed by PENNY VENTURA MD ([id number]) on 03/13/2023 10:39:59 AM NAME : SIMIN BALES PID : [id number] : 1995 Gender : Female Race : ORD : Procedure Date : Mar 08 2023 11:54:16 Edit Date : Mar 13 2023 10:40:01 Diagnosis: SINUS BRADYCARDIA RSR' PATTERN IN V1 SUGGESTS INCOMPLETE RIGHT BUNDLE BRANCH BLOCK BORDERLINE ECG Confirmed by PENNY VENTURA MD ([id number]) on 03/13/2023 10:39:59 AM Test Reason : 921 Location : 23 : [address] Overread By : PENNY VENTURA MD Edited By : PENNY VENTURA MD Referred By : AJ SULLIVAN Acquired by : [id number], Normal [facility] Basic metabolic 2000 panelon 03-07-2023 Anion gap [Moles/Vol] 13 mmol/L Normal 9-18 [facility] Comment on above: Order Comment: Speci men Type: BLOOD SPECIMENOrdering Facility: [facility] Address: [address] [address] Performed By: #### 2 4321-2 ####[facility] [id number] [place] [address] [place] Calcium [Mass/Vol] 9.3 mg/dL Normal 8.5-10.2 [facility] Comment on above: Order Comment: Speci men Type: BLOOD SPECIMENOrdering Facility: [facility] Address: [address] [address] Performed By: #### 2 4321-2 ####[facility] LABCLIA [id number] [place] [address] [place] Chloride [Moles/Vol] 103 mmol/L Normal 97-105 [facility] Comment on above: Order Comment: Speci men Type: BLOOD SPECIMENOrdering Facility: [facility] Address: [address] [address] Performed By: #### 2 4321-2 ####[facility] LABCLIA [id number] [place] [address] [place] CO2 [Moles/Vol] 24 mmol/L Normal 22-30 [facility] Comment on above: Order Comment: Speci men Type: BLOOD SPECIMENOrdering Facility: [facility] Address: [address] [place] [address] Performed By: #### 2 4321-2 ####[facility] LABCLIA [id number] [address] [place] Creatinine [Mass/Vol] 0.65 mg/dL Normal 0.58-0.96 [facility] Comment on above: Order Comment: Speci men Type: BLOOD SPECIMENOrdering Facility: [facility] Address: [address] [place] [address] Performed By: #### 2 4321-2 ####[facility] [id number] [address] STATES [facility] Creatinine and Glomerular filtration rate.predicted panel (S/P/Bld) 122 mL/min/1.73m??? Normal >=60 [facility] Comment on above: Order Comment: Speci men Type: BLOOD SPECIMENOrdering Facility: [facility] Address: [address] [place] [address] Result Comment: Sugey mated Glomerular Filtration Rate [...] actual GFR. Performed By: #### 2 4321-2 ####[facility] LABCLIA [id number] [place] [address] [place] Glucose [Mass/Vol] 84 mg/dL Normal 74-99 [facility] Comment on above: Order Comment: Speci men Type: BLOOD SPECIMENOrdering Facility: [facility] Address: [address] [phone] Result Comment: The [place] Diabetes Association (ADA) provides guidance for cutoff [...] Standards of Medical Care in Diabetes 2016, [place] [employer]. Diabetes Care. 2016.39(Suppl 1). Performed By: #### 2 4321-2 ####[facility] LABCL[facility] [id number] [place] [address] [place] Potassium [Moles/Vol] 3.7 mmol/L Normal 3.7-5.1 [facility] Comment on above: Order Comment: Speci men Type: BLOOD SPECIMENOrdering Facility: [facility] Address: [address] Performed By: #### 2 4321-2 ####[facility] LABCLIA [id number] [place] [address] [place] Sodium [Moles/Vol] 140 mmol/L Normal 136-144 [facility] Comment on above: Order Comment: Speci men Type: BLOOD SPECIMENOrdering Facility: [facility] Address: [address] [phone] Performed By: #### 2 4321-2 ####[facility] LABCLIA [id number] [place] [address] [place] Urea nitrogen [Mass/Vol] 8 mg/dL Normal 7-21 [facility] Comment on above: Order Comment: Speci men Type: BLOOD SPECIMENOrdering Facility: [facility] Address: [address] [address] Performed By: #### 2 4321-2 ####[facility] [id number] [address] CBC panel Auto (Bld)on 03-07 Erythrocyte distribution width (RBC) [Ratio] 12.0 % Normal 11.5-15.0 [facility] Comment on above: Order Comment: Speci men Type: BLOOD SPECIMENOrdering Facility: [facility] Address: [address] [address] Performed By: #### 5 8410-2 ####[facility] [id number] [address] [place] Hematocrit (Bld) [Volume fraction] 38.3 % Normal 36.0-46.0 [facility] Comment on above: Order Comment: Speci men Type: BLOOD SPECIMENOrdering Facility: [facility] Address: [address] Performed By: #### 5 8410-2 ####[facility] [id number] [address] [place] Hemoglobin (Bld) [Mass/Vol] 12.7 g/dL Normal 11.5-15.5 [facility] Comment on above: Order Comment: Speci men Type: BLOOD SPECIMENOrdering Facility: [facility] Address: [address] Performed By: #### 5 8410-2 ####[facility] [id number] [address] [place] MCH (RBC) [Entitic mass] 29.0 pg Normal 26.0-34.0 [facility] Comment on above: Order Comment: Speci men Type: BLOOD SPECIMENOrdering Facility: [facility] Address: [address] Performed By: #### 5 8410-2 ####[facility] [id number] [place] [address] [place] MCHC (RBC) [Mass/Vol] 33.2 g/dL Normal 30.5-36.0 [facility] Comment on above: Order Comment: Speci men Type: BLOOD SPECIMENOrdering Facility: [facility] Address: [address] [place], [place] [address] Performed By: #### 5 8410-2 ####[facility] [id number] [place] [address] [place] MCV (RBC) [Entitic vol] 87.4 fL Normal 80.0-100.0 [facility] Comment on above: Order Comment: Speci men Type: BLOOD SPECIMENOrdering Facility: [facility] Address: [address] [place] [address] Performed By: #### 5 8410-2 ####[facility] [id number] [place] [address] [place] Nucleated RBC (Bld) [#/Vol] 10*3/uL Normal <0.01 [facility] Comment on above: Order Comment: Speci men Type: BLOOD SPECIMENOrdering Facility: [facility] Address: [address] [place], [place] [address] Performed By: #### 5 8410-2 ####[facility] [id number] [place] [address] [place] Platelet mean volume (Bld) [Entitic vol] 9.3 fL Normal 9.0-12.7 [facility] Comment on above: Order Comment: Speci men Type: BLOOD SPECIMENOrdering Facility: [facility] Address: [address] [place], [place] [address] Performed By: #### 5 8410-2 ####[facility] [id number] [place] [address] [place] Platelets (Bld) [#/Vol] 295 10*3/uL Normal 150-400 [facility] Comment on above: Order Comment: Speci men Type: BLOOD SPECIMENOrdering Facility: [facility] Address: [address] [place] [address] Performed By: #### 5 8410-2 ####[facility] LABCLIA [id number] [place] [address] [place] RBC (Bld) [#/Vol] 4.38 10*6/uL Normal 3.90-5.20 [facility] Comment on above: Order Comment: Speci men Type: BLOOD SPECIMENOrdering Facility: [facility] Address: [address] [place] [address] Performed By: #### 5 8410-2 ####[facility] LABCLIA [id number] [place] [address] [place] [facility] [place] WBC (Bld) [#/Vol] 4.59 10*3/uL Normal 3.70-11.00 [facility] Comment on above: Order Comment: Speci men Type: BLOOD SPECIMENOrdering Facility: [facility] Address: [address] [place] [address] Performed By: #### 5 8410-2 ####[facility]CL[facility] [id number] [address] [place] CNOVon 03-07-2023 CNOV Office Visit (CARDMN ) -- SIMIN BALES ([id number]) 1995 F Date Time Provider Department 03/07/23 12:45 PM AJ SULLIVAN During your visit today, we recorded the following information about you: Pulse Blood pressure Weight Height 57/minute 108/74 56.2 kg 1.689 m Aj Sullivan MD 03/07/2023 1:29 PM Signed [facility] Department of Cardiovascular Medicine SECTION OF CARDIAC PACING and ELECTROPHYSIOLOGY OUTPATIENT VISIT DATE March 07, 2023 OUTPATIENT VISIT TYPE ESTABLISHED PRIMARY CARE PHYSICIAN: Jenn Handley, [address] [place] [address] CHIEF COMPLAINT: PVCs HISTORY OF PRESENT ILLNESS/NURSING INTAKE NOTE: Ms. Bales is a 27 year old female who presents today for follow-up visit. She is scheduled for redo PVC ablation tomorrow. She was last seen in office 12/01/[address] Valladares. She has a history of PVCs s/p ablation 03/2020 ([facility]). She reports daily palpitations, lightheadedness, chest pain, [...] (premature ventricular contractions) PVC ablation in 03/2020 [facility] with no improvement in palpitations and near syncopal events. She has had a normal Echo (2019) and normal cardiac MRI (2019). EF=60%. 08/14 48hr Holter w/ frequent PVCs (5.2% burden), which were asymptomatic. Sxs reported often during monitoring without arrhythmia. [facility]io at [facility] in 09/12 showing 4% PVC burden; 05/15 TTE: LV dilated, EF 68% Rh negative state in antepartum period 06/02/2021 Got RhIG at [facility] 04/20/21. Ab screen was neg just prior [...] data. Paceart/Inter (more content not included)... Normal [facility] ECG COMPLETEon 03-07-2023 ECG COMPLETE Ventricular Rate : 5 7 BPM Atrial Rate : 57 BPM P-R Interval : 116 ms QRS Duration : 92 ms Q-T Interval : 432 ms QTC Calculation(Bazett) : 420 ms Calculated P Strawn : 22 degrees Calculated R Strawn : 62 degrees Calculated T Strawn : 54 degrees SINUS BRADYCARDIA RSR' PATTERN IN V1 SUGGESTS INCOMPLETE RIGHT BUNDLE BRANCH BLOCK BORDERLINE ECG Confirmed by PENNY VENTURA MD ([id number]) on 03/07/2023 7:34:32 PM NAME : SIMIN BALES PID : [id number] : 1995 Gender : Female Race : ORD : [id number] Procedure Date : Mar 07 2023 12:10:15 Edit Date : Mar 07 2023 19:34:34 Diagnosis: SINUS BRADYCARDIA RSR' PATTERN IN V1 SUGGESTS INCOMPLETE RIGHT BUNDLE BRANCH BLOCK BORDERLINE ECG Confirmed by PENNY VENTURA MD ([id number]) on 03/07/2023 7:34:32 PM Test Reason : Location : 314 : [place] [address] Overread By : PENNY VENTURA MD Edited By : PENNY VENTURA MD Referred By : DUNCAN VALLADARES Acquired by : GADIEL WHALEY Normal [facility] TYPE AND SCREEN,30 DAYon ABO O Normal [facility] Comment on above: Order Comment: Speci men Type: BLOOD SPECIMENOrdering Facility: [facility] Address: [address] [place] [address] Performed By: #### T SCR30 ####[facility] [id number] [facility] [id number] [place] [address] OF [facility] HISTORICAL AB SCR STATUS Negative Normal [facility] Comment on above: Order Comment: Speci men Type: BLOOD SPECIMENOrdering Facility: [facility] Address: [address] [address] Performed By: #### T SCR30 ####[facility]ANKCL[facility] [id number] [address] [place] Rh Nom (Bld) Negative Normal [facility] Comment on above: Order Comment: Speci men Type: BLOOD SPECIMENOrdering Facility: [facility] Address: [address] [address] Performed By: #### T SCR30 ####[facility] BANKCLIA [id number] [address] [place] Amphetamine Screen Ql (U)Ord ered By: Michael Villagran on 01-29-2023 Amphetamines Ql (U) Negative Negative [facility] Barbiturates [Presence] in U rine by Screen methodOrdered By: Michael Villagran on 01-29-2023 Barbiturates Screen Ql (U) Negative Negative [facility] Benzodiazepines Screen Ql (U )Ordered By: Michael Villagran on 01-29-2023 Benzodiazepines Ql (U) Negative Negative [facility] Benzoylecgonine [Presence] i n Urine by Screen methodOrdered By: Michael Villagran on 01-29-2023 Benzoylecgonine Screen Ql (U) Negative Negative [facility] Cannabinoids [Presence] in U rine by Screen methodOrdered By: Michael Villagran on 01-29-2023 Cannabinoids Screen Ql (U) Positive Negative [facility] Comment on above: These are unconfirme d results and should not be used for legal purposes. Drug Cut-Off Concentration: AMPH 1000 ng/mL PAYAM 200 ng/mL MARISELA 200 ng/mL COCM 300 ng/mL OP 300 ng/mL PCP 25 ng/mL THC 20 ng/mL Drug Screen,Urineon 01-30-20 23 Amphetamine Screen,Urine Negative Normal Negative [facility] Comment on above: Performed By: #### U RDS #### [facility] [address] [place] [address] [place] Barbiturate Screen,Urine Negative Normal Negative [facility] Comment on above: Performed By: #### U RDS #### [place] [address] [place] Benzodiazepines Screen,Urine Negative Normal Negative [facility] Comment on above: Performed By: #### U RDS #### [place] [address] [place] Cannabinoid Screen,Urine Positive High Negative [facility] Comment on above: Result Comment: Thes e are unconfirmed results and should not be used for legal purposes. Drug Cut-Off Concentration: AMPH 1000 ng/mL PAYAM 200 ng/mL MARISELA 200 ng/mL COCM 300 ng/mL OP 300 ng/mL PCP 25 ng/mL THC 20 ng/mL PERFORMED BY: [place] [address] PATHOLOGIST BUSINESS CONTINUITY MANAGER KEANU JULIO M.D. Performed By: #### U RDS #### [place] [address] [place] Cocaine Screen,Urine Negative Normal Negative [facility] Comment on above: Performed By: #### U RDS #### [place] [address] [place] Opiate Screen,Urine Negative Normal Negative [facility] Comment on above: Performed By: #### U RDS #### [place] [address] [place] Phencyclidine Screen,Urine Negative Normal Negative [facility] Comment on above: Performed By: #### U RDS #### [place] [address] [place] ECG 12 lead ECGon 01-29-2023 ECG 12 lead ECG [facility] [place] [address] [place] [address] Electrocardiograph Report Signed Patient: Simin Bales MR#: [id number] : 1995 Acct:[id number] Age/Sex: 27 / F ADM Date: 01/29/23 Loc: [place] Room: Type: [facility] Attending Dr: Marcos Mann MD Ordering Provider: Michael Villagran DO Date [...] in Anterior leads Confirmed by KARIN WHITNEY [facility], TINA ([id number]) on 01/29/2023 12:57:34 PM Referred By: Electronically Signed By:TINA FRAZIER MD [facility] Transcribed By: MUS Signed By Tina Frazier MD, FACC 01/29/23 1257 Normal [facility] HCG ( test) IA.tera d Ql (U)Ordered By: Tony Guerra on 01-29-2023 HCG ( test) Ql (U) Negative [facility] HCG,Urineon 01-29-2023 Beta HCG ( test) Ql (U) Negative Normal [facility] Comment on above: Result Comment: PERF ORMED BY: [place] [address] PATHOLOGIST BUSINESS CONTINUITY MANAGER KEANU JULIO M.D. Performed By: #### U HCG #### [address] 01-29-2023 L ------ Specimen: [id number] Received: 01/29/23 Status: LO Prieto Num: [id number] Spec Type: Surgical Subm Dr: MARCOS MANN MD Tissues: A Fallopian Tube - Sterilization (BILATERAL FT) Procedures: HE, Gross/Micro L2 Age/ Patient Sex Location Account Attending Physician Simin Bales / [place] [id number] MARCOS MANN MD SPEC NUM: [id number] RECD: 01/29/23 STATUS: LO LIZZETTE NUM: [id number] [place]: 01/29/23- [facility] DR: MARCOS MANN MD ENTERED: 01/29/[address] [facility] [address]: SPEC TYPE: Surgical DEPT: S ORDERED: HE3, Gross/Micro L2 ORDERED: , Gross/Micro L2 Pathological Diagnosis Bilateral fallopian tubes, [...] has a pinpoint lumen on cut section. [employer] Teacher sections are submitted in 3 cassettes as follows: A1 - First fimbriated fallopian tube A2 - Second fimbriated fallopian tube A3 - Detached tubular tissue and detached soft tissues in their entirety Specimen: [id number] Received: 01/29/23 Status: LO Dowrhonda Num: [id number] Spec Type: Surgical Subm Dr: MARCOS MANN MD Tissues: A Fallopian Tube - Sterilization (BILATERAL FT) Procedures: HE/Sejal Rod/Maria Alejandra L2 Patient: Simin Bales [id number] (Continued) Specimen: [id number] Received: 01/29/23 (Continued) Signed (signature on file) Jadiel Diaz MD 01/30/23 1635 Specimen: [id number] Received: 01/29/23 Status: LO Lizzette Num: [id number] Spec Type: Surgical Subm Dr: MARCOS MANN MD Tissues: A Fallopian Tube - Sterilization (BILATERAL FT) Procedures: HE/3, Gross/Micro L2 Patient: Simin Bales [id number] (Continued) Specimen: [id number] Received: 01/29/23 (Continued) Microscopic Description Three H E slides reviewed. The microscopic examination confirms the diagnosis. CPT Codes 34417 Specimen: [id number] Received: 01/29/23 Status: LO Dowrhonda Num: [id number] Spec Type: Surgical Subm Dr: MARCOS MANN MD Tissues: A Fallopian Tube - Sterilization (BILATERAL FT) Procedures: Sejal COMER/Maria Alejandra L2 Patient: Simin Bales [id number] (Continued) Signed (signature on file) Jadiel Diaz MD 01/30/23 [facility] Opiates [Presence] in Urine by Screen methodOrdered By: Michael Villagran on 01-29-2023 Opiates Screen Ql (U) Negative Negative [facility] Phencyclidine Screen Ql (U)O rdered By: Michael Villagran on 01-29-2023 Phencyclidine Ql (U) Negative Negative [facility] Activated partial thrombopla stin time (aPTT) in platelet poor plasma by coagulation aOrdered By: PROVIDER TEMP on 01-08-2023 aPTT Coag (PPP) [Time] 30.4 s 25.1-36.5 [facility] Alanine aminotransferase [En zymatic activity/volume] in Serum or PlasmaOrdered By: PROVIDER TEMP on 01-08-2023 ALT [Catalytic activity/Vol] 12 U/L 7-52 [facility] Albumin [Mass/volume] in Ser um or Plasma by Bromocresol green (BCG) dye binding methoOrdered By: PROVIDER TEMP on 01-08-2023 Albumin BCG dye [Mass/Vol] 4.5 g/dL 3.5-5.7 [facility] Alkaline phosphatase [Enzyma tic activity/volume] in Serum or PlasmaOrdered By: PROVIDER TEMP on 01-08-2023 ALP [Catalytic activity/Vol] 43 U/L 34-104 [facility] Aspartate aminotransferase [ Enzymatic activity/volume] in Serum or PlasmaOrdered By: PROVIDER TEMP on 01-08-2023 AST [Catalytic activity/Vol] 15 U/L 13-39 [facility] Automated erythrocytes count in urine sediment (number/area)Ordered By: Reta Alva on 01-08-2023 RBC Auto (Urine sed) [#/Area] 1-2 [HPF] 0-4 [facility] Automated leukocytes count i n urine sediment (number/area)Ordered By: Reta Alva on 01-08-2023 WBC Auto (Urine sed) [#/Area] 3-4 [HPF] 0-4 [facility] Basophils Auto (Bld) [#/Vol] Ordered By: PROVIDER TEMP on 01-08-2023 Basophils (Bld) [#/Vol] 0.0 10*3/uL 0.0-0.2 [facility] Basophils/100 WBC Auto (Bld) Ordered By: PROVIDER TEMP on 01-08-2023 Basophils/100 WBC (Bld) 0.7 % . [facility] Bilirubin Test strip Ql (U)O rdered By: Reta Alva on 01-08-2023 Bilirubin Ql (U) Negative Negative [facility] Bilirubin.total [Mass/volume ] in Serum or PlasmaOrdered By: PROVIDER TEMP on 01-08-2023 Bilirubin [Mass/Vol] 0.7 mg/dL 0.3-1.0 [facility] CT abdomen pelvis w conon CT abdomen pelvis w con [facility] [place] [address] [place] [address] CT Scan Report Signed Patient: Simin Bales MR#: [id number] : 1995 Acct:[id number] Age/Sex: 27 / F ADM Date: 01/08/23 Loc: ER Room: Type: [facility] ER Attending Dr: Copies to: Reta [...] seen. Impression dictated by: Ugo Roque Jr., Yola01/08/2023 7:49 PM Dictation Location: [place] [address] Transcribed By: STACY 01/08/231948 Dictated By: Ugo Roque Jr, DO 01/08/231944 Signed By: 01/08/231948 Normal [facility] Calcium [Mass/volume] in Ser um or PlasmaOrdered By: PROVIDER TEMP on 01-08-2023 Calcium [Mass/Vol] 9.1 mg/dL 8.6-10.3 [facility] Carbon dioxide, total [Moles /volume] in Serum or PlasmaOrdered By: PROVIDER TEMP on 01-08-2023 CO2 [Moles/Vol] 31.1 mmol/L 21.0-31.0 [facility] Chlamydia/GC Amplificationon 01-08-2023 Chlamydia Trachomotis, TAVON Normal . [facility] Comment on above: Order Comment: SOURC E OF SPECIMEN: Genital Result Comment: Test not performed. The required specimen for the test ordered was not received. received viral tp contacted your facility on 01-10-2023 Performed By: #### U RDS #### [facility] [address] Neisseria Gonorrhoeae, TAVON Normal . [facility] Comment on above: Order Comment: SOURC E OF SPECIMEN: Genital Result Comment: Test not performed PERFORMED BY: [place] [address] PATHOLOGIST BUSINESS CONTINUITY MANAGER KEANU JULIO M.D. Performed By: #### U RDS #### [facility] [address] [place] [address] [place] Chloride [Moles/volume] in S katy or PlasmaOrdered By: PROVIDER TEMP on 01-08-2023 Chloride [Moles/Vol] 105 mmol/L 98-107 [facility] Choriogonadotropin.beta subu nit [Units/volume] in Serum or PlasmaOrdered By: Reta Alva on 01-08-2023 HCG.beta subunit Qn Negative [facility] Color Auto (U)Ordered By: Debbi Alva on 01-08-2023 Color (U) Yellow Yellow [facility] Complete Blood Count Auto Di ffon 01-08-2023 Basophils (Bld) [#/Vol] 0.0 10*3/uL Normal 0.0-0.2 [facility] Comment on above: Result Comment: PERF ORMED BY: [place] [address] PATHOLOGIST BUSINESS CONTINUITY MANAGER KEANU JULIO M.D. Performed By: #### P T, CBC, CMP, PTT #### [facility] [address] Basophils/100 WBC (Bld) 0.7 % Normal . [facility] Comment on above: Performed By: #### P T, CBC, CMP, PTT #### [facility] [address] [place] [address] Eosinophils (Bld) [#/Vol] 0.0 10*3/uL Normal 0.0-0.45 [facility] Comment on above: Performed By: #### P T, CBC, CMP, PTT #### [facility] [address] [place] [address] [place] Eosinophils/100 WBC (Bld) 0.6 % Normal . [facility] Comment on above: Performed By: #### P T, CBC, CMP, PTT #### [facility] [address] [place] [address] [place] Erythrocyte distribution width (RBC) [Ratio] 13.5 % Normal 11.9-15.3 [facility] Comment on above: Performed By: #### P T, CBC, CMP, PTT #### [facility] [address] [place] [address] [place] Hematocrit (Bld) [Volume fraction] 40.9 % Normal 34.0-46.4 [facility] Comment on above: Performed By: #### P T, CBC, CMP, PTT #### [facility] [address] [place] [address] [place] Hemoglobin (Bld) [Mass/Vol] 13.5 g/dL Normal 11.8-15.4 [facility] Comment on above: Performed By: #### P T, CBC, CMP, PTT #### [address] Lymphocytes (Bld) [#/Vol] 1.1 10*3/uL Normal 1.00-4.8 [facility] Comment on above: Performed By: #### P T, CBC, CMP, PTT #### [address] Lymphocytes/100 WBC (Bld) 16.1 % Normal . [facility] Comment on above: Performed By: #### P T, CBC, CMP, PTT #### [address] MCH (RBC) [Entitic mass] 28.7 pg Normal 24.7-34.3 [facility] Comment on above: Performed By: #### P T, CBC, CMP, PTT #### [address] MCV (RBC) [Entitic vol] 86.7 fL Normal 80-100 [facility] Comment on above: Performed By: #### P T, CBC, CMP, PTT #### [address] Mean Corpuscular HGB Conc 33.1 g/dL Normal 32.0-35.0 [facility] Comment on above: Performed By: #### P T, CBC, CMP, PTT #### [address] Monocytes (Bld) [#/Vol] 0.7 10*3/uL Normal 0.0-0.8 [facility] Comment on above: Performed By: #### P T, CBC, CMP, PTT #### [address] Monocytes/100 WBC (Bld) 15.80 % Normal 0.00-20.00 [facility] Comment on above: Performed By: #### P T, CBC, CMP, PTT #### [address] [place] [address] [place] Monocytes/100 WBC (Bld) 9.9 % Normal . [facility] Comment on above: Performed By: #### P T, CBC, CMP, PTT #### [facility] [address] Neutrophils (Bld) [#/Vol] 4.9 10*3/uL Normal 1.8-7.7 [facility] Comment on above: Performed By: #### P T, CBC, CMP, PTT #### [facility] [address] Neutrophils/100 WBC (Bld) 72.7 % Normal . [facility] Comment on above: Performed By: #### P T, CBC, CMP, PTT #### [address] NRBC% 0.1 /100{WBC} Normal 0-0.5 [facility] Comment on above: Performed By: #### P T, CBC, CMP, PTT #### [facility] [address] [place] [address] Platelet mean volume (Bld) [Entitic vol] 7.1 fL Normal 6.3-10.7 [facility] Comment on above: Performed By: #### P T, CBC, CMP, PTT #### [place] [address] [place] Platelets (Bld) [#/Vol] 283 10*3/uL Normal 150-450 [facility] Comment on above: Performed By: #### P T, CBC, CMP, PTT #### [place] [address] [place] RBC (Bld) [#/Vol] 4.71 10*6/uL Normal 3.60-5.[address] [facility] Comment on above: Performed By: #### P T, CBC, CMP, PTT #### [place] [address] [place] WBC (Bld) [#/Vol] 6.7 10*3/uL Normal 3.8-11.6 [facility] Comment on above: Performed By: #### P T, CBC, CMP, PTT #### [facility] [address] Comprehensive Metabolic Pane parul 01-08-2023 Albumin [Mass/Vol] 4.5 g/dL Normal 3.5-5.7 [facility] Comment on above: Performed By: #### P T, CBC, CMP, PTT #### [facility] [address] Albumin/Globulin [Mass ratio] 1.7 {ratio} Normal [facility] Comment on above: Performed By: #### P T, CBC, CMP, PTT #### [facility] [address] [place] [address] ALP [Catalytic activity/Vol] 43 U/L Normal 34-104 [facility] Comment on above: Performed By: #### P T, CBC, CMP, PTT #### [facility] [address] [place] [address] ALT [Catalytic activity/Vol] 12 U/L Normal 7-52 [facility] Comment on above: Performed By: #### P T, CBC, CMP, PTT #### [facility] [address] [place] [address] Anion gap [Moles/Vol] 8.7 mmol/L Normal 6.0-15.0 [facility] Comment on above: Performed By: #### P T, CBC, CMP, PTT #### [facility] [address] [place] [address] AST [Catalytic activity/Vol] 15 U/L Normal 13-39 [facility] Comment on above: Performed By: #### P T, CBC, CMP, PTT #### [facility] [address] [place] [address] Bilirubin [Mass/Vol] 0.7 mg/dL Normal 0.3-1.0 [facility] Comment on above: Performed By: #### P T, CBC, CMP, PTT #### [facility] [address] [place] [address] Calcium [Mass/Vol] 9.1 mg/dL Normal 8.6-10.3 [facility] Comment on above: Performed By: #### P T, CBC, CMP, PTT #### [address] Chloride [Moles/Vol] 105 mmol/L Normal 98-107 [facility] Comment on above: Performed By: #### P T, CBC, CMP, PTT #### [address] CO2 [Moles/Vol] 31.1 mmol/L High 21.0-31.0 [facility] Comment on above: Performed By: #### P T, CBC, CMP, PTT #### [address] Creatinine [Mass/Vol] 0.74 mg/dL Normal 0.60-1.20 [facility] Comment on above: Performed By: #### P T, CBC, CMP, PTT #### [address] Creatinine Clr Calc Pharmacy 100.05 Normal [facility] Comment on above: Result Comment: PERF ORMED BY: [place] [address] PATHOLOGIST BUSINESS CONTINUITY MANAGER KEANU JULIO M.D. Performed By: #### P T, CBC, CMP, PTT #### [address] GFR/1.73 sq M.predicted MDRD (S/P/Bld) [Vol rate/Area] mL/min/{1.73_m2} Normal [facility] Comment on above: Performed By: #### P T, CBC, CMP, PTT #### [address] Globulin (S) [Mass/Vol] 2.6 g/dL Normal [facility] Comment on above: Performed By: #### P T, CBC, CMP, PTT #### [address] Glucose [Mass/Vol] 80 mg/dL Normal 70-100 [facility] Comment on above: Result Comment: [place] Glucose Reference Range is dependent on time and content of last meal. Glucose of more than 200 mg/dL in a nonstressed, ambulatory subject supports the diagnosis of Diabetes Mellitus. ADA recommended reference range Performed By: #### P T, CBC, CMP, PTT #### [facility] [address] Potassium [Moles/Vol] 3.8 mmol/L Normal 3.5-5.1 [facility] Comment on above: Performed By: #### P T, CBC, CMP, PTT #### [facility] [address] [place] [address] [place] Protein [Mass/Vol] 7.1 g/dL Normal 6.4-8.9 [facility] Comment on above: Performed By: #### P T, CBC, CMP, PTT #### [facility] [address] [place] [address] [place] Sodium [Moles/Vol] 141 mmol/L Normal 136-145 [facility] Comment on above: Performed By: #### P T, CBC, CMP, PTT #### [facility] [address] [place] [address] [place] Urea nitrogen [Mass/Vol] 8 mg/dL Normal 7-25 [facility] Comment on above: Performed By: #### P T, CBC, CMP, PTT #### [facility] [address] [place] [address] [place] Creatinine [Mass/volume] in Serum or PlasmaOrdered By: PROVIDER TEMP on 01-08-2023 Creatinine [Mass/Vol] 0.74 mg/dL 0.60-1.20 [facility] Dipstick and Microscopicon 0 01-08-2023 Appearance (U) Clear Normal Clear [facility] Comment on above: Order Comment: Name Collection Type:: Clean-Voided Midstream Performed By: #### A DDONUAPLUS #### [place] [address] [place] Bacteria,Urine None Seen Normal None Seen [facility] Comment on above: Order Comment: Name Collection Type:: Clean-Voided Midstream Performed By: #### A DDONUAPLUS #### [facility] [address] [place] [address] [place] Bilirubin,Urine Negative Normal Negative [facility] Comment on above: Order Comment: Name Collection Type:: Clean-Voided Midstream Performed By: #### A DDONUAPLUS #### [facility] [address] [place] [address] [place] Color (U) Yellow Normal Yellow [facility] Comment on above: Order Comment: Name Collection Type:: Clean-Voided Midstream Performed By: #### A DDONUAPLUS #### [place] [address] [place] Glucose Ql (U) Normal Normal Normal [facility] Comment on above: Order Comment: Name Collection Type:: Clean-Voided Midstream Performed By: #### A DDONUAPLUS #### [facility] [address] [place] [address] [place] Hyaline Casts,Urine None Seen Normal 0-[address] [facility] Comment on above: Order Comment: Name Collection Type:: Clean-Voided Midstream Result Comment: PERF ORMED BY: [place] [address] PATHOLOGIST BUSINESS CONTINUITY MANAGER KEANU JULIO M.D. Performed By: #### A DDONUAPLUS #### [facility] [address] [place] [address] [place] Ketones Ql (U) Negative Normal Negative [facility] Comment on above: Order Comment: Name Collection Type:: Clean-Voided Midstream Performed By: #### A DDONUAPLUS #### [facility] [address] [place] [address] [place] Leukocyte esterase Test strip Ql (U) 1+ High Negative [facility] Comment on above: Order Comment: Name Collection Type:: Clean-Voided Midstream Performed By: #### A DDONUAPLUS #### [facility] [address] [place] [address] [place] Nitrite,Urine Negative Normal Negative [facility] Comment on above: Order Comment: Name Collection Type:: Clean-Voided Midstream Performed By: #### A DDONUAPLUS #### [address] Occult Blood,Urine 1+ High Negative [facility] Comment on above: Order Comment: Name Collection Type:: Clean-Voided Midstream Result Comment: PERF ORMED BY: [place] [address] PATHOLOGIST BUSINESS CONTINUITY MANAGER KEANU JULIO M.D. Performed By: #### A DDONUAPLUS #### [address] pH (U) 8.5 [pH] Normal 5.0-9.0 [facility] Comment on above: Order Comment: Name Collection Type:: Clean-Voided Midstream Performed By: #### A DDONUAPLUS #### [place] [address] [place] Protein,Urine Negative Normal Negative [facility] Comment on above: Order Comment: Name Collection Type:: Clean-Voided Midstream Performed By: #### A DDONUAPLUS #### [address] RBC,Urine 1-2 Normal 0-4 [facility] Comment on above: Order Comment: Name Collection Type:: Clean-Voided Midstream Performed By: #### A DDONUAPLUS #### [place] [address] [place] Specificy Cameron,Urine 1.009 Normal 1.00 1-1.03 0 [facility] Comment on above: Order Comment: Name Collection Type:: Clean-Voided Midstream Performed By: #### A DDONUAPLUS #### [place] [address] [place] Squamous Epithelial Cell,Urine 3-4 High 0-2 [facility] Comment on above: Order Comment: Name Collection Type:: Clean-Voided Midstream Performed By: #### A DDONUAPLUS #### [address] Urobilinogen,Urine Normal Normal Normal [facility] Comment on above: Order Comment: Name Collection Type:: Clean-Voided Midstream Performed By: #### A DDONUAPLUS #### [facility] [address] [place] [address] WBC,Urine 3-4 Normal 0-4 [facility] Comment on above: Order Comment: Name Collection Type:: Clean-Voided Midstream Performed By: #### A DDONUAPLUS #### [facility] [address] [place] [address] Eosinophils Auto (Bld) [#/Vo l]Ordered By: PROVIDER TEMP on 01-08-2023 Eosinophils (Bld) [#/Vol] 0.0 10*3/uL 0.0-0.45 [facility] Eosinophils/100 WBC Auto (Bl d)Ordered By: PROVIDER TEMP on 01-08-2023 Eosinophils/100 WBC (Bld) 0.6 % . [facility] Erythrocyte distribution wid th Auto (RBC) [Ratio]Ordered By: PROVIDER TEMP on 01-08-2023 Erythrocyte distribution width (RBC) [Ratio] 13.5 % 11.9-15.3 [facility] Fungal Smearon 01-08-2023 Fungal Smear Fungus Smear Results No Yeast Like Elements Seen -- Trichomonas Screen No Trichomonas Seen Trich Reference Reference range = None Seen PERFORMED BY: [place] [address] PATHOLOGIST BUSINESS CONTINUITY MANAGER KEANU JULIO M.D. Normal [facility] Comment on above: Performed By: #### U RDS #### [facility] [address] [place] [address] Fungal cultureOrdered By: Debbi Alva on 01-08-2023 Fungus identified Cx Nom (Unsp spec) [facility] Genital Cultureon 01-08-2023 Genital Culture Genital Results Moderate Normal Urogenital Dora 2 Days No More GC Specimen not tested for Neisseria gonorrheae PERFORMED BY: [place] [address] PATHOLOGIST BUSINESS CONTINUITY MANAGER KEANU JULIO M.D. Normal [facility] Comment on above: Performed By: #### U RDS #### [facility] [address] [place] [address] Genital specimen bacteria id entification by aerobic cultureOrdered By: Reta Alva on 01-08-2023 Bacteria identified Aer cx Nom (Genital specimen) [facility] Globulin Calc (S) [Mass/Vol] Ordered By: PROVIDER TEMP on 01-08-2023 Globulin (S) [Mass/Vol] 2.6 g/dL [facility] Glucose [Mass/volume] in Ser um or PlasmaOrdered By: PROVIDER TEMP on 01-08-2023 Glucose [Mass/Vol] 80 mg/dL 70-100 [facility] Comment on above: ADA recommended refe rence rangeRandom Glucose Reference Range is dependent on time and content of last meal. Glucose of more than 200 mg/dL in a nonstressed, ambulatory subject supports the diagnosis of Diabetes Mellitus. HCG,Qualitative Serumon 12-23 HCG,Qualitative Serum Negative Normal [facility] Comment on above: Result Comment: PERF ORMED BY: [place] [address] PATHOLOGIST BUSINESS CONTINUITY MANAGER KEANU JULIO M.D. Performed By: #### U RDS #### [facility] [address] [place], [place] [id number] [facility] Hematocrit Auto (Bld) [Volum e fraction]Ordered By: PROVIDER TEMP on 01-08-2023 Hematocrit (Bld) [Volume fraction] 40.9 % 34.0-46.4 [facility] Hemoglobin [Mass/volume] in BloodOrdered By: PROVIDER TEMP on 01-08-2023 Hemoglobin (Bld) [Mass/Vol] 13.5 g/dL 11.8-15.4 [facility] Ketones Auto test strip (U) [Mass/Vol]Ordered By: Reta Alva on 01-08-2023 Ketones (U) [Mass/Vol] Negative Negative [facility] Laboratory - CoagulationOrde red By: PROVIDER TEMP on 01-08-2023 PT Coag (PPP) [Time] 11.9 s 9.0-12.9 [facility] Laboratory - Microbiology an d Antimicrobial susceptibilityOrdered By: Reta Alva on 01-08-2023 C. trachomatis DNA TAVON+probe Ql (Unsp spec) See comment . [facility] Comment on above: Test not performed. The required specimen for the testordered was not received.received viral tpcontacted your facility on 01-10-2023 N. gonorrhoeae DNA TAVON+probe Ql (Unsp spec) See comment . [facility] Comment on above: Test not performed Laboratory - UrinalysisOrder ed By: Reta Alva on 01-08-2023 Hyaline casts LM Ql (Urine sed) None seen [LPF] 0-8 [facility] Leukocytes [#/volume] correc do for nucleated erythrocytes in Blood by Automated counOrdered By: PROVIDER TEMP on 01-08-2023 WBC corrected for nucl RBC Auto (Bld) [#/Vol] 6.7 10*3/uL 3.8-11.6 [facility] Lymphocytes Auto (Bld) [#/Vo l]Ordered By: PROVIDER TEMP on 01-08-2023 Lymphocytes (Bld) [#/Vol] 1.1 10*3/uL 1.00-4.8 [facility] Lymphocytes/100 WBC Auto (Bl d)Ordered By: PROVIDER TEMP on 01-08-2023 Lymphocytes/100 WBC (Bld) 16.1 % . [facility] MCH Auto (RBC) [Entitic mass ]Ordered By: PROVIDER TEMP on 01-08-2023 MCH (RBC) [Entitic mass] 28.7 pg 24.7-34.3 [facility] MCHC Auto (RBC) [Mass/Vol]Or dered By: PROVIDER TEMP on 01-08-2023 MCHC (RBC) [Mass/Vol] 33.1 g/dL 32.0-35.0 [facility] MCV Auto (RBC) [Entitic vol] Ordered By: PROVIDER TEMP on 01-08-2023 MCV (RBC) [Entitic vol] 86.7 fL 80-100 F [facility] Monocyte distribution width [Entitic volume] in Blood by AutomatedOrdered By: PROVIDER TEMP on 01-08-2023 Monocyte distribution width Auto (Bld) [Entitic vol] 15.80 % 0.00-20.00 [facility] Monocytes Auto (Bld) [#/Vol] Ordered By: PROVIDER TEMP on 01-08-2023 Monocytes (Bld) [#/Vol] 0.7 10*3/uL 0.0-0.8 [facility] Monocytes/100 WBC Auto (Bld) Ordered By: PROVIDER TEMP on 01-08-2023 Monocytes/100 WBC (Bld) 9.9 % . F [facility] Neutrophils Auto (Bld) [#/Vo l]Ordered By: PROVIDER TEMP on 01-08-2023 Neutrophils (Bld) [#/Vol] 4.9 10*3/uL 1.8-7.7 [facility] Neutrophils/100 WBC Auto (Bl d)Ordered By: PROVIDER TEMP on 01-08-2023 Neutrophils/100 WBC (Bld) 72.7 % . [facility] Nitrite Test strip Ql (U)Ord ered By: Reta Alva on 01-08-2023 Nitrite Ql (U) Negative Negative [facility] No Panel InformationOrdered By: PROVIDER TEMP on 01-08-2023 Estimated GFR (CKD-EPI) > 60.0 mL/Min [facility] Creatinine Clearance (Chem 100.05 [facility] Nucleated erythrocytes [Pres ence] in Blood by Automated countOrdered By: PROVIDER TEMP on 01-08-2023 Nucleated RBC Auto Ql (Bld) 0.1 /100{WBC} 0-0.5 [facility] Partial Thromboplastin Timeo n 01-08-2023 aPTT Coag (Bld) [Time] 30.4 s Normal 25.1-36.5 [facility] Comment on above: Result Comment: PERF ORMED BY: [facility] [address] [place] [address] PATHOLOGIST BUSINESS CONTINUITY MANAGER KEANU JULIO M.D. Performed By: #### P T, CBC, CMP, PTT #### [facility] [address] [place] [id number] [facility] Platelet mean volume Auto (B ld) [Entitic vol]Ordered By: PROVIDER TEMP on 01-08-2023 Platelet mean volume (Bld) [Entitic vol] 7.1 fL 6.3-10.7 [facility] Platelet poor plasma interna tional normalized ratio (INR) by coagulation assay (relatOrdered By: PROVIDER TEMP on 01-08-2023 INR Coag (PPP) [Relative time] 1.0 {INR} [facility] Comment on above: INR Therapeutic Rang e [...] 01-08-2023 Platelets (Bld) [#/Vol] 283 10*3/uL 150-450 [facility] Potassium [Moles/volume] in Serum or PlasmaOrdered By: PROVIDER TEMP on 01-08-2023 Potassium [Moles/Vol] 3.8 mmol/L 3.5-5.1 [facility] Protein Auto test strip (U) [Mass/Vol]Ordered By: Reta Alva on 01-08-2023 Protein (U) [Mass/Vol] Negative Negative [facility] Protein [Mass/volume] in Ser um or PlasmaOrdered By: PROVIDER TEMP on 01-08-2023 Protein [Mass/Vol] 7.1 g/dL 6.4-8.9 [facility] Prothrombin Time INRon 01-08 INR Coag (PPP) [Relative time] 1.0 {INR} Normal [facility] Comment on above: Result Comment: INR Therapeutic [...] #### P T, CBC, CMP, PTT #### [facility] [address] PT Coag (PPP) [Time] 11.9 s Normal 9.0-12.9 [facility] Comment on above: Performed By: #### P T, CBC, CMP, PTT #### [facility] [address] RBC Auto (Bld) [#/Vol]Ordere d By: PROVIDER TEMP on 01-08-2023 RBC (Bld) [#/Vol] 4.71 10*6/uL 3.60-5.[address] [facility] Serum or plasma albumin/glob ulin mass ratioOrdered By: PROVIDER TEMP on 01-08-2023 Albumin/Globulin [Mass ratio] 1.7 {ratio} [facility] Serum or plasma anion gap de terminationOrdered By: PROVIDER TEMP on 01-08-2023 Anion gap [Moles/Vol] 8.7 mmol/L 6.0-15.0 [facility] Sodium [Moles/volume] in Ser um or PlasmaOrdered By: PROVIDER TEMP on 01-08-2023 Sodium [Moles/Vol] 141 mmol/L 136-145 [facility] Specific gravity Auto test s trip (U) [Rel density]Ordered By: Reta Alva on 01-08-2023 Specific gravity (U) [Rel density] 1.009 1.001-1.03 0 [facility] Squamous epithelial cells de tection in urine sediment by light microscopyOrdered By: Reta Alva on 01-08-2023 Epithelial cells.squamous LM Ql (Urine sed) 3-4 [HPF] 0-2 [facility] Trichomonas vaginalis detect ion by wet preparationOrdered By: Reta Alva on 01-08-2023 T. vaginalis Wet prep Ql (Unsp spec) [facility] US pelvic completeon 023 US pelvic complete [facility] [place] [address] [place] [address] Ultrasound Report Signed Patient: Simin Bales MR#: [id number] : 1995 Acct:[id number] Age/Sex: 27 / F ADM Date: 01/08/23 Loc: ER Room: Type: [facility] ER Attending Dr: Ordering Provider: Reta Alva MD Date of Service: 01/08/23 US/US transvaginal: Urogenital ([id number]) US/US pelvic complete: retained products Copies to: [...] seen. Impression dictated by: Ugo Roque Jr., CindyOTiffany01/08/2023 7:17 PM Dictation Location: [place] [address] Tech: Capri Nevaeh Transcribed By: STACY 01/08/231916 Dictated By: Ugo Roque Jr, DO 01/08/231913 Signed By: 01/08/231916 Normal [facility] Urea nitrogen [Mass/volume] in Serum or PlasmaOrdered By: PROVIDER TEMP on 01-08-2023 Urea nitrogen [Mass/Vol] 8 mg/dL 01-16 [facility] Urine bacteria detection by automated methodOrdered By: Reta Alva on 01-08-2023 Bacteria Auto Ql (U) None seen None Seen [facility] Urine clarity by refractomet ry automatedOrdered By: Reta Alva on 01-08-2023 Clarity Refractometry automated (U) Clear Clear [facility] Urine glucose measurement by automated test strip (mass/volume)Ordered By: Reta Alva on 01-08-2023 Glucose Auto test strip (U) [Mass/Vol] Normal mg/dL Normal [facility] Urine hemoglobin detection b y automated test stripOrdered By: Reta Alva on 01-08-2023 Hemoglobin Auto test strip Ql (U) 1+ Negative [facility] Urine leukocyte esterase det ection by automated test stripOrdered By: Reta Alva on 01-08-2023 Leukocyte esterase Auto test strip Ql (U) 1+ Negative [facility] Urobilinogen Auto test strip (U) [Mass/Vol]Ordered By: Reta Alva on 01-08-2023 Urobilinogen (U) [Mass/Vol] Normal mg/dL Normal [facility] WBC Auto (Bld) [#/Vol]Ordere d By: MARÍA ELENA OMER on 01-08-2023 WBC (Bld) [#/Vol] 6.7 10*3/uL 3.8-11.6 [facility] pH Auto test strip (U)Ordere d By: Reta Alva on 01-08-2023 pH (U) 8.5 [pH] 5.0-9.0 [facility] CNCOon 12-11-2022 CNCO Letter Text Normal [facility] CNPNon 12-08-2022 CNPN Telephone (EPSMN) -- SIMIN BALES ([id number]) 1995 F Date Time Provider Department 12/08/22 AJ SULLIVAN During your visit today, we recorded the following information about you: Shahrzad Chaparro RN 12/08/2022 3:51 PM Signed ----- Message from Aj Sullivan MD sent at 12/08/2022 12:25 PM EDT ----- EPS Lab Request: EPS Patient: Simin Bales Requested by Aj Sullivan MD Requesting Physician: Aj Sullivan MD Procedure Physician: Aj Sullivan MD Procedure Requested: Ventricular Arrhythmias CPT: 58736 Date of Last HANDP? 11/30/22 Indications / [...] Status:Closed by SHAHRZAD CHAPARRO RN on 12/08/22 [facility] CNOVon 12-01-2022 CNOV Office Visit (SYNCMN ) -- SIMIN BALES ([id number]) 1995 F Date Time Provider Department 12/01/22 1:45 PM DUNCAN VALLADARES SYNN During your visit today, we recorded the following information about you: Pulse Blood pressure Weight Height 52/minute 116/81 54.9 kg 1.689 m Duncan Vlaladares DO 12/01/2022 6:48 PM Signed [facility] Department of Cardiovascular Medicine SECTION OF CARDIAC PACING and ELECTROPHYSIOLOGY OUTPATIENT VISIT DATE December 01, 2022 OUTPATIENT VISIT TYPE ESTABLISHED PRIMARY CARE PHYSICIAN: Jenn Handley DO [address] [facility] [address] [place] [address] CHIEF COMPLAINT: dizziness HISTORY OF PRESENT ILLNESS: [...] her PCP. PAST CARDIAC HISTORY: PVC ablation OSH 2019 PAST MEDICAL HISTORY Diagnosis Date Abnormal Pap smear of cervix 12/12/2018 lsil with +hpv, colpo cin1, repeat pap 01/22/20 neg with neg hpv Chlamydia Mental disorder history of depression PVC's (premature ventricular contractions) PVC ablation in 03/2020 [facility] with no improvement in palpitations and near syncopal events. She has had a normal Echo (2019) and normal cardiac MRI (2019). EF=60%. 08/14 48hr Holter w/ frequent PVCs (5.2% burden), which were asymptomatic. Sxs reported often during monitoring without arrhythmia. Zio at [facility] in 09/12 showing 4% PVC burden; 05/15 TTE: LV dilated, EF 68% Rh negative state in antepartum period 06/02/2021 Got RhIG at [facility] 04/20/21. Ab screen was neg just prior [...] 8.00 P (more content not included)... Normal [facility] ECG COMPLETEon 12-01-2022 ECG COMPLETE Ventricular Rate : 5 2 BPM Atrial Rate : 52 BPM P-R Interval : 112 ms QRS Duration : 92 ms Q-T Interval : 442 ms QTC Calculation(Bazett) : 411 ms Calculated P Strawn : 26 degrees Calculated R Strawn : 59 degrees Calculated T Strawn : 37 degrees SINUS BRADYCARDIA OTHERWISE NORMAL ECG Confirmed by MD ANANDA, CHELE ([id number]) on 12/11/2022 6:24:40 PM NAME : SIMIN BALES PID : [id number] : 1995 Gender : Female Race : ORD : [id number] Procedure Date : Dec 01 2022 12:57:08 Edit Date : Dec 11 2022 18:24:46 Diagnosis: SINUS BRADYCARDIA OTHERWISE NORMAL ECG Confirmed by MD ANANDA, CHELE ([id number]) on 12/11/2022 6:24:40 PM Test Reason : Location : 314 : J14 [id number] Overread By : MD ANANDA,CHELE Edited By : MD MALAVE HEBA Referred By : DUNCAN VALLADARES Acquired by : HOLLAND COLÓN Normal [facility] Choriogonadotropin.beta subu nit [Units/volume] in Serum or PlasmaOrdered By: MARCOS MANN on 11-23-2022 HCG.beta subunit Qn 605.27 m[IU]/mL [facility] Comment on above: Approximate Approxim ate hCG Gestational Age Range (mIU/ml) (weeks)0.2-1 5-50 1-2 50-500 2-3 100-5,000 3-4 500-10,000 4-5 1,000-50,000 5-6 10,000-100,000 6-8 15,000-200,000 8-12 10,000-100,000 HCG,Quantitativeon 3 HCG,Quantitative 605.27 m[iU]/mL Normal [facility] Comment on above: Result Comment: Appr oximate Approximate hCG Gestational Age Range (mIU/ml) (weeks) 0.2-1 5-50 1-2 50-500 2-3 100-5,000 3-4 500-10,000 4-5 1,000-50,000 5-6 10,000-100,000 6-8 15,000-200,000 8-12 10,000-100,000 PERFORMED BY: [place] [address] PATHOLOGIST BUSINESS CONTINUITY MANAGER KEANU JULIO M.D. Performed By: #### U RDS #### [address] CHEMISTRYOrdered By: SYSTEM SYSTEM on 09-04-2022 Anion gap [Moles/Vol] 8 mmol/L Normal 6 - 16 mEq/L [facility] Remisol Calcium [Mass/Vol] 8.5 mg/dL Low 8.9 - 11. 1 mg/dL [facility] Chloride [Moles/Vol] 104 mmol/L Normal 101 - 1 11 mmol/L [facility] Remisol CO2 [Moles/Vol] 26 mmol/L Normal 21 - 31 mmol/L [facility] Remisol Creatinine [Mass/Vol] 0.7 mg/dL Normal 0.5 - 1.3 mg/dL [facility] Remisol GFR/1.73 sq M.predicted among blacks MDRD (S/P/Bld) [Vol rate/Area] mL/min/1.73 m2 Normal >=59mL/min /1.[address] [facility] Chem S GFR/1.73 sq M.predicted among non-blacks MDRD (S/P/Bld) [Vol rate/Area] mL/min/1.73 m2 Normal >=59mL/min /1.[address] [facility] Chem S Glucose [Mass/Vol] 100 mg/dL Normal [...] mg/mg Normal 10 - 20 [facility] HEMATOLOGYOrdered By: SYSTEM SYSTEM on 09-04-2022 Basophils/100 [...] 0.5 E9/L Normal 0.2 - 1.0 E9/L [facility]SS Neutrophils/100 WBC (Bld) 65.6 % Normal 36.0 - 75.0 % [facility] HemeAutoSS Neutrophils/Leukocytes Auto (Bld) [Pure # fraction] 3.7 E9/L Normal 2.0 - 7.5 E9/L [facility] HEMATOLOGYOrdered By: Amie Garcia on 09-04-2022 Erythrocyte distribution width (RBC) [Ratio] 13.2 % Normal 10.9 - 14.2 % [facility] Hematocrit (Bld) [Volume fraction] 38.3 % Normal 34.0 - 46.0 % [facility] Hemoglobin (Bld) [Mass/Vol] 12.7 g/dL Normal 12.0 - 16.0 gm/dL [facility] MCH (RBC) [Entitic mass] 28.6 pg Normal 27.0 - 34.0 pg [facility] MCHC (RBC) [Mass/Vol] 33.1 g/dL Normal 31.4 - 36.0 gm/dL [facility] MCV (RBC) [Entitic vol] 86.4 fL Normal 80.0 - 100.0 fL [facility] Platelet mean volume (Bld) [Entitic vol] 6.8 fL Normal 6.4 - 10.8 fL [facility] Platelets (Bld) [#/Vol] 275.0 E9/L Normal 150. 0 - 500.0 E9/L [facility] RBC (Bld) [#/Vol] 4.4 E12/L Normal 4.3 - 5.9 E12/L [facility] WBC corrected for nucl RBC Auto (Bld) [#/Vol] 5.7 E9/L Normal 4.0 - 11.0 E9/L [facility] SEROLOGYOrdered By: Ciara Cesar on 09-04-2022 Beta hCG Ql Negative (09/04/22 9:23 AM) Normal [facility] Man Sero BNPon 12-27-2021 Natriuretic peptide B (Bld) [Mass/Vol] 106.0 pg/mL Normal <=450.0 [facility] Comment on above: Performed By: #### H STROPN, BMP, BNP ####[facility] [address] [place], [place] [address]ReDr. Nelda Diaz CBC AUTO DIFFon 12-27-2021 BASO # 0.0 103/ul Normal 0.0-0.1 [facility] Comment on above: Performed By: #### C BC #### [facility] [address] [place] [address] [address] Nelda Diaz Basophils/100 WBC (Bld) 0.5 % Normal 0.2-2.0 [facility] Comment on above: Performed By: #### C BC #### [facility] [address] [place] [address] [address] Nelda Diaz EO # 0.1 103/ul Normal 0.0-0.7 [facility] Comment on above: Performed By: #### C BC #### [facility] [address] [place] [address] [address] Nelda Diaz Eosinophils/100 WBC (Bld) 2.1 % Normal 0.9-7.0 [facility] Comment on above: Performed By: #### C BC #### [facility] [address] [place] [address] [address] Nelda Diaz Erythrocyte distribution width (RBC) [Ratio] 13.2 % Normal 11.0-15.0 [facility] Comment on above: Performed By: #### C BC #### [facility] [address] [place] [address] [address] Nleda Diaz Hematocrit (Bld) [Volume fraction] 40.7 % Normal 36.0-48.0 [facility] Comment on above: Performed By: #### C BC #### [facility] [address] [place] [address] [address] Nelda Diaz Hemoglobin (Bld) [Mass/Vol] 13.1 g/dL Normal 12.0-16.0 [facility] Comment on above: Performed By: #### C BC #### [facility] [address] [place] [address] [address] Nelda Diaz IG # 0.01 10e3/ul Normal 0.00-0.03 [facility] Comment on above: Performed By: #### C BC #### [facility] [address] [place] [address] Dr. Nelda Diaz IG % 0.2 % Normal 0.0-0.5 [facility] Comment on above: Performed By: #### C BC #### [facility] [address] [place] [address] Dr. Nelda Diaz LYMPH # 1.9 103/ul Normal 1.2-3.8 [facility] Comment on above: Performed By: #### C BC #### [facility] [address] [place] [address] Dr. Nelda Diaz Lymphocytes/100 WBC (Bld) 32.3 % Normal 20.5-60.0 [facility] Comment on above: Performed By: #### C BC #### [facility] [address] [place] [address] Dr. Nelda Diaz MANUAL DIFF REQ NO Normal [facility] Comment on above: Performed By: #### C BC #### [facility] [address] [place] [address] Dr. Nelda Diaz MCH (RBC) [Entitic mass] 28.2 pg Normal 26.7-34.0 [facility] Comment on above: Performed By: #### C BC #### [facility] [address] [place] [address] Dr. Nelda Diaz MCHC (RBC) [Mass/Vol] 32.2 g/dL Normal 29.9-35.2 [facility] Comment on above: Performed By: #### C BC #### [facility] [address] [place] [address] Dr. Nelda Diaz MCV (RBC) [Entitic vol] 87.5 fL Normal 81.0-99.0 [facility] Comment on above: Performed By: #### C BC #### [facility] [address] [place] [address] Dr. Nelda Diaz MONO # 0.5 103/ul Normal 0.3-0.8 [facility] Comment on above: Performed By: #### C BC #### [facility] [address] [place] [address] [address] Nelda Diaz Monocytes/100 WBC (Bld) 8.4 % Normal 1.7-12.0 [facility] Comment on above: Performed By: #### C BC #### [facility] [address] [place] [address] [address] Nelda Diaz NEUT # 3.2 103/ul Normal 1.4-6.5 [facility] Comment on above: Performed By: #### C BC #### [facility] [address] [place] [address] Dr. Nelda Diaz Neutrophils/100 WBC (Bld) 56.5 % Normal 43.0-75.0 [facility] Comment on above: Performed By: #### C BC #### [facility] [address] [place] [address] Dr. Nelda Diaz Platelet mean volume (Bld) [Entitic vol] 9.1 fL Critically low 9.5-13.5 [facility] Comment on above: Performed By: #### C BC #### [facility] [address] [place] [address] Dr. Nelda Diaz PLT 308 103/ul Normal 150-450 [facility] Comment on above: Performed By: #### C BC #### [facility] [address] [place] [address] Dr. Nelda Diaz RBC 4.65 106/ul Normal 4.20-5.40 [facility] Comment on above: Performed By: #### C BC #### [facility] [address] [place] [address] Dr. Nelda Diaz WBC 5.7 103/ul Normal 4.0-11.0 [facility] Comment on above: Performed By: #### C BC #### [facility] [address] [place] [address] Dr. Nelda Diaz CTA CHEST WO W CONon 07-05-2 022 CTA CHEST WO W CON EXAMINATION: [...] by: ERNIE BURDEN Date: 2021-12-27 13:53 Normal [facility] PREG HCG QUALon 12-27-2021 , QUAL Negative Normal NEGATIVE [facility] Comment on above: Performed By: #### P REG #### [facility] [address] [place] [address] [address] Nelda Diaz PROF CHEM 8 (BAS METB)on Anion gap [Moles/Vol] 9.2 mmol/L Normal [facility] Comment on above: Performed By: #### H STROPN, BMP, BNP ####[facility] [address] [place] [address]Dr. Nelda Diaz Calcium [Mass/Vol] 8.7 mg/dL Normal 8.5-10.1 [facility] Comment on above: Performed By: #### H STROPN, BMP, BNP ####[facility] [address] [place] [address]Dr. Nelda Diaz Chloride [Moles/Vol] 107 mmol/L Normal 98-107 [facility] Comment on above: Performed By: #### H STROPN, BMP, BNP ####[facility] [address] [place] [address]Dr. Nelda Diaz CO2 [Moles/Vol] 27.8 mmol/L Normal 21.0-32.0 [facility] Comment on above: Performed By: #### H STROPN, BMP, BNP ####[facility] [address] [place] [address]Dr. Nelda Diaz Creatinine [Mass/Vol] 0.69 mg/dL Normal 0.55-1.02 [facility] Comment on above: Performed By: #### H STROPN, BMP, BNP ####[facility] [address] [place] [address]Dr. Nelda Diaz EGFR-AF TANZANIAN >60 Normal >=60 [facility] Comment on above: Performed By: #### H STROPN, BMP, BNP ####[facility] [address] [place], [place] [address]Dr. Nelda Diaz EGFR-NON AF TANZANIAN >60 Normal >=60 [facility] Comment on above: Performed By: #### H STROPN, BMP, BNP ####[facility] [address] [place], [place] [address]Dr. Nelda Diaz Glucose [Mass/Vol] 93 mg/dL Normal 74-106 [facility] Comment on above: Performed By: #### H STROPN, BMP, BNP ####[facility] [address] [place] [address]Dr. Nelda Diaz Potassium [Moles/Vol] 4.0 mmol/L Normal 3.5-5.1 [facility] Comment on above: Performed By: #### H STROPN, BMP, BNP ####[facility] [address] [place] [address]Dr. Nelda Diaz Sodium [Moles/Vol] 140 mmol/L Normal 136-145 [facility] Comment on above: Performed By: #### H STROPN, BMP, BNP ####[facility] [address] [place] [address]Dr. Nelda Diaz Urea nitrogen [Mass/Vol] 7.0 mg/dL Normal 7.0-18.0 [facility] Comment on above: Performed By: #### H STROPN, BMP, BNP ####[facility] [address] [place] [id number]. Nelda Diaz Urea nitrogen/Creatinine [Mass ratio] 10.1 mg/mg Normal [facility] Comment on above: Performed By: #### H STROPN, BMP, BNP ####[facility] [address] [place] [id number]. Nelda Diaz PROTIMEon 12-27-2021 INR Coag (PPP) [Relative time] 1.01 {INR} Normal [facility] Comment on above: Performed By: #### P T, PTT #### [facility] [address] [place] [address] [address] Nelda Diaz INR GUIDELINES SEE BELOW Normal [facility] Comment on above: Result Comment: [place] RED INR: 2.0 - 3.0 CONDITIONS NOT LISTED BELOW 2.5 - 3.5 FOR PROSTHETIC HEART VALVE REPLACEMENT 2.5 - 3.5 RECURRENT THROMBOSIS Performed By: #### P T, PTT #### [facility] [address] [place] [address] [address] Nelda Diaz PT Coag (PPP) [Time] 10.9 s Normal 9.0-11.6 [facility] Comment on above: Performed By: #### P T, PTT #### [facility] [address] [place] [address] [address] Nelda Diaz PTTon 12-27-2021 aPTT Coag (Bld) [Time] 28.9 s Normal 22.3-36.2 [facility] Comment on above: Performed By: #### P T, PTT #### [facility] [address] [place] [address] Dr. Nelda Diaz TROPONIN, HIGH SENSITIVITYon 12-27-2021 HSTROP <4.0 Normal 4.0-51.3 [facility] Comment on above: Result Comment: CUT- OFF POINTS HAVE BEEN ESTABLISHED BASED ON THE FOURTH UNIVERSAL DEFINITIONS OF MYOCARDIAL INFARCTION. THE UPPER REFERENCE LIMIT (URL) OF TROPONIN, DEFINED THE 99TH PERCENTILE OF cTnI DISTRIBUTION IN A REFERENCE POPULATION, HAS BEEN CONFIRMED THE DECISION THRESHOLD FOR [place] DIAGNOSIS. Performed By: #### H STROPN, BMP, BNP ####[facility] [address] [place], [place] [address]YwTiffany Diaz Reference Laboratory Testing Ordered By: Generated Domain[employer] on 07-08-2021 SARS-CoV-2 (COVID-19) RNA TAVON+probe Ql (Resp) Not detected Invalid Interpretation Code Not Detected [facility] [employer] Comment on above: Result Comment: This nucleic acid amplification test was developed and its performance characteristics determined by [employer]. Nucleic acid amplification tests include RT-PCR and [...] detected) result in this assay. Performed at: [address] [id number] PhD Macarena Garcia [facility] 04-18 ABO/RH(D) Negative Normal [facility] Comment on above: Performed By: #### T SPN #### [facility] [address] [place] [address] CBC AUTO DIFFon 02-14-2021 BASO # 0.0 103/ul Normal 0.0-0.1 [facility] Comment on above: Performed By: #### C BC #### [facility] [address] [place], [place] [address] Katerine Julien Basophils/100 WBC (Bld) 0.3 % Normal 0.2-2.0 [facility] Comment on above: Performed By: #### C BC #### [facility] [address] [place], [place] [id number] Katerine Anaya EO # 0.1 103/ul Normal 0.0-0.7 [facility] Comment on above: Performed By: #### C BC #### [facility] [address] [place], [place] [id number] Katerine Anaya Eosinophils/100 WBC (Bld) 0.6 % Critically low 0.9-7.0 [facility] Comment on above: Performed By: #### C BC #### [facility] [address] [place] [address] Katerine Anaya Erythrocyte distribution width (RBC) [Ratio] 13.0 % Normal 11.0-15.0 [facility] Comment on above: Performed By: #### C BC #### [facility] [address] [place] [address] Katerine Anaya Hematocrit (Bld) [Volume fraction] 36.2 % Normal 36.0-48.0 [facility] Comment on above: Performed By: #### C BC #### [facility] [address] [place], [place] [id number] Katerine Anaya Hemoglobin (Bld) [Mass/Vol] 12.2 g/dL Normal 12.0-16.0 [facility] Comment on above: Performed By: #### C BC #### [facility] [address] [place] [address] Katerine Anaya IG # 0.09 10e3/ul Critically high 0.00-0.03 [facility] Comment on above: Performed By: #### C BC #### [facility] [address] [place] [address] Katerine Anaya IG % 0.7 % Critically high 0.0-0.5 [facility] Comment on above: Performed By: #### C BC #### [facility] [address] [place], [place] [id number] Katerine Anaya LYMPH # 1.7 103/ul Normal 1.2-3.8 [facility] Comment on above: Performed By: #### C BC #### [facility] [address] [place], [place] [id number] Katerine Anaya Lymphocytes/100 WBC (Bld) 13.7 % Critically low 20.5-60.0 [facility] Comment on above: Performed By: #### C BC #### [facility] [address] [place], [place] [id number] Katerine Anaya MANUAL DIFF REQ NO Normal [facility] Comment on above: Performed By: #### C BC #### [facility] [address] [place], [place] [id number] Katerine Anaya MCH (RBC) [Entitic mass] 29.7 pg Normal 26.7-34.0 [facility] Comment on above: Performed By: #### C BC #### [facility] [address] [place] [address] Katerinekimmy Julien MCHC (RBC) [Mass/Vol] 33.7 g/dL Normal 29.9-35.2 [facility] Comment on above: Performed By: #### C BC #### [facility] [address] [place], [place] [address] Katerine Anaya MCV (RBC) [Entitic vol] 88.1 fL Normal 81.0-99.0 [facility] Comment on above: Performed By: #### C BC #### [facility] [address] [place], [place] [address] Katerine Anaya MONO # 0.7 103/ul Normal 0.3-0.8 [facility] Comment on above: Performed By: #### C BC #### [facility] [address] [place], [place] [address] Katerine Anaya Monocytes/100 WBC (Bld) 5.8 % Normal 1.7-12.0 [facility] Comment on above: Performed By: #### C BC #### [facility] [address] [place], [place] [address] Katerine Anaya NEUT # 9.6 103/ul Critically high 1.4-6.5 [facility] Comment on above: Performed By: #### C BC #### [facility] [address] [place], [place] [address] Katerine Anaya Neutrophils/100 WBC (Bld) 78.9 % Critically high 43.0-75.0 [facility] Comment on above: Performed By: #### C BC #### [facility] [address] [place], [place] [address] Katerine Julien Platelet mean volume (Bld) [Entitic vol] 9.2 fL Critically low 9.5-13.5 [facility] Comment on above: Performed By: #### C BC #### [facility] [address] [place] [address] Katerine Julien PLT 288 103/ul Normal 150-450 [facility] Comment on above: Performed By: #### C BC #### [facility] [address] [place] [address] Katerine Julien RBC 4.11 106/ul Critically low 4.20-5.40 [facility] Comment on above: Performed By: #### C BC #### [facility] [address] [place], [place] [address] Katerine Julien WBC 12.2 103/ul Critically high 4.0-11.0 [facility] Comment on above: Performed By: #### C BC #### [facility] [address] [place], [place] [address] Katerine Julien CTA CHEST WO W CONon [...] ERNIE BURDEN Date: 2021-02-14 15:32 Normal [facility] Covid-19 PCR ([facility])on 01-24 SARS-CoV-2 (COVID-19) RNA TAVON+probe Ql (Unsp spec) Not detected Normal NOT DETECTED [facility] Comment on above: Result Comment: This test is not yet approved or cleared by the [place] FDA. When there are no FDA-approved or cleared tests available, and other criteria are met, FDA can make tests available under an emergency access mechanism called an Emergency Use Authorization (EUA). The EUA for this test is supported by the [employer] Hardener of Health and Human Service's (HHS's) declaration [...] consistent with SARS-CoV-2. Performed By: #### C VDAGS, CVDTB ####[facility] [id number] [id number] Anaya ER URINE PROFILEon 1 Bilirubin Ql (U) Negative Normal NEGATIVE [facility] Comment on above: Performed By: #### E RUR #### [facility] [address] [id number] Katerine Anaya Clarity (U) CLEAR Normal CLEAR [facility] Comment on above: Performed By: #### E RUR #### [facility] [address] [place], [place] [address] Katerine Anaya Color (U) YELLOW Normal YELLOW [facility] Comment on above: Performed By: #### E RUR #### [facility] [address] [place], [place] [address] Katerine Anaya ERUAHD A micrscopic examina tion will be performed if indicated. Normal [facility] Comment on above: Performed By: #### E RUR #### [facility] [address] [place], [place] [address] Katerine Anaya Glucose Ql (U) Negative Normal NEGATIVE [facility] Comment on above: Performed By: #### E RUR #### [facility] [address] [place] [address] Katerine Anaya Hemoglobin Ql (U) Negative Normal NEGATIVE [facility] Comment on above: Performed By: #### E RUR #### [facility] [address] [place] [address] Katerine Anaya Ketones Ql (U) Negative Normal NEGATIVE [facility] Comment on above: Performed By: #### E RUR #### [facility] [address] [place] [address] Katerine Anaya LEUKOCYTES Negative Normal NEGATIVE [facility] Comment on above: Performed By: #### E RUR #### [facility] [address] [place], [place] [address] Katerine Anaya Nitrite Ql (U) Negative Normal NEGATIVE [facility] Comment on above: Performed By: #### E RUR #### [facility] [address] [place], [place] [address] Katerine Anaya pH (U) 6.0 [pH] Normal 5-9 [facility] Comment on above: Performed By: #### E RUR #### [facility] [address] [place] [address] Katerine Anaya SPEC GRAVITY 1.025 Normal 1.005-<=1. 025 [facility] Comment on above: Performed By: #### E RUR #### [facility] [address] [place] [address] Katerine Anaya UA PROTEIN Negative Normal NEGATIVE/ TRACE [facility] Comment on above: Performed By: #### E RUR #### [facility] [address] [place] [address] Katerine Julien UR MICRO IND NOT INDICATED Normal [facility] Comment on above: Performed By: #### E RUR #### [facility] [address] [place], [place] [address] Katerine Julien Urobilinogen Qn (U) 0.2 {Charlee'U}/dL Normal 0.2 - 1. 0 [facility] Comment on above: Performed By: #### E RUR #### [facility] [address] [place] [address] Katerine Grijalvaen PROF 14(COMP METB)on 021 Albumin [Mass/Vol] 3.6 g/dL Normal 3.5-5.0 [facility] Comment on above: Performed By: #### C SINDY HSTROPN #### [facility] [address] [place] [address] Katerine Grijalvaen Albumin/Globulin [Mass ratio] 0.9 {ratio} Normal [facility] Comment on above: Performed By: #### C SINDY HSTROPN #### [facility] [address] [place] [address] Katerine Anaya ALP [Catalytic activity/Vol] 44 U/L Normal 38-126 [facility] Comment on above: Performed By: #### C SINDY HSTROPN #### [facility] [address] [place] [address] Katerine Anaya ALT [Catalytic activity/Vol] 28 U/L Normal 9-52 [facility] Comment on above: Performed By: #### C SINDY HSTROPN #### [facility] [address] [place] [address] Katerine Anaya Anion gap [Moles/Vol] 12.5 mmol/L Normal [facility] Comment on above: Performed By: #### C SINDY HSTROPN #### [facility] [address] [place] [address] Katerine Anaya AST [Catalytic activity/Vol] 9 U/L Critically low 14-36 [facility] Comment on above: Performed By: #### C SINDY HSTROPN #### [facility] [address] [address] Katerine Anaya Bilirubin [Mass/Vol] 0.1 mg/dL Critically low 0.2-1.3 [facility] Comment on above: Performed By: #### C MP, HSTROPN #### [facility] [address] [place] [address] Katerine Anaya Calcium [Mass/Vol] 8.8 mg/dL Normal 8.4-10.2 [facility] Comment on above: Performed By: #### C MP, HSTROPN #### [facility] [address] [place] [address] Katerine Anaya Chloride [Moles/Vol] 104 mmol/L Normal 98-107 [facility] Comment on above: Performed By: #### C MP, HSTROPN #### [facility] [address] [place] [address] Katerine Anaya CO2 [Moles/Vol] 25.8 mmol/L Normal 22.0-30.0 [facility] Comment on above: Performed By: #### C SINDY, HSTROPN #### [facility] [address] [place] [address] Katerine Anaya Creatinine [Mass/Vol] 0.50 mg/dL Critically low 0.52-1.04 [facility] Comment on above: Performed By: #### C SINDY, HSTROPN #### [facility] [address] [place] [address] Katerine Anaya EGFR-AF TANZANIAN >60 Normal >=60 [facility] Comment on above: Performed By: #### C MP, HSTROPN #### [facility] [address] [place], [place] [address] Katerine Anaya EGFR-NON AF TANZANIAN >60 Normal >=60 [facility] Comment on above: Performed By: #### C MP, HSTROPN #### [facility] [address] [place] [address] Katerine Anaya Globulin (S) [Mass/Vol] 3.8 g/dL Normal [facility] Comment on above: Performed By: #### C MP, HSTROPN #### [facility] [address] [address] Katerine Anaya Glucose [Mass/Vol] 92 mg/dL Normal 74-106 [facility] Comment on above: Performed By: #### C MP, HSTROPN #### [facility] [address] [place] [address] Katerine Anaya Potassium [Moles/Vol] 3.3 mmol/L Critically low 3.4-5.0 [facility] Comment on above: Performed By: #### C SINDY, HSTROPN #### [facility] [address] [place] [address] Katerine Anaya Protein [Mass/Vol] 7.4 g/dL Normal 6.1-8.2 [facility] Comment on above: Performed By: #### C SINDY, HSTROPN #### [facility] [address] [place] [address] Katerine Anaya Sodium [Moles/Vol] 139 mmol/L Normal 137-145 [facility] Comment on above: Performed By: #### C SINDY, HSTROPN #### [facility] [address] [place] [address] Katerine Anaya Urea nitrogen [Mass/Vol] 6.0 mg/dL Critically low 7.0-17.0 [facility] Comment on above: Performed By: #### C SINDY, HSTROPN #### [facility] [address] [place] [address] Katerine Anaya Urea nitrogen/Creatinine [Mass ratio] 12.0 mg/mg Normal [facility] Comment on above: Performed By: #### C SINDY, HSTROPN #### [facility] [address] [place], [place] [address] Katerine Anaya SYMPTOMATIC COVID-19 ANTIGEN on 02-14-2021 EUA Statement SEE BELOW Normal [facility] Comment on above: Result Comment: This [...] is revoked sooner. Performed By: #### C VDAGS, CVDTB ####[facility] [id number] Anaya SARS-CoV-2 (COVID-19) RNA TAVON+probe Ql (Unsp spec) Negative Normal NEGATIVE [facility] Comment on above: Result Comment: CONF IRMATION BY PCR PENDING PER CDC GUIDELINES/ SYMPTOMATIC PATIENT. Performed By: #### C VDAGS, CVDTB ####[facility] [address] Anaya TROPONIN, HIGH SENSITIVITYon 02-14-2021 HSTROP <4.0 Normal 4.0-35.5 [facility] Comment on above: Result Comment: CUT- OFF POINTS HAVE BEEN ESTABLISHED BASED ON THE FOURTH UNIVERSAL DEFINITIONS OF MYOCARDIAL INFARCTION. THE UPPER REFERENCE LIMIT (URL) OF TROPONIN, DEFINED THE 99TH PERCENTILE OF cTnI DISTRIBUTION IN A REFERENCE POPULATION, HAS BEEN CONFIRMED THE DECISION THRESHOLD FOR [place] DIAGNOSIS. Performed By: #### C MP, HSTROPN #### [facility] [address] Anaya CHEST 2 VIEW PA AND LATon CHEST 2 VIEW PA AND LAT Patient Name: SIMIN BALES STUDY: TH CHEST 2 VIEW PA AND LAT; 04/14/2020 10:00 am INDICATION: pre EPS. COMPARISON: 02/26/2020 ACCESSION NUMBER(S): [id number] ORDERING CLINICIAN: GELA HENDRICKS FINDINGS: CARDIOMEDIASTINAL SILHOUETTE: Cardiomediastinal silhouette is normal in size and configuration. LUNGS: Lungs are clear. ABDOMEN: No remarkable upper abdominal findings. BONES: No acute osseous changes. Scoliosis. IMPRESSION: 1. No evidence of acute cardiopulmonary process. Electronically signed by: ILEANA PEREZ MD Normal [facility] COAGULATION SCREENon 020 aPTT Coag (Bld) [Time] 31 s Normal 25 - 35 [facility] Comment on above: Result Comment: THE APTT IS NO LONGER USED FOR MONITORING UNFRACTIONATED HEPARIN THERAPY. FOR MONITORING HEPARIN THERAPY, USE THE HEPARIN ASSAY. Performed By: #### C OAGS ####[facility] [address] [place], [place] [id number] INR Coag (PPP) [Relative time] 1.0 {INR} Normal 0.9 - 1.1 [facility] Comment on above: Performed By: #### C OAGS ####[facility] [address] [place], [place] [id number] PT Coag (PPP) [Time] 12.2 s Normal 10.1 - 13.3 [facility] Comment on above: Performed By: #### C OAGS ####[facility] [address] [place], [place] [id number] CORONAVIRUS 2019, SCREEN ASY MPTOMATICon 04-14-2020 CORONAVIRUS 2019,PCR NOT DETECTED Normal Not Detected [facility] Comment on above: Result Comment: . This [...] patient management decisions. Fact sheet for providers: https://www.fda.gov/media/367997/download Fact sheet for patients: https://www.fda.gov/media/468516/download This test has received FDA Emergency Use Authorization (EUA) and has been verified by [facility] ([facility]). This test is only authorized for the duration of time that circumstances exist to justify the authorization of the emergency use of in vitro diagnostic tests for the detection of SARS-CoV-2 virus and/or diagnosis of COVID-19 infection under section 564(b)(1) of the Act, 21 U.S.C. 360bbb-3(b)(1), unless the authorization is terminated or revoked sooner. [facility] is certified under CLIA-88 as qualified to perform high complexity testing. Testing is performed in the [facility] laboratories located at [address] [place] [address]. Performed By: #### C OVSC #### [address] [place] [address] Daily Progress Note-Electrop hysiologyon 04-14-2020 Daily Progress [...] of infection. The patient should call the shoe trimmer immediately if symptoms recur, or for any [...] Self-adhesive anterior-posterior defibrillation pads were applied. A [employer] defibrillator was used for monitoring and the [...] The right ventricle sites were mapped with [id number] electroanatomical activation mapping and pace mapping. An UEIS mapping system was used to create a 3D image of the right ventricle. Mapping was performed during ventricular arrhythmia, in sinus rhythm, and with ventricular pacing. 4. After the tachycardia and target PVC were fully characterized and reproducibly induced, an ablation catheter was placed. Match percentage and pacemap 06/05 were obtained. See photos and log. 5.Catheter [...] RA, RVA, RVOT SJM grid, SJM lg curl Saffire new access Complications: The patient tolerated the [...] Updated: 15-Apr-2020 15:18 by Gela Hendricks) Normal [facility] HCG,SERUM QUALITATIVEon 03-26 HCG,SERUM QUALITATIVE Negative Normal Negative [facility] Comment on above: Performed By: #### H CGS ####[facility] [address] [place], [place] [id number] History and Physical - Surgi nedra Update [...] Profile - Preop v2 14-Apr-2020 08:47 Normal [facility] Patient Profile - Preop v2on 04-14-2020 Patient Profile - Preop v2 Profile: Initial Info: How to be AddressedAlissa(1) Spoken Language PreferredEnglish (1) Source of Informationpatient; family Are you currently using the Personal Electronic Health Record or upurskillyes (1) Stated Reason for Admissionablation Primary Contact Name and NumberRegina Bales [phone] Limitations on Visitors/Phone Callsnone Patient Belongingsremains with patient Medications Brought to Hospitalno General Health: Weight in kg59.7 kilogram(s) Weight in omk987.6 pound(s) Weight Methodactual (measured) Scale Typestanding Height [...] Arrangementshouse Lives Withparent(s) Resource/Environmental Concernsnone Anticipated Transition [place] [facility] Anticipated at Transitionnone Substance: Current or [...] instruction; verbal instruction Cultural Considerationsnone Developmental Considerationsnone Anabaptism Considerationsnone Other learner availableyes... Learnerfamily Factors Influencing Readiness to Learninterest in learning Factors that Impact Ability to Learnnone Devices/Methods Used to Communicatenone Learning Preferencesindividual instruction, verbal instruction Cultural Considerationsnone Developmental Considerationsnone Anabaptism Considerationsnone Falls RiskPatient location auto qualifies him/her for HIGH RISK. Are there any cultural, spiritual, episcopal practices/values/needs that are important for us to knowno Do you want a visit/item from [facility] Would you like your Supervisor Winter/Orthopedic Shoe Maker notifiedno Pain Scalenumerical 0-10 Pain Scale Educationteaching provided Current Pain Level0 = None Acceptable Pain Level0 = None Chronic Painyes Chronic Chest pain locationsternal Description of Pain (frequency/quality)frequen t Factors that Relieve Painnone Information Review: Allergies, Home Meds and Significant Events have been Reviewed and Verified with Patient/Familyyes Allergy, Intolerance, Adverse Event: Allergies: No Known Allergies: Active Electronic Signatures: Maci Zhao) (Signed 14-Apr-2020 08:54) Authored: Initial Info, General Health, Health Mgmt, Relationship/Environ, Substance, Risk Screens, Additional Information Last Updated: 14-Apr-2020 08:54 by Maci Zhao ([place]) References: 1. Data Referenced From Patient Profile - Preop v2 26-Feb-2020 07:59 Normal [facility] Preop Checkliston 04-14-2020 Preop Checklist Preop Checklist: Preop Checklist: Arrival [id number] Arrival Time08:23 NPO [id number] 23:30 ID Band Onyes Allergy Bandno known allergies Consent Signedpending H&P Completeyes EKG Performedyes Chest X-Ray Performednot ordered HCG Urine TestN/A Chlorhexadine Bath Givennot applicable Nasal Antiseptic Appliednot applicable SCD's Appliednot applicable Electronic Signatures: Maci Zhao) (Signed 14-Apr-2020 08:56) Authored: Preop Checklist Last Updated: 14-Apr-2020 08:56 by Maci Zhao ([place]) Normal [facility] CORONAVIRUS 2019, SCREEN ASY MPTOMATICon 04-13-2020 Lab Specimen Source Nasal, Nasopharyngeal Normal [facility] Comment on above: Performed By: #### C OVSC #### [facility] [address] [place] [address] CBCon 02-26-2020 Erythrocyte distribution width (RBC) [Ratio] 11.8 % Normal 11.5 - 14.5 [facility] Comment on above: Performed By: #### C BC #### [address] [id number] Hematocrit (Bld) [Volume fraction] 42.1 % Normal 36.0 - 46.0 [facility] Comment on above: Performed By: #### C BC #### [address] [id number] Hemoglobin (Bld) [Mass/Vol] 14.1 g/dL Normal 12.0 - 16.0 [facility] Comment on above: Performed By: #### C BC #### [address] [id number] MCHC (RBC) [Mass/Vol] 33.5 g/dL Normal 32.0 - 36.0 [facility] Comment on above: Performed By: #### C BC #### [address] [id number] MCV (RBC) [Entitic vol] 88 fL Normal 80 - 100 [facility] Comment on above: Performed By: #### C BC #### [address] [id number] Platelets (Bld) [#/Vol] 284 10*3/uL Normal 150 - 450 [facility] Comment on above: Performed By: #### C BC #### [address] [id number] RBC (Bld) [#/Vol] 4.77 x10E12/L Normal 4.00 - 5.20 [facility] Comment on above: Performed By: #### C BC #### [address] [id number] WBC (Bld) [#/Vol] 8.3 10*3/uL Normal 4.4 - 11.3 [facility] Comment on above: Performed By: #### C BC #### [address] [id number] CHEST 2 VIEW PA AND LATon CHEST 2 VIEW PA AND LAT Patient Name: SIMIN BALES STUDY: TH CHEST 2 VIEW PA AND LAT; 02/26/2020 9:05 am INDICATION: pre-EP study. COMPARISON: None. ACCESSION NUMBER(S): [id number] ORDERING CLINICIAN: GELA HENDRICKS FINDINGS: CARDIOMEDIASTINAL SILHOUETTE: Cardiomediastinal silhouette is normal in size and configuration. LUNGS: Lungs are clear. No acute infiltrate, pleural effusion or pneumothorax. ABDOMEN: No remarkable upper abdominal findings. BONES: No acute osseous changes. Mild scoliosis. IMPRESSION: 1. No evidence of acute cardiopulmonary process. Electronically signed by: DEJA DESAI MD Normal [facility] COMPREHENSIVE PANELon 2019 Albumin [Mass/Vol] 4.6 g/dL Normal 3.4 - 5.0 [facility] Comment on above: Performed By: #### C MP #### [address] [id number] ALP [Catalytic activity/Vol] 41 U/L Normal 33 - 110 [facility] Comment on above: Performed By: #### C MP #### [address] [id number] ALT [Catalytic activity/Vol] 11 U/L Normal 7 - 45 [facility] Comment on above: Result Comment: Edith ents treated with Sulfasalazine may generate falsely decreased results for ALT. Performed By: #### C MP #### [address] [id number] Anion gap [Moles/Vol] 11 mmol/L Normal 10 - 20 [facility] Comment on above: Performed By: #### C MP #### [address] [id number] AST [Catalytic activity/Vol] 13 U/L Normal 9 - 39 [facility] Comment on above: Performed By: #### C MP #### [address] [id number] Bilirubin [Mass/Vol] 0.4 mg/dL Normal 0.0 - 1.2 [facility] Comment on above: Performed By: #### C MP #### [address] [id number] Calcium [Mass/Vol] 9.2 mg/dL Normal 8.6 - 10.3 [facility] Comment on above: Performed By: #### C MP #### [address] [id number] Chloride [Moles/Vol] 105 mmol/L Normal 98 - 107 [facility] Comment on above: Performed By: #### C MP #### [address] [id number] Creatinine [Mass/Vol] 0.57 mg/dL Normal 0.50 - 1.05 [facility] Comment on above: Performed By: #### C MP #### [address] [id number] GFR- AM. >60 Normal >60 [facility] Comment on above: Result Comment: CALC ULATIONS OF ESTIMATED GFR ARE PERFORMED USING THE MDRD STUDY EQUATION FOR THE IDMS-TRACEABLE CREATININE METHODS. CLIN CHEM 2007;53:766-72 Performed By: #### C MP #### [address] [id number] GFR-NON AM. >60 Normal >60 [facility] Comment on above: Performed By: #### C MP #### [address] [id number] Glucose [Mass/Vol] 89 mg/dL Normal 74 - 99 [facility] Comment on above: Performed By: #### C MP #### [address] [id number] HCO3 (Bld) [Moles/Vol] 27 mmol/L Normal 21 - 32 [facility] Comment on above: Performed By: #### C MP #### [address] [id number] Potassium [Moles/Vol] 3.7 mmol/L Normal 3.5 - 5.3 [facility] Comment on above: Performed By: #### C MP #### [address] [id number] Protein [Mass/Vol] 7.3 g/dL Normal 6.4 - 8.2 [facility] Comment on above: Performed By: #### C MP #### [address] [id number] Sodium [Moles/Vol] 139 mmol/L Normal 136 - 145 [facility] Comment on above: Performed By: #### C MP #### [facility] [address] [place], [place] [id number] Urea nitrogen [Mass/Vol] 9 mg/dL Normal 6 - 23 [facility] Comment on above: Performed By: #### C MP #### [facility] [address] [place], [place] [id number] Daily Progress Note-Electrop hysiologyon 02-26-2020 Daily Progress [...] fashion. Sheaths and catheters were prepared. Rader signs sales representative present for 3D mapping. Anesthesia [...] Updated: 26-Feb-2020 11:26 by Gela Hendricks) Normal [facility] HCG,SERUM QUALITATIVEon 09 HCG,SERUM QUALITATIVE Negative Normal Negative [facility] Comment on above: Performed By: #### H CG #### [address] [id number] History and Physical - Surgi nedra Update [...] Profile - Preop v2 26-Feb-2020 07:59 Normal [facility] Patient Profile - Preop v2on 02-26-2020 Patient Profile - Preop v2 Profile: Initial Info: How to be AddressedAlissa Spoken Language PreferredEnglish Source of Informationpatient; family Are you currently using the Personal Electronic Health Record or AxesNetwork Stated Reason for AdmissionEPS ablation Primary Contact Name and NumberMistoswald Christy [phone] Limitations on Visitors/Phone Callsnone Patient Belongingsremains with patient Medications Brought to Hospitalno General Health: Weight in kg60.4 kilogram(s) Weight in exs134.1 pound(s) Weight Methodactual (measured) Scale Typestanding Height [...] Arrangementshouse Lives Withparent(s) Resource/Environmental Concernsnone [facility] Anticipated at Transitionnone Substance: Current or [...] Learning Preferencesindividual instruction Cultural Considerationsnone Developmental Considerationsnone Anabaptism Considerationsnone Other learner availableno Falls RiskPatient location auto qualifies him/her for HIGH RISK. Are there any cultural, spiritual, episcopal practices/values/needs that are important for us to knowno Do you want a visit/item from [facility] Would you like your Supervisor Winter/Orthopedic Shoe Maker notifiedno Pain Scalenumerical 0-10 Pain Scale Educationteaching [...] No Known Allergies: Active Electronic Signatures: Maci Zhao) (Signed 26-Feb-2020 08:07) Authored: Profile, Additional Information Last Updated: 26-Feb-2020 08:07 by Maci Zhao) [facility] Preop Checkliston 02-26-2020 Preop Checklist Preop Checklist: Preop Checklist: Arrival [id number] Arrival Time06:35 NPO [id number] 23:30 ID Band Onyes Allergy Bandno known allergies H&P Completeyes EKG Performedyes Chest X-Ray Performednot ordered Chlorhexadine Bath Givennot applicable Nasal Antiseptic Appliednot applicable Hair Washednot applicable Soap and water bath with hair shampoo the night before surgerynot applicable Hat placed on prior to transportnot applicable SCD's Appliednot applicable DO Hose Appliednot ordered OtherSee sheet Electronic Signatures: Maci Zhao) (Signed 26-Feb-2020 08:08) Authored: Preop Checklist Last Updated: 26-Feb-2020 08:08 by Maci Zhao ([place]) Normal [facility] CORONAVIRUS 2019, SCREEN ASY MPTOMATICon 02-24-2020 CORONAVIRUS 2019,PCR NOT DETECTED Normal Not Detected [facility] Comment on above: Result Comment: This assay [...] patient management decisions. Fact sheet for providers: https://www.fda.gov/media/831325/download Fact sheet for patients: https://www.fda.gov/media/806810/download This test has received FDA Emergency Use Authorization (EUA) and has been verified by [facility] ([facility]). This test is only authorized for the duration of time that circumstances exist to justify the authorization of the emergency use of in vitro diagnostic tests for the detection of SARS-CoV-2 virus and/or diagnosis of COVID-19 infection under section 564(b)(1) of the Act, 21 U.S.C. 360bbb-3(b)(1), unless the authorization is terminated or revoked sooner. [facility] is certified under CLIA-88 as qualified to perform high complexity testing. Testing is performed in the [facility] laboratories located at [address] [place] [address]. Performed By: #### C OVSC #### [place] [address] CORONAVIRUS 2019, SCREEN ASY MPTOMATICon 02-23-2020 Lab Specimen Source Nasal, Nasopharyngeal Normal [facility] Comment on above: Performed By: #### C OVSC #### [place] [address] CORONAVIRUS 2019, SCREEN ASY MPTOMATICon 02-20-2020 CORONAVIRUS 2019,PCR Canceled Normal [facility] Comment on above: Order Comment: TEST CORONAVIRUS [...] patient management decisions. Fact sheet for providers: https://www.fda.gov/media/026090/download Fact sheet for patients: https://www.fda.gov/media/838756/download This test has received FDA Emergency Use Authorization (EUA) and has been verified by [facility] ([facility]). This test is only authorized for the duration of time that circumstances exist to justify the authorization of the emergency use of in vitro diagnostic tests for the detection of SARS-CoV-2 virus and/or diagnosis of COVID-19 infection under section 564(b)(1) of the Act, 21 U.S.C. 360bbb-3(b)(1), unless the authorization is terminated or revoked sooner. [facility] is certified under CLIA-88 as qualified to perform high complexity testing. Testing is performed in the [facility] laboratories located at [address] [place] [address]. Performed By: #### C OVSC #### [address] [place] [address] CORONAVIRUS 2018, SCREEN ASY MPTOMATICon 02-19-2020 Lab Specimen Source Nasal, Nasopharyngeal Normal [facility] Comment on above: Order Comment: TEST CORONAVIRUS 2018, SCREEN ASYMPTOMATIC WAS CANCELLED, 02/20/2020 14:12 DUPLICATE ORDER. Performed By: #### C OVSC #### [address] [place] [address] MRI CARDIAC RESONANCE MAHSA GING FOR VELOCITY FLOW MAPPINGon 10-09-2019 MRI CARDIAC RESONANCE IMAGING FOR VELOCITY FLOW MAPPING [facility] CMR Report Name: SIMIN BALES : 1995 [...] Normal/Hyper . None . . . . [place] . Normal/Hyper . None . . . 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 CONSULTANT: [employer] MODEL: Achieva PULSE SEQUENCES: Single-Shot SSFP, IR GRE - Segmented, IR SSFP - Segmented, SSFP Cine, Phase Contrast Velocity Mapping CONTRAST AGENT TYPE: Multihance LOT NUMBER: [id number] EXPIRATION DATE: 2021-11-23 00:00:00 VOLUME ADMINISTERED: 20 ml DOSAGE FOR 0.5M: 0.15 mmol/kg SEDATION SEDATION USED?: No SETUP SCAN TYPE: Clinical PATIENT TYPE: Outpatient INCOMPLETE SCAN: No REASON(S) FOR SCAN: Ventricular arrhythmia REFERRING PHYSICIAN: GELA HENDRICKS ATTENDING PHYSICIAN: GELA HENDRICKS TECHNOLOGIST: Daniele Ramesh Report generated by Precession, a product of [employer] Electronically signed by: DO Kiana BAPTISTE [facility] MRI CARDIAC W/WO CONTRAST FOR MORPH/FUNCT AND VALVE [facility] 10-09-2019 MRI CARDIAC W/WO CONTRAST FOR MORPH/FUNCT AND VALVE [facility] CMR Report Name: SIMIN BALES : 1995 [...] Normal/Hyper . None . . . . [place] . Normal/Hyper . None . . . 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 CONSULTANT: [employer]Sn[employer] MODEL: Achieva PULSE SEQUENCES: Single-Shot SSFP, IR GRE - Segmented, IR SSFP - Segmented, SSFP Cine, Phase Contrast Velocity Mapping CONTRAST AGENT TYPE: Multihance LOT NUMBER: [id number] EXPIRATION DATE: 2021-11-23 00:00:00 VOLUME ADMINISTERED: 20 ml DOSAGE FOR 0.5M: 0.15 mmol/kg SEDATION SEDATION USED?: No SETUP SCAN TYPE: Clinical PATIENT TYPE: Outpatient INCOMPLETE SCAN: No REASON(S) FOR SCAN: Ventricular arrhythmia REFERRING PHYSICIAN: GELA HENDRICKS ATTENDING PHYSICIAN: GELA HENDRICKS TECHNOLOGIST: Daniele Ramesh Report generated by Precession, a product of [employer] Electronically signed by: ROMANA HUBER, DO Normal [facility] BASIC METABOLIC PANELon 04 Anion gap [Moles/Vol] 16 mmol/L Normal 10 - 20 [facility] Comment on above: Performed By: #### B MP #### [address] [address] Calcium [Mass/Vol] 9.9 mg/dL Normal 8.6 - 10.3 [facility] Comment on above: Performed By: #### B MP #### [address] [address] Chloride [Moles/Vol] 101 mmol/L Normal 98 - 107 [facility] Comment on above: Performed By: #### B MP #### [address] [address] Creatinine [Mass/Vol] 0.73 mg/dL Normal 0.50 - 1.05 [facility] Comment on above: Performed By: #### B MP #### [address] [address] GFR- AM. >60 Normal >60 [facility] Comment on above: Result Comment: CALC ULATIONS OF ESTIMATED GFR ARE PERFORMED USING THE MDRD STUDY EQUATION FOR THE IDMS-TRACEABLE CREATININE METHODS. CLIN CHEM 2007;53:766-72 Performed By: #### B MP #### [address] [address] GFR-NON AM. >60 Normal >60 [facility] Comment on above: Performed By: #### B MP #### [address] [address] Glucose [Mass/Vol] 62 mg/dL Low 74 - 99 [facility] Comment on above: Performed By: #### B MP #### [address] [address] HCO3 (Bld) [Moles/Vol] 26 mmol/L Normal 21 - 32 [facility] Comment on above: Performed By: #### B MP #### [address] [address] Potassium [Moles/Vol] 4.4 mmol/L Normal 3.5 - 5.3 [facility] Comment on above: Performed By: #### B MP #### [address] [address] Sodium [Moles/Vol] 139 mmol/L Normal 136 - 145 [facility] Comment on above: Performed By: #### B MP #### [address] [address] Urea nitrogen [Mass/Vol] 11 mg/dL Normal 6 - 23 [facility] Comment on above: Performed By: #### B MP #### [address] [address] Vital Signs Date Time Vital Sign Value Performing Clinician Facility 08-15-2023 14:17-0500 Diastolic blood pressure 67 mm[Hg] Corky Gore [facility] 08-15-2023 14:17-0500 Heart rate 63 /min Corky Gore [facility] 08-15-2023 14:17-0500 Respiratory rate 16 /min Corky Gore [facility] 08-15-2023 14:17-0500 SaO2% (BldA) [Mass fraction] 100 % Corky Gore [facility] 08-15-2023 14:17-0500 Systolic blood pressure 98 mm[Hg] Corky Gore [facility] 08-15-2023 12:44-0500 Body temperature 98.06 [degF] Corky Gore [facility] 08-15-2023 12:44-0500 Diastolic blood pressure 74 mm[Hg] Corky Gore [facility] 08-15-2023 12:44-0500 Heart rate 64 /min Corky Gore [facility] 08-15-2023 12:44-0500 Respiratory rate 18 /min Corky Gore [facility] 08-15-2023 12:44-0500 SaO2% (BldA) [Mass fraction] 100 % Corky Gore [facility] 08-15-2023 12:44-0500 Systolic blood pressure 114 mm[Hg] Corky Gore [facility] 08-01-2023 16:48-0500 Body height 167.6 cm Jenn Handley DO Work Phone: [facility] 08-01-2023 16:48-0500 Body mass index (BMI) [Ratio] 19.47 kg/m2 Jenn Handley DO Work Phone: [facility] 08-01-2023 16:48-0500 Body temperature 98.4 [degF] Jenn Handley DO Work Phone: [facility] 08-01-2023 16:48-0500 Body weight 54.7 kg Jenn Handley DO Work Phone: [facility] 08-01-2023 16:48-0500 Diastolic blood pressure 72 mm[Hg] Jenn Handley DO Work Phone: [facility] 08-01-2023 16:48-0500 Heart rate 40 /min Jenn Handley DO Work Phone: [facility] 08-01-2023 16:48-0500 SaO2% (BldA) [Mass fraction] 97 % Jenn Handley DO Work Phone: [facility] 08-01-2023 16:48-0500 Systolic blood pressure 112 mm[Hg] Jenn Handley DO Work Phone: [facility] 05-30-2023 16:15-0500 Body height 168.9 cm Duncan Valladares DO Work Phone: [facility] 05-30-2023 16:15-0500 Body weight 53.52 kg Duncan Valladares DO Work Phone: [facility] 03-07-2023 13:00-0400 Body height 168.9 cm Aj Sullivan MD Work Phone: [facility] 03-07-2023 13:00-0400 Body weight 56.25 kg Aj Sullivan MD Work Phone: [facility] 03-07-2023 13:00-0400 Diastolic blood pressure 74 mm[Hg] Aj Sullivan MD Work Phone: [facility] 03-07-2023 13:00-0400 Heart rate 57 /min Aj Sullivan MD Work Phone: [facility] 03-07-2023 13:00-0400 Systolic blood pressure 108 mm[Hg] Aj Sullivan MD Work Phone: [facility] 01-29-2023 11:22-0400 Diastolic blood pressure 78 mm[Hg] DO Amber Handley Work Phone: [facility] 01-29-2023 11:22-0400 Heart rate 55 /min DO Amber Handley Work Phone: [facility] 01-29-2023 11:22-0400 Respiratory rate 16 /min DO Amber Handley Work Phone: [facility] 01-29-2023 11:22-0400 SaO2% (BldA) [Mass fraction] 99 % DO Amber Handley Work Phone: [facility] 01-29-2023 11:22-0400 Systolic blood pressure 109 mm[Hg] DO Amber Handley Work Phone: [facility] 01-29-2023 10:46-0400 Body temperature 97 [degF] DO Amber Handley Work Phone: [facility] 01-29-2023 10:21-0400 Inhaled oxygen flow rate 10 L/min DO Amber Handley Work Phone: [facility] 01-29-2023 09:16-0400 Body mass index (BMI) [Ratio] 18.3 kg/m2 DO Amber Handley Work Phone: [facility] 01-29-2023 09:15-0400 Body height 168.91 cm DO Amber Handley Work Phone: 1(125)[phone] [place] [address] 01-29-2023 09:15-0400 Body weight 52.16 kg DO Amber Handley Work Phone: 2(669)[phone] [place] [address] 01-08-2023 20:00-0400 Diastolic blood pressure 77 mm[Hg] DO Amber Handley Work Phone: [facility] 01-08-2023 20:00-0400 Heart rate 69 /min DO Amber Handley Work Phone: 8(324)[phone] [place] [address] 01-08-2023 20:00-0400 Respiratory rate 18 /min DO Amber Handley Work Phone: [facility] 01-08-2023 20:00-0400 SaO2% (BldA) [Mass fraction] 100 % DO Amber Handley Work Phone: [facility] 01-08-2023 20:00-0400 Systolic blood pressure 151 mm[Hg] DO Amber Handley Work Phone: [facility] 01-08-2023 18:00-0400 Body temperature 98 [degF] DO Amber Handley Work Phone: [facility] 01-08-2023 14:28-0400 Body height 167.64 cm DO Amber Handley Work Phone: [facility] 01-08-2023 14:28-0400 Body weight 56.5 kg DO Amber Handley Work Phone: [facility] 09-04-2022 09:42-0400 Diastolic blood pressure 74 mm[Hg] Dennis Mcbride [facility] 09-04-2022 09:42-0400 Heart rate 62 /min Dennis Cabrerae [facility] 09-04-2022 09:42-0400 Mean blood pressure 83 mm[Hg] Dennis Rae [facility] 09-04-2022 09:42-0400 Respiratory rate 17 /min Dennis Cabrerae [facility] 09-04-2022 09:42-0400 SaO2% (BldA) [Mass fraction] 100 % Dennis Rae [facility] 09-04-2022 09:42-0400 Systolic blood pressure 100 mm[Hg] Dennis Rae [facility] 09-04-2022 08:44-0400 Body temperature 98.06 [degF] Dennis Cabrerae [facility] 09-04-2022 08:44-0400 Diastolic blood pressure 76 mm[Hg] Dennis Cabrerae [facility] 09-04-2022 08:44-0400 Heart rate 59 /min Dennis Cabrerae [facility] 09-04-2022 08:44-0400 Respiratory rate 18 /min Dennis Cabrerae [facility] 09-04-2022 08:44-0400 SaO2% (BldA) [Mass fraction] 98 % Dennis Rae [facility] 09-04-2022 08:44-0400 Systolic blood pressure 113 mm[Hg] Dennis Rae [facility] 03-15-2022 15:55-0400 Body height 167.6 cm Duncan Courson DO Work Phone: [facility] 03-15-2022 15:55-0400 Body weight 61.19 kg Duncan Courson DO Work Phone: [facility] 03-15-2022 15:55-0400 Diastolic blood pressure 66 mm[Hg] Duncan Courson DO Work Phone: [facility] 03-15-2022 15:55-0400 Heart rate 47 /min Duncan Courson DO Work Phone: [facility] 03-15-2022 15:55-0400 Systolic blood pressure 99 mm[Hg] Duncan Courson DO Work Phone: [facility] 01-02-2022 13:29-0400 Body height 167.6 cm Nadya Beck MD Work Phone: [facility] 01-02-2022 13:29-0400 Body weight 61.69 kg Nadya Beck MD Work Phone: [facility] 01-02-2022 13:29-0400 Diastolic blood pressure 72 mm[Hg] Nadya Beck MD Work Phone: [facility] 01-02-2022 13:29-0400 Heart rate 49 /min Nadya Beck MD Work Phone: [facility] 01-02-2022 13:29-0400 Systolic blood pressure 116 mm[Hg] Nadya Beck MD Work Phone: [facility] 10-24-2021 14:50-0400 Body height 167.6 cm Yefri Dudley MD Work Phone: [facility] 10-24-2021 14:50-0400 Body weight 68.04 kg Yefri Dudley MD Work Phone: [facility] 10-24-2021 14:50-0400 Heart rate 61 /min Yefri Dudley MD Work Phone: [facility] Encounters Encounter Date Encounter Type Care Provider Facility Start: 03-05-2024 ambulatory [facility] Start: 02-19-2024 End: 02-19-2024 ambulatory JENN HANDLEY Not Available Start: 02-13-2024 ambulatory Corky Gore [facility] Start: 02-12-2024 End: 02-12-2024 ambulatory RADHA LOPEZ Not Available Start: 09-24-2023 ambulatory Duncan miller DO Work Phone: Cardiology Comment on above: Verap[employer] Start: 2023 Refill Duncan miller DO Work Phone: Cardiology Comment on above: Refill Request Start: 08-21-2023 End: 08-21-2023 ambulatory MARCOS MANN Not Available Start: 08-15-2023 End: 08-15-2023 Emergency department patient visit Corky Gore [facility] Start: 08-01-2023 End: 08-01-2023 Office outpatient visit 25 minutes Jenn Handley DO Work Phone: [facility] Comment on above: Constipation, unspec ified constipation type (Primary Dx); Numbness in feet; Cervical radiculopathy; Swollen lymph nodes; Frequent PVCs; Supraventricular tachycardia, unspecified (I47.10) Start: 08-01-2023 End: 08-01-2023 ambulatory JENN HANDLEY Not Available Start: 08-01-2023 Bamboo flowsheet Jenn R Dustyft an DO Work Phone: [facility] Start: 08-01-2023 Bamboo flowsheet Jenn R Dustyft an DO Work Phone: [facility] Start: 05-31-2023 ambulatory Duncan miller DO Work Phone: Cardiology Comment on above: Dosage increase Start: 05-30-2023 End: 05-31-2023 ambulatory DUNCAN VALLADARES Facility:[facility] Start: 05-30-2023 End: 05-30-2023 Patient encounter procedure Duncan Valladares DO Work Phone: Cardiology Comment on above: PVC (premature ventr icular contraction) (Primary Dx); Palpitations; Encounter for monitoring flecainide therapy; Exercise intolerance; Implantable loop recorder present Start: 05-23-2023 End: 05-23-2023 [facility] Start: 04-27-2023 End: 04-[facility].METAL PATTERNMAKER APPRENTICE Work Phone: Cardiology Comment on above: PVC (premature ventr icular contraction) (Primary Dx) Start: 04-27-2023 End: 04-27-2023 Telemedicine consultation with patient Oren Nirali TRUCK DRIVER HEAVY.METAL PATTERNMAKER APPRENTICE Work Phone: [facility] Start: 03-08-2023 End: 03-09-2023 Orders Only Robby [...] Dx) Start: 01-29-2023 End: 01-29-2023 ambulatory Amber Handley Facility:[facility] Start: 01-29-2023 End: 01-29-2023 Admission to same day surgery center DO Amber Handley Work Phone: [facility] [place] [facility] [place] Start: 01-29-2023 End: 01-29-2023 ambulatory DO Amber Handley Work Phone: [facility] Work Phone: Start: 01-08-2023 End: 01-08-2023 Emergency department patient visit Reta Alva Facility:[facility] Start: 01-08-2023 End: 01-08-2023 Emergency department patient visit DO Amber Handley Work Phone: [facility] Work Phone: Start: 12-28-2022 Orders Only Duncan miller DO Work Phone: Cardiology Comment on above: Frequent PVCs (Prima 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) Start: 12-08-2022 Orders Only Aj Sullivan MD Work Phone: Cardiology Comment on above: Frequent PVCs (Prima ry Dx) Start: 12-01-2022 End: 12-01-2022 ambulatory DUNCAN VALLAADRES Facility:[facility] Start: 11-23-2022 End: 11-23-2022 ambulatory Amber Montanoarashmario Facility:[facility] Start: 11-23-2022 End: 11-23-2022 ambulatory DO Amber Handley Work Phone: [facility] Work Phone: Start: 11-23-2022 End: 11-23-2022 Patient encounter procedure DO Amber Handley Work Phone: [facility] [place] Work Phone: Start: 09-08-2022 Orders Only Duncan miller DO Work Phone: Cardiology Comment on above: SOB (shortness of br eath) (Primary Dx) Start: 09-04-2022 End: 09-04-2022 Emergency department patient visit Dennis Mcbride [facility] Start: 08-16-2022 Refill Duncan miller DO Work Phone: Cardiology Comment on above: Refill Request Start: 06-29-2022 ambulatory Duncan miller DO Work Phone: [facility] Start: 06-29-2022 Follow-up encounter Duncan Valladares DO Work Phone: Cardiology Comment on above: Follow up/Appointmen t Start: 03-15-2022 End: 03-15-2022 Patient encounter procedure Duncan Valladares DO Work Phone: Cardiology Comment on above: Palpitations (Primar y Dx); Frequent PVCs; Dizziness; History of loop recorder; Short VA-normal QRS complex syndrome Start: 01-02-2022 End: 01-02-2022 Patient encounter procedure Nadya Beck MD Work Phone: Cardiology Comment on above: PSVT (paroxysmal sup raventricular tachycardia) (HCC) (Primary Dx); Frequent PVCs; Recurrent syncope Start: 12-27-2021 End: 12-27-[address] APOLONIA HART Facility:[facility] Start: 10-24-2021 End: 10-24-2021 Patient encounter procedure Yefri Dudley MD Work Phone: Cardiology Comment on above: Dizziness (Primary D x); Frequent PVCs; History of loop recorder Start: 10-10-2021 Refill Chhaya finch MD Work Phone: [facility] Comment on above: Refill Request Start: 07-08-2021 End: 10-06-2021 Patient encounter procedure Josette HANDLEY [facility] Start: 02-14-2021 End: 02-14-[address] Josette HANDLEY Facility:[facility] Start: 08-17-2020 End: 08-17-2020 Telephone encounter No One (Historical) Referring Physician Comment on above: External Referrals/r esources Procedures Date Procedure Procedure Detail Performing Clinician Start: 03-07-2023 Antibody screen AJ MCCORMICK MD Comment on above: Order Comment: Speci men Type: BLOOD SPECIMENOrdering Facility: [facility] Address: [address] [id number] Performed By: #### T [id number] ####[facility] BLOOD BANKCLIA [id number] [facility] [address] [place] Start: 01-29-2023 OR Laparoscopy Salpingectomy (Bilateral) DO Amber Handley Work Phone: Start: 01-08-2023 Computed tomography of abdomen and pelvis with contrast DO Amber David Handley Work Phone: Start: 01-08-2023 Transvaginal echography DO Amber David Handley Work Phone: Start: 01-08-2023 Bacteria identificat ion test DO Amber David Handley Work Phone: Start: 01-08-2023 Mycology culture DO Amber Handley Work Phone: Start: 01-08-2023 Trichomonas vaginali s detection DO Amber Hernandez Emmanuelle Work Phone: Start: 01-08-2023 Pelvic echography DO Amber Hernandez Emmanuelle Work Phone: Start: 04-18-2021 Antibody screen Comment on above: Performed By: #### T SPN #### [facility] [address] [place] [address] Carpal tunnel syndro me (disorder) Josette HANDLEY Destructive procedure G JOHNPollo RT HANDLEY H/O: surgery History of loop recorder Yefri Dudley MD Work Phone: H/O: surgery History of loop recorder Duncan Valladares DO Work Phone: Tonsillectomy Josette Sahni Plan of Treatment Date Care Activity Detail Author Start: 02-24-2024 Influenza vaccination Influenz a Vaccine (Season Ended) [facility] Start: 09-20-2023 Screening for malign ant neoplasm of cervix HPV Testing [facility] Start: 08-01-2023 End: 08-01-2023 Patient encounter procedure 08/01/2023 5:00 PM EST Office Visit [facility] [address] [place] [phone] Jenn Handley DO [address] [place] [address] Arrived [facility] Comment on above: Arrived Start: 08-01-2023 End: 08-01-2024 CBC W Auto Differential panel - Blood CBC and differential Lab Routine Constipation, unspecified constipation type Numbness in feet Cervical radiculopathy Swollen lymph nodes Frequent PVCs Supraventricular tachycardia, unspecified (I47.10) Expected: 08/01/2023 (Approximate), Expires: 08/01/2024 [facility] Comment on above: Expected: 08/01/2023 (Approximate), Expires: 08/01/2024 Start: 08-01-2023 End: 08-01-2024 Comprehensive metabolic 2000 panel - Serum or Plasma Comprehensive metabolic panel Lab Routine Constipation, unspecified constipation type Cervical radiculopathy Swollen lymph nodes Expected: 08/01/2023 (Approximate), Expires: 08/01/2024 [facility] Comment on above: Expected: 08/01/2023 (Approximate), Expires: 08/01/2024 Start: 08-01-2023 End: 08-01-2024 Erythrocyte sedimentation rate Sedimentation rate, automated Lab Routine Numbness in feet Cervical radiculopathy Expected: 08/01/2023 (Approximate), Expires: 08/01/2024 [facility] Comment on above: Expected: 08/01/2023 (Approximate), Expires: 08/01/2024 Start: 08-01-2023 End: 08-01-2024 Thyrotropin [Units/volume] in Serum or Plasma TSH Lab Routine Constipation, unspecified constipation type Numbness in feet Expected: 08/01/2023 (Approximate), Expires: 08/01/2024 [facility] Comment on above: Expected: 08/01/2023 (Approximate), Expires: 08/01/2024 Start: 08-01-2023 End: 08-01-2024 XR Cervical spine 2 or 3 Views XR cervical spine 2 or 3 views Imaging Routine Cervical radiculopathy Expected: 08/01/2023, Expires: 08/01/2024 [facility] Work Phone: Comment on above: Expected: 08/01/2023 , Expires: 08/01/2024 Start: 03-22-2023 End: 03-08-2024 EXERCISE STRESS ECG (WITHOUT IMAGING) EXERCISE STRESS ECG (WITHOUT IMAGING) Cardiology Routine PVC (premature ventricular contraction) Encounter for monitoring flecainide therapy Expected: 03/22/2023, Expires: 03/08/2024 [facility] Work Phone: Comment on above: Expected: 03/22/2023 , Expires: 03/08/2024 Start: 02-23-2023 Covid-19 Vaccine () Covid-19 Vaccine () [facility] Start: 02-23-2023 Influenza vaccination [facility] Start: 02-06-2023 End: 04-08-2023 Basic metabolic 2000 panel - Serum or Plasma BASIC METABOLIC PNL Lab Routine Frequent PVCs Expected: 02/06/2023, Expires: 04/08/2023 [facility] Work Phone: Comment on above: Expected: 02/06/2023 , Expires: 04/08/2023 Start: 02-06-2023 End: 04-08-2023 CBC panel - Blood by Automated count CBC Lab Routine Frequent PVCs Expected: 02/06/2023, Expires: 04/08/2023 [facility] Work Phone: Comment on above: Expected: 02/06/2023 , Expires: 04/08/2023 Start: 02-06-2023 End: 04-08-2023 TYPE AND SCREEN,30 DAY TYPE AND SCREEN,30 DAY Blood Bank Routine Frequent PVCs Expected: 02/06/2023, Expires: 04/08/2023 [facility] Work Phone: Comment on above: Expected: 02/06/2023 , Expires: 04/08/2023 Start: 01-29-2023 [facility] Start: 01-29-2023 [facility] Start: 01-08-2023 [facility] Start: 06-25-2022 DEPRESSION ASSESSMENT DEPRESSION ASS ESSMENT [facility] Start: 02-23-2022 Influenza vaccination [facility] Start: 02-21-2016 Urine microalbumin profile [facility] Start: 2014 PAP TESTING PAP TESTING [facility] Start: 2014 Screening for malign ant neoplasm of cervix Pap Testing [facility] Start: 2005 Adult depression screening assessment DEPRESSION SCREENING [facility] Start: 1998 COVID-19 VACCINE (1) COVID-19 VACCIN E (1) [facility] Start: 03-22-1994 COVID-19 VACCINE (#1) COVID-19 VACCI NE (#1) [facility] End: 09-09-2023 ECG COMPLETE ECG COMPLETE ECG Routine SOB (shortness of breath) 1 Occurrences starting 09/08/2022 until 09/09/2023 [facility] Work Phone: Comment on above: 1 Occurrences starti ng 09/08/2022 until 09/09/2023 End: 12-29-2023 ECG COMPLETE ECG COMPLETE ECG Routine Frequent PVCs 1 Occurrences starting 12/28/2022 until 12/29/2023 [facility] Work Phone: Comment on above: 1 Occurrences starti ng 12/28/2022 until 12/29/2023 End: 03-05-2024 ECG COMPLETE ECG COMPLETE ECG Routine Frequent PVCs 1 Occurrences starting 03/05/2023 until 03/05/2024 [facility] Work Phone: Comment on above: 1 Occurrences starti ng 03/05/2023 until 03/05/2024 End: 05-30-2024 ECG COMPLETE [facility] Work Phone: Comment on above: 1 Occurrences starti ng 05/30/2023 until 05/30/2024 End: 06-01-2024 ECG COMPLETE ECG COMPLETE ECG Routine Adverse effect of flecainide 1 Occurrences starting 06/01/2023 until 06/01/2024 [facility] Work Phone: Comment on above: 1 Occurrences starti ng 06/01/2023 until 06/01/2024 Patient referral [facility] Work Phone: [facility] EP LAB [facility] Immunizations Immunization Date Immunization Notes Care Provider Fa cili 02-20-2006 hepatitis A vaccine, unspecified formulation Chhaya Guevara MD Work Phone: [facility] 02-20-2006 tetanus toxoid, redu angelina diphtheria toxoid, and acellular pertussis vaccine, adsorbed Chhaya Guevara MD Work Phone: [facility] 02-20-2006 varicella virus vaccine Camila Guevara MD Work Phone: [facility] 07-13-2004 hepatitis B vaccine, pediatric or pediatric/adolescent dosage Chhaya Guevara MD Work Phone: [facility] 11-02-1998 diphtheria, tetanus toxoids and acellular pertussis vaccine, unspecified formulation Chhaya Guevara MD Work Phone: [facility] 11-02-1998 measles, mumps and rubella virus vaccine Chhaya Guevara MD Work Phone: [facility] 11-02-1998 trivalent poliovirus vaccine, live, oral Chhaya Guevara MD Work Phone: [facility] 03-02-1998 varicella virus vaccine Camila Guevara MD Work Phone: [facility] 02-23-1995 diphtheria, tetanus toxoids and acellular pertussis vaccine, unspecified formulation Chhaya Guevara MD Work Phone: [facility] 02-23-1995 haemophilus influenz ae type b vaccine, conjugate unspecified formulation Chhaya Guevara MD Work Phone: [facility] 02-23-1995 measles, mumps and rubella virus vaccine Chhaya Guevara MD Work Phone: [facility] 02-23-1995 trivalent poliovirus vaccine, live, oral Chhaya Guevara MD Work Phone: [facility] 03-10-1994 diphtheria, tetanus toxoids and pertussis vaccine Chhaya Guevara MD Work Phone: [facility] 03-10-1994 haemophilus influenz ae type b vaccine, conjugate unspecified formulation Chhaya Guevara MD Work Phone: [facility] 01-23-1994 diphtheria, tetanus toxoids and pertussis vaccine Chhaya Guevara MD Work Phone: [facility] 01-23-1994 haemophilus influenz ae type b vaccine, conjugate unspecified formulation Chhaya Guevara MD Work Phone: [facility] 01-23-1994 hepatitis B vaccine, pediatric or pediatric/adolescent dosage Chhaya Guevara MD Work Phone: [facility] 01-23-1994 trivalent poliovirus vaccine, live, oral Chhaya Guevara MD Work Phone: [facility] 1993 diphtheria, tetanus toxoids and pertussis vaccine Chhaya Guevara MD Work Phone: [facility] 1993 haemophilus influenz ae type b vaccine, conjugate unspecified formulation Chhaya Guevara MD Work Phone: [facility] 1993 hepatitis B vaccine, pediatric or pediatric/adolescent dosage Chhaya Guevara MD Work Phone: [facility] 1993 trivalent poliovirus vaccine, live, oral Chhaya Guevara MD Work Phone: [facility] Payers Date Payer Category Payer Self-pay [id number] 2018 Medicaid [id number] 2018 Medicaid [id number] 1993 Unknown [id number] 1993 Unknown [id number] 1993 Unknown [id number] 1993 Unknown [id number] 1993 Unknown [id number] 1993 Unknown [id number] [id number] 9 1993 Unknown [id number] 9 1993 Unknown [id number] 9 1993 Unknown [id number] [id number] 9 1993 Unknown [id number] [id number] 9 1959 Unknown [id number] Private Health Insurance [facility] [id number] Unknown [id number] Unknown [id number] Unknown [id number] Social History Date Type Detail Facility [facility] Start: 1995 Sex Assigned At Not on file [facility] Start: 12-01-2022 End: 12-06-2023 Sex Assigned At Female [facility] Start: 09-21-2020 End: 02-07-2021 Tobacco smoking status NHIS Ex-smoker [facility] End: 05-25-2019 History of tobacco use Current smoker [facility] Start: 09-21-2020 End: 12-01-2022 Cigarettes smoked current (pack per day) - Reported 2 [facility] Work Phone: Start: 09-21-2020 End: 02-07-2021 Tobacco use and exposure Smokeless tobacco non-user [facility] Start: 08-09-2021 End: 03-08-2023 Alcohol intake Ex-drinker (finding) [facility] Start: 09-21-2020 History SDOH Alcohol Comment 1 drink per month [facility] Start: 1995 Sex Assigned At Female [facility] Start: 10-14-2021 End: 03-15-2022 Exposure to SARS-CoV-2 (event) Not sure [facility] End: 05-25-2019 History of tobacco use Cigarette Smoker [facility] Start: 09-04-2022 Tobacco smoking status Smokeless tobacco user within last 30 days [facility] Start: 02-14-2021 End: 12-07-2022 Tobacco smoking status NHIS Never smoked tobacco (finding) [facility] Start: 01-09-2021 Gender identity Identifies as female gender (finding) [facility] Start: 02-24-2021 Sexual orientation Heterosexual (finding) [facility] Start: 05-30-2023 Alcohol intake Current drinker of alcohol (finding) [facility] Start: 02-14-2023 End: 08-01-2023 Alcohol intake Lifetime non-drinker (finding) [facility] Tobacco Current vaping o r e-cigarette use Smokeless Tobacco Use:. [facility] Tobacco smoking status No Smokin g Status Entered [facility] Goals Date Patient Goal Desired Activity /State Functional Status Date Assessment Result Facility 08-15-2023 Functional Status N/A [facility] 09-04-2022 Functional Status N/A [facility] Clinical Notes 06-02-2021 to 09-24-2023 Telephone Encounter - Bri Mata - 09/24/2023 7:40 AM EDT Note Date & Type Note Facility 09-24-2023 Miscellaneous Notes Formattin g of this note might be different from the original. Please contact patient regarding TrackIFt message. documented in this encounter [facility] 08-15-2023 Hospital Discharg e instructions Patient Education [...] Follow these instructions at home: Medicines Take gryr-xty-zorcbsu and prescription medicines only as told by your health care provider. Ask your health care provider about: ?Taking medicines such as aspirin and ibuprofen. These medicines can thin your blood. Do not take these medicines unless your health care provider tells you to take them. ?Taking mgha-gpz-qiadrwe medicines, vitamins, herbs, and supplements. If you [...] to keep your urine pale yellow. Take kyoj-nvi-atggyqg or prescription medicines. Eat foods that are [...] provider. Document Revised: 10/11/2021 Document Reviewed: 10/11/2021 [employer] Patient Education 2022 [employer] Follow Up Care 08/15/2023 12:34:34 With:Marcos Mann Address: [address] [phone] Business (1) When:08/18/2023 15:15:10 [facility] 08-15-2023 Evaluation + Plan note Extrac do from: Title:ED Note Author:Robles LARSON, Kong Juárez te:08/15/23 Dysfunctional uterine bleedi ng (N93.8: Other specified abnormal uterine and vaginal bleeding) Orders: medroxyPROGESTERone, 10 mg = 2 tab(s), Oral, Daily, X 5 day(s), # 10 tab(s), Refills(s) 0, Pharmacy: [facility], 170, cm, 08/15/23 12:47:00 EST, Height/Length Dosing, 52.9, kg, 08/15/23 12:47:00 EST, Weight Dosing [facility]02-07-2024 History of Present illness Narrative* Jenn Handley, [...] Hypotension Sinus bradycardia Sinus bradycardia seen on it operations specialist Tonsillar hypertrophy Family History: Family History Problem [...] hours., Disp: , Rfl: documented in this encounterSaint [facility] [id number] Miscellaneous Notes* Telephone Encounter - Bri Mata - 06/01/2023 9:44 AM EST Please contact patient regarding MyChart message. * Telephone Encounter - Bri Mata - 05/31/2023 4:53 PM EST Please contact patient regarding MyChart message. documented in this encounterOhiohealth12-06-2023 NoteHNO ID: [id number] Author: Duncan Valladares DO Service: ? Author Type: Physician Type: Progress Notes Filed: 05/30/2023 5:15 PM Note Text: [facility] Department of Cardiovascular Medicine SECTION OF CARDIAC PACING and ELECTROPHYSIOLOGY OUTPATIENT VISIT DATE May 30, 2023 OUTPATIENT VISIT TYPE ESTABLISHED PRIMARY CARE PHYSICIAN: Jenn Handley DO [address] [place] [address] CHIEF COMPLAINT: palpitations HISTORY OF PRESENT ILLNESS: Ms. Bales is a 27 year old female who presents today for follow-up visit for palpitations with history of PVCs with ablation attempt by Dr. Angela 03/08/23 as well as prior ablation in 2019 at [place]. She had few PVCs so no ablation [...] no new auto de (more content not included)...[facility]12-06-2023 History of Present illness Narrative* Duncan Valladares DO - 05/30/2023 4:00 PM EST Images from the original note were not included. [facility] Department of Cardiovascular Medicine SECTION OF CARDIAC PACING and ELECTROPHYSIOLOGY OUTPATIENT VISIT DATE May 30, 2023 OUTPATIENT VISIT TYPE ESTABLISHED PRIMARY CARE PHYSICIAN: Jenn Handley DO [address] [place] [address] CHIEF COMPLAINT: palpitations HISTORY OF PRESENT ILLNESS: Ms. Bales is a 27 year old female who presents today for follow-up visit for palpitations with history of PVCs with ablation attempt by Dr. Angela 03/08/23 as well as prior ablation in 2019 at [place]. She had few PVCs so no ablation [...] Nadira Jameson RN PAST CARDIAC HISTORY: PVC [facility] Syncope Center Score Please estimate the frequency [...] (premature ventricular contractions) PVC ablation in 03/2020 [facility] with no improvement in palpitations and near syncopal events. She has had a normal Echo (2019) and normal cardiac MRI (2019). EF=60%. 08/14 48hr Holter w/ frequent PVCs (5.2% burden), which were asymptomatic. Sxs reported often during monitoring without arrhythmia. Zio at [facility] in 09/12 showing 4% PVC burden; 05/15 TTE: LV dilated, EF 68% Rh negative state in antepartum period 06/02/2021 Got RhIG at [facility] 04/20/21. Ab screen was neg just prior [...] the patient's primary care physician or clinical signaling design engineer for the documentation requested. We will provide the office notes from the patient's most recent visit if they have not already been received, and other tests or evaluations performed here can be made available upon request. documented in this encounterOhiohealth11-03-2023 NoteHNO ID: [id number] Author: Oren Campoverde APRN.METAL PATTERNMAKER APPRENTICE Service: ? Author Type: Nurse Practitioner Type: Progress Notes Filed: 04/27/2023 3:17 PM Note Text: [facility] Department of Cardiovascular Medicine SECTION OF CARDIAC PACING and ELECTROPHYSIOLOGY OUTPATIENT VISIT DATE April 27, 2023 OUTPATIENT VISIT TYPE ESTABLISHED PRIMARY CARE PHYSICIAN: Jenn Handley DO [address] [facility] [address] [place] [address] REFERRING PHYSICIAN: No referring provider defined for [...] to electrophysiology lab in March 2020 in [facility] where PVC ablation was performed. Patient had [...] follow up: No change PVC Provider Follow-up: Chief Station Engineer: Yes PVC Hunter: 7.6 PVC Morophologies: 1 Currently on AAD: [...] BRANCH BLOCK BORDERLINE ECG Confirmed by AUDREY WHITNEY PENNY ([id number]) on 03/13/2023 10:39:59 AM LOOP RECORDER REMOTE [...] will continue antiarrhy (more content not included)... [facility]11-03-2023 History of Present illness Narrative* Oren Campoverde APRN.METAL PATTERNMAKER APPRENTICE - 04/27/2023 3:08 PM EDT Images from the original note were not included. [facility] Department of Cardiovascular Medicine SECTION OF CARDIAC PACING and ELECTROPHYSIOLOGY OUTPATIENT VISIT DATE April 27, 2023 OUTPATIENT VISIT TYPE ESTABLISHED PRIMARY CARE PHYSICIAN: Jenn Handley DO [address] [place] [address] REFERRING PHYSICIAN: No referring provider defined for [...] to electrophysiology lab in March 2020 in [facility] where PVC ablation was performed. Patient had [...] follow up: No change PVC Provider Follow-up: Chief Station Engineer: Yes PVC Hunter: 7.6 PVC Morophologies: 1 Currently on AAD: [...] Adhesive Tape-Silic* Rash Heart monitor electrodes Cat Ld Other: See Comments MEDICATIONS: flecainide (TAMBOCOR) 50 [...] BLOCK BORDERLINE ECG Confirmed by AUDREY WHITNEY, HINKLEY ([id number]) on 03/13/2023 10:39:59 AM LOOP RECORDER REMOTE [...] CCDS This note was partially generated using contrib.com voice recognition system. I spent over 40 minutes in the visit, with more than 50% of the total rrkx-fq-kkxn time of the visit in counseling / coordination of care. documented in this encounterOhiohealth09-14-2023 NoteHNO ID: [id number] Author: Robby Rapp MD Service: Cardiovascular Medicine [...] EKG ok Full report to follow in [facility] (Under Chart Review -> Cardiac ) Robby Rapp MD Electrophysiology Fellow PGY-VIII P: [phone] March 08, 2023 9:05 [facility]09-14-2023 NoteHNO ID: [id number] Author: Belinda Garcia APRN.STATEMENT CLERKS MANAGER Service: ? Author Type: Nurse Milk Sampler Type: Anesthesia Procedure Notes Filed: 03/08/2023 8:07 AM Note Text: ANESTHESIOLOGY PROCEDURE NOTE PIV General Information Procedure Start Time/Medication Administration: 03/08/2023 7:59 AM Patient Location: OR Staffing STATEMENT CLERKS MANAGER: Belinda Garcia APRN.STATEMENT CLERKS MANAGER Performed by: STATEMENT CLERKS MANAGER Preparation Sterility Preparation: hand hygiene performed prior to procedure, surgical cap used, mask used, skin prep agent completely dried prior to procedure Site Prep: alcohol Procedure Details Indication: need for IV access Needle Size/Type: 20 gauge angiocath Orientation: Right Location: Wrist Imaging Guidance Used: No SIGNATURE: Belinda Garcia APRN.STATEMENT CLERKS MANAGER PATIENT NAME: Simin Bales DATE: March 08, 2023 TIME: 8:07 AM CSN: [id number] [facility]-2023 NoteHNO ID: [id number] Author: Ciara Zurita RN Service: ? Author [...] discussed with Physician, nurse practitioner or Physician acute care assistant upon discharge Instructions for transmitting EKG to Monitoring Center 3 month follow up instructions Contact number for information and questions Patient Evaluation: Verbalizes understanding Follow Up Plan: Follow up as directed by MD. Supplemental Material Given: Written Material Patient education regarding radiation exposure. Instructed By Ciara Zurita RN, RN. In Department of CARDIOLOGY.[facility]09-13-2023 History of Present illness Narrative* Ciara Zurita [...] discussed with Physician, nurse practitioner or Physician acute care assistant upon discharge Instructions for transmitting EKG to Monitoring Center 3 month follow up instructions Contact number for information and questions Patient Evaluation: Verbalizes understanding Follow Up Plan: Follow up as directed by MD. Supplemental Material Given: Written Material Patient education regarding radiation exposure. Instructed By Ciara Zurita RN, RN. In Department of CARDIOLOGY. documented [place] [address]-13-2023 NoteHNO ID: [id number] Author: Aj Sullivan MD Service: ? Author Type: Physician Type: Progress Notes Filed: 03/07/2023 1:29 PM Note Text: [facility] Department of Cardiovascular Medicine SECTION OF CARDIAC PACING and ELECTROPHYSIOLOGY OUTPATIENT VISIT DATE March 07, 2023 OUTPATIENT VISIT TYPE ESTABLISHED PRIMARY CARE PHYSICIAN: Jenn Handley, DO [address] [place] [address] CHIEF COMPLAINT: PVCs HISTORY OF PRESENT ILLNESS/NURSING INTAKE NOTE: Ms. Bales is a 27 year old female who presents today for follow-up visit. She is scheduled for redo PVC ablation tomorrow. She was last seen in office 12/01/[address] Valladares. She has a history of PVCs s/p ablation 03/2020 ([facility]). She reports daily palpitations, lightheadedness, chest pain, [...] (premature ventricular contractions) PVC ablation in 03/2020 [facility] with no improvement in palpitations and near syncopal events. She has had a normal Echo (2019) and normal cardiac MRI (2019). EF=60%. 08/14 48hr Holter w/ frequent PVCs (5.2% burden), which were asymptomatic. Sxs reported often during monitoring without arrhythmia. Zio at [facility] in 09/12 showing 4% PVC burden; 05/15 TTE: LV dilated, EF 68% Rh negative state in antepartum period 06/02/2021 Got RhIG at [facility] 04/20/21. Ab screen was neg just prior [...] FOLLOW UP: Continue with 1-month remote transmissions. Benrie Solares RN NOTE TO PROVIDERS: CARD Flowsheets contain detailed device programming and testing data. Paceart/Interrogation PDF can be found under CARDIAC DATA AND REPORT, Scanned Documents section. PVC ablation 04/15/2020 at TTE 08/04/2019 at I have personally reviewed the Electrocardiogram, Echocardiogram, and Device Check. IMPRESSION: Ms. [place] (more content not included)...[facility]09-13-2023 Note Education (EPSMN) SIMIN BALES ([id number]) 1995 F Date Time Provider Department 03/07/23 AJ SULLIVAN EPSMN Reason for Visit: Patient Education [91] Cmt: PVC RFA During your visit today, we recorded the following information about you: Allergies As of Date: 03/07/2023 Noted Allergy Reaction ADHESIVE TAPE-SILICONES 09/21/2020 2 - Rash Comments: Heart monitor electrodes CAT DANDER 04/10/2021 14 - Other: See Comments Date Reviewed: 03/07/2023 Reviewed by: Belinda Bryant, AUGUSTA - Fully Assessed Prescriptions as of 03/07/2023 - verapamil ER (VERELAN) 120 mg 24 hr capsule Take 1 capsule by mouth daily at bedtime. - magnesium oxide (MAG-OX) 400 mg (241.3 mg magnesium) tablet Take 1 tablet by mouth once daily. Encounter Status:Closed by CIARA ZURITA RN on 03/07/23[facility] History of Present illness Narrative* Aj Sullivan MD - 03/07/2023 12:45 PM EDT Images from the original note were not included. [facility] Department of Cardiovascular Medicine SECTION OF CARDIAC PACING and ELECTROPHYSIOLOGY OUTPATIENT VISIT DATE March 07, 2023 OUTPATIENT VISIT TYPE ESTABLISHED PRIMARY CARE PHYSICIAN: Jenn Handley DO [address] [place] [address] CHIEF COMPLAINT: PVCs HISTORY OF PRESENT ILLNESS/NURSING INTAKE NOTE: Ms. Bales is a 27 year old female who presents today for follow-up visit. She is scheduled for redo PVC ablation tomorrow. She was last seen in office 12/01/[address] Valladares. She has a history of PVCs s/p ablation 03/2020 ([facility]). She reports daily palpitations, lightheadedness, chest pain, [...] (premature ventricular contractions) PVC ablation in 03/2020 [facility] with no improvement in palpitations and near syncopal events. She has had a normal Echo (2019) and normal cardiac MRI (2019). EF=60%. 08/14 48hr Holter w/ frequent PVCs (5.2% burden), which were asymptomatic. Sxs reported often during monitoring without arrhythmia. Zio at [facility] in 09/12 showing 4% PVC burden; 05/15 TTE: LV dilated, EF 68% Rh negative state in antepartum period 06/02/2021 Got RhIG at [facility] 04/20/21. Ab screen was neg just prior [...] Level: 5 - High documented in this encounterOhiohealth06-09-2023 NoteHNO ID: [id number] Author: Duncan Valladares DO Service: ? Author Type: Physician Type: Progress Notes Filed: 12/01/2022 6:48 PM Note Text: [facility] Department of Cardiovascular Medicine SECTION OF CARDIAC PACING and ELECTROPHYSIOLOGY OUTPATIENT VISIT DATE December 01, 2022 OUTPATIENT VISIT TYPE ESTABLISHED PRIMARY CARE PHYSICIAN: Jenn Handley DO [address] [place] [address] CHIEF COMPLAINT: dizziness HISTORY OF PRESENT ILLNESS: [...] her PCP. PAST CARDIAC HISTORY: PVC ablation [facility] 2019 PAST MEDICAL HISTORY Diagnosis Date Abnormal Pap smear of cervix 12/12/2018 lsil with +hpv, colpo cin1, repeat pap 01/22/20 neg with neg hpv Chlamydia Mental disorder history of depression PVC's (premature ventricular contractions) PVC ablation in 03/2020 [facility] with no improvement in palpitations and near syncopal events. She has had a normal Echo (2019) and normal cardiac MRI (2019). EF=60%. 08/14 48hr Holter w/ frequent PVCs (5.2% burden), which were asymptomatic. Sxs reported often during monitoring without arrhythmia. Zio at [facility] in 09/12 showing 4% PVC burden; 05/15 TTE: LV dilated, EF 68% Rh negative state in antepartum period 06/02/2021 Got RhIG at [facility] 04/20/21. Ab screen was neg just prior [...] month Drug use: Ne (more content not included)...[facility]03-13-2023 Evaluation + Plan noteExtracted from: Title:ED Note [...] Troponin 0 Hr. XR Chest Single View [facility]03-13-2023 Hospital Discharge instructions Patient Education 09/04/2022 10:23:20 [...] are safe for you. General instructions Take [id number] and prescription medicines only as told by [...] 06/11/2006 Document Revised: 12/12/2018 Document Reviewed: 12/12/2018 [employer] Patient Education 2020 [employer] Follow Up Care 09/04/2022 08:41:22 With:Josette HANDLEY Address: [address] [place] [address], [place] [phone] (1) When:09/07/2022 10:06:05 [facility]02-23-2023 Miscellaneous Notes* Telephone Encounter - Bri Mata - 08/17/2022 7:13 AM EST Electronic request for refill. Requested Prescriptions Pending Prescriptions Disp Refills verapamil ER (VERELAN) 120 mg 24 hr capsule 90 capsule 3 Sig: Take 1 capsule by mouth daily at bedtime. Last office visit in EP was 03/15/2022 Bri Mata documented in this encounterOhiohealth01-05-2023 Miscellaneous Notes* Telephone Encounter - Edwina Guadalupe Adm - 06/29/2022 2:56 PM EST Images from the original note were not included. Fax from patient's employer received and responded to Saved in EP Outside Report Have a great day, Edwina Hernandez Manager Rn Case documented in this encounterOhiohealth09-21-2022 History of Present illness Narrative* Duncan Valladares, DO - 03/15/2022 3:30 PM EDT Images from the original note were not included. [facility] Department of Cardiovascular Medicine SECTION OF CARDIAC PACING and ELECTROPHYSIOLOGY OUTPATIENT VISIT DATE March 15, 2022 OUTPATIENT VISIT TYPE ESTABLISHED PRIMARY CARE PHYSICIAN: Jenn Handley, [address] [facility] [address] [place] [address] CHIEF COMPLAINT: dizziness HISTORY OF PRESENT ILLNESS: [...] was 4%. She has also seen Dr. aCusey and Dr. Dudley as well. An example [...] (premature ventricular contractions) PVC ablation in 03/2020 [facility] with no improvement in palpitations and near syncopal events. She has had a normal Echo (2019) and normal cardiac MRI (2019). EF=60%. 08/14 48hr Holter w/ frequent PVCs (5.2% burden), which were asymptomatic. Sxs reported often during monitoring without arrhythmia. Zio at [facility] in 09/12 showing 4% PVC burden; 05/15 TTE: LV dilated, EF 68% Rh negative state in antepartum period 06/02/2021 Got RhIG at [facility] 04/20/21. Ab screen was neg just prior [...] - ICD9: V15.29, ICD10: Z98.890 5. 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 We will provide the office notes from the patient's most recent visit if they have not already been received, and other tests or evaluations performed here can be made available upon request. documented in this encounterOhiohealth07-11-2022 Instructions* Patient Instructions* Nadya Beck MD - 01/02/2022 1:42 PM EDT Continue current medications for now Aim for 150mins of aerobic activity weekly Get low and try discussed vagal maneuvers for palpitations/dizziness. Follow-up with EP and device clinic as directed. documented in this encounterOhiohealth07-11-2022 History of Present illness Narrative* Nadya Beck MD - 01/02/2022 1:00 PM EDT Images from the original note were not included. [facility] Department of Cardiology [address] [place] [address] (office) [phone] (fax) 01/02/2022 This note was written using medical terminology and is intended to be used for medical purposes by other health tire care manager Patient presents with: pvc She is accompanied [...] (premature ventricular contractions) PVC ablation in 03/2020 [facility] with no improvement in palpitations and near syncopal events. She has had a normal Echo (2019) and normal cardiac MRI (2019). EF=60%. 08/14 48hr Holter w/ frequent PVCs (5.2% burden), which were asymptomatic. Sxs reported often during monitoring without arrhythmia. Zio at [facility] in 09/12 showing 4% PVC burden; 05/15 TTE: LV dilated, EF 68% Rh negative state in antepartum period 06/02/2021 Got RhIG at [facility] 04/20/21. Ab screen was neg just prior [...] LAST VISIT WERE REVIEWED AND UPDATED IN [employer]. Last 3 Encounter Wt Readings: Date: Wt: [...] or concerns. Sincerely- Nadya Beck MD Staff Program Coordinator Orders Placed This Encounter magnesium oxide (MAG-OX) 400 mg (241.3 mg magnesium) tablet Sig: Take 1 tablet by mouth once daily. Dispense: 90 tablet Refill: 3 documented in this encounterOhiohealth05-02-2022 History of Present illness Narrative* Yefri Dudley [...] (premature ventricular contractions) PVC ablation in 03/2020 [facility] with no improvement in palpitations and near syncopal events. She has had a normal Echo (2019) and normal cardiac MRI (2019). EF=60%. 08/14 48hr Holter w/ frequent PVCs (5.2% burden), which were asymptomatic. Sxs reported often during monitoring without arrhythmia. Zio at [facility] in 09/12 showing 4% PVC burden; 05/15 TTE: LV dilated, EF 68% Rh negative state in antepartum period 06/02/2021 Got RhIG at [facility] 04/20/21. Ab screen was neg just prior [...] . She delivered 07/03/2021. She wore a it operations specialist in March 2021 but was only able [...] - ICD9: V22.2, ICD10: Z3A.36 6. 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 For the ILR we can [...] notes, she had PVC ablation 03/2020 at [place] with reported normal cardiac MRI at OSH. On metoprolol. #. Implantable Loop Recorder in place. Thank you for your consultation. Sincerely, Yefri Dudley MD, [facility], [facility] Cardiac Electrophysiology [facility] * Carline Anjel - 10/24/2021 1:45 PM EDT Images from the original note were not included. [facility] Department of Cardiovascular Medicine SECTION OF CARDIAC PACING and ELECTROPHYSIOLOGY OUTPATIENT VISIT DATE October 24, 2021 PRIMARY CARE PHYSICIAN: Jenn Handley, DO [address] [place] [address] REFERRING PHYSICIAN: Yefri Dudley [address] [facility] [id number] NURSING INTAKE HISTORY: Ms. Bales is a [...] . She delivered 07/03/2021. She wore a it operations specialist in March 2021 but was only able [...] (premature ventricular contractions) PVC ablation in 03/2020 [facility] with no improvement in palpitations and near syncopal events. She has had a normal Echo (2019) and normal cardiac MRI (2019). EF=60%. 08/14 48hr Holter w/ frequent PVCs (5.2% burden), which were asymptomatic. Sxs reported often during monitoring without arrhythmia. Zio at [facility] in 09/12 showing 4% PVC burden; 05/15 TTE: LV dilated, EF 68% Rh negative state in antepartum period 06/02/2021 Got RhIG at [facility] 04/20/21. Ab screen was neg just prior [...] -- Carline Hobbs RN documented in this encounterOhiohealth12-09-2021 History of Past illness Narrative* Problem Noted Date Resolved Date Rh negative state in antepartum period 08/10/2021 Overview: Got RhIG at [facility] 04/20/21. Ab screen was neg just prior to that. Maternal arrhythmia affectin g in third trimester, antepartum 02/24/2021 08/10/2021 Overview: Frequent PVC's, improved but still present post ablation in 2019. Toprol xl Last Assessment & Plan: Assessment: still having palpitations and pre syncopal events. 30 day monitor in placed. Saw cardiology this month toprol er increased to 25mg by her signaling design engineer. PLAN: Check tsh, cbc, labs, gtt. Serial growth ultrasounds planned. documented as of this encounter (statuses as of 10/10/2021) [facility]12-09-20[facility] History of Past illness Narrative* Problem Noted Date Resolved Date Rh negative state in antepartum period 1 08/10/2021 Overview: Got RhIG at [facility] 04/20/21. Ab screen was neg just prior to that. Maternal arrhythmia affectin g in third trimester, antepartum 02/24/2021 08/10/2021 Overview: Frequent PVC's, improved but still present post ablation in 2019. Toprol xl Last Assessment & Plan: Assessment: still having palpitations and pre syncopal events. 30 day monitor in placed. Saw cardiology this month toprol er increased to 25mg by her signaling design engineer. PLAN: Check tsh, cbc, labs, gtt. Serial growth ultrasounds planned. documented as of this encounter (statuses as of 10/24/2021) [facility]12-09-20[facility] History of Past illness Narrative* Problem Noted Date Resolved Date Rh negative state in antepartum period 1 08/10/2021 Overview: Got RhIG at [facility] 04/20/21. Ab screen was neg just prior to that. Maternal arrhythmia affectin g in third trimester, antepartum 02/24/2021 08/10/2021 Overview: Frequent PVC's, improved but still present post ablation in 2019. Toprol xl Last Assessment & Plan: Assessment: still having palpitations and pre syncopal events. 30 day monitor in placed. Saw cardiology this month toprol er increased to 25mg by her signaling design engineer. PLAN: Check tsh, cbc, labs, gtt. Serial growth ultrasounds planned. documented as of this encounter (statuses as of 01/02/2022) [facility]12-09-20[facility] History of Past illness Narrative* Problem Noted Date Resolved Date Rh negative state in antepartum period 1 08/10/2021 Overview: Got RhIG at [facility] 04/20/21. Ab screen was neg just prior to that. Maternal arrhythmia affectin g in third trimester, antepartum 02/24/2021 08/10/2021 Overview: Frequent PVC's, improved but still present post ablation in 2019. Toprol xl Last Assessment & Plan: Assessment: still having palpitations and pre syncopal events. 30 day monitor in placed. Saw cardiology this month toprol er increased to 25mg by her signaling design engineer. PLAN: Check tsh, cbc, labs, gtt. Serial growth ultrasounds planned. documented as of this encounter (statuses as of 03/15/2022) [facility]-09-[facility] History of Past illness Narrative* Problem Noted Date Resolved Date Rh negative state in antepartum period 1 08/10/2021 Overview: Got RhIG at [facility] 04/20/21. Ab screen was neg just prior to that. Maternal arrhythmia affectin g in third trimester, antepartum 02/24/2021 08/10/2021 Overview: Frequent PVC's, improved but still present post ablation in 2019. Toprol xl Last Assessment & Plan: Assessment: still having palpitations and pre syncopal events. 30 day monitor in placed. Saw cardiology this month toprol er increased to 25mg by her signaling design engineer. PLAN: Check tsh, cbc, labs, gtt. Serial growth ultrasounds planned. documented as of this encounter (statuses as of 06/30/2022) [facility]12-09-[facility] History of Past illness Narrative* Problem Noted Date Resolved Date Rh negative state in antepartum period 1 08/10/2021 Overview: Got RhIG at [facility] 04/20/21. Ab screen was neg just prior to that. Maternal arrhythmia affectin g in third trimester, antepartum 02/24/2021 08/10/2021 Overview: Frequent PVC's, improved but still present post ablation in 2019. Toprol xl Last Assessment & Plan: Assessment: still having palpitations and pre syncopal events. 30 day monitor in placed. Saw cardiology this month toprol er increased to 25mg by her signaling design engineer. PLAN: Check tsh, cbc, labs, gtt. Serial growth ultrasounds planned. documented as of this encounter (statuses as of 08/17/2022) [facility] History of Past illness Narrative* Problem Noted Date Resolved Date Rh negative state in antepartum period 1 08/10/2021 Overview: Got RhIG at [facility] 04/20/21. Ab screen was neg just prior to that. Maternal arrhythmia affectin g in third trimester, antepartum 02/24/2021 08/10/2021 Overview: Frequent PVC's, improved but still present post ablation in 2019. Toprol xl Last Assessment & Plan: Assessment: still having palpitations and pre syncopal events. 30 day monitor in placed. Saw cardiology this month toprol er increased to 25mg by her signaling design engineer. PLAN: Check tsh, cbc, labs, gtt. Serial growth ultrasounds planned. documented as of this encounter (statuses as of 09/08/2022) [facility] History of Past illness Narrative* Problem Noted Date Resolved Date Rh negative state in antepartum period 1 08/10/2021 Overview: Got RhIG at [facility] 04/20/21. Ab screen was neg just prior to that. Maternal arrhythmia affectin g in third trimester, antepartum 02/24/2021 08/10/2021 Overview: Frequent PVC's, improved but still present post ablation in 2019. Toprol xl Last Assessment & Plan: Assessment: still having palpitations and pre syncopal events. 30 day monitor in placed. Saw cardiology this month toprol er increased to 25mg by her signaling design engineer. PLAN: Check tsh, cbc, labs, gtt. Serial growth ultrasounds planned. documented as of this encounter (statuses as of 12/08/2022) [facility] History of Past illness Narrative* Problem Noted Date Resolved Date Rh negative state in antepartum period 08/10/2021 Overview: Got RhIG at [facility] 04/20/21. Ab screen was neg just prior to that. Maternal arrhythmia affectin g in third trimester, antepartum 02/24/2021 08/10/2021 Overview: Frequent PVC's, improved but still present post ablation in 2019. Toprol xl Last Assessment & Plan: Assessment: still having palpitations and pre syncopal events. 30 day monitor in placed. Saw cardiology this month toprol er increased to 25mg by her signaling design engineer. PLAN: Check tsh, cbc, labs, gtt. Serial growth ultrasounds planned. documented as of this encounter (statuses as of 12/28/2022) [facility] History of Past illness Narrative* Problem Noted Date Diagnosed Date Resolved Date Rh negative state in antepartum period 06/02/2021 08/10/2021 Overview: Got RhIG at [facility] 04/20/21. Ab screen was neg just prior to that. Maternal arrhythmia affectin g in third trimester, antepartum 02/24/2021 08/10/2021 Overview: Frequent PVC's, improved but still present post ablation in 2019. Toprol xl Last Assessment & Plan: Assessment: still having palpitations and pre syncopal events. 30 day monitor in placed. Saw cardiology this month toprol er increased to 25mg by her signaling design engineer. PLAN: Check tsh, cbc, labs, gtt. Serial growth ultrasounds planned. documented as of this encounter (statuses as of 03/05/2023) [facility] History of Past illness Narrative* Problem Noted Date Diagnosed Date Resolved Date Rh negative state in antepartum period 06/02/2021 08/10/2021 Overview: Got RhIG at [facility] 04/20/21. Ab screen was neg just prior to that. Maternal arrhythmia affectin g in third trimester, antepartum 02/24/2021 08/10/2021 Overview: Frequent PVC's, improved but still present post ablation in 2019. Toprol xl Last Assessment & Plan: Assessment: still having palpitations and pre syncopal events. 30 day monitor in placed. Saw cardiology this month toprol er increased to 25mg by her signaling design engineer. PLAN: Check tsh, cbc, labs, gtt. Serial growth ultrasounds planned. documented as of this encounter (statuses as of 03/07/2023) [facility] History of Past illness Narrative* Problem Noted Date Diagnosed Date Resolved Date Rh negative state in antepartum period 06/02/2021 08/10/2021 Overview: Got RhIG at [facility] 04/20/21. Ab screen was neg just prior to that. Maternal arrhythmia affectin g in third trimester, antepartum 02/24/2021 08/10/2021 Overview: Frequent PVC's, improved but still present post ablation in 2019. Toprol xl Last Assessment & Plan: Assessment: still having palpitations and pre syncopal events. 30 day monitor in placed. Saw cardiology this month toprol er increased to 25mg by her signaling design engineer. PLAN: Check tsh, cbc, labs, gtt. Serial growth ultrasounds planned. documented as of this encounter (statuses as of 03/08/2023) [facility] History of Past illness Narrative* Problem Noted Date Diagnosed Date Resolved Date Rh negative state in antepartum period 06/02/2021 08/10/2021 Overview: Got RhIG at [facility] 04/20/21. Ab screen was neg just prior to that. Maternal arrhythmia affectin g in third trimester, antepartum 02/24/2021 08/10/2021 Overview: Frequent PVC's, improved but still present post ablation in 2019. Toprol xl Last Assessment & Plan: Assessment: still having palpitations and pre syncopal events. 30 day monitor in placed. Saw cardiology this month toprol er increased to 25mg by her signaling design engineer. PLAN: Check tsh, cbc, labs, gtt. Serial growth ultrasounds planned. documented as of this encounter (statuses as of 03/08/2023) [facility]-09-[facility] History of Past illness Narrative* Problem Noted Date Diagnosed Date Resolved Date Rh negative state in antepartum period 06/02/2021 08/10/2021 Overview: Got RhIG at [facility] 04/20/21. Ab screen was neg just prior to that. Maternal arrhythmia affectin g in third trimester, antepartum 02/24/2021 08/10/2021 Overview: Frequent PVC's, improved but still present post ablation in 2019. Toprol xl Last Assessment & Plan: Assessment: still having palpitations and pre syncopal events. 30 day monitor in placed. Saw cardiology this month toprol er increased to 25mg by her signaling design engineer. PLAN: Check tsh, cbc, labs, gtt. Serial growth ultrasounds planned. documented as of this encounter (statuses as of 04/28/2023) [facility] History of Past illness Narrative* Problem Noted Date Diagnosed Date Resolved Date Rh negative state in antepartum period 06/02/2021 08/10/2021 Overview: Got RhIG at [facility] 04/20/21. Ab screen was neg just prior to that. Maternal arrhythmia affectin g in third trimester, antepartum 02/24/2021 08/10/2021 Overview: Frequent PVC's, improved but still present post ablation in 2019. Toprol xl Last Assessment & Plan: Assessment: still having palpitations and pre syncopal events. 30 day monitor in placed. Saw cardiology this month toprol er increased to 25mg by her signaling design engineer. PLAN: Check tsh, cbc, labs, gtt. Serial growth ultrasounds planned. documented as of this encounter (statuses as of 05/31/2023) [facility]-09-[facility] History of Past illness Narrative* Problem Noted Date Diagnosed Date Resolved Date Rh negative state in antepartum period 06/02/2021 08/10/2021 Overview: Got RhIG at [facility] 04/20/21. Ab screen was neg just prior to that. Maternal arrhythmia affectin g in third trimester, antepartum 02/24/2021 08/10/2021 Overview: Frequent PVC's, improved but still present post ablation in 2019. Toprol xl Last Assessment & Plan: Assessment: still having palpitations and pre syncopal events. 30 day monitor in placed. Saw cardiology this month toprol er increased to 25mg by her signaling design engineer. PLAN: Check tsh, cbc, labs, gtt. Serial growth ultrasounds planned. documented as of this encounter (statuses as of 06/01/2023) [facility] History of Past illness Narrative* Problem Noted Date Diagnosed Date Resolved Date Rh negative state in antepartum period 06/02/2021 08/10/2021 Overview: Got RhIG at [facility] 04/20/21. Ab screen was neg just prior to that. Maternal arrhythmia affectin g in third trimester, antepartum 02/24/2021 08/10/2021 Overview: Frequent PVC's, improved but still present post ablation in 2019. Toprol xl Last Assessment & Plan: Assessment: still having palpitations and pre syncopal events. 30 day monitor in placed. Saw cardiology this month toprol er increased to 25mg by her signaling design engineer. PLAN: Check tsh, cbc, labs, gtt. Serial growth ultrasounds planned. documented as of this encounter (statuses as of 09/24/2023) [facility] History of Past illness Narrative* Problem Noted Date Diagnosed Date Resolved Date Rh negative state in antepartum period 06/02/2021 08/10/2021 Overview: Got RhIG at [facility] 04/20/21. Ab screen was neg just prior to that. Maternal arrhythmia affectin g in third trimester, antepartum 02/24/2021 08/10/2021 Overview: Frequent PVC's, improved but still present post ablation in 2019. Toprol xl Last Assessment & Plan: Assessment: still having palpitations and pre syncopal events. 30 day monitor in placed. Saw cardiology this month toprol er increased to 25mg by her signaling design engineer. PLAN: Check tsh, cbc, labs, gtt. Serial growth ultrasounds planned. documented as of this encounter (statuses as of 09/24/2023) [facility] No data available for this section [facility] Diagnosis Frequent PVCs Other premature beats [facility]* Diagnosis Dizziness- Primary Dizziness and giddiness Frequent PVCs Other premature beats History of loop recorder [facility]* Diagnosis PSVT (paroxysmal supraventricular tachycardia) ([facility])- Primary Paroxysmal supraventricular tachycardia Frequent PVCs Other premature beats Recurrent syncope [facility]* Diagnosis Palpitations- Primary Frequent PVCs Other premature beats Dizziness Dizziness and giddiness History of loop recorder 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 [facility]* Diagnosis SOB (shortness of breath)- Primary Shortness of breath documented [facility] noteNo assessment information available[facility] Work Phone: [facility] note* Diagnosis Frequent PVCs- Primary Other premature beats documented in this encounter [facility] note* Diagnosis Frequent PVCs- Primary Other premature beats PVC's (premature ventricular contractions) Other premature beats [facility] Diagnosis Frequent PVCs- Primary Other premature beats PVC's (premature ventricular contractions) Other premature beats [facility]* Diagnosis Frequent PVCs- Primary Other premature beats PVC's (premature ventricular contractions) Other premature beats [facility]* Diagnosis PVC (premature ventricular contraction)- Primary Other premature beats Encounter for monitoring flecainide therapy Encounter for therapeutic drug monitoring documented in this encounter [facility] note* Diagnosis PVC (premature ventricular contraction)- Primary Other premature beats [facility]* Diagnosis PVC (premature ventricular contraction)- Primary Other premature beats Palpitations Encounter for monitoring flecainide therapy Encounter for therapeutic drug monitoring Exercise intolerance Other general symptoms Implantable loop recorder present documented [facility] this encounter [facility]* Diagnosis Adverse effect of flecainide- Primary documented in this encounter [facility] note* Diagnosis Constipation, unspecified constipation type- Primary Numbness in feet Cervical radiculopathy Brachial neuritis or radiculitis nos Swollen lymph nodes Enlargement of lymph nodes Frequent PVCs Supraventricular tachycardia, unspecified (I47.10) [facility] No data available for this section [facility] Additional Instructions Please return to emergency department for any new or worrisome symptoms including any worsening abdominal pain, vomiting, fever, chest pain, shortness of breath. Follow-up with your RELATIONSHIP EXECUTIVE as scheduled in 2 days and your primary care provider.[facility] Work Phone: Hospital Discharge instructions Additional [...] 2 weeks after your surgery. Please call [phone] from 9 A.M. to 4 P.M. for an appointment. CONTROL -If this procedure was not done for sterilization purposes, you should resume your normal control method. If this was done for sterilization purposes, use a method of control (condoms, foam, suppositories) until your next period. You should expect to start your next period when it is due. [ ][facility] Work Phone: Progress note No data available for this section [facility] (narrative[facility] Outpatient Procedure (Routine) - Authorized Specialty Diagnoses / Procedures Referred By Contgladys t Referred To [facility] Diagnoses SOB (shortness of breath) Procedures ECG COMPLETE ECG ROUTINE ECG W/LEAST 12 LDS W/I&R Duncan Valladares, DO [address] [place] [address] [address] Referral ID Status Reason Start Date Expiration Date Visits Requested Visits Authorized [id number] Authorized Auto-Generat ed Referral 09/08/2022 09/08/2023 1 1 [facility] for referral (narrative)* Outpatient Procedure (Routine) - Authorized Specialty Diagnoses / Procedures Referred By Contac t Referred To Contact [facility] Diagnoses Frequent PVCs Procedures ECG COMPLETE ECG ROUTINE ECG W/LEAST 12 LDS W/I&R Duncan Valladares DO [address] [place] [address] [address] Referral ID Status Reason Start Date Expiration Date Visits Requested Visits Authorized [id number] Authorized Auto-Generat ed Referral 12/28/2022 12/28/2023 1 1 T [facility] for referral (narrative)* Outpatient Procedure (Routine) - Authorized Specialty Diagnoses / Procedures Referred By Contac t Referred To Contact [facility] Diagnoses Frequent PVCs Procedures ECG COMPLETE ECG ROUTINE ECG W/LEAST 12 LDS W/I&R Duncan Valladares DO [address] [place] [address] [address] Referral ID Status Reason Start Date Expiration Date Visits Requested Visits Authorized [id number] Authorized Auto-Generat ed Referral 03/05/2023 03/04/2024 1 1 T [facility] for referral (narrative)* Outpatient Procedure (Routine) - Pending Review Specialty Diagnoses / Procedures Referred By Contac t Referred To Contact [facility] Diagnoses PVC (premature ventricular contraction) Procedures ECG COMPLETE ECG ROUTINE ECG W/LEAST 12 LDS W/I&R Duncan Valladares DO [address] [place] [address] [facility] [address] [place] [address] Referral ID Status Reason Start Date Expiration Date Visits Requested Visits Authorized [id number] Pending Review Auto-Generat ed Referral 05/30/2023 05/29/2024 1 1 * Transition of Care (Routine) - Ref Not Required Specialty Diagnoses / Procedures Referred By Contac t Referred To Contact Procedures CARDIOVASCULAR MEDICINE OP FOLLOW UP APPT ORDER Duncan Valladares DO [address] [place] [address] Referral ID Status Reason Start Date Expiration Date Visits Requested Visits Authorized [id number] Ref Not Required PCP Requested Referral 11/29/2023 05/29/2024 1 1 * Outpatient Procedure (Routine) - Pending Review Specialty Diagnoses / Procedures Referred By Contac t Referred [facility] Diagnoses Encounter for monitoring flecainide therapy Procedures ECG COMPLETE ECG ROUTINE ECG W/LEAST 12 LDS W/I&R Duncan Valladares DO [address] [place] [address] [facility] [address] [place] [address] Referral ID Status Reason Start Date Expiration Date Visits Requested Visits Authorized [id number] Pending Review Auto-Generat ed Referral 05/30/2023 05/29/2024 1 1 [facility] for referral (narrative)* Outpatient Procedure (Routine) - Pending Review Specialty Diagnoses / Procedures Referred By Contac t Referred To Contact [facility] Diagnoses Adverse effect of flecainide Procedures ECG COMPLETE ECG ROUTINE ECG W/LEAST 12 LDS W/I&R Duncan Valladares DO [address] [place] [address] [facility] [address] [place] [address] Referral ID Status Reason Start Date Expiration Date Visits Requested Visits Authorized [id number] Pending Review Auto-Generat ed Referral 06/01/2023 05/31/2024 1 1 [facility] Summary Purpose Family History No Family History Records Found Relationship Condition Age at Onset Recorded Date/[place] grandparent Myocardial infarction Unknown Advance Directives No Advanced Directives Records FoundDocuments on File Type Date Recorded 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 Advance Directive(s) 07/11/2021 11:02 AM Advance Directive Response Recorded Date/ Time Advance Directives No February 2:09pm Chief Complaint and Reason for Visit Chief Complaint O20.9 O26.899 R10.9 Chief Complaint O20.9 O26.899 R10.9 vaginal bleeding, hx miscarriage Chief Complaint O20.9 O26.899 R10.9 vaginal bleeding, hx miscarriage Desired Sterilization Reason for Referral Specialty Diagnoses / Procedures Referred By Contac t Referred To Contact Diagnoses PVC (premature ventricular contraction) Procedures CARDIOVASCULAR MEDICINE OP FOLLOW UP APPT ORDER Oren Campoverde APRN.DEANNA [address] [place] [address] Referral ID Status Reason Start Date Expiration Date Visits Requested Visits Authorized [id number] Ref Not Required PCP Requested Referral 04/27/2023 04/26/2024 1 1 Additional Source Comments INFORMATION SOURCE (unrecogn ized section and content) DATE CREATED AUTHOR 04/14/2020 [facility] DATE CREATED AUTHOR AUTHOR'S ORGANIZ ATION 04/20/2020 [facility] DATE CREATED AUTHOR AUTHOR'S ORGANIZ ATION 04/19/2021 [facility] DATE CREATED AUTHOR AUTHOR'S ORGANIZ ATION 12/29/2021 [facility] DATE CREATED AUTHOR AUTHOR'S ORGANIZ ATION 02/03/2023 [facility] DATE CREATED AUTHOR AUTHOR'S ORGANIZ ATION 06/27/2023 [facility] DATE CREATED AUTHOR AUTHOR'S ORGANIZ ATION 02/15/[address] [facility] DATE CREATED AUTHOR AUTHOR'S ORGANIZ ATION 02/20/2024 [facility] EPIC Source Comments (unrecognize d section and content) In the event this informatio n is protected by the Federal Confidentiality of Alcohol and Drug Abuse Patient Records regulations: The Federal rules restrict any use of the information to criminally investigate or prosecute any alcohol or drug abuse patient.[facility]In the event this information is protected by the Federal Confidentiality of Alcohol and Drug Abuse Patient Records regulations: The Federal rules restrict any use of the information to criminally investigate or prosecute any alcohol or drug abuse patient.[facility]In the event this information is protected by the Federal Confidentiality of Alcohol and Drug Abuse Patient Records regulations: The Federal rules restrict any use of the information to criminally investigate or prosecute any alcohol or drug abuse patient.[facility]healthIn the event this information is protected by the Federal Confidentiality of Alcohol and Drug Abuse Patient Records regulations: The Federal rules restrict any use of the information to criminally investigate or prosecute any alcohol or drug abuse patient.[facility]In the event this information is protected by the Federal Confidentiality of Alcohol and Drug Abuse Patient Records regulations: The Federal rules restrict any use of the information to criminally investigate or prosecute any alcohol or drug abuse patient.[facility]healthIn the event this information is protected by the Federal Confidentiality of Alcohol and Drug Abuse Patient Records regulations: The Federal rules restrict any use of the information to criminally investigate or prosecute any alcohol or drug abuse patient.[facility]healthIn the event this information is protected by the Federal Confidentiality of Alcohol and Drug Abuse Patient Records regulations: The Federal rules restrict any use of the information to criminally investigate or prosecute any alcohol or drug abuse patient.[facility]In the event this information is protected by the Federal Confidentiality of Alcohol and Drug Abuse Patient Records regulations: The Federal rules restrict any use of the information to criminally investigate or prosecute any alcohol or drug abuse patient.[facility]In the event this information is protected by the Federal Confidentiality of Alcohol and Drug Abuse Patient Records regulations: The Federal rules restrict any use of the information to criminally investigate or prosecute any alcohol or drug abuse patient.[facility]In the event this information is protected by the Federal Confidentiality of Alcohol and Drug Abuse Patient Records regulations: The Federal rules restrict any use of the information to criminally investigate or prosecute any alcohol or drug abuse patient.[facility]In the event this information is protected by the Federal Confidentiality of Alcohol and Drug Abuse Patient Records regulations: The Federal rules restrict any use of the information to criminally investigate or prosecute any alcohol or drug abuse patient.[facility]healthIn the event this information is protected by the Federal Confidentiality of Alcohol and Drug Abuse Patient Records regulations: The Federal rules restrict any use of the information to criminally investigate or prosecute any alcohol or drug abuse patient.[facility]healthIn the event this information is protected by the Federal Confidentiality of Alcohol and Drug Abuse Patient Records regulations: The Federal rules restrict any use of the information to criminally investigate or prosecute any alcohol or drug abuse patient.[facility]In the event this information is protected by the Federal Confidentiality of Alcohol and Drug Abuse Patient Records regulations: The Federal rules restrict any use of the information to criminally investigate or prosecute any alcohol or drug abuse patient.[facility]healthIn the event this information is protected by the Federal Confidentiality of Alcohol and Drug Abuse Patient Records regulations: The Federal rules restrict any use of the information to criminally investigate or prosecute any alcohol or drug abuse patient.[facility]healthIn the event this information is protected by the Federal Confidentiality of Alcohol and Drug Abuse Patient Records regulations: The Federal rules restrict any use of the information to criminally investigate or prosecute any alcohol or drug abuse patient.[facility]healthIn the event this information is protected by the Federal Confidentiality of Alcohol and Drug Abuse Patient Records regulations: The Federal rules restrict any use of the information to criminally investigate or prosecute any alcohol or drug abuse patient.[facility]healthIn the event this information is protected by the Federal Confidentiality of Alcohol and Drug Abuse Patient Records regulations: The Federal rules restrict any use of the information to criminally investigate or prosecute any alcohol or drug abuse patient.[facility]healthIn the event this information is protected by the Federal Confidentiality of Alcohol and Drug Abuse Patient Records regulations: The Federal rules restrict any use of the information to criminally investigate or prosecute any alcohol or drug abuse patient.[facility]healthIn the event this information is protected by the Federal Confidentiality of Alcohol and Drug Abuse Patient Records regulations: The Federal rules restrict any use of the information to criminally investigate or prosecute any alcohol or drug abuse patient.[facility] Reason for Visit (unrecogniz ed section and [...] Date of : 1995 Patient phone number: [phone] Referring Provider for the encounter: Radha Lopez Requesting Provider: Radha Lopez Reason for requesting visit (RFV/signs and symptoms/diagnosis): Symptomatic PVOs. Person calling: self Return call to: self Medical Records/Insurance Card scanned into [employer]: No Comments: [facility] Hotline - Received a REFER A PATIENT FAX from Radha Lopez' office referring the patient to be seen in Cardiology for Symptomatic PVOs. Referral and/or order can be found in Scan Document dated 08/11/2020. Please notify Alexia at office - [phone] Fax - [phone] documented in this encounter Care Teams (unrecognized sec tion and content) Medication Coordinator Relationship Specialty Start Date End Date Jenn Handley Jr. [address] [place] [address] PCP - General Family Practice 09/21/20 Radha Lopez [address] [place] [address] Referring 08/17/20 [place] [address] [place] [address] Primary Staff Physician Cardiology 03/01/21 Medication Coordinator Relationship Specialty Start Date End Date Jenn Handley Jr. [address] [place] [address] PCP - General Family Practice 09/21/20 Radha Lopez [address] [place] [address] Referring 08/17/20 [place] [address] [place] [address] Primary Staff Physician Cardiology 03/01/21 Medication Coordinator Relationship Specialty Start Date End Date Jenn Handley Jr. [address] [place] [address] PCP - General Family Practice 09/21/20 Radha Lopez [address] [place] [address] Referring 08/17/20 [place] [address] [place] [address] Primary Staff Physician Cardiology 03/01/21 Medication Coordinator Relationship Specialty Start Date End Date Jenn Handley Jr. [address] [place] [address] PCP - General Family Medicine 09/21/20 Radha Lopez [address] [place] [address] Referring 08/17/20 [place] [address] [place] [address] Primary Staff Physician Cardiology 03/01/21 Medication Coordinator Relationship Specialty Start Date End Date Jenn Handley Jr. [address] [place] [address] PCP - General Family Medicine 09/21/20 Radha Lopez [address] [place] [address] Referring 08/17/20 [place] [address] [place] [address] Primary Staff Physician Cardiology 03/01/21 Medication Coordinator Relationship Specialty Start Date End Date Jenn Handley Jr. [address] [place] [address] PCP - General Family Medicine 09/21/20 Radha Lopez [address] [place] [address] Referring 08/17/20 Nadya Beck [place] [id number] [place] [address] Primary Staff Physician Cardiology 03/01/21 Medication Coordinator Relationship Specialty Start Date End Date Jenn Handley Jr. [address] [place] [address] PCP - General Family Medicine 09/21/20 Radha Lopez [address] [place] [address] Referring 08/17/20 [place] [address] [place] [address] Primary Staff Physician Cardiology 03/01/21 Team Status: Active Member Role Status Dates Amber Handley DO Primary Care Provider Active Team Status: Inactive Member Role Status Dates Amber Handley DO Primary Care Provider Active Marcos Mann MD Attending Provider Active Medication Coordinator Relationship Specialty Start Date End Date Jenn Handley Jr. [address] [place] [address] PCP - General Family Medicine 09/21/20 Radha Lopez [address] [place] [address] Referring 08/17/20 Nadya Beck MD [address] [place] [address] Primary Staff Physician Cardiology 03/01/21 Medication Coordinator Relationship Specialty Start Date End Date Jenn Handley Jr. [address] [place] [address] PCP - General Family Medicine 09/21/20 Radha Lopez [address] [place] [address] Referring 08/17/20 Nadya Beck MD [id number] [place] [address] Primary Staff Physician Cardiology 03/01/21 Team Status: Inactive Member Role Status Dates Amber Handley DO Primary Care Provider Active Reta Alva MD Emergency Provider Active Medication Coordinator Relationship Specialty Start Date End Date Jenn Handley Jr. [address] [place] [address] PCP - General Family Medicine 09/21/20 Radha Lopez, PA-C [address] [place] [address] Referring 08/17/20 Nadya Beck MD [address] [place] [address] Primary Staff Physician Cardiology 03/01/21 Medication Coordinator Relationship Specialty Start Date End Date Jenn Handley Jr. [address] [place] [address] PCP - General Family Medicine 09/21/20 Radha Lopez PA-C [address] [place] [address] Referring 08/17/20 Nadya Beck MD [address] [place] [address] Primary Staff Physician Cardiology 03/01/21 Medication Coordinator Relationship Specialty Start Date End Date Jenn Handley Jr. [address] [place] [address] PCP - General Family Medicine 09/21/20 Radha Lopez PA-C [address] [place] [address] Referring 08/17/20 Nadya Beck MD [address] [place] [address] Primary Staff Physician Cardiology 03/01/21 Medication Coordinator Relationship Specialty Start Date End Date Jenn Handley Jr. [address] [place] [address] PCP - General Family Medicine 09/21/20 Radha Lopez PA-C [address] [place] [address] Referring 08/17/20 Nadya Beck MD [id number] [place], [place] [id number] Primary Staff Physician Cardiology 03/01/21 Medication Coordinator Relationship Specialty Start Date End Date Jenn Handley Jr., DO [address] [place] [address] PCP - General Family Medicine 09/21/20 Radha Lopez PA-C [address] [place], [facility] Referring 08/17/20 Nadya Beck MD [id number] [place], [place] [id number] Primary Staff Physician Cardiology 03/01/21 Medication Coordinator Relationship Specialty Start Date End Date Jenn Handley Jr., DO [address] [place] [address] PCP - General Family Medicine 09/21/20 Radha Lopez PA-C [address] [place], [facility] Referring 08/17/20 [place] [address] [place] [id number] Primary Staff Physician Cardiology 03/01/21 Medication Coordinator Relationship Specialty Start Date End Date Jenn Handley Jr., DO [address] [place] [address] PCP - General Family Medicine 09/21/20 Radha Lopez, PIETRO-C [address] [place] [address] Referring 08/17/20 [place] [address] [place] [address] Primary Staff Physician Cardiology 03/01/21 Medication Coordinator Relationship Specialty Start Date End Date Jenn Handley, DO [address] [place] [address] PCP - General Family [facility] 12/07/22 Radha Lopez PA [address] [place] [address] PCP - [facility] 12/23/22 Medication Coordinator Relationship Specialty Start Date End Date Jenn Handley, DO [address] [place] [address] PCP - General Family Medicine 12/07/22 Radha Lopez PA [address] [place] [address] PCP - [facility] 12/23/22 Medication Coordinator Relationship Specialty Start Date End Date Jenn Handley Jr., DO [address] [place] [address] PCP - General Family Medicine 09/21/20 Radha Lopez PA-C [address] [place] [address] Referring 08/17/20 [place] [address] [place] [address] Primary Staff Physician Cardiology 03/01/21 Medication Coordinator Relationship Specialty Start Date End Date Jenn Handley JrDO Tiffany [address] [place] [address] PCP - General Family Medicine 09/21/20 Radha Lopez PA-C [address] [place] [address] Referring 08/17/20 Nadya Beck MD [phone] [place] [address] Primary Staff Physician Cardiology 03/01/21 Goals (unrecognized [...] BE BASED ON THE PRIMARY CLINICAL RECORDS. [employer] provides no warranty or guarantee of the accuracy or completeness of information in this document.
--- NOTE | 2024-02-22 09:17 | CT_ITS ---
[address] [address] Patient Name: PEYTON BALES MRN: [id number] date: 1995 Sex: F Assigned Patient Location: ER Current Patient Location: [facility] Accession/Order Number: [id number] Exam Date: 02/22/2024 09:25 Report Date: 02/22/2024 10:54 At the request of: RADHA KIRKLAND Procedure: CT cervical spine wo con CT cervical spine without contrast, 02/22/2024. HISTORY: Headache. Neck pain. Numbness and weakness in extremities. COMPARISON: None. TECHNIQUE: Noncontrast axial CT images obtained through the cervical spine. Reconstructions obtained in the sagittal and coronal planes. Dose reduction techniques were achieved by using automated exposure control and/or adjustment of mA and/or kV according to patient size and/or use of iterative reconstruction technique. FINDINGS: Normal alignment. No subluxation. Odontoid process is intact. Facet joints are intact. No acute cervical spine fracture. Disc spaces are normal in height. Facet joints are normal. No significant cervical spinal canal stenosis. No foraminal narrowing. No evidence of spinal cord compression. No paraspinal soft tissue swelling. No paraspinal masses. CT/CT cervical spine wo con IMPRESSION: Normal CT of the cervical spine. Electronically authenticated by: SHAISTA BUSBY Date: 02/22/2024 10:54
[2024-02-22 09:22] LABS: Basophils Percent Auto 0.6 % (0.2-2.0); Eosinophils Percent Auto 0.8 % (0.9-7.0); Hematocrit 42.7 % (36.0-48.0); Hemoglobin 14.5 g/dL (12.0-16.0); Immature Granulocytes Abs Auto 0.02 10^3/uL (0.00-0.03); Immature Granulocytes Pct Auto 0.4 % (0.0-0.5); Lymphocytes Absolute Auto 0.7 10^3/uL (1.2-3.8); Lymphocytes Percent Auto 13.1 % (20.5-60.0); Mean Corpuscular Hemoglobin 29.8 pg (26.7-34.0); Mean Corpuscular Volume 87.9 fL (81.0-99.0); Monocytes Absolute Auto 0.6 10^3/uL (0.3-0.8); Monocytes Percent Auto 11.5 % (1.7-12.0); Neutrophils Absolute Auto 3.8 10^3/uL (1.4-6.5); Neutrophils Percent Auto 73.6 % (43.0-75.0); Platelet Count 273 10^3/uL (150-450); Red Blood Count 4.86 10^6/uL (4.20-5.40); Red Cell Distribution Width 12.1 % (11.0-15.0); White Blood Count 5.1 10^3/uL (4.0-11.0)
[2024-02-22 09:24] LABS: Glucometer 90 mg/dL (74-106)
--- NOTE | 2024-02-22 09:24 | ED_ITS ---
HPI - Chest Pain General Chief Complaint: Neck Pain/Injury Stated Complaint: EXTREMITY WEAKNESS/CVA SYMPTOMS Time Seen by Provider: 02/22/24 09:09 Source: patient Mode of arrival: Wheelchair Limitations: no limitations History of Present Illness HPI narrative: The patient is coming to us with a history of A-fib, not take anticoagulation and not currently on any medication for it, she is presenting to the ER with a concern of left neck pain rating to the left arm, according to her this pain is not a new complaint although yesterday started getting worse, according to her is radiating to the left arm associated with the chest pain that woke her up from sleep. The pain is associated with shortness of breath and hyperventilation. She also mentioned that the pain sometimes radiate to the left leg. The patient also complaining of generalized pain with the nausea feeling, no vomiting and no diarrhea, patient have also lower abdominal pain mostly suprapubic Related Data Home Medications ?Medication ?Instructions ?Recorded ?Confirmed magnesium oxide 400 mg (241.3 mg 400 mg PO DAILY 01/08/24 02/22/24 magnesium) tablet Lactobacillus acidophilus 1 1,000 mmu cells PO DAILY 02/22/24 02/22/24 billion cell tablet dicyclomine 20 mg tablet 20 mg PO QID PRN abdominal pain 02/22/24 02/22/24 loperamide 2 mg capsule 2 mg PO QID PRN loose stool 02/22/24 02/22/24 pantoprazole 20 mg tablet,delayed 40 mg PO DAILY 02/22/24 02/22/24 release Previous Rx's ?Medication ?Instructions ?Recorded metronidazole 500 mg tablet 500 mg PO BID 7 days #14 tabs 01/08/24 diclofenac sodium 50 mg 50 mg PO Q12H PRN pain #14 tabs 02/22/24 tablet,delayed release orphenadrine citrate 100 mg 100 mg PO ONCE PRN muscle spasm 02/22/24 tablet,extended release #10 tabs Allergies Allergy/AdvReac Type Severity Reaction Status Date / Time No Known Drug Allergies Allergy Verified 02/22/24 09:09 [facility] Medical History (Updated 02/22/24 @ 10:52 by Rosa M Garcia MD) Bradycardia ?R00.1 - Bradycardia, unspecified (ICD-10) PVC (premature ventricular contraction) ?I49.3 - Ventricular premature depolarization (ICD-10) Exam Narrative Exam Narrative: Nurses notes and vital signs reviewed and patient is not hypoxic. General: Well-appearing and in no apparent distress. Skin: Warm, dry, no pallor noted. No rash. Head: Normocephalic, atraumatic. Neck: Supple, no intervertebral line tenderness but the patient have paraspinal muscle tenderness bilaterally Eye: Pupils are equal, round and EOMI. No scleral icterus. Ears, Nose, Mouth, and Throat: TM are clear, no nasal mucosal hypertrophy. Oral mucosa is moist, no posterior oropharynx erythema, uvula is mid-line Cardiovascular: Regular Rate and Rhythm without murmur, gallop or rub. Respiratory: No accessory muscle use or respiratory distress. Lungs are clear to auscultation, no wheezing, rales or rhonchi Chest Wall: no tenderness Back: No midline thoracic or lumbar vertebral tenderness. No CVA tenderness Musculoskeletal: normal ROM, no calf or popliteal tenderness, no lower extremity edema/swelling GI: Abdomen is soft, non-distended. Normal bowel sounds. No masses appreciated. Mild suprapubic discomfort,. No rebound, guarding, or rigidity noted. Neurological: A&O x4. No cranial nerve dysfunction observed. No truncal ataxia. Moves all extremities. Sensation intact. Psychiatric: Cooperative and interactive. Normal mood and affect. Constitutional Vital Signs, click to edit/add: Last Vital Signs Temp 98 F 02/22/24 09:05 Pulse 56 L 02/22/24 10:20 Resp 15 02/22/24 10:20 BP 100/70 02/22/24 10:00 Pulse Ox 100 02/22/24 10:20 O2 Del Method Room Air 02/22/24 09:05 Course Vital Signs Vital signs: Vital Signs Temperature 98 F 02/22/24 09:05 Pulse Rate 64 02/22/24 09:05 Respiratory Rate 18 02/22/24 09:05 Blood Pressure 114/78 02/22/24 09:05 Pulse Oximetry 99 02/22/24 09:05 Oxygen Delivery Method Room Air 02/22/24 09:05 Temperature 98 F 02/22/24 09:05 Pulse Rate 56 L 02/22/24 10:20 Respiratory Rate 15 02/22/24 10:20 Blood Pressure 100/70 02/22/24 10:00 Pulse Oximetry 100 02/22/24 10:20 Oxygen Delivery Method Room Air 02/22/24 09:05 MDM - Chest Pain MDM Narrative Medical decision making narrative: The patient EKG upon arrival showing sinus rhythm no ST elevation or depression CBC and chemistry showed no acute significant pathology CT of the cervical spine showed no acute pathology as well as chest x-ray Patient presenting to us with multiple symptoms that is associated also with a panic-like attack symptoms Specially that she mentioned that she was hyperventilating she was tearful when she was in the ER, I did ask her if she has been going through stress but she denied that. The patient apparently was worried about her A-fib control and I did explain to her the fact that she is young and the fact that she showed me that transmission from her monitor and it mostly sinus there is no A-fib The patient will be treated in the ER with Toradol and discharged home with Voltaren and Norflex Urinalysis showed no acute pathology The patient is to follow up with primary care physician in next 2-3 days or to return to the emergency department should any of the signs or symptoms worsen or new symptoms develop. The patient agrees with the following Diagnosis and Treatment plan and the patient will be discharged home. Lab Data Labs: Lab Results 02/22/24 02/22/24 02/22/24 Range/Units 09:12 09:21 10:25 WBC 5.1 (4.0-11.0) 10^3/uL RBC 4.86 (4.20-5.40) 10^6/uL Hgb 14.5 (12.0-16.0) g/dL Hct 42.7 (36.0-48.0) % MCV 87.9 (81.0-99.0) fL MCH 29.8 (26.7-34.0) pg MCHC 34.0 (29.9-35.2) g/dL RDW 12.1 (11.0-15.0) % Plt Count 273 (150-450) 10^3/uL MPV 9.0 L (9.5-13.5) fL Neut % (Auto) 73.6 (43.0-75.0) % Lymph % (Auto) 13.1 L (20.5-60.0) % [place] % (Auto) 11.5 (1.7-12.0) % Eos % (Auto) 0.8 L (0.9-7.0) % Baso % (Auto) 0.6 (0.2-2.0) % Neut # (Auto) 3.8 (1.4-6.5) 10^3/uL Lymph # (Auto) 0.7 L (1.2-3.8) 10^3/uL [place] # (Auto) 0.6 (0.3-0.8) 10^3/uL Eos # (Auto) 0.0 (0.0-0.7) 10^3/uL Baso # (Auto) 0.0 (0.0-0.1) 10^3/uL Abs Immat Gran (auto) 0.02 (0.00-0.03) 10^3/uL Imm/Tot Granulo (auto) 0.4 (0.0-0.5) % PT 10.7 (9.0-11.6) sec INR 1.01 Sodium 140 (136-145) mmol/L Potassium 4.2 (3.5-5.1) mmol/L Chloride 104 (98-107) mmol/L Carbon Dioxide 27.4 (21.0-32.0) mmol/L Anion Gap 12.8 BUN 8.0 (7.0-18.0) mg/dL Creatinine 0.64 (0.55-1.02) mg/dL Est GFR ( Amer) >60 (>=60) Est GFR (Non-Af Amer) >60 (>=60) BUN/Creatinine Ratio 12.5 Glucose 91 (74-106) mg/dL Calcium 8.6 (8.5-10.1) mg/dL Magnesium 2.0 (1.8-2.4) mg/dL Total Bilirubin 0.5 (0.2-1.0) mg/dL AST 12 L (15-37) U/L ALT 19 (14-59) U/L Alkaline Phosphatase 49 (46-116) U/L Troponin I High Sens <4.0 L (4.0-51.3) pg/mL Total Protein 7.0 (6.4-8.2) g/dL Albumin 3.9 (3.4-5.0) g/dL Globulin 3.1 g/dL Albumin/Globulin Ratio 1.3 Serum HCG, Qual Negative (NEGATIVE) Urine Color Lt. yellow (YELLOW) Urine Clarity Clear (CLEAR) Urine pH 7.0 (5.0-9.0) Ur Specific [place] 1.010 (1.005-1.025) Urine Protein Negative (NEG/TRACE) mg/dL Urine Glucose (UA) Negative (NEGATIVE) mg/dL Urine Ketones Negative (NEGATIVE) mg/dL Urine Occult Blood Negative (NEGATIVE) Urine Nitrite Negative (NEGATIVE) Urine Bilirubin Negative (NEGATIVE) Urine Urobilinogen 0.2 (0.2-1.0) EU/dL Ur Leukocyte Esterase Negative (NEGATIVE) POC Glucose 90 (74-106) mg/dL Discharge Plan Discharge Stand Alone Forms: Work/School Release, Portal Instructions Chief Complaint: Neck Pain/Injury Clinical Impression: Neck pain, Abdominal pain, suprapubic Patient Disposition: Home, Self-Care Time of Disposition Decision: 10:33 Condition: Good Prescriptions / Home Meds: New diclofenac sodium 50 mg tablet,delayed release (DR/EC) 50 mg PO Q12H PRN (Reason: pain) Qty: 14 0RF orphenadrine citrate 100 mg tablet extended release 100 mg PO ONCE PRN (Reason: muscle spasm) Qty: 10 0RF No Action magnesium oxide 400 mg (241.3 mg magnesium) tablet 400 mg PO DAILY metronidazole 500 mg tablet 500 mg PO BID 7 Days Qty: 14 0RF dicyclomine 20 mg tablet 20 mg PO QID PRN (Reason: abdominal pain) Lactobacillus acidophilus 1 billion cell tablet 1,000 mmu cells PO DAILY loperamide 2 mg capsule 2 mg PO QID PRN (Reason: loose stool) pantoprazole 20 mg tablet,delayed release (DR/EC) 40 mg PO DAILY Print Language: Faroese Instructions: Neck Pain (ED) Referrals: Josette TONEY [Primary Care Provider] - 1 week
--- NOTE | 2024-02-22 09:27 | XR_ITS ---
The [address] [address] Patient Name: PEYTON BALES MRN: [id number] date: 1995 Sex: F Assigned Patient Location: ER Current Patient Location: ER Accession/Order Number: [id number] Exam Date: 02/22/2024 09:25 Report Date: 02/22/2024 09:49 At the request of: RADHA KIRKLAND Procedure: XR chest 1V EXAM: XR chest 1V HISTORY: . chest pain . COMPARISON: None. TECHNIQUE: Angled view of the chest FINDINGS: Heart and vascularity are unremarkable. Lungs are free of focal infiltrates. Loop recorder overlies the left chest. EKG leads overlie the chest. Grossly no acute bony abnormality is appreciated. XR/XR chest 1V IMPRESSION: No acute heart or lung disease identified. Electronically authenticated by: ELYSE BERMEO Date: 02/22/2024 09:49
[2024-02-22 09:31] LABS: HCG Qualitative NEGATIVE (NEGATIVE); Internal Control Within Normal Limits
[2024-02-22 09:35] LABS: INR 1.01; Prothrombin Time 10.7 sec (9.0-11.6)
[2024-02-22] MEDS: 0.9 % SODIUM CHLORIDE 1,000 ML 1000 ML IV (09:38)
[2024-02-22 09:40] LABS: Alanine Aminotransferase 19 U/L (14-59); Albumin Globulin Ratio 1.3; Albumin Level 3.9 g/dL (3.4-5.0); Alkaline Phosphatase 49 U/L (46-116); Anion Gap 12.8; Aspartate Amino Transferase 12 U/L (15-37); BUN Creatinine Ratio 12.5; Bilirubin Total 0.5 mg/dL (0.2-1.0); Calcium 8.6 mg/dL (8.5-10.1); Carbon Dioxide 27.4 mmol/L (21.0-32.0); Chloride 104 mmol/L (98-107); Estimated GFR (African America >60 (>=60); Estimated GFR (Non-African Ame >60 (>=60); Globulin 3.1 g/dL; Glucose 91 mg/dL (74-106); Potassium 4.2 mmol/L (3.5-5.1); Sodium 140 mmol/L (136-145); Troponin I High Sensitivity <4.0 pg/mL (4.0-51.3)
[2024-02-22 10:39] LABS: Bilirubin Urine NEGATIVE (NEGATIVE); Blood Urine NEGATIVE (NEGATIVE); Clarity Urine CLEAR (CLEAR); Color Urine LT. YELLOW (YELLOW); Glucose Urine UA NEGATIVE (NEGATIVE); Ketones Urine NEGATIVE (NEGATIVE); Leukocyte Esterase Urine NEGATIVE (NEGATIVE); Nitrite Urine NEGATIVE (NEGATIVE); Protein Urine NEGATIVE (NEG/TRACE); Urobilinogen Urine 0.2 EU/dL (0.2-1.0)
[2024-02-22 10:49] LABS: Urine Microscopic Indicated NO
[2024-02-22] MEDS: FAMOTIDINE/PF 20 MG/2 ML VIAL IV (10:50)
[2024-02-22] MEDS: KETOROLAC TROMETHAMINE 30 MG/ML VIAL 15 MG IVP (10:50)
== END 2024-02-22 11:16 | disposition home or self-care (01) ==
PROVIDERS: Emergency Provider Emergency Medicine; PCP Family Medicine
DX: M54.2 Cervicalgia (principal); I48.91 Unspecified atrial fibrillation; R10.30 Lower abdominal pain, unspecified
CPT/HCPCS: 36415; 71045; 72125; 80053; 81003; 82948; 83735; 84484; 84703; 85025; 85610; 93005; 96374; 96375; 99285; J1885

== ENCOUNTER 2024-10-20 08:14 | Emergency (ER) | payer OTHER, SELFPAY ==
[2024-10-20 08:21] VITALS: BP 99/68; PULSE 57; TEMP 36.8; O2SAT 100; BMI 19.4
--- NOTE | 2024-10-20 08:32 | ED.UPPEXIN1 ---
HPI HPI - Extremity Injury (Upper) General Chief Complaint: Extremity Injury, Upper Stated Complaint: CAT BITE YESTERDAY, NOW POSSIBLY INFECTED Time Seen by Provider: 10/20/24 08:29 Source: patient Mode of arrival: walk-in Limitations: no limitations History of Present Illness HPI narrative: The patient is coming to the ER after she had a cat bite by her own cat yesterday, she denies any other concerns or any complaint The bite happened to her right arm Related Data Home Medications ?Medication ?Instructions ?Recorded ?Confirmed loperamide 2 mg capsule 2 mg PO QID PRN loose stool 02/22/24 10/20/24 Previous Rx's ?Medication ?Instructions ?Recorded doxycycline hyclate 100 mg capsule 100 mg PO BID 7 days #14 caps 10/20/24 metronidazole 500 mg tablet 500 mg PO Q8H 7 days #21 tabs 10/20/24 Allergies Allergy/AdvReac Type Severity Reaction Status Date / Time Penicillins Allergy Mild Rash Verified 10/20/24 08:20 Opioid HPI Opioid Management Most Recent Pain and Opioid Data: Last Pain Scale 10 02/22/24 09:10 02/22/24 Review of Systems ROS Status of ROS 10 or more systems reviewed and unremarkable except as noted in history and below [facility] Medical History (Updated 10/20/24 @ 08:34 by Rosa M Garcia MD) Bradycardia ?R00.1 - Bradycardia, unspecified (ICD-10) PVC (premature ventricular contraction) ?I49.3 - Ventricular premature depolarization (ICD-10) Social History Little interest or pleasure in doing things: not at all Feeling down, depressed, or hopeless: not at all Exam Narrative Exam Narrative: Nurses notes and vital signs reviewed and patient is not hypoxic. General: Well-appearing and in no apparent distress. Skin: There is a bite darlin on the dorsum of the right forearm just proximal to the wrist almost by 3 cm, 3 small cyst bite iverson are almost 1 to 2 mm and there is a 3 mm scratch darlin just at the proximal aspect of the forearm Head: Normocephalic, atraumatic. Neck: Supple, non-tender. Musculoskeletal: normal ROM, no calf or popliteal tenderness, no lower extremity edema/swelling Neurological: A&O x4. No cranial nerve dysfunction observed. No truncal ataxia. Moves all extremities. Sensation intact. Psychiatric: Cooperative and interactive. Normal mood and affect. Constitutional Vital Signs, click to edit/add: Last Vital Signs Temp 98.3 F 10/20/24 08:21 Pulse 57 L 10/20/24 08:21 Resp 18 10/20/24 08:21 BP 99/68 10/20/24 08:21 Pulse Ox 100 10/20/24 08:21 O2 Del Method Room Air 10/20/24 08:21 Course Vital Signs Vital signs: Vital Signs Temperature 98.3 F 10/20/24 08:21 Pulse Rate 57 L 10/20/24 08:21 Respiratory Rate 18 10/20/24 08:21 Blood Pressure 99/68 10/20/24 08:21 Pulse Oximetry 100 10/20/24 08:21 Oxygen Delivery Method Room Air 10/20/24 08:21 Temperature 98.3 F 10/20/24 08:21 Pulse Rate 57 L 10/20/24 08:21 Respiratory Rate 18 10/20/24 08:21 Blood Pressure 99/68 10/20/24 08:21 Pulse Oximetry 100 10/20/24 08:21 Oxygen Delivery Method Room Air 10/20/24 08:21 MDM - Extremity Injury (Upper) MDM Narrative Medical decision making narrative: The patient had his tetanus booster updated She was started on doxycycline and Flagyl instructed on monitoring her symptoms in case of increasing redness she is to come back to the ER also in case of fever The patient is to follow up with primary care physician in next 2-3 days or to return to the emergency department should any of the signs or symptoms worsen or new symptoms develop. The patient agrees with the following Diagnosis and Treatment plan and the patient will be discharged home. Discharge Plan Discharge Chief Complaint: Extremity Injury, Upper Clinical Impression: Cat bite of hand Patient Disposition: Home, Self-Care Time of Disposition Decision: 08:33 Condition: Good Prescriptions / Home Meds: New doxycycline hyclate 100 mg capsule 100 mg PO BID 7 Days Qty: 14 0RF metronidazole 500 mg tablet 500 mg PO Q8H 7 Days Qty: 21 0RF No Action loperamide 2 mg capsule 2 mg PO QID PRN (Reason: loose stool) Print Language: Lithuanian Instructions: Animal Bite (ED) Referrals: Josette TONEY [Primary Care Provider] - 1 week
[2024-10-20] MEDS: ADACEL DIPH,PERTUSS(ACELL),TET VAC/PF 0.5 ML ADULT SYRINGE IM (08:46)
== END 2024-10-20 08:51 | disposition home or self-care (01) ==
PROVIDERS: Emergency Provider Emergency Medicine; PCP Family Medicine
DX: S61.451A Open bite of right hand, initial encounter (principal); S51.851A Open bite of right forearm, initial encounter; W55.01XA Bitten by cat, initial encounter; Z23 Encounter for immunization
CPT/HCPCS: 90471; 90715; 99284

== ENCOUNTER 2025-06-17 11:48 | Emergency (ER) | payer OTHER, SELFPAY ==
[2025-06-17] VITALS (10 sets, daily range): BP systolic 107–116; BP diastolic 71–73; PULSE 67–77; TEMP 36.8; O2SAT 98–100; BMI 17.8
--- OUTSIDE RECORDS SUMMARY | 2025-06-17 12:39 | XMS_ITS | Patient Health Record ---
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 Role Phone [place] Primary Care Provider Reason For Referral No Information Medications Medication SIG (Take, Route, Frequency, Duration) Notes Start Date End Date Status Vistaril 25 MG Capsule 1 capsule Orally q 6 hrs prn anxiety; Duration: 30 days 02/11/2013ctive Social History Social History Additional DetailsCategorySocial InfoOptionsDetailsFood Insecurity ScreeningFHS Alcoholno Plan Of Treatment No Information Insurance Providers Payer Name Payer Address Payer Phone Subscriber Number Group Number Insured Name Patient Relationship to Insured Coverage Start Date Coverage End Date [facility] [address] [place] [address] [id number], ALISSASelf - patient is the insuredXXXSELF [employer] Self - patient is the insured Medical (General) History Medical History History ICD Code LEVEL 6 TOBACCO
--- OUTSIDE RECORDS SUMMARY | 2025-06-17 12:39 | XMS_ITS | Clinical Summary ---
Author Organization [employer] [facility] tem Address [facility] [place] [id number] 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 Name Role Phone Emmanuelle Lawrence DO, George R Primary Care Provider + Allergies No known active allergies Medications MedicationSigDispense QuantityRefillsLast FilledStart DateEnd DateStatus magnesium oxide (MAG-OX) 400 mg tablet Take 400 mg by mouth daily.Active Active Problems No known active problems Social History Tobacco UseTypesPacks/DayYears UsedDateSmoking Tobacco: FormerSmokeless Tobacco: NeverAlcohol UseStandard Drinks/WeekCommentsYes0 (1 standard drink = 0.6 oz pure alcohol)occasionalChildcareAnswerDate BrzunamnVbzwyptgxPzaqcot45/08/2020 EmploymentAnswerDate MzbmhhdhKediqafifhNswwhzu79/08/2020Purpose - LifeAnswerDate RecordedPurpose and direction in nnybHwcgnls90/11/2021CommentsUnknownSex and Gender InformationValueDate RecordedSex Assigned at BirthNot on fileLegal OdfXtvswj77/08/2020 9:49 AM EDTGender IdentityNot on fileSexual OrientationNot on file Last Filed Vital Signs Vital SignReadingTime TakenCommentsBlood Oaniujlw181/9406 8:43 AM EDT Aqiri5080/03/2020 8:43 AM INXAnnvtptnpal10.5 ??C (97.7 ??F)11/26/2019 6:32 AM EDTRespiratory Oazq738211/26/2019 8:43 AM EDTOxygen Rwgbslzruf534%11/26/2019 8:43 AM EDTInhaled Oxygen Concentration--Njdiba07.3 kg (144 lb)11/26/2019 6:32 AM EDT Mldvwm374.6 cm (5' 6 )11/26/2019 6:32 AM EDTBody Mass Index23.24011/26/2019 6:32 AM EDT Plan of Treatment Health MaintenanceDue DateLast DoneCommentsDepression Hgwgybtcb95/28/2006Tobacco Qmhxptmuh14/28/2006dult BMI Uggitgigl26/28/2012Pap Smear2014DTaP,Tdap and Td Vaccines (7 - Td or Tdap), 11/02/1998, 02/23/1995, Additional history existsInfluenza Nxyqklz8302/23/2025 Medical Devices Not on file Insurance Care Teams Team MemberRelationshipSpecialtyStart DateEnd Date Temo Handley Jr., DO [address] [place] [address], [address] [place] [address] PCP - GeneralFamily Medicine11/12/19
--- OUTSIDE RECORDS SUMMARY | 2025-06-17 12:39 | XMS_ITS | Clinical Summary ---
Author Organization [facility] Address [facility] [place] [address] Care Team Providers Care Gun Welder Name Role Phone Jus Lopez PA-C Unavailable [phone] Temo Handley DO Primary Care Provider + Nadya Beck MD Unavailable [phone] Temo Handley DO Unavailable [phone] Allergies Active AllergyReactionsCriticalityNoted DateCommentsAdhesive Tape-SiliconesRash 09/21/2020 Heart monitor electrodes Cat LdOther: See Pfcpqfzt10/17/2021 Medications MedicationSigDispense QuantityRefillsLast FilledStart DateEnd DateStatus celecoxib (CELEBREX) 200 mg capsule Take 200 mg by mouth two times a day.5Active flecainide (TAMBOCOR) 100 mg tablet Take 1 tablet by mouth twice daily 180 tablet 5Active flecainide (TAMBOCOR) 100 mg tablet Take 1 tablet by mouth two times a day. 60 tablet Discontinued Active Problems Patient Care Coordination No te Formatting of this note migh t be different from the original. Maternal Care Plan: H/O maternal arrhythmia s/p ablation with residual PVC burden (4%). Reports no improvement on Metoprolol short-acting 25 BID - describes her symptoms as intermittent HR of 40s-50sand intermittent HR of 90s- 100s (non-exertional) without palpitations or feeling as though her heart is skipping a beat. Associated mild lightheadedness with HR is 90s-100s with blurry vision, does not improve with rest, no syncopal, no nausea or vomiting, no tinnitus. Zio patch ordered but unable to tolerate due to skin reaction - mild residual erythema on exam today. Plan: G[place]a Consults: Cardiology Specialty: Cardiology Dr. Beck See consult note dated 05/16 Delivery Plan: Date: 07/04/21 IOL Location: [place] Mode of delivery: Expectant Delivery provider: TBD floor: TBD Plan: TBD Patient will continue beta-hipolito peripartum and would advise telemetry during delivery and at least 24 hours . -She will continue conservative management for arrhythmia and presyncope. She will follow up with syncope clinic for further evaluation and treatment. I will see her again in 6 months or sooner as needed. Seen by Dr. Beck on 05/16. Plan to continue Metoprolol 25 BID now and peripartum and recommendedtelemetry intrapartum and 24 hours , with plan to be evaluated with implantable loop recorder and seen in syncope clinic in period. Last US: 06/20 EFW 2,725 g EFW 6 lb 0ou. Corinne Rivera RN ProblemNoted DateDiagnosed DatePSVT (paroxysmal supraventricular tachycardia) 2Recurrent uutzblt39/22/2021Prenatal care / /27/2021 Assessment & Plan (03/21/2021 2:54 PM EDT): Midtrimester labs ordered. Midtrimester counseling provided. Recommend she begin to think about labor/delivery and planning. Chest pain02/16//Frequent PVCs01/10/20214689Dfurfsngw92/19/2021ardiac faitxhjfqy40arpal tunnel syndrome of left wrist11/04/2019 03/07/2023ervical intraepithelial neoplasia grade Mixed anxiety and depressive rnpfsyht62/19/llergic attpxweg02/01/2018 03/07/2023hronic bmxdpzfsmfz072023 Resolved Problems ProblemNoted DateDiagnosed DateResolved DateRh negative state in antepartum ycmlqa80 Overview (06/02/2021): Got RhIG at [facility] 04/20/21. Ab screen was neg just prior to that. Maternal arrhythmia affecting in third trimester, uhbrynskjj47/02/2021 08/10/2021 Overview (02/24/2021): Frequent PVC's, improved but still present post ablation in 2019. Toprol xl Assessment & Plan (04/18/2021 4:08 PM EDT): Assessment: still having palpitations and pre syncopal events. 30 day monitor in placed. 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 PLAN: Check tsh, cbc, labs, gtt. Serial growth ultrasounds planned. Assessment & Plan (03/21/2021 2:59 PM EDT): Overall PVC burden and symptoms remain stable. Recommend she continue metoprolol. Reviewed that dose titration currently limited by her blood pressure and HR. implications of beta hipolito use discussed and serial assessment of growth is planned (next scan at 28 weeks). Continue suppo rtive measures (compression hose, salt intake, and care with postural/positional changes) and electrolyte replacement. Continue follow-up with Cardiology/EP as scheduled. Assessment & Plan (02/24/2021 10:34 AM EDT): Assessment: occasional symptoms. On toprol. Reviewed r/b/a of bblocker and recommended continuation PLAN: Cardiology follow-up, serial growth. Will discussed echo with Dr. Beck, consider genetic counseling if any echo abnormalities associated with connective tissue issue. Encounters DateTypeDepartmentCare BisxOboguttklqi10/10/2025Orders Only Pseudo CARD EPS MAIN Pseudo Department Only [facility]95 Devan Walls, 06/02/2025Refill Cardiology [address] [place], [place] [id number] Devan Walls, Refill Qaxbppg4705/08/2025 Patient Msg Cardiology [address] [facility] [place] [address] Provider, Ccf absence forms05/06/2025Telephone Cardiology [address] [place] [address], [place] [address] Devan Walls, Absence Forms05/03/2025Orders Only Pseudo [place] [address] Devan Walls DO 04/28/2025 Get Medical Advice Cardiology [address] [place] [address], [place] [address] Devan Walls DO Ablation Wygpolcum32/09/2025Orders Only Pseudo [place] [address] Devan Walls DO from Last 3 Months Immunizations ImmunizationAdministration DatesNext DueHaemophilus influenzae b (Hib) vaccine, unspecified bncbdnwqrze47/01/1995,03/10/1994,01/23/1994,1993diphtheria tetanus pertussis (DTP) zozexdp6503/10/1994,01/23/1994,1993diphtheria tetanus pertussis (DTaP) vaccine, unspecified yaynzhxvawz73/11/1999,02/23/1995 hepatitis A (HepA) vaccine, unspecified isdsumfpsfc71/29/2006hepatitis B (HepB) vaccine, 3-dose series, age 0 yr - 19 yr (ENGERIX B-PEDS, RECOMBIVAX HB-PEDS) 07/13/2004,01/23/1994,1993measles mumps rubella (MMR) vaccine (M-M-R II, PRIORIX)11/02/1998,02/23/1995poliovirus (OPV) vaccine, trivalent, live, oral (ORIMUNE)11/02/1998,02/23/1995,01/23/1994,1993tetanus diphtheria pertussis (Tdap) vaccine, age 7+ yr (ADACEL, BOOSTRIX)02/20/2006varicella (ANNETTE) vaccine (VARIVAX)02/20/2006,03/02/1998 Family History Medical HistoryRelationCommentsNo Known ProblemsFatherDiabetesMaternal GrandmotherNo Known ProblemsMotherHeartOtherHeartPaternal GrandfatherRelation StatusCommentsFatherMaternal GrandmotherMotherOtherPaternal Grandfather Social History Tobacco UseTypesPacks/DayYears UsedDateSmoking Tobacco: SbwojjWyzortasvp07 05/25/2011 - 05/25/2019Smokeless Tobacco: NeverAlcohol UseStandard Drinks/Week CommentsYes0 (1 standard drink = 0.6 oz pure alcohol)1 drink per monthArea Deprivation IndexAnswerDate RecordedNational Score (1-100), lower number is lower yget871012/01/2022State Score (1-10), lower number is lower fnbb000 Data from: https://www.neighborhoodatlas.medicine.[facility].edu/. Last address used for wuaaoixrpyn[address]12/01/[birth year]22CommentsUnknownSex and Gender InformationValueDate RecordedSex Assigned at XakppQgifcq19/18/2021 1:17 PM EDT Legal YgtUqubur81/23/2021 1:14 PM ESTGender JisgqauwJvxoii65/18/2021 1:17 PM EDT Sexual UetjrazgsscZdspzmlj54/02/2021 7:00 AM EDT Last Filed Vital Signs Vital SignReadingTime TakenCommentsBlood Qsdpocad528/7609 2:17 PM EDT Gomwm427703/19/2024 2:17 PM BYHRyflgocrjer73.3 ??C (97.4 ??F)03/08/2023 7:32 AM EDTRespiratory Wxmo016503/08/2023 12:30 PM EDTOxygen Dacpumeqkm520%03/08/2023 10:30 AM EDTInhaled Oxygen Concentration--Jswdfl23.6 kg (118 lb 3.2 oz) 12/10/2024 2:44 PM BHEOabgyt119.9 cm (5' 6.5 )12/10/2024 2:44 PM EDTBody Mass Index18.7912/10/2024 2:44 PM EDT Plan of Treatment DateTypeDepartmentCare Team (Latest Contact Info)Adinkoconht04/29/2025 10:30 AM ESTProcedure Cardiology [address] [place], [place] [phone] Redo PVC RFA06/22/2025 11:30 AM ESTOffice Visit Cardiology [address] [place] [address] Beth Hopkins APRN.PACK OPERATOR [address] [place] [address] Redo PVC RFA06/22/2025 1:00 PM ESTResults Only Main [facility] Station [address] [place] [address] Redo PVC RFA07/09/2025 6:00 AM ESTOffice Visit Admitting [address] [place] [address] epxeitqew32/15/2026 9:00 AM ESTOffice Visit Cardiology [address] [place] [address], [place] [address] Redo pvc/rfa07/09/2025 1:00 PM ESTHospital Encounter HOSP EP Lab [address] [place] [address] [place] [address] [place] [address] PVC's (premature ventricular contractions) [I49.3]07/09/2025 1:00 PM EST - 07/09/2025 5:19 PM ESTSurgery HOSP EP Lab [address] [place] [address] [place] [address] [place] [address] COMPLETE EPS W/VT ABL W/WO 3D MAP LA PACE RECNamePriorityAssociated Diagnoses Date/TimeCOMPLETE EPS W/VT ABL W/WO 3D MAP LA PACE REC PVC's (premature ventricular contractions) 07/09/2025 1:00 PM ESTHealth MaintenanceDue DateLast DoneCommentsCervical Cancer Xaeugkmar18/28/2015HPV Vaccine (1 - 3-dose SCDM series)2020ovid-19 Vaccine ( season)2025Influenza Vaccine (#1)5006/27/2024 DTaP,Tdap,Td Vaccine (8 - Td or Tdap)5010/20/2024, 02/20/2006, 11/02/1998, Additional history existsHepatitis B VwtviiqRezeenwfv39/19/2005, 01/23/1994, 1993HIV PlmutyqruJzvotwdgy26/25/2021Hepatitis C Screening Oulgskpcv88/25/2021 Goals GoalPatient Goal TypeAssociated ProblemsRecent ProgressPatient-Stated?Author Blood Pressure < 130/80 Blood Xwwdvkar004/76(03/19/2024 2:17 PM EDT)Devan Boyer, DO Autogenerated Goal Care PlanAutogenerated ProblemNoOptime, Batch Medical Devices ImplantedTypeAreaManufacturerDevice IdentifierShelf Expiration DateModel / Serial / LotLoop Recorder-[id number] Linq [id number] Implanted:07/11/2021 (Quantity not on file)ImplantMEDTRONIC [id number] LINQ II / [id number] / Procedures Procedure NamePriorityDate/TimeAssociated DiagnosisCommentsREM INTERROG SCRMS <30 D PHYS/DCVMpgjrym25/10/2025 11:04 PM EST REM INTERROG SCRMS <30 D PHYS/OAXYgwlojg17/09/2025 11:10 PM EST REM INTERROG SCRMS <30 D PHYS/QIPDjdfmpw47/09/2025 11:07 PM EDT HIV 1/2 COMBO WITH REFLEX TO QDUFZRUCXTEPAMIAHNQ64/25/2021 4:29 PM EDT Maternal arrhythmia affecting in second trimester, antepartum HEPATITIS C ANTIBODY IA WITH WMPVCELFWPAFEZMF04/25/2021 4:29 PM EDT Maternal arrhythmia affecting in second trimester, antepartum from Last 3 Months or Most Recently Relevant to Health Maintenance Results * CARDIAC IMPLANTABLE DEVICE CHECK REMOTE (06/03/2025 11:04 PM EST)Component ValueRef RangeTest MethodAnalysis TimePerformed AtPathologist SignatureDate Time Interrogation [id number] CARDIACType Interrogation SessionRemoteMURJ CARDIACImplantable Pulse Generator ManufacturerMedtronicMURJ CARDIACImplantable Pulse Generator TypeOtherMURJ CARDIACImplantable Pulse Generator [id number] CARDIACImplantable Pulse Generator Serial Number [id number] CARDIACImplantable Pulse Generator Implant [id number] CARDIACSpecimen (Source)Anatomical Location / LateralityCollection Method / VolumeCollection TimeReceived Time06/03/2025 11:04 PM EST Narrative MURJ CARDIAC - 06/08/2025 12:43 PM EST Normal Remote: With Events >SUMMARY: 05/04/25 - 06/04/25 * This is a normal remote diagnostic device check * Alerts or events, _since 05/04/25_: 3 symptoms _(2 previously reported)_ * Battery status: Good * Presenting rhythm: SR, ~66 bpm _(06/03/25, 1:10 am)_ * Heart Rate Histograms reviewed * Estimated PVCs (% beats) 3.1% Premature Ventricular Contraction (PVC) 05/04/25 - 06/04/25 * Estimated PVCs (% beats) 3.1% Patient Triggered: No Arrhythmia * Patient triggered event with symptoms: _Heart pounding, Heart fluttering A little active_ * Stored EGM suggestive of no arrhythmia --- SR w/ QRS changes * Total patient triggered episodes: 1 _(06/02/25, 9:16 am)_ -- PDF attached - TOTAL, _since 05/04/25_: 3 triggered ??events _(2 previously reported)_ NOTE TO PROVIDERS: Cardiac Implanted Devices Flowsheets contain detailed Programming and Evaluation data. Full Docket/PDF found below under Scanned Documents . Procedure Note Devan Walls, DO - 06/08/2025 Normal Remote: With Events >SUMMARY: 05/04/25 - 06/04/25 * This is a normal remote diagnostic device check * Alerts or events, _since 05/04/25_: 3 symptoms _(2 previouslyreported)_ * Battery status: Good * Presenting rhythm: SR, ~66 bpm _(06/03/25, 1:10 am)_ * Heart Rate Histograms reviewed * Estimated PVCs (% beats) 3.1% Premature Ventricular Contraction (PVC) 05/04/25 - 06/04/25 * Estimated PVCs (% beats) 3.1% Patient Triggered: No Arrhythmia * Patient triggered event with symptoms: _Heart pounding, Heart fluttering A little active_ * Stored EGM suggestive of no arrhythmia --- SR w/ QRS changes * Total patient triggered episodes: 1 _(06/02/25, 9:16 am)_ -- PDFattached - TOTAL, _since 05/04/25_: 3 triggered events _(2 previously reported)_ NOTE TO PROVIDERS: Cardiac Implanted Devices Flowsheets contain detailed Programming and Evaluation data. Full Docket/PDF found below under Scanned Documents . Authorizing ProviderResult TypeResult StatusJefferoswald Walls DOCARDIOLOGY Final ResultPerforming OrganizationAddressCity/State/ZIP CodePhone Number MURJ CARDIAC * CARDIAC IMPLANTABLE DEVICE CHECK REMOTE (05/03/2025 11:10 PM EST)Component ValueRef RangeTest MethodAnalysis TimePerformed AtPathologist SignatureDate Time Interrogation [id number] CARDIACType Interrogation SessionRemoteMURJ CARDIACImplantable Pulse Generator ManufacturerMedtronicMURJ CARDIACImplantable Pulse Generator TypeOtherMURJ CARDIACImplantable Pulse Generator [id number] CARDIACImplantable Pulse Generator Serial Number [id number] CARDIACImplantable Pulse Generator Implant [id number] CARDIACSpecimen (Source)Anatomical Location / LateralityCollection Method / VolumeCollection TimeReceived Time05/03/2025 11:10 PM EST Narrative MURJ CARDIAC - 05/15/2025 7:17 AM EST Patient Triggered * Patient triggered events with symptoms: * ID#[id number] (04/17/25, 5:48 am): _Short of breath, Heart pounding, Heart fluttering, Other A little active Chest tightness_ --- SR/ST w/ ectopy & QRS morphology changes/widening noted -- PDF attached * ID#[id number] (04/13/25, 10:50 am): _Heart pounding, Faint, Heart fluttering A little active_ -- SR/STw/ ectopy & QRS changes noted - TOTAL, _since 04/03/25_: 2 triggered events Normal Remote: With Events >SUMMARY: 04/03/25 - 05/04/25 * This is a normal remote diagnostic device check * Alerts or events, _since 04/03/25_: 2 triggered symptoms * Battery status: Good * Presenting rhythm: SR, ~60 bpm _(05/03/25, 10:20 am)_ * Heart Rate Histograms reviewed * PVCs (% beats) 4.2% Premature Ventricular Contraction (PVC) 04/03/25 - 05/04/25 * PVCs (% beats) 4.2% NOTE TO PROVIDERS: Cardiac Implanted Devices Flowsheets contain detailed Programming and Evaluation data. Full Docket/PDF found below under Scanned Documents . Procedure Note Devan Walls, DO - 05/15/2025 Patient Triggered * Patient triggered events with symptoms: * ID#[id number] (04/17/25, 5:48 am): _Short of breath, Heart pounding, Heartfluttering, Other A little active Chest tightness_ --- SR/ST w/ ectopy& QRS morphology changes/widening noted -- PDF attached * ID#[id number] (04/13/25, 10:50 am): _Heart pounding, Faint, Heart fluttering A little active_ -- SR/ST w/ ectopy & QRS changes noted - TOTAL, _since 04/03/25_: 2 triggered events Normal Remote: With Events >SUMMARY: 04/03/25 - 05/04/25 * This is a normal remote diagnostic device check * Alerts or events, _since 04/03/25_: 2 triggered symptoms * Battery status: Good * Presenting rhythm: SR, ~60 bpm _(05/03/25, 10:20 am)_ * Heart Rate Histograms reviewed * PVCs (% beats) 4.2% Premature Ventricular Contraction (PVC) 04/03/25 - 05/04/25 * PVCs (% beats) 4.2% NOTE TO PROVIDERS: Cardiac Implanted Devices Flowsheets contain detailed Programming and Evaluation data. Full Docket/PDF found below under Scanned Documents . Authorizing ProviderResult TypeResult StatusJefferoswald Jamie Walls DOCARDIOLOGY Final ResultPerforming OrganizationAddressCity/State/ZIP CodePhone Number [facility] * CARDIAC IMPLANTABLE DEVICE CHECK REMOTE (04/02/2025 11:07 PM EDT)Component ValueRef RangeTest MethodAnalysis TimePerformed AtPathologist SignatureDate Time Interrogation [id number] CARDIACType Interrogation SessionRemoteMURJ CARDIACImplantable Pulse Generator ManufacturerMedtronicMURJ CARDIACImplantable Pulse Generator TypeOtherMURJ CARDIACImplantable Pulse Generator [id number] CARDIACImplantable Pulse Generator Serial Number [id number] CARDIACImplantable Pulse Generator Implant [id number] CARDIACSpecimen (Source)Anatomical Location / LateralityCollection Method / VolumeCollection TimeReceived Time04/02/2025 11:07 PM EDT Narrative MURJ CARDIAC - 04/10/2025 8:08 AM EDT Patient Triggered * Patient triggered event with symptom(s) Short of breath, heart pounding, heart fluttering ( vomiting) * Stored EGMs are consistent with or suggestive of _SR /ST__ * Clinical arrhythmia during triggered event: __SR/ST with intermittent IVCD and ectopy * Total patient triggered episodes: 2 Premature Ventricular Contraction (PVC) * Stored EGMs are consistent with or suggestive of Premature Ventricular Contraction(s) * Total episodes: _1 binned as pt. triggered alert. PVCs (% beats) 3.6% Normal Remote: No Events Summary report: Monitoring Period: 03-Mar-2025 to 03-Apr-2025 * This is a normal remote diagnostic device check * Alerts or events: 2 binned as pt. triggered alerts, symptoms short of breath, heart pounding, faint, heart fluttering -vomiting * Battery data was reviewed * Battery status: ??Good * Presenting rhythm reviewed: SB, rate: 50 bpm * Heart Rate Histograms reviewed PVCs (% beats) 3.6% NOTE TO PROVIDERS: Cardiac Implanted Devices Flowsheets contain detailed Programming and Evaluation data. Full Docket/PDF found below under Scanned Documents . Procedure Note Devan Walls, DO - 04/10/2025 Patient Triggered * Patient triggered event with symptom(s) Short of breath, heartpounding, heart fluttering ( vomiting) * Stored EGMs are consistent with or suggestive of _SR /ST__ * Clinical arrhythmia during triggered event: __SR/ST with intermittentIVCD and ectopy * Total patient triggered episodes: 2 Premature Ventricular Contraction (PVC) * Stored EGMs are consistent with or suggestive of Premature Ventricular Contraction(s) * Total episodes: _1 binned as pt. triggered alert. PVCs (% beats) 3.6% Normal Remote: No Events Summary report: Monitoring Period: 03-Mar-2025 to 03-Apr-2025 * This is a normal remote diagnostic device check * Alerts or events: 2 binned as pt. triggered alerts, symptoms short ofbreath, heart pounding, faint, heart fluttering -vomiting * Battery data was reviewed * Battery status: Good * Presenting rhythm reviewed: SB, rate: 50 bpm * Heart Rate Histograms reviewed PVCs (% beats) 3.6% NOTE TO PROVIDERS: Cardiac Implanted Devices Flowsheets contain detailed Programming and Evaluation data. Full Docket/PDF found below under Scanned Documents . Authorizing ProviderResult TypeResult StatusJeffery Jamie Walls DOCARDIOLOGY Final ResultPerforming OrganizationAddressCity/State/ZIP CodePhone Number [facility]ARD[facility] * HIV 1 2 COMBO(AG/AB),WITH REFLEX TO DIFFERENTIATION (04/18/2021 4:29 PM EDT) ComponentValueRef RangeTest MethodAnalysis TimePerformed AtPathologist SignatureHIV 12 Combo (Ag/Ab)Non ReactiveNon Vkcfehxu97/26/2021 11:21 AM EDT [facility] LaboratoriesHIV 1/2 Ab ConfirmatoryTest Not Indicated 04/19/2021 11:21 AM EDTCAult[facility] LaboratoriesHIV InterpretationNegative 04/19/2021 11:21 AM EDTCAultman Alliance Community Hospital LaboratoriesComment: No evidence of HIV-1 or HIV-2 infection. Should recent infection be suspected, repeat testing may be considered 2-3 weeks after this draw. HIV Information: [place] Rev. Code 3701.243(E): This information has been disclosed to you from confidential records protected from disclosure by state law. ??You shall make no further disclosure of this information without the specific, written, and informed release of the individual to whom it pertains or as otherwise permitted by state law. A general authorization for the release of medical or other information is not sufficient for the purpose of the release of HIV test results or diagnoses. Specimen (Source)Anatomical Location / LateralityCollection Method / Volume Collection TimeReceived TimeBloodBLOOD SPECIMEN / Urggirz7504/18/2021 4:29 PM EDT 04/18/2021 4:31 PM EDT Narrative Authorizing ProviderResult TypeResult StatusChhaya Guevara MDLABORATORYFinal ResultPerforming OrganizationAddressCity/State/ZIP CodePhone Number [facility] [address] [place] [address] [facility] [address] [place] [address] * HEP C AB IA W/CONF SCRN (04/18/2021 4:29 PM EDT)ComponentValueRef RangeTest MethodAnalysis TimePerformed AtPathologist SignatureHep C Antibody IANegative Vnlknniz14/26/2021 11:21 AM EDTCAultman Alliance [facility] Hospital LaboratoriesSpecimen (Source) Anatomical Location / LateralityCollection Method / VolumeCollection Time Received TimeBloodBLOOD SPECIMEN / Bocoedk8704/18/2021 4:29 PM EDT1 4:31 PM EDT Narrative Authorizing ProviderResult TypeResult StatusChhaya Guevara MDLABORATORYFinal ResultPerforming OrganizationAddressCity/State/ZIP CodePhone Number [facility] [address] [place] [address] [facility] [address] [place] [address] from Last 3 Months or Most Recently Relevant to Health Maintenance Additional Health Concerns Active ProblemsNoted DateDiagnosed DateAutogenerated Iwgepbp9406/09/2025 Insurance Care Teams Team MemberRelationshipSpecialtyStart DateEnd Date Temo Handley DO [address] [place] [phone] PCP - GeneralFamily Medicine09/21/20 Jus Lopez PA-C [address] [facility] [address] [place] [address] Referring08/17/20 [place] [address] [place], [place] [phone] Primary Staff PhysicianCardiology03/01/21 Temo Handley DO [address] [facility] [address] [place] [address] ReferringFamily Medicine02/14/24
--- OUTSIDE RECORDS SUMMARY | 2025-06-17 12:40 | XMS_ITS | Clinical Summary ---
Author Organization [facility] Address [address] [place] [address] Phone Care Team Providers Care [place] Name Role Phone Temo Handley DO Primary Care Provider [phone] Social History Tobacco UseTypesPacks/DayYears UsedDateSmoking Tobacco: Never Assessed CommentsUnknownSex and Gender InformationValueDate RecordedSex Assigned at Not on fileLegal KsyRlujdd27/25/2022 12:11 PM ESTGender IdentityNot on file Sexual OrientationNot on file Last Filed Vital Signs Vital SignReadingTime TakenCommentsBlood Pressure--Pulse--Temperature-- Respiratory Rate--Oxygen Saturation--Inhaled Oxygen Concentration--Xngodq80.7 kg (131 lb 9.8 oz)04/14/2020 8:47 AM PNPSvgvvz959.6 cm (5' 5.98 )04/14/2020 8:47 AM EDTBody Mass Index21.251 8:47 AM EDT Plan of Treatment Not on file Care Teams Team MemberRelationshipSpecialtyStart DateEnd Date Temo Handley DO [address] [place] [address] PCP - General09/25/19
--- OUTSIDE RECORDS SUMMARY | 2025-06-17 12:40 | XMS_ITS | Encounter Summary ---
Author Organization [facility] Address [address] [place] [address] Care Team Providers Care Forest Products Teacher Name Role Phone Jus Lopez PA-C Unavailable [phone] Temo Handley DO Primary Care Provider + Nadya Beck MD Unavailable [phone] Temo Handley DO Unavailable [phone] Source Comments In the event this information is protected by the Federal Confidentiality of Alcohol and Drug AbusePatient Records regulations: The Federal rules restrict any use of the information to criminally investigate or prosecute any alcohol or drug abuse patient.[facility] Encounter Details DateTypeDepartmentCare Team (Latest Contact Info)Awcvoqbbuuj49/10/2025Orders Only Pseudo [place] [address] Devan Walls DO [address] [place], [place] [id number] Social History Tobacco UseTypesPacks/DayYears UsedDateSmoking Tobacco: JvfbqlZcunmhjkaq60 05/25/2011 - 05/25/2019Smokeless Tobacco: NeverAlcohol UseStandard Drinks/Week CommentsYes0 (1 standard drink = 0.6 oz pure alcohol)1 drink per monthArea Deprivation IndexAnswerDate RecordedNational Score (1-100), lower number is lower xsin038212/01/2022State Score (1-10), lower number is lower uqdi334 Data from: https://www.neighborhoodatlas.[facility]/. Last address used for kmxbzlzwgdv[address]CommentsUnknownSex and Gender InformationValueDate RecordedSex Assigned at ZetkqPluduf54/18/2021 1:17 PM EDT Legal KvgZjhdin17/23/2021 1:14 PM ESTGender MojppainEqrefm81/18/2021 1:17 PM EDT Sexual TgyxhetzeamUydsshds72/02/2021 7:00 AM EDTdocumented as of this encounter Plan of Treatment DateTypeDepartmentCare Team (Latest Contact Info)Voviuqyzfsd46/29/2025 10:30 AM ESTProcedure Cardiology [address] [phone] Redo PVC RFA06/22/2025 11:30 AM ESTOffice Visit Cardiology [address] [place], [place] [phone] Beth Hopkins, CHAR FILTER OPERATOR HELPER.DISPUTE RESOLUTION ANALYST [address] [place] [address] Redo PVC RFA06/22/2025 1:00 PM ESTResults Only Main [place] [facility] [address] [place] [address] Redo PVC RFA07/09/2025 6:00 AM ESTOffice Visit Admitting [address] [place] [address] zmmijdjrj09/15/2026 9:00 AM ESTOffice Visit Cardiology [address] [place] [address] 9, Eps Lab [place], [place] [phone] Redo pvc/rfa07/09/2025 1:00 PM ESTHospital Encounter HOSP EP Lab [address] [place] [address] Aj Mathew MD [address] [place] [address] PVC's (premature ventricular contractions) [I49.3]07/09/2025 1:00 PM EST - 07/09/2025 5:19 PM ESTSurgery HOSP EP Lab [address] [place] [address] Aj Mathew MD [address] [place] [address] COMPLETE EPS W/VT ABL W/WO 3D MAP LA PACE RECNamePriorityAssociated Diagnoses Date/TimeCOMPLETE EPS W/VT ABL W/WO 3D MAP [place] PACE REC PVC's (premature ventricular contractions) 07/09/2025 1:00 PM ESTdocumented as of this encounter Goals GoalPatient Goal TypeAssociated ProblemsRecent ProgressPatient-Stated?Author Blood Pressure < 130/80 Blood Sjsgtacz053/76(03/19/2024 2:17 PM EDT)Devan Boyer DO documented as of this encounter Procedures Procedure NamePriorityDate/TimeAssociated DiagnosisCommentsREM INTERROG SCRMS <30 D PHYS/OBFWsrrhla03/10/2025 11:04 PM EST documented in this encounter Results * CARDIAC IMPLANTABLE DEVICE CHECK REMOTE (06/03/2025 11:04 PM EST)Component ValueRef RangeTest MethodAnalysis TimePerformed AtPathologist SignatureDate Time Interrogation [id number] CARDIACType Interrogation SessionRemoteMURJ CARDIACImplantable Pulse Generator ManufacturerMedtronicMUR CARDIACImplantable Pulse Generator TypeOtherMURJ CARDIACImplantable Pulse Generator TswnbKHA11UMSC CARDIACImplantable Pulse Generator Serial Number [id number] CARDIACImplantable Pulse Generator Implant [id number] CARDIACSpecimen (Source)Anatomical Location / LateralityCollection Method / VolumeCollection TimeReceived Time12/03/2025 11:04 PM EST Narrative MURJ CARDIAC - [...] Documents . Authorizing ProviderResult TypeResult StatusJeffery Jamie Courson DOCARDIOLOGY Final ResultPerforming OrganizationAddressCity/State/ZIP CodePhone Number MURJ CARDIAC documented in this encounter Visit Diagnoses Not on filedocumented in this encounter Care Teams Team MemberRelationshipSpecialtyStart DateEnd Date Temo Handley DO [address] [place] [phone] PCP - GeneralFamily Medicine09/21/20 Jus Lopez PA-C [address] [place] [address] Referring08/17/20 [place] [address] [place] [address] Primary Staff PhysicianCardiology03/01/21 Temo Handley DO [address] [place] [phone] ReferringFamily Medicine02/14/24documented as of this encounter
--- OUTSIDE RECORDS SUMMARY | 2025-06-17 12:40 | XMS_ITS | Clinical Summary ---
Author Organization [facility] Address [address] [place] [address] Care Team Providers Care Import Coordination And Production Head Name Role Phone Temo Handley DO Primary Care Provider [phone] Temo Handley DO Unavailable [phone] Allergies Active AllergyReactionsCriticalityNoted DateCommentsCat OqabzrXrbgf91/17/2021 Penicillin CDycpUux99/15/2023Wound Dressing RgmwlrdlWhziNuk79/30/2021 Heart monitor electrodes Medications MedicationSigDispense QuantityRefillsLast FilledStart DateEnd DateStatus flecainide (Tambocor) 100 MG tablet Take 50 mg by mouth in the morning and 50 mg before bedtime.Active celecoxib (CeleBREX) 200 MG capsule Indications:Numbness in feet,Cervical radiculopathy,Swollen lymph nodesTake 1 capsule (200 mg) by mouth Daily 30 capsule 5Active ondansetron (Zofran) 4 MG tablet Indications:Viral gastroenteritisTake 1 tablet (4 mg) by mouth every 8 (eight) hours if needed for nausea or vomiting 20 tablet 5Active gabapentin (Neurontin) 100 MG capsule Indications:RLS (restless legs syndrome)Take 3 capsules (300 mg) by mouth at bedtime 90 capsule 5Active methylPREDNISolone (Medrol Dospak) 4 MG tablets Indications:Sprain of anterior talofibular ligament of left ankle, initial encounterFollow schedule on package instructions 21 tablet 5Active Atogepant (Qulipta) 60 MG tablet Indications:Chronic migraine without aura with status migrainosus, not intractableTake 60 mg by mouth Daily 30 tablet Expired Active Problems ProblemNoted DateDiagnosed DateChronic migraine without aura with status migrainosus, not itmtrsflldw40/05/2025asilar artery ymfbxnek52/07/2025GERD (gastroesophageal reflux disease)5Current gjhhhn4012/28/2022 Overview (12/28/2022): Added secondary to documentation in Social History. PSVT (paroxysmal supraventricular tachycardia)2Recurrent syncope 6390Dxejevqnq28/19/2021Frequent PVCs01/10/2021ardiac /22/2021 Ventricular premature vuwceeehwtxdyd75/27/2020Cervical intraepithelial neoplasia grade Vaginal high risk human papillomavirus (HPV) DNA test positive 01/14/2019Mixed anxiety and depressive crdclutr76/19/2019Allergic rhinitis 11/23/2017Idiopathic scoliosis and ivdyydaugxutce15/21/2017EDS (Robi-Danlos syndrome) Encounters DateTypeDepartmentCare AdznZkpsmyxcaph61/05/2025 3:40 PM ESTOffice Visit [facility] [address] [place] [phone] Valdemar Tejada MD Chronic migraine without aura with status migrainosus, not intractable (Primary Dx); RLS (restless legs syndrome); EDS (Robi-Danlos syndrome) (HCC); Basilar artery /05/3037Ltjjvt94/05/2025Results Follow-Up [facility] [address] [place] [address] Jus Lopez PA XR ankle 3+ views left04/28/2025 11:00 AM ESTAncillary Procedure [facility] [address] [place] [phone] Acute left ankle pain; Sprain of anterior talofibular ligament of left ankle, initial encounter; Left foot pain04/28/2025 10:40 AM ESTOffice Visit [facility] [address] [place] [phone] Jus Lopez PA Acute left ankle pain (Primary Dx); Sprain of anterior talofibular ligament of left ankle, initial encounter; Left foot pain04/28/2025amboo flowsheet [facility] [address] [place] [phone] Jsu Lopez PA 04/28/2025Travelfrom Last 3 Months Immunizations ImmunizationAdministration DatesNext WsbBQM7703/10/1994,01/23/1994,1993DTaP 11/02/1998,02/23/1995DTaP, Vsgynywbzok26/11/1999,02/23/1995Hep A, Adult 02/20/2006Hep A, Vagduaahvqr85/29/2006Hep B, Adolescent or Gdwoojouc24/19/2005, 01/23/1994,1993HiB, zarsnswfjar77/01/1995,03/10/1994,01/23/1994,1993 Hib ([facility])02/23/1995,03/10/1994,01/23/1994,1993Influenza, seasonal, injectable, preservative free06/27/2024MMR11/02/1998,02/23/1995OPV11/02/1998, 02/23/1995,01/23/1994,1993Tdap10/20/2024,02/20/20062284Rmsazzffq32/29/2006, 03/02/1998 Family History Medical HistoryRelationNameCommentsDiabetesMaternal GrandmotherDiabetesPaternal GrandfatherHeart diseasePaternal GrandfatherRelationNameStatusCommentsFather AliveMaternal GrandmotherMotherAlivePaternal Grandfather Social History Tobacco UseTypesPacks/DayYears UsedDateSmoking Tobacco: NeverSmokeless Tobacco: Never Tobacco Cessation:Counseling Given: Yes Alcohol UseStandard Drinks/WeekCommentsNever0 (1 standard drink = 0.6 oz pure alcohol)B1300 Health LiteracyAnswerDate RecordedHow often do you need to have someone help you when you read instructions, pamphlets, or other written material from your doctor or pharmacy?Often03/09/2025Humiliation, Afraid, Rape, and Kick questionnaireAnswerDate RecordedWithin the last year, have you been afraid of your partner or ex-partner?No03/09/2025Within the last year, have you been humiliated or emotionally abused in other ways by your partner or ex-partner?No03/09/2025Within the last year, have you been kicked, hit, slapped, or otherwise physically hurt by your partner or ex-partner?No03/09/2025Within the last year, have you been raped or forced to have any kind of sexual activity by your partner or ex-partner?No03/09/2025Social Connection and Isolation Panel AnswerDate RecordedIn a typical week, how many times do you talk on the phone with family, friends, or neighbors?More than three times a week03/09/2025How often do you get together with friends or relatives?More than three times a week 03/09/2025How often do you attend yarsani or rastafarian services?Never03/09/2025Do you belong to any clubs or organizations such as yarsani groups, unions, fraternal or athletic groups, or school groups?No03/09/2025How often do you attend meetings of the clubs or organizations you belong to?Never03/09/2025re you , , , , never , or living with a partner?Never feqeadf1503/09/2025UDIT-CAnswerDate RecordedQ1: How often do you have a drink containing alcohol?Monthly or less03/09/2025Q2: How many drinks containing alcohol do you have on a typical day when you are drinking?1 or 2 03/09/2025Q3: How often do you have six or more drinks on one occasion?Never 03/09/2025Overall Financial Resource Strain (CARDIA)AnswerDate RecordedHow hard is it for you to pay for the very basics like food, housing, medical care, and heating?Not hard at all03/09/2025PHQ-2AnswerDate RecordedPatient Health Questionnaire-2 Esdgv917Finun[facility] [employer] Occupational Health - Occupational Stress QuestionnaireAnswerDate RecordedDo you feel stress - tense, restless, nervous, or anxious, or unable to sleep at night because yourmind is troubled all the time - these days?To some tuvzmo8503/09/2025Exercise Vital Sign AnswerDate RecordedOn average, how many days per week do you engage in moderate to strenuous exercise (like a brisk walk)?0 days03/09/2025On average, how many minutes do you engage in exercise at this level?0 min03/09/2025Hunger Vital Sign AnswerDate RecordedWithin the past 12 months, you worried that your food would run out before you got the money to buymore.Never true03/09/2025Within the past 12 months, the food you bought just didn't last and you didn't have money to get more.Never true03/09/2025PRAPARE - TransportationAnswerDate RecordedIn the past 12 months, has lack of transportation kept you from medical appointments or from getting medications?No03/09/2025In the past 12 months, has lack of transportation kept you from meetings, work, or from getting things needed for daily living?No03/09/2025Housing Stability Vital SignAnswerDate RecordedIn the last 12 months, was there a time when you were not able to pay the mortgage or rent on time?No03/09/2025Number of Times Moved in the Last YearNot on file 03/09/2025t any time in the past 12 months, were you homeless or living in a mcfp (including now)?No03/09/2025CommentsNoSex and Gender Information ValueDate RecordedSex Assigned at BirthNot on fileLegal AqrFwhxwb49/15/2023 6:37 PM EDTGender IdentityNot on fileSexual OrientationNot on file Last Filed Vital Signs Vital SignReadingTime TakenCommentsBlood Xyuwsyll927/7411 3:44 PM EST Rrvuw791604/28/2025 10:52 AM CAWSrtwtpdgtsr42.7 ??C (96.3 ??F)04/28/2025 10:52 AM ESTRespiratory Rate--Oxygen Vrsgnlbnsa93%04/28/2025 10:52 AM ESTInhaled Oxygen Concentration--Pbvgyq84.1 kg (117 lb)04/29/2025 3:44 PM XHHTppoyl852.6 cm (5' 6 )04/29/2025 3:44 PM ESTBody Mass Index18.8804/29/2025 3:44 PM EST Plan of Treatment DateTypeDepartmentCare Team (Latest Contact Info)Zooaaqomgig42/26/2026 3:30 PM ESTOffice Visit [facility] [address] [facility] [address] [place] [address] Valdemar Tejada MD [address] [place], [place] [phone] Health MaintenanceDue DateLast DoneCommentsHPV/Bfdwjw9909/20/2023Influenza Vaccine (#1)501/5Cervical Cancer Xpxlvuxvt48/26/2025Pap Smear03/20/2025 03/20/2022, 03/20/2022, 12/14/2020, Additional history existsPneumococcal Vaccine: Pediatrics (0 to 5 Years) and At-Risk Patients (6 to 64 Years)Aged Out No longer eligible based on patient's age to complete this topic Procedures Procedure NamePriorityDate/TimeAssociated DiagnosisCommentsXR FOOT 3+ VIEWS LEFT Wrimrqx3004/28/2025 11:18 AM EST Acute left ankle pain Sprain of anterior talofibular ligament of left ankle, initial encounter Left foot pain XR ANKLE 3+ VIEWS MVBEZuhqvio40/04/2025 11:18 AM EST Acute left ankle pain Sprain of anterior talofibular ligament of left ankle, initial encounter PAP OQFUWVtnpvnh21/26/2022 12:00 AM EDTfrom Last 3 Months or Most Recently Relevant to Health Maintenance Results * XR foot 3+ views left (04/28/2025 11:18 AM EST)Anatomical RegionLaterality ModalityLower Extremities, FootLeftRadiographic ImagingSpecimen (Source) Anatomical Location / LateralityCollection Method / VolumeCollection Time Received Time04/28/2025 5:53 PM EST Impressions 04/28/2025 5:54 PM EST No acute osseous findings. ELECTRONICALLY SIGNED BY: Dilshad Landa MD Narrative 04/28/2025 5:54 PM EST EXAMINATION/TECHNIQUE: XR ANKLE 3+ VIEWS LEFT, XR FOOT 3+ VIEWS LEFT HISTORY: Twisting injury of the left foot and ankle. COMPARISON: None RESULT: Left ankle/foot: Ankle mortise intact. No acute fracture. No dislocation. Joint spaces of the ankleand foot appear grossly maintained. Mild soft tissue edema. No radiopaque foreign body. Procedure Note Dilshad Landa MD - 04/28/2025 EXAMINATION/TECHNIQUE: XR ANKLE 3+ VIEWS LEFT, XR FOOT 3+ VIEWS LEFT HISTORY: Twisting injury of the left foot and ankle. COMPARISON: None RESULT: Left ankle/foot: Ankle mortise intact. No acute fracture. No dislocation.Joint spaces of the ankle and foot appear grossly maintained. Mild softtissue edema. No radiopaque foreign body. IMPRESSION: No acute osseous findings. ELECTRONICALLY SIGNED BY: Dilshad Landa MD Authorizing ProviderResult TypeResult StatusJus Lopez [facility] XR PROCEDURES Final Result * XR ankle 3+ views left (04/28/2025 11:18 AM EST)Anatomical RegionLaterality ModalityLower Extremities, AnkleLeftRadiographic ImagingSpecimen (Source) Anatomical Location / LateralityCollection Method / VolumeCollection Time Received Time04/28/2025 5:53 PM EST Impressions 04/28/2025 5:54 PM EST No acute osseous findings. ELECTRONICALLY SIGNED BY: Dilshad Landa MD Narrative 04/28/2025 5:54 PM EST EXAMINATION/TECHNIQUE: XR ANKLE 3+ VIEWS LEFT, XR FOOT 3+ VIEWS LEFT HISTORY: Twisting injury of the left foot and ankle. COMPARISON: None RESULT: Left ankle/foot: Ankle mortise intact. No acute fracture. No dislocation. Joint spaces of the ankleand foot appear grossly maintained. Mild soft tissue edema. No radiopaque foreign body. Procedure Note Dilshad Landa MD - 04/28/2025 EXAMINATION/TECHNIQUE: XR ANKLE 3+ VIEWS LEFT, XR FOOT 3+ VIEWS LEFT HISTORY: Twisting injury of the left foot and ankle. COMPARISON: None RESULT: Left ankle/foot: Ankle mortise intact. No acute fracture. No dislocation.Joint spaces of the ankle and foot appear grossly maintained. Mild softtissue edema. No radiopaque foreign body. IMPRESSION: No acute osseous findings. ELECTRONICALLY SIGNED BY: Dilshad Landa MD Authorizing ProviderResult TypeResult Victor Hugo Lopez PAIMG XR PROCEDURES Final Result * Pap Smear (03/20/2022 12:00 AM EDT)Specimen (Source)Anatomical Location / LateralityCollection Method / VolumeCollection TimeReceived TimeSwabCervical swab / Unknown Narrative Authorizing ProviderResult TypeResult StatusHistorical Provider CARLO CYTOLOGY ORDERABLESFinal ResultPerforming OrganizationAddressCity/State/ZIP CodePhone Number QUEST from Last 3 Months or Most Recently Relevant to Health Maintenance Insurance Care Teams Team MemberRelationshipSpecialtyStart DateEnd Date Temo Handley DO [address] [facility] [address] [place] [address] PCP - [facility]12/07/22 Temo Handley DO [address] [facility] [address] [place] [address] [facility]09/24/23
[2025-06-17 12:42] LABS: Hematocrit 41.3 % (36.0-48.0); Hemoglobin 13.9 g/dL (12.0-16.0); Immature Granulocytes Abs Auto 0.02 10^3/uL (0.00-0.03); Immature Granulocytes Pct Auto 0.3 % (0.0-0.5); Lymphocytes Absolute Auto 1.7 10^3/uL (1.2-3.8); Mean Corpuscular HGB Conc 33.7 g/dL (29.9-35.2); Mean Corpuscular Hemoglobin 30.1 pg (26.7-34.0); Mean Corpuscular Volume 89.4 fL (81.0-99.0); Platelet Count 308 10^3/uL (150-450); Red Blood Count 4.62 10^6/uL (4.20-5.40); White Blood Count 7.4 10^3/uL (4.0-11.0)
[2025-06-17 12:58] LABS: Alanine Aminotransferase 20 U/L (14-59); Albumin Globulin Ratio 1.3; Albumin Level 4.0 g/dL (3.4-5.0); Alkaline Phosphatase 47 U/L (46-116); Anion Gap 7.9; Aspartate Amino Transferase 12 U/L (15-37); Blood Urea Nitrogen 9.0 mg/dL (7.0-18.0); Calcium 9.0 mg/dL (8.5-10.1); Carbon Dioxide 33.2 mmol/L (21.0-32.0); Chloride 104 mmol/L (98-107); Estimated GFR (African America >60 (>=60 mL/min/1.73m^2); Estimated GFR (Non-African Ame >60 (>=60 mL/min/1.73m^2); Globulin 3.2 g/dL; Glucose 72 mg/dL (74-106); Potassium 4.1 mmol/L (3.5-5.1); Sodium 141 mmol/L (136-145); Total Protein 7.2 g/dL (6.4-8.2)
[2025-06-17 13:19] LABS: Glucose Urine UA NEGATIVE (NEGATIVE)
--- NOTE | 2025-06-17 13:19 | ECG_ITS ---
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 Measurements Intervals [place] Rate: 69 P: 33 AK: 134 QRS: 85 QRSD: 96 T: 49 QT: 422 QTc: 440 Interpretive Statements 1100 Sinus rhythm 9110 normal ECG Compared to ECG 02/22/2024 09:09:44 Short AK interval no longer present Right-axis deviation no longer present Electronically Signed On 06-18-2025 7:46:15 EST by JENN CAMPBELL M.D.
[2025-06-17 13:22] LABS: HCG Qualitative Urine* NEGATIVE (NEGATIVE)
[2025-06-17 13:26] LABS: Cast Seen? NONE SEEN #/LPF (NONE SEEN); Crystals Seen? None Seen #/HPF (None Seen); Urine Culture Indicated NO
--- NOTE | 2025-06-17 16:32 | ED.GENADUL1 ---
HPI HPI - General Adult General Chief complaint: Nausea/Vomiting/Diarrhea Stated complaint: VOMITING Time Seen by Provider: 06/17/25 11:55 Source: patient Mode of arrival: walk-in Limitations: no limitations History of Present Illness HPI narrative: Patient is a 29-year-old female presenting to the emergency department for evaluation of vomiting. Patient states she had 6 episode of vomiting earlier today. She has not vomited in the last hour and a half. Vomiting was nonbloody and nonbilious. She denies any current symptoms. She has no abdominal pain, constipation, diarrhea, chest pain, shortness breath, fevers, or chills. She does not smoke marijuana and does not use illicit drugs. Denies history of intra-abdominal surgeries. She denies being . She is a history of chronic migraines and Robi-Danlos syndrome, otherwise is healthy with no chronic medical conditions. Related Data Home Medications ?Medication ?Instructions ?Recorded ?Confirmed loperamide 2 mg capsule 2 mg PO QID PRN loose stool 02/22/24 10/20/24 atogepant 60 mg tablet (Qulipta) 60 mg PO DAILY 06/17/25 06/17/25 celecoxib 200 mg capsule 200 mg PO DAILY 06/17/25 06/17/25 flecainide 100 mg tablet 100 mg PO BID 06/17/25 06/17/25 gabapentin 100 mg capsule 300 mg PO BEDTIME 06/17/25 06/17/25 Previous Rx's ?Medication ?Instructions ?Recorded ondansetron 4 mg disintegrating 4 mg PO Q8H PRN nausea and 06/17/25 tablet vomiting 5 days #10 tabs Allergies Allergy/AdvReac Type Severity Reaction Status Date / Time Penicillins Allergy Mild Rash Verified 10/20/24 08:20 Opioid HPI Opioid Management Most Recent Opioid Data: Last Pain Scale 10 Today, 11:53 Review of Systems ROS Status of ROS 10 or more systems reviewed and unremarkable except as noted in history and below PFSH PFS Medical History (Updated 06/17/25 @ 13:30 by Ran Tan DO) Bradycardia ?R00.1 - Bradycardia, unspecified (ICD-10) PVC (premature ventricular contraction) ?I49.3 - Ventricular premature depolarization (ICD-10) Social History Little interest or pleasure in doing things: not at all Feeling down, depressed, or hopeless: not at all Exam Narrative Exam Narrative: CONSTITUTIONAL: Well-appearing, answering questions and following commands appropriately SKIN: Was warm and dry. EYES: Sclerae white. EARS, NOSE, THROAT: Moist oral mucosa. RESPIRATORY: Clear to auscultation bilaterally, no wheezes, crackles, or stridor, no use of accessory muscles CARDIOVASCULAR: Normal rate and regular rhythm. There is no S3, S4, murmur, rub. GASTROINTESTINAL: Abdomen is soft, nontender, and nondistended. No rebound tenderness or guarding. MUSCULOSKELETAL: No peripheral edema. NEUROLOGIC: Patient is awake and alert. Facies were symmetrical. Constitutional Vital Signs, click to edit/add: Last Vital Signs Temp 98.2 F 06/17/25 11:53 Pulse 71 06/17/25 13:40 Resp 16 06/17/25 13:40 BP 113/73 06/17/25 12:30 Pulse Ox 100 06/17/25 12:40 O2 Del Method Room Air 06/17/25 11:53 Course Vital Signs Vital signs: Vital Signs Temperature 98.2 F 06/17/25 11:53 Pulse Rate 69 06/17/25 11:53 Respiratory Rate 18 06/17/25 11:53 Blood Pressure 116/71 06/17/25 11:53 Pulse Oximetry 100 06/17/25 11:53 Oxygen Delivery Method Room Air 06/17/25 11:53 Temperature 98.2 F 06/17/25 11:53 Pulse Rate 71 06/17/25 13:40 Respiratory Rate 16 06/17/25 13:40 Blood Pressure 113/73 06/17/25 12:30 Pulse Oximetry 100 06/17/25 12:40 Oxygen Delivery Method Room Air 06/17/25 11:53 Medical Decision Making [facility] Narrative Medical decision making narrative: Patient is a 29-year-old female presenting to the emergency department for evaluation of vomiting earlier today. Her vital signs on arrival are within normal limits. She is afebrile hemodynamically stable. Examination as noted above. She is currently well-appearing and has no current symptoms. Differential diagnosis includes viral gastroenteritis, UTI, , transient GI upset. Patient's exam is not consistent with surgical etiologies of abdominal pain such as appendicitis, cholecystitis, or perforated viscus. Laboratory studies were obtained to rule out underlying electrolyte/metabolic derangement. She was given IV Zofran for symptomatic treatment. Laboratory studies were unremarkable. No significant electrolyte or metabolic derangement. No evidence of acute kidney injury. No anemia, leukocytosis, or thrombocytopenia. No transaminitis or hyperbilirubinemia. test negative. Urinalysis negative for acute infection. On reevaluation, patient states she feels well. I do believe the patient is stable for discharge. They were instructed to follow up with her PCP for further care. Return precautions were given including any new or worsening symptoms. They were given a prescription for Zofran ODT. Patient understands and agrees to the plan. FINAL IMPRESSION: #Acute nausea and vomiting, resolved DISPOSITION: Discharged home CONDITION: Good Lab Data Lab results reviewed: Yes I reviewed the patient's lab results Labs: Lab Results 06/17/25 06/17/25 Range/Units 12:25 13:05 WBC 7.4 (4.0-11.0) 10^3/uL RBC 4.62 (4.20-5.40) 10^6/uL Hgb 13.9 (12.0-16.0) g/dL Hct 41.3 (36.0-48.0) % MCV 89.4 (81.0-99.0) fL MCH 30.1 (26.7-34.0) pg MCHC 33.7 (29.9-35.2) g/dL RDW 12.2 (11.0-15.0) % Plt Count 308 (150-450) 10^3/uL MPV 8.6 L (9.5-13.5) fL Neut % (Auto) 64.7 (43.0-75.0) % Lymph % (Auto) 22.3 (20.5-60.0) % Gonzales % (Auto) 11.2 (1.7-12.0) % Eos % (Auto) 0.8 L (0.9-7.0) % Baso % (Auto) 0.7 (0.2-2.0) % Neut # (Auto) 4.8 (1.4-6.5) 10^3/uL Lymph # (Auto) 1.7 (1.2-3.8) 10^3/uL Gonzales # (Auto) 0.8 (0.3-0.8) 10^3/uL Eos # (Auto) 0.1 (0.0-0.7) 10^3/uL Baso # (Auto) 0.1 (0.0-0.1) 10^3/uL Abs Immat Gran (auto) 0.02 (0.00-0.03) 10^3/uL Imm/Tot Granulo (auto) 0.3 (0.0-0.5) % Sodium 141 (136-145) mmol/L Potassium 4.1 (3.5-5.1) mmol/L Chloride 104 (98-107) mmol/L Carbon Dioxide 33.2 H (21.0-32.0) mmol/L Anion Gap 7.9 BUN 9.0 (7.0-18.0) mg/dL Creatinine 0.54 L (0.55-1.02) mg/dL Est GFR ( Amer) >60 (>=60 mL/min/1.73m^2) Est GFR (Non-Af Amer) >60 (>=60 mL/min/1.73m^2) BUN/Creatinine Ratio 16.7 Glucose 72 L (74-106) mg/dL Calcium 9.0 (8.5-10.1) mg/dL Total Bilirubin 0.5 (0.2-1.0) mg/dL AST 12 L (15-37) U/L ALT 20 (14-59) U/L Alkaline Phosphatase 47 (46-116) U/L Total Protein 7.2 (6.4-8.2) g/dL Albumin 4.0 (3.4-5.0) g/dL Globulin 3.2 g/dL Albumin/Globulin Ratio 1.3 Urine Color Lt. yellow (YELLOW) Urine Clarity Clear (CLEAR) Urine pH 8.0 (5.0-9.0) Ur Specific Hitchcock 1.010 (1.005-1.025) Urine Protein Negative (NEG/TRACE) mg/dL Urine Glucose (UA) Negative (NEGATIVE) mg/dL Urine Ketones Negative (NEGATIVE) mg/dL Urine Occult Blood Negative (NEGATIVE) Urine Nitrite Negative (NEGATIVE) Urine Bilirubin Negative (NEGATIVE) Urine Urobilinogen 0.2 (0.2-1.0) EU/dL Ur Leukocyte Esterase Negative (NEGATIVE) Urine RBC 0-2 (0-2) #/HPF Urine WBC 0-2 A (NONE SEEN) #/HPF Ur Squamous Epith Cells Rare (NONE/RARE) #/LPF Urine Crystals None seen (None Seen) #/HPF Urine Bacteria None seen (NONE SEEN) #/HPF Urine Casts None seen (NONE SEEN) #/LPF Urine Mucus None seen (NONE SEEN) Ur Culture Indicated? No Urine HCG, Qual Negative (NEGATIVE) Discharge Plan Discharge Chief Complaint: Nausea/Vomiting/Diarrhea Clinical Impression: Vomiting Patient Disposition: Home, Self-Care Time of Disposition Decision: 13:30 Condition: Good Mode of Transportation: Private Vehicle Prescriptions / Home Meds: New ondansetron 4 mg tablet,disintegrating 4 mg PO Q8H PRN (Reason: nausea and vomiting) 5 Days Qty: 10 0RF No Action loperamide 2 mg capsule 2 mg PO QID PRN (Reason: loose stool) flecainide 100 mg tablet 100 mg PO BID celecoxib 200 mg capsule 200 mg PO DAILY gabapentin 100 mg capsule 300 mg PO BEDTIME Qulipta 60 mg tablet 60 mg PO DAILY Print Language: Icelandic Instructions: Acute Nausea and Vomiting (ED) Referrals: Josette TONEY [Primary Care Provider, Family Practice] - 1 week Discharge Date/Time: 06/17/25 13:55
== END 2025-06-17 13:55 | disposition home or self-care (01) ==
PROVIDERS: Emergency Provider Student in an Organized Health Care Education/Training Program; PCP Family Medicine
DX: R11.10 Vomiting, unspecified (principal); Q79.60 Ehlers-Danlos syndrome, unspecified
CPT/HCPCS: 36415; 80053; 81001; 84703; 85025; 93005; 96374; 99284; J2405